=== PATIENT | male | born 1985 | race Caucasian/White ===

== ENCOUNTER 2019-04-07 16:01 | Inpatient (IN) | payer MEDICAID ==
[2019-04-07] MEDS ORDERED: PROVENTIL IH ONE ×2 (16:06→16:17)
[2019-04-07] MEDS ORDERED: ATROVENT IH ONE ×2 (16:06→16:17)
[2019-04-07] MEDS ORDERED: TYLENOL PR PRN (16:17)
[2019-04-07] MEDS ORDERED: VANCOMYCIN 1,250 MG in NACL 0.9% 500 ML 500 ML IV ONE (16:17)
[2019-04-07] MEDS ORDERED: NACL 0.9% 1000 ML 2,000 ML IV ONE (16:17)
--- NOTE | 2019-04-07 16:21 | Emergency Department Report ---
ED General Adult HPI - General Chief complaint: Dyspnea/Respdistress Stated complaint: PAVITHRA Time Seen by Provider: 04/07/19 16:09 Source: patient, family, EMS (verbal report received from EMS.ems notes not available at time of chart dictation), RN notes reviewed Mode of arrival: Stretcher Limitations: Physical Limitation - History of Present Illness Initial comments: This is a 33-year-old gentleman. The patient is not known to this provider previously. He currently does not have a local primary care doctor. 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 Approximately 4-5 weeks ago, he was admitted to [facility] for what family reports was community-acquired pneumonia, complicated by influenza, complicated by difficult intubation. Patient had extensive workup, including a rule out for tuberculosis. He improved and was discharged. Over the past couple days, the patient has been having cough, wheezing, shortness of breath. It has been intermittent, but getting worse. Today, he got profoundly worse. Emergency medical services were contacted. Patient given steroids, albuterol, and magnesium sulfate in the field. In the emergency room, the patient denies physical pain. He admits to shortness of breath. It is constant. It worsens with physical exertion. It decreases with rest and with medication. Patient found to be in acute hypoxemic respiratory failure, started on albuterol, Atrovent, BiPAP therapy, found to have a fever and tachycardia. His symptoms improved with the aforementioned therapy, although he still has labored breathing, and is still fairly tachycardic. -: Gradual, days(s) Consistency: constant Improves with: medication, rest Worsens with: movement - Related Data Home Medications Medication Instructions Recorded Confirmed Last Taken risperiDONE [RisperDAL] 2 mg PO BID 10/19/15 10/19/15 1 Day Ago ~10/18/15 Previous Rx's Medication Instructions Recorded Last Taken Type Ibuprofen [Motrin] 600 mg PO Q8H PRN #40 tablet 04/14/16 Unknown Rx Sulfamethoxazole/Trimethoprim 1 each PO BID #20 tablet 04/14/16 Unknown Rx [Bactrim DS TAB] traMADol [Ultram] 50 mg PO Q6HR PRN #20 tablet 04/14/16 Unknown Rx Allergies Allergy/AdvReac Type Severity Reaction Status Date / Time No Known Allergies Allergy Unverified 08/22/15 15:48 ED Review of Systems ROS: Stated complaint: PAVITHRA Other details as noted in HPI Constitutional: fever, malaise, weakness ENT: congestion Respiratory: cough, shortness of breath, SOB with exertion, SOB at rest, wh eezing Cardiovascular: denies: chest pain Gastrointestinal: denies: abdominal pain Genitourinary: denies: dysuria Musculoskeletal: denies: myalgia Skin: denies: lesions Neurological: weakness Psychiatric: anxiety ED Past Medical Hx - Past Medical History Previous Medical History?: Yes Hx Seizures: Yes Hx Psychiatric Treatment: Yes (depression, schizophrenia) 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 - Surgical History Past Surgical History?: No - Social History Smoking Status: Current Every Day Smoker Substance Use Type: None - Medications Home Medications: Home Medications Medication Instructions Recorded Confirmed Last Taken Type risperiDONE [RisperDAL] 2 mg PO BID 10/19/15 10/19/15 1 Day Ago History ~10/18/15 Ibuprofen [Motrin] 600 mg PO Q8H PRN #40 tablet 04/14/16 Unknown Rx Sulfamethoxazole/Trimethoprim 1 each PO BID #20 tablet 04/14/16 Unknown Rx [Bactrim DS TAB] traMADol [Ultram] 50 mg PO Q6HR PRN #20 tablet 04/14/16 Unknown Rx ED Physical Exam - General Limitations: Physical Limitation General appearance: alert, anxious, in distress - Head Head exam: Present: atraumatic, normocephalic - Eye Eye exam: Present: normal appearance, EOMI. Absent: nystagmus - ENT ENT exam: Present: normal exam, normal orophraynx, mucous membranes moist, normal external ear exam - Neck Neck exam: Present: normal inspection, full ROM. Absent: tenderness, meningismus - Respiratory Respiratory exam: Present: respiratory distress, wheezes, rhonchi, accessory muscle use - Cardiovascular Cardiovascular Exam: Present: normal rhythm, tachycardia, normal heart sounds. Absent: systolic murmur, diastolic murmur, rubs, gallop - GI/Abdominal GI/Abdominal exam: Present: soft. Absent: distended, tenderness, guarding, re bound, rigid, pulsatile mass - Rectal Rectal exam: Present: deferred - Extremities Exam Extremities exam: Present: normal inspection, full ROM, other (2+ pulses noted in the bilateral upper extremities. There is no palpable cord. There is negative Homans sign. Compartments are soft.). Absent: pedal edema, calf tenderness - Back Exam Back exam: Present: normal inspection, full ROM. Absent: tenderness, CVA tenderness (R), CVA tenderness (L), muscle spasm, paraspinal tenderness, vertebral tenderness - Neurological Exam Neurological exam: Present: alert, other (Extraocular movements intact. Tongue midline. No facial droop. Facial sensation intact to light touch in the V1, V2, V3 distribution bilaterally. 5 and 5 strength in 4 extremities.. Sensation is intact to light touch in 4 extremities.). Absent: motor sensory deficit - Psychiatric Psychiatric exam: Present: anxious - Skin Skin exam: Present: warm, dry, intact, normal color. Absent: rash ED Course Vital Signs 04/07/19 04/07/19 04/07/19 16:07 16:10 16:11 Temperature 99.0 F 102.5 F H Pulse Rate 153 H Pulse Rate [ 159 H Anterior Bilateral Throughout] Respiratory 45 H Rate Respiratory 63 H Rate [Anterior Bilateral Throughout] Blood Pressure 147/78 O2 Sat by Pulse 90 Oximetry 04/07/19 04/07/19 04/07/19 16:12 16:29 16:35 Temperature Pulse Rate 155 H Pulse Rate [ 155 H Anterior Bilateral Throughout] Respiratory 66 H Rate Respiratory 60 H Rate [Anterior Bilateral Throughout] Blood Pressure O2 Sat by Pulse 91 91 Oximetry 04/07/19 04/07/19 16:45 17:45 Temperature Pulse Rate 151 H Pulse Rate [ 159 H Anterior Bilateral Throughout] Respiratory 66 H Rate Respiratory 64 H Rate [Anterior Bilateral Throughout] Blood Pressure 144/74 O2 Sat by Pulse 91 Oximetry ED Medical Decision Making - Lab Data Result diagrams: 04/07/19 16:33 04/07/19 16:33 Vital Signs 04/07/19 04/07/19 04/07/19 16:07 16:10 16:11 Temperature 99.0 F 102.5 F H Pulse Rate 153 H Pulse Rate [ 159 H Anterior Bilateral Throughout] Respiratory 45 H Rate Respiratory 63 H Rate [Anterior Bilateral Throughout] Blood Pressure 147/78 O2 Sat by Pulse 90 Oximetry 04/07/19 04/07/19 04/07/19 16:12 16:29 16:35 Temperature Pulse Rate 155 H Pulse Rate [ 155 H Anterior Bilateral Throughout] Respiratory 66 H Rate Respiratory 60 H Rate [Anterior Bilateral Throughout] Blood Pressure O2 Sat by Pulse 91 91 Oximetry 04/07/19 04/07/19 16:45 17:45 Temperature Pulse Rate 151 H Pulse Rate [ 159 H Anterior Bilateral Throughout] Respiratory 66 H Rate Respiratory 64 H Rate [Anterior Bilateral Throughout] Blood Pressure 144/74 O2 Sat by Pulse 91 Oximetry Lab Results 04/07/19 04/07/19 04/07/19 Range/Units 16:33 16:33 16:33 WBC 16.9 H (4.5-11.0) K/mm3 RBC 3.96 (3.65-5.03) M/mm3 Hgb 11.4 L (11.8-15.2) gm/dl Hct 33.5 L (35.5-45.6) % MCV 85 (84-94) fl MCH 29 (28-32) pg MCHC 34 (32-34) % RDW 19.6 H (13.2-15.2) % Plt Count 272 (140-440) K/mm3 [place] % (Auto) Manager In Home Add Manual Diff Complete Total Counted 100 Seg Neuts % (Manual) 75.0 H (40.0-70.0) % Band Neutrophils % 0 % Lymphocytes % (Manual) 9.0 L (13.4-35.0) % Reactive Lymphs % (Man) 0 % Monocytes % (Manual) 16.0 H (0.0-7.3) % Eosinophils % (Manual) 0 (0.0-4.3) % Basophils % (Manual) 0 (0.0-1.8) % Metamyelocytes % 0 % Myelocytes % 0 % Promyelocytes % 0 % Blast Cells % 0 % Nucleated RBC % Not Reportable Seg Neutrophils # Man 12.7 H (1.8-7.7) K/mm3 Band Neutrophils # 0.0 K/mm3 Lymphocytes # (Manual) 1.5 (1.2-5.4) K/mm3 Abs React Lymphs (Man) 0.0 K/mm3 Monocytes # (Manual) 2.7 H (0.0-0.8) K/mm3 Eosinophils # (Manual) 0.0 (0.0-0.4) K/mm3 Basophils # (Manual) 0.0 (0.0-0.1) K/mm3 Metamyelocytes # 0.0 K/mm3 Myelocytes # 0.0 K/mm3 Promyelocytes # 0.0 K/mm3 Blast Cells # 0.0 K/mm3 WBC Morphology Not Reportable Hypersegmented Neuts Not Reportable Hyposegmented Neuts Not Reportable Hypogranular Neuts Not Reportable Smudge Cells Not Reportable Toxic Granulation Not Reportable Toxic Vacuolation Not Reportable Dohle Bodies Not Reportable Pelger-Huet Anomaly Not Reportable Min Rods Not Reportable Platelet Estimate Not Reportable Clumped Platelets Not Reportable Plt Clumps, EDTA Not Reportable Large Platelets Not Reportable Giant Platelets Not Reportable Platelet Satelliting Not Reportable Plt Morphology Comment Not Reportable RBC Morphology Normal Dimorphic RBCs Not Reportable Polychromasia Not Reportable Hypochromasia Not Reportable Poikilocytosis Not Reportable Anisocytosis Not Reportable Microcytosis Not Reportable Macrocytosis Not Reportable Spherocytes Not Reportable Pappenheimer Bodies Not Reportable Sickle Cells Not Reportable Target Cells Not Reportable Tear Drop Cells Not Reportable Ovalocytes Not Reportable Helmet Cells Not Reportable Martinez-[place] Bodies Not Reportable Garita Rings Not Reportable Belia Cells Not Reportable Bite Cells Not Reportable Crenated Cell Not Reportable Elliptocytes Not Reportable Acanthocytes (Spur) Not Reportable Rouleaux Not Reportable Hemoglobin C Crystals Not Reportable Schistocytes Not Reportable Malaria parasites Not Reportable Justin Bodies Not Reportable Hem Pathologist Commnt No PT 14.2 (12.2-14.9) Sec. INR 1.04 (0.87-1.13) APTT 31.9 (24.2-36.6) Sec. POC ABG pH (7.35-7.45) POC ABG pO2 (80-105) POC ABG HCO3 (22-26 mml/L) POC ABG Total CO2 (23-27mmol/L) POC ABG O2 Sat POC ABG Base Excess ((-2) - (+3)mmol/L) FiO2 % Sodium (137-145) mmol/L Potassium (3.6-5.0) mmol/L Chloride (98-107) mmol/L Carbon Dioxide (22-30) mmol/L Anion Gap mmol/L BUN (9-20) mg/dL Creatinine (0.8-1.5) mg/dL Estimated GFR ml/min BUN/Creatinine Ratio % Glucose (75-100) mg/dL Lactic Acid (0.7-2.0) mmol/L Calcium (8.4-10.2) mg/dL Magnesium (1.7-2.3) mg/dL Total Bilirubin (0.1-1.2) mg/dL AST (5-40) units/L ALT (7-56) units/L Alkaline Phosphatase (35-129) units/L Total Creatine Kinase (55-170) units/L Troponin T < 0.010 (0.00-0.029) ng/mL Total Protein (6.3-8.2) g/dL Albumin (3.9-5) g/dL Albumin/Globulin Ratio % 04/07/19 04/07/19 04/07/19 Range/Units 16:33 16:33 16:33 WBC (4.5-11.0) K/mm3 RBC (3.65-5.03) M/mm3 Hgb (11.8-15.2) gm/dl Hct (35.5-45.6) % MCV (84-94) fl MCH (28-32) pg MCHC (32-34) % RDW (13.2-15.2) % Plt Count (140-440) K/mm3 [place] % (Auto) Add Manual Diff Total Counted Seg Neuts % (Manual) (40.0-70.0) % Band Neutrophils % % Lymphocytes % (Manual) (13.4-35.0) % Reactive Lymphs % (Man) % Monocytes % (Manual) (0.0-7.3) % Eosinophils % (Manual) (0.0-4.3) % Basophils % (Manual) (0.0-1.8) % Metamyelocytes % % Myelocytes % % Promyelocytes % % Blast Cells % % Nucleated RBC % Seg Neutrophils # Man (1.8-7.7) K/mm3 Band Neutrophils # K/mm3 Lymphocytes # (Manual) (1.2-5.4) K/mm3 Abs React Lymphs (Man) K/mm3 Monocytes # (Manual) (0.0-0.8) K/mm3 Eosinophils # (Manual) (0.0-0.4) K/mm3 Basophils # (Manual) (0.0-0.1) K/mm3 Metamyelocytes # K/mm3 Myelocytes # K/mm3 Promyelocytes # K/mm3 Blast Cells # K/mm3 WBC Morphology Hypersegmented Neuts Hyposegmented Neuts Hypogranular Neuts Smudge Cells Toxic Granulation Toxic Vacuolation Dohle Bodies Pelger-Huet Anomaly Min Rods Platelet Estimate Clumped Platelets Plt Clumps, EDTA Large Platelets Giant Platelets Platelet Satelliting Plt Morphology Comment RBC Morphology Dimorphic RBCs Polychromasia Hypochromasia Poikilocytosis Anisocytosis Microcytosis Macrocytosis Spherocytes Pappenheimer Bodies Sickle Cells Target Cells Tear Drop Cells Ovalocytes Helmet Cells Martinez-[place] Bodies Garita Rings Belia Cells Bite Cells Crenated Cell Elliptocytes Acanthocytes (Spur) Rouleaux Hemoglobin C Crystals Schistocytes Malaria parasites Justin Bodies Hem Pathologist Commnt PT (12.2-14.9) Sec. INR (0.87-1.13) APTT (24.2-36.6) Sec. POC ABG pH (7.35-7.45) POC ABG pO2 (80-105) POC ABG HCO3 (22-26 mml/L) POC ABG Total CO2 (23-27mmol/L) POC ABG O2 Sat POC ABG Base Excess ((-2) - (+3)mmol/L) FiO2 % Sodium 133 L (137-145) mmol/L Potassium 3.0 L (3.6-5.0) mmol/L Chloride 98.7 (98-107) mmol/L Carbon Dioxide 19 L (22-30) mmol/L Anion Gap 18 mmol/L BUN 3 L (9-20) mg/dL Creatinine 0.8 (0.8-1.5) mg/dL Estimated GFR > 60 ml/min BUN/Creatinine Ratio 4 % Glucose 130 H (75-100) mg/dL Lactic Acid 1.30 (0.7-2.0) mmol/L Calcium 8.2 L (8.4-10.2) mg/dL Magnesium 2.40 H (1.7-2.3) mg/dL Total Bilirubin 0.30 (0.1-1.2) mg/dL AST 43 H (5-40) units/L ALT 22 (7-56) units/L Alkaline Phosphatase 107 (35-129) units/L Total Creatine Kinase 70 (55-170) units/L Troponin T (0.00-0.029) ng/mL Total Protein 6.5 (6.3-8.2) g/dL Albumin 3.0 L (3.9-5) g/dL Albumin/Globulin Ratio 0.9 % 04/07/19 04/07/19 04/07/19 Range/Units 16:35 17:25 17:52 WBC (4.5-11.0) K/mm3 RBC (3.65-5.03) M/mm3 Hgb (11.8-15.2) gm/dl Hct (35.5-45.6) % MCV (84-94) fl MCH (28-32) pg MCHC (32-34) % RDW (13.2-15.2) % Plt Count (140-440) K/mm3 [place] % (Auto) Add Manual Diff Total Counted Seg Neuts % (Manual) (40.0-70.0) % Band Neutrophils % % Lymphocytes % (Manual) (13.4-35.0) % Reactive Lymphs % (Man) % Monocytes % (Manual) (0.0-7.3) % Eosinophils % (Manual) (0.0-4.3) % Basophils % (Manual) (0.0-1.8) % Metamyelocytes % % Myelocytes % % Promyelocytes % % Blast Cells % % Nucleated RBC % Seg Neutrophils # Man (1.8-7.7) K/mm3 Band Neutrophils # K/mm3 Lymphocytes # (Manual) (1.2-5.4) K/mm3 Abs React Lymphs (Man) K/mm3 Monocytes # (Manual) (0.0-0.8) K/mm3 Eosinophils # (Manual) (0.0-0.4) K/mm3 Basophils # (Manual) (0.0-0.1) K/mm3 Metamyelocytes # K/mm3 Myelocytes # K/mm3 Promyelocytes # K/mm3 Blast Cells # K/mm3 WBC Morphology Hypersegmented Neuts Hyposegmented Neuts Hypogranular Neuts Smudge Cells Toxic Granulation Toxic Vacuolation Dohle Bodies Pelger-Huet Anomaly Min Rods Platelet Estimate Clumped Platelets Plt Clumps, EDTA Large Platelets Giant Platelets Platelet Satelliting Plt Morphology Comment RBC Morphology Dimorphic RBCs Polychromasia Hypochromasia Poikilocytosis Anisocytosis Microcytosis Macrocytosis Spherocytes Pappenheimer Bodies Sickle Cells Target Cells Tear Drop Cells Ovalocytes Helmet Cells Martinez-[place] Bodies Garita Rings Belia Cells Bite Cells Crenated Cell Elliptocytes Acanthocytes (Spur) Rouleaux Hemoglobin C Crystals Schistocytes Malaria parasites Justin Bodies Hem Pathologist Commnt PT (12.2-14.9) Sec. INR (0.87-1.13) APTT (24.2-36.6) Sec. POC ABG pH 7.425 7.379 (7.35-7.45) POC ABG pO2 56 L 70 L (80-105) POC ABG HCO3 17.9 16.2 (22-26 mml/L) POC ABG Total CO2 19 17 (23-27mmol/L) POC ABG O2 Sat 90 94 POC ABG Base Excess -7 -9 ((-2) - (+3)mmol/L) FiO2 100 60 % Sodium (137-145) mmol/L Potassium (3.6-5.0) mmol/L Chloride (98-107) mmol/L Carbon Dioxide (22-30) mmol/L Anion Gap mmol/L BUN (9-20) mg/dL Creatinine (0.8-1.5) mg/dL Estimated GFR ml/min BUN/Creatinine Ratio % Glucose (75-100) mg/dL Lactic Acid 1.30 (0.7-2.0) mmol/L Calcium (8.4-10.2) mg/dL Magnesium (1.7-2.3) mg/dL Total Bilirubin (0.1-1.2) mg/dL AST (5-40) units/L ALT (7-56) units/L Alkaline Phosphatase (35-129) units/L Total Creatine Kinase (55-170) units/L Troponin T (0.00-0.029) ng/mL Total Protein (6.3-8.2) g/dL Albumin (3.9-5) g/dL Albumin/Globulin Ratio % - EKG Data -: EKG Interpreted by Me Rate: tachycardia - EKG Data When compared to previous EKG there are: previous EKG unavailable 04/07/19 18:04 Sinus tachycardia, 150 bpm, normal axis, QTC within normal limits, LA interval within normal limits, a true enlargement, motion artifact, no endorsement of chest pain, this is an abnormal EKG, there is no prior for comparison. This EKG is not consistent with ST elevation myocardial infarction. - Radiology Data Radiology results: image reviewed interpreted by me: X-ray of the chest shows hyperinflated lungs, no acute disease otherwise. - Medical Decision Making Differential diagnosis, including but not limited to: Bronchitis, pneumonia, reactive airway disease, sepsis, respiratory failure Assessment and plan: 33-year-old gentleman with sepsis manifested by tachycardia, tachypnea, hypoxemia, fever, leukocytosis, requiring initiation of positive pressure ventilation. The patient's will BE resuscitated according to our sepsis pathway with IV fluids, blood cultures, and targeted antibiotic therapy, as well as bronchodilator therapy. He is given magnesium in the field by EMS, THUS, his hypomagnesemia. I have reevaluated this patient multiple times since initiating him on the aforementioned therapy. He is still tachycardic, but reports that his work of breathing is improved, and he appears somewhat more comfortable. The Hospital physician, Dr. Vaughan, we'll admit the patient to the critical care unit. Contacted our risk adjustment specialist on-call, Dr. Clifford Smalls, who agrees with the aforementioned plan, and indicates her group will be able to follow in consultation. Critical care attestation.: If time is entered above; I have spent that time in minutes in the direct care of this critically ill patient, excluding procedure time. ED Disposition Clinical Impression: SIRS (systemic inflammatory response syndrome) Acute respiratory failure Qualifiers: Respiratory failure complication: unspecified whether with hypoxia or hypercapnia Qualified Code(s): J96.00 - Acute respiratory failure, unspecified whether with hypoxia or hypercapnia Disposition: OP ADMIT IP TO THIS HOSP Is pt being admited?: Yes Does the pt Need Aspirin: No Condition: Critical Referrals: EMELIA LONG MD [Primary Care Provider] - 3-5 Days
[2019-04-07 16:50] LABS: Hematocrit 33.5 % (35.5-45.6); Hemoglobin 11.4 gm/dl (11.8-15.2); Mean Corpuscular HGB Conc 34 % (32-34); Mean Corpuscular Volume 85 fl (84-94); Platelet Count 272 K/mm3 (140-440); Red Blood Count 3.96 M/mm3 (3.65-5.03); Red Cell Distribution Width 19.6 % (13.2-15.2)
[2019-04-07] MEDS ORDERED: VANCOMYCIN PHARMACY TO DOSE IV SCH (17:00)
[2019-04-07] MEDS ORDERED: LEVAQUIN 750MG/150ML 750 MG/150 ML BAG IV SCH (17:00)
[2019-04-07 17:02] LABS: INR 1.04 (0.87-1.13)
[2019-04-07 17:03] LABS: Partial Thromboplastin Time 31.9 Sec. (24.2-36.6)
[2019-04-07] MEDS ORDERED: NACL 0.9% 1000 ML IV ONE (17:05)
[2019-04-07] MEDS ORDERED: SODIUM CHLORIDE FLUSH SYRINGE 10 ML IV PRN (17:05)
[2019-04-07 17:06] LABS: Alanine Aminotransferase 22 units/L (7-56); BUN/Creatinine Ratio 4; Blood Urea Nitrogen 3 mg/dL (9-20); Calcium 8.2 mg/dL (8.4-10.2); Hemolysis Index 2
[2019-04-07] MEDS ORDERED: ULTRAM PO PRN (17:09)
--- NOTE | 2019-04-07 17:10 | History and Physical Report ---
History of Present Illness Chief complaint: I feel sick History of present illness: 33 YO Male with Nicotine Dependence, Seizure Disorder, Depression, Schizophrenia, AT3 Disorder(Antitrypsin 3 Deficiency) presents to ED for evaluation. Pt reports shortness of breath, wheezing and nonproductive cough over the past 3 weeks, with worsening symptoms over the past 4 days with progressively worsening symptoms over the same time frame. Pt denies relief with increased nebulizer therapy. Pt acknowledges dypsnea at rest, as well as dypsnea with exertion. EMS notified and upon arrival the patient was found to have respiratory distress, and transported to [facility]. Pt seen and evaluated in ED and found to have Acute Hypoxemic Respiratory Failure and placed on NIPPV. Pt has decreased verbalization due to shortness of breath. No reports of fever, chills, CP, Palpitations, NVD, Trauma, unintentional weight loss, night sweats, prolonged travel/immobility, Individual/family hstory of DVT/PE, skin rash, recent foreign travel, exposure to asthma triggers. Pt admitted to ICU and treated with empiric IV antibiotic therapy and supplemental ventilation. Pulmonary team consulted in ED. Past History Past Medical History: seizures, other (Nicotine Dependence, AT 3 Disorder,Depression, Schizophrenia) Past Surgical History: No surgical history, Other (reviewed) Social history: single, lives with family, smoking. denies: alcohol abuse, prescription drug abuse, IV drug use Family history: no significant family history (UTO) Medications and Allergies Allergies Allergy/AdvReac Type Severity Reaction Status Date / Time No Known Allergies Allergy Unverified 08/22/15 15:48 Home Medications Medication Instructions Recorded Confirmed Last Taken Type risperiDONE [RisperDAL] 2 mg PO BID 10/19/15 04/08/19 04/08/19 History Ibuprofen [Motrin] 600 mg PO Q8H PRN #40 tablet 04/14/16 04/08/19 04/07/19 08:00 Rx Sulfamethoxazole/Trimethoprim 1 each PO BID #20 tablet 04/14/16 04/08/19 04/07/19 06:00 Rx [Bactrim DS TAB] 50 traMADol [Ultram] 50 mg PO Q6HR PRN #20 tablet 04/14/16 04/08/19 Unknown Rx Active Meds: Active Medications Acetaminophen (Tylenol) 650 mg [place] Q4H PRN PRN Reason: Pain, Mild (1-3) Last Admin: 04/07/19 16:42 Dose: 650 mg Documented by: Vancomycin HCl 1,250 mg/ (Sodium Chloride) 525 mls @ 333 mls/hr IV ONCE ONE; Protocol Stop: 04/07/19 17:51 Levofloxacin/Dextrose (Levaquin 750mg/150ml) 750 mg in 150 mls @ 100 mls/hr IV NOW PACO; Protocol Last Admin: 04/07/19 16:54 Dose: 100 mls/hr Documented by: Miscellaneous Medication (Risperidone [Risperdal]) 2 mg PO BID PACO Sodium Chloride (Nacl 0.9% 1000 Ml) 1,750 ml 30 ml/kg (1750 ml) IV ONCE ONE Stop: 04/07/19 17:06 Sodium Chloride (Sodium Chloride Flush Syringe 10 Ml) 10 ml IV BID PACO Sodium Chloride (Sodium Chloride Flush Syringe 10 Ml) 10 ml IV PRN PRN PRN Reason: LINE FLUSH Tramadol HCl (Ultram) 50 mg PO Q6HR PRN PRN Reason: Pain Review of Systems Constitutional: no weight loss, no weight gain, no fever, no chills Ears, nose, mouth and throat: no ear pain, no ear discharge, no decreased hearing, no nose pain Cardiovascular: no chest pain, no orthopnea, no palpitations, no rapid/irregular heart beat Respiratory: cough, cough with sputum, shortness of breath, dyspnea on exertion, wheezing, respiratory infections, no hemoptysis, no pain on inspiration Gastrointestinal: other, no nausea, no vomiting, no constipation Genitourinary Male: no hematuria, no flank pain, no discharge, no urinary hesitancy Rectal: no pain, no incontinence, no bleeding Musculoskeletal: no neck stiffness, no neck pain, no shooting arm pain, no arm numbness/tingling Integumentary: no rash, no pruritis, no redness, no sores, no wounds Neurological: no transient paralysis, no paralysis, no weakness, no parathesias, no numbness Psychiatric: no anxiety, no sleep disturbances, no insomnia, no hypersomnia, no change in libido Endocrine: no cold intolerance, no excessive thirst, no polydipsia, no polyuria Hematologic/Lymphatic: no easy bruising, no easy bleeding Allergic/Immunologic: no urticaria, no allergic rhinitis, no wheezing Exam - Constitutional Vitals: Temp Pulse Resp BP Pulse Ox 102.5 F H 159 H 64 H 147/78 91 04/07/19 16:11 04/07/19 16:45 04/07/19 16:45 04/07/19 16:07 04/07/19 16:29 General appearance: Present: severe distress, disheveled - EENT Eyes: Present: PERRL ENT: hearing intact, clear oral mucosa - Neck Neck: Present: supple, normal ROM - Respiratory Respiratory effort: labored, pursed lips, accessory muscle use Respiratory: bilateral: diminished, wheezing - Cardiovascular Heart Sounds: Present: S1 & S2. Absent: rub, click - Extremities Extremities: pulses symmetrical, No edema Peripheral Pulses: within normal limits - Abdominal General gastrointestinal: Present: soft, non-tender, non-distended, normal bowel sounds Male genitourinary: Present: normal - Integumentary Integumentary: Present: clear, warm, dry - Musculoskeletal Musculoskeletal: generalized weakness - Psychiatric Psychiatric: appropriate mood/affect, intact judgment & insight - Neurologic Neurologic: CNII-XII intact, moves all extremities Results - Labs CBC & Chem 7: 04/07/19 16:33 04/07/19 16:33 Labs: Abnormal lab results 04/07/19 04/07/19 04/07/19 Range/Units 16:33 16:33 16:33 WBC 16.9 H (4.5-11.0) K/mm3 Hgb 11.4 L (11.8-15.2) gm/dl Hct 33.5 L (35.5-45.6) % RDW 19.6 H (13.2-15.2) % POC ABG pO2 (80-105) Sodium 133 L (137-145) mmol/L Potassium 3.0 L (3.6-5.0) mmol/L Carbon Dioxide 19 L (22-30) mmol/L BUN 3 L (9-20) mg/dL Glucose 130 H (75-100) mg/dL Calcium 8.2 L (8.4-10.2) mg/dL Magnesium 2.40 H (1.7-2.3) mg/dL AST 43 H (5-40) units/L Albumin 3.0 L (3.9-5) g/dL 04/07/19 Range/Units 16:35 WBC (4.5-11.0) K/mm3 Hgb (11.8-15.2) gm/dl Hct (35.5-45.6) % RDW (13.2-15.2) % POC ABG pO2 56 L (80-105) Sodium (137-145) mmol/L Potassium (3.6-5.0) mmol/L Carbon Dioxide (22-30) mmol/L BUN (9-20) mg/dL Glucose (75-100) mg/dL Calcium (8.4-10.2) mg/dL Magnesium (1.7-2.3) mg/dL AST (5-40) units/L Albumin (3.9-5) g/dL Assessment and Plan - Patient Problems (1) Acute respiratory failure Current Visit: Yes Status: Acute Qualifiers: Respiratory failure complication: unspecified whether with hypoxia or hypercapnia Qualified Code(s): J96.00 - Acute respiratory failure, unspecified whether with hypoxia or hypercapnia Plan to address problem: Admit patient to ICU, NIPPV, Pulmonary team consulted in ED, Chest x ray, ABG, supplemental oxygen, nebulizer therapy, CT Angio chest, repeat abg in am as clinically indicated, The high probability of a clinically significant, sudden or life threatening deterioration of the [respiratory, neuro,endocrine] system(s) required my full and direct attention, intervention and personal management. The aggregate cri tical care time was [65] minutes. This time is in addition to time spent performing reported procedures but includes the following: [x] Data Review and interpretation [x] Patient assessment and monitoring of vital signs [x] Documentation [x] Medication orders and management (2) Acidosis Current Visit: Yes Status: Acute Plan to address problem: IVF resuscitatioin therapy, serial lactic acid level, repeat bmp in am. (3) Hyponatremia Current Visit: Yes Status: Acute Plan to address problem: IVF resuscitation therapy, repeat bmp in am. (4) SIRS (systemic inflammatory response syndrome) Current Visit: Yes Status: Acute Plan to address problem: IV antibiotic therapy, IVF resuscitation therapy, CBC, CMP, Chest x ray, urinalysis, empiric antibiotic therapy, (5) DVT prophylaxis Current Visit: Yes Status: Acute Plan to address problem: SCD to BLE while in bed, prophylactic lovenox
[2019-04-07 17:53] LABS: Basophils % (Manual) 0 % (0.0-1.8); Eosinophils % (Manual) 0 % (0.0-4.3); RBC Morphology Normal; Total Cells Counted 100
[2019-04-07] MEDS ORDERED: ATIVAN ONE ×2 (17:55→22:15)
[2019-04-07] MEDS ORDERED: VANCOMYCIN 1,250 MG in NACL 0.9% 250ML 250 ML IV ONE (18:00)
[2019-04-07] MEDS ORDERED: ATIVAN IV ONE ×2 (18:01→22:15)
[2019-04-07] MEDS: KCL 10MEQ/100ML 10 MEQ/100 ML BAG IV SCH ×2 (18:02→19:19)
--- NOTE | 2019-04-07 18:14 | XRay Report ---
PROCEDURE: XR CHEST 1V AP TECHNIQUE: Chest radiograph single view. HISTORY: sepsis respdistress COMPARISONS: None . FINDINGS: Single frontal view of the chest was acquired. The heart is normal in size. There is no con solidative pulmonary infiltrate. The pulmonary vasculature is within normal limits. IMPRESSION: No active disease in the chest This document is electronically signed by Gagandeep Quiroz MD., April 07 2019 06:12:53 PM ET
[2019-04-07] MEDS ORDERED: NON-FORMULARY (Risperidone [Risperdal] 2 MG) PO SCH (22:00)
[2019-04-07] MEDS ORDERED: LOPRESSOR IV ONE ×2 (22:15)
[2019-04-08] MEDS: RisperDAL PO SCH ×3 (03:31→21:20)
[2019-04-08] MEDS: SODIUM CHLORIDE FLUSH SYRINGE 10 ML IV SCH ×5 (03:32→21:21)
[2019-04-08 03:56] LABS: Bilirubin,Urine Negative (Negative); Blood,Urine Small (Negative); Color,Urine Straw (Yellow); Protein,Urine <15 mg/dL mg/dL (Negative)
[2019-04-08 03:57] LABS: Urobilinogen,Urine < 0.2 mg/dL (<2.0); WBC,Urine < 1.0 /HPF (0.0-6.0)
[2019-04-08] MEDS ORDERED: VANCOMYCIN 750 MG in NACL 0.9% 250ML 250 ML IV SCH (08:00)
[2019-04-08] MEDS ORDERED: VANCOMYCIN PHARMACY TO DOSE IV SCH (08:00)
[2019-04-08] MEDS ORDERED: LEVAQUIN 750MG/150ML 750 MG/150 ML BAG IV SCH (10:00)
[2019-04-08] MEDS ORDERED: NACL 0.9% 500 ML 500 ML ONE (10:04)
[2019-04-08] MEDS: VANCOMYCIN 750 MG in NACL 0.9% 250ML 250 ML IV SCH ×2 (10:42→23:08)
--- NOTE | 2019-04-08 13:20 | Progress Note ---
Assessment and Plan Assessment and plan: (1) Acute respiratory failure/sepsis/pneumonia Admit patient to ICU, NIPPV, Pulmonary team consulted in ED, Chest x ray, ABG, supplemental oxygen, nebulizer therapy, CT Angio chest, repeat abg in am as clinically indicated, Pulmonology input appreciated, the patient is too unstable for CTA at this time. Obtain echo lower extremity Dopplers. Therapeutic anticoagulation until PE is ruled out, smoking cessation counseling, nicotine patches. ID consult appreciated, continue antibiotics, follow-up Legionella and pneumococcal urine antigen (2) Respiratory Acidosis Improving, continue BiPAP (3) Hyponatremia IVF resuscitation therapy, repeat bmp in am. DVT prophylaxis SCD to BLE while in bed, prophylactic lovenox The high probability of a clinically significant, sudden or life threatening deterioration of the [respiratory, neuro,endocrine] system(s) required my full and direct attention, intervention and personal management. The aggregate critical care time was [65] minutes. This time is in addition to time spent performing reported procedures but includes the following: [x] Data Review and interpretation [x] Patient assessment and monitoring of vital signs [x] Documentation [x] Medication orders and management History Interval history: Aspirin nursing staff, patient has been agitated, has had episodes of tachycardia and hypoxia. He has been BiPAP dependent No fevers, Hospitalist Physical - Physical exam Narrative exam: General.: Appears well, no distress, nontoxic HEENT: Moist mucous membranes, extraocular muscles intact, no lymphadenopathy Neck: supple Cardiac: S1-S2 heard Lungs: Diminished air entry Abdomen: soft , nontender, nondistended, bowel sounds positive Extremities: no edema clubbing or cyanosis Skin: no rash or lesions Neurologic: Moves all extremities, patient has been agitated Psych: calm, and cooperative - Constitutional Vitals: Temp Pulse Resp BP Pulse Ox 98.5 F 100 H 34 H 133/95 95 04/08/19 12:00 04/08/19 04:06 04/08/19 04:06 04/08/19 04:06 04/08/19 04:06 General appearance: Present: severe distress, disheveled Results - Labs CBC & Chem 7: 04/18/19 05:31 04/18/19 05:31 Labs: Laboratory Last Values WBC 16.9 K/mm3 (4.5-11.0) H 04/07/19 16:33 RBC 3.96 M/mm3 (3.65-5.03) 04/07/19 16:33 Hgb 11.4 gm/dl (11.8-15.2) L 04/07/19 16:33 Hct 33.5 % (35.5-45.6) L 04/07/19 16:33 MCV 85 fl (84-94) 04/07/19 16:33 MCH 29 pg (28-32) 04/07/19 16:33 MCHC 34 % (32-34) 04/07/19 16:33 RDW 19.6 % (13.2-15.2) H 04/07/19 16:33 Plt Count 272 K/mm3 (140-440) 04/07/19 16:33 Tucker % (Auto) Research Consultant 04/07/19 16:33 Add Manual Diff Complete 04/07/19 16:33 Total Counted 100 04/07/19 16:33 Seg Neuts % (Manual) 75.0 % (40.0-70.0) H 04/07/19 16:33 0 % 04/07/19 16:33 9.0 % (13.4-35.0) L 04/07/19 16:33 Reactive Lymphs % (Man) 0 % 04/07/19 16:33 16.0 % (0.0-7.3) H 04/07/19 16:33 0 % (0.0-4.3) 04/07/19 16:33 0 % (0.0-1.8) 04/07/19 16:33 0 % 04/07/19 16:33 0 % 04/07/19 16:33 0 % 04/07/19 16:33 0 % 04/07/19 16:33 Nucleated RBC % Not Reportable 04/07/19 16:33 Seg Neutrophils # Man 12.7 K/mm3 (1.8-7.7) H 04/07/19 16:33 Band Neutrophils # 0.0 K/mm3 04/07/19 16:33 1.5 K/mm3 (1.2-5.4) 04/07/19 16:33 Abs React Lymphs (Man) 0.0 K/mm3 04/07/19 16:33 2.7 K/mm3 (0.0-0.8) H 04/07/19 16:33 0.0 K/mm3 (0.0-0.4) 04/07/19 16:33 0.0 K/mm3 (0.0-0.1) 04/07/19 16:33 0.0 K/mm3 04/07/19 16:33 0.0 K/mm3 04/07/19 16:33 0.0 K/mm3 04/07/19 16:33 Blast Cells # 0.0 K/mm3 04/07/19 16:33 WBC Morphology Not Reportable 04/07/19 16:33 Hypersegmented Neuts Not Reportable 04/07/19 16:33 Hyposegmented Neuts Not Reportable 04/07/19 16:33 Hypogranular Neuts Not Reportable 04/07/19 16:33 Not Reportable 04/07/19 16:33 Not Reportable 04/07/19 16:33 Not Reportable 04/07/19 16:33 Not Reportable 04/07/19 16:33 Not Reportable 04/07/19 16:33 Not Reportable 04/07/19 16:33 Not Reportable 04/07/19 16:33 Not Reportable 04/07/19 16:33 Plt Clumps, EDTA Not Reportable 04/07/19 16:33 Not Reportable 04/07/19 16:33 Not Reportable 04/07/19 16:33 Not Reportable 04/07/19 16:33 Plt Morphology Comment Not Reportable 04/07/19 16:33 RBC Morphology Normal 04/07/19 16:33 Dimorphic RBCs Not Reportable 04/07/19 16:33 Not Reportable 04/07/19 16:33 Not Reportable 04/07/19 16:33 Not Reportable 04/07/19 16:33 Not Reportable 04/07/19 16:33 Not Reportable 04/07/19 16:33 Not Reportable 04/07/19 16:33 Not Reportable 04/07/19 16:33 Not Reportable 04/07/19 16:33 Not Reportable 04/07/19 16:33 Not Reportable 04/07/19 16:33 Not Reportable 04/07/19 16:33 Not Reportable 04/07/19 16:33 Not Reportable 04/07/19 16:33 Not Reportable 04/07/19 16:33 Not Reportable 04/07/19 16:33 Not Reportable 04/07/19 16:33 Not Reportable 04/07/19 16:33 Not Reportable 04/07/19 16:33 Not Reportable 04/07/19 16:33 Acanthocytes (Spur) Not Reportable 04/07/19 16:33 Rouleaux Not Reportable 04/07/19 16:33 Not Reportable 04/07/19 16:33 Not Reportable 04/07/19 16:33 Not Reportable 04/07/19 16:33 Not Reportable 04/07/19 16:33 Hem Pathologist Commnt No 04/07/19 16:33 PT 14.2 Sec. (12.2-14.9) 04/07/19 16:33 INR 1.04 (0.87-1.13) 04/07/19 16:33 APTT 31.9 Sec. (24.2-36.6) 04/07/19 16:33 POC ABG pH 7.379 (7.35-7.45) 04/07/19 17:52 POC ABG pO2 70 (80-105) L 04/07/19 17:52 POC ABG HCO3 16.2 (22-26 mml/L) 04/07/19 17:52 POC ABG Total CO2 17 (23-27mmol/L) 04/07/19 17:52 POC ABG O2 Sat 94 04/07/19 17:52 POC ABG Base Excess -9 ((-2) - (+3)mmol/L) 04/07/19 17:52 60 % 04/07/19 17:52 Sodium 133 mmol/L (137-145) L 04/07/19 16:33 Potassium 3.0 mmol/L (3.6-5.0) L 04/07/19 16:33 Chloride 98.7 mmol/L (98-107) 04/07/19 16:33 Carbon Dioxide 19 mmol/L (22-30) L 04/07/19 16:33 18 mmol/L 04/07/19 16:33 BUN 3 mg/dL (9-20) L 04/07/19 16:33 0.8 mg/dL (0.8-1.5) 04/07/19 16:33 Estimated GFR > 60 ml/min 04/07/19 16:33 4 % 04/07/19 16:33 Glucose 130 mg/dL (75-100) H 04/07/19 16:33 Lactic Acid 0.70 mmol/L (0.7-2.0) 04/08/19 08:30 Calcium 8.2 mg/dL (8.4-10.2) L 04/07/19 16:33 Magnesium 2.40 mg/dL (1.7-2.3) H 04/07/19 16:33 0.30 mg/dL (0.1-1.2) 04/07/19 16:33 AST 43 units/L (5-40) H 04/07/19 16:33 ALT 22 units/L (7-56) 04/07/19 16:33 107 units/L (35-129) 04/07/19 16:33 70 units/L (55-170) 04/07/19 16:33 < 0.010 ng/mL (0.00-0.029) 04/07/19 16:33 6.5 g/dL (6.3-8.2) 04/07/19 16:33 3.0 g/dL (3.9-5) L 04/07/19 16:33 0.9 % 04/07/19 16:33 Straw (Yellow) 04/07/19 20:00 Clear (Clear) 04/07/19 20:00 6.0 (5.0-7.0) 04/07/19 20:00 Ur Specific Fate 1.003 (1.003-1.030) 04/07/19 20:00 <15 mg/dl mg/dL (Negative) 04/07/19 20:00 50 mg/dL (Negative) 04/07/19 20:00 Negative mg/dL (Negative) 04/07/19 20:00 Small (Negative) A 04/07/19 20:00 Negative (Negative) 04/07/19 20:00 Negative (Negative) 04/07/19 20:00 < 0.2 mg/dL (<2.0) 04/07/19 20:00 Ur Leukocyte Esterase Negative (Negative) 04/07/19 20:00 < 1.0 /HPF (0.0-6.0) 04/07/19 20:00 1.0 /HPF (0.0-6.0) 04/07/19 20:00 HIV 1&2 Antibody Rapid Non react (Non React) 04/07/19 17:25 Non react (Non React) 04/07/19 17:25 Active Medications - Current Medications Current Medications: Generic Name Dose Route Start Last Admin Trade Name Freq PRN Reason Stop Dose Admin Acetaminophen 650 mg 04/07/19 16:17 04/07/19 16:42 Tylenol IA 650 mg Q4H PRN Administration Pain, Mild (1-3) Amlodipine Besylate 5 mg 04/08/19 14:00 Norvasc PO QDAY PACO Enoxaparin Sodium 60 mg 04/08/19 14:00 Lovenox SUB-Q Q12HR PACO Fluoxetine HCl 40 mg 04/08/19 14:00 Prozac PO QDAY PACO Levofloxacin/Dextrose 750 mg in 150 mls @ 100 mls/hr 04/08/19 10:00 04/08/19 12:33 Levaquin 750mg/150ml IV 100 mls/hr DAILY PACO Administration Protocol Vancomycin HCl 750 mg/ Sodium 265 mls @ 166.667 mls/hr 04/08/19 10:00 04/08/19 10:42 Chloride IV 166.667 mls/hr Q12H PACO Administration Quetiapine Fumarate 300 mg 04/08/19 22:00 Seroquel PO QHS PACO Risperidone 2 mg 04/07/19 22:00 04/08/19 10:28 Risperdal PO 2 mg BID PACO Administration Sodium Chloride 10 ml 04/07/19 22:00 04/08/19 10:29 Sodium Chloride Flush Syringe 10 Ml IV 10 ml BID PACO Administration Sodium Chloride 10 ml 04/07/19 17:05 Sodium Chloride Flush Syringe 10 Ml IV PRN PRN LINE FLUSH Tramadol HCl 50 mg 04/07/19 17:09 Ultram PO Q6HR PRN Pain
[2019-04-08] MEDS: LOVENOX SUB-Q SCH ×2 (13:30→21:20)
[2019-04-08] MEDS: PROzac PO SCH (13:31)
[2019-04-08] MEDS: NORVASC PO SCH (13:31)
[2019-04-08] MEDS ORDERED: TYLENOL ONE (14:21)
--- NOTE | 2019-04-08 14:53 | Consultation ---
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 Patient was found to be in acute hypoxic respiratory failure, placed on noninvasive ventilation, started on levofloxacin and vancomycin. He had a fever of 102.5F on admission. Has been afebrile since then. Labs show neutrophilic leukocytosis, mild hyponatremia, mild AST elevation with normal renal function. Of note, patient was hospitalized on 02/18/2019 at [facility] with acute respiratory failure, sepsis, bilateral cavitary pneumonia (TB was ruled out) and discharged on 02/27/2019. He was found to be influenza A positive, treated with Tamiflu. He also required intubation and mechanical ventilation and was treated with empiric antibiotics. He was discharged on oral Ceftin and doxycycline for 5 days along with a prednisone taper. History obtained by chart review and speak ing to his family including mother at bedside. Review of Systems: General: fever HEENT: no new visual disturbance Respiratory: + for cough, sob Cardiovascular: No chest pain, syncope Gastrointestinal: No nausea, vomiting or diarrhea Genitourinary: No dysuria or hematuria Musculoskeletal: No new or worsening neck pain or back pain Neurologic: No headaches, seizures Hematologic: No easy bruising or bleeding Endocrine: No night sweats or acute weight loss Skin: negative for rash, jaundice Psychiatric: No suicidal or homicidal ideation Past History Past Medical History: seizures, other (Nicotine Dependence, AT 3 Disorder,Depres adonis, Schizophrenia) Past Surgical History: No surgical history, Other (reviewed) Social history: single, lives with family, smoking. denies: alcohol abuse, prescription drug abuse, IV drug use Family history: no significant family history (UTO) Medications and Allergies Allergies Allergy/AdvReac Type Severity Reaction Status Date / Time No Known Allergies Allergy Unverified 08/22/15 15:48 Home Medications Medication Instructions Recorded Confirmed Last Taken Type risperiDONE [RisperDAL] 2 mg PO BID 10/19/15 04/08/19 04/08/19 History Ibuprofen [Motrin] 600 mg PO Q8H PRN #40 tablet 04/14/16 04/08/19 04/07/19 08:00 Rx Sulfamethoxazole/Trimethoprim 1 each PO BID #20 tablet 04/14/16 04/08/19 04/07/19 06:00 Rx [Bactrim DS TAB] 50 traMADol [Ultram] 50 mg PO Q6HR PRN #20 tablet 04/14/16 04/08/19 Unknown Rx Active Meds: Active Medications Acetaminophen (Tylenol) 650 mg [place] Q4H PRN PRN Reason: Pain, Mild (1-3) Last Admin: 04/07/19 16:42 Dose: 650 mg Documented by: Amlodipine Besylate (Norvasc) 5 mg PO QDAY [facility] Last Admin: 04/08/19 13:31 Dose: 5 mg Documented by: Enoxaparin Sodium (Lovenox) 60 mg SUB-Q Q12HR [facility] Last Admin: 04/08/19 13:30 Dose: 60 mg Documented by: Fluoxetine HCl (Prozac) 40 mg PO QDAY [facility] Last Admin: 04/08/19 13:31 Dose: 40 mg Documented by: Levofloxacin/Dextrose (Levaquin 750mg/150ml) 750 mg in 150 mls @ 100 mls/hr IV DAILY [facility]; Protocol Last Admin: 04/08/19 12:33 Dose: 100 mls/hr Documented by: Vancomycin HCl 750 mg/ Sodium (Chloride) 265 mls @ 166.667 mls/hr IV Q12H [facility] Last Admin: 04/08/19 10:42 Dose: 166.667 mls/hr Documented by: Quetiapine Fumarate (Seroquel) 300 mg PO QHS [facility] Risperidone (Risperdal) 2 mg PO BID [facility] Last Admin: 04/08/19 10:28 Dose: 2 mg Documented by: Sodium Chloride (Sodium Chloride Flush Syringe 10 Ml) 10 ml IV BID [facility] Last Admin: 04/08/19 10:29 Dose: 10 ml Documented by: Sodium Chloride (Sodium Chloride Flush Syringe 10 Ml) 10 ml IV PRN PRN PRN Reason: LINE FLUSH Tramadol HCl (Ultram) 50 mg PO Q6HR PRN PRN Reason: Pain Physical Examination - Physical Exam Narrative exam: Physical Exam: Constitutional: Alert, cooperative. Resp distress + Head, Ears, Nose: Normocephalic, atraumatic. External ears, nose normal Eyes: Conjunctivae/corneas clear. No icterus. No ptosis. Neck: Supple, no meningeal signs Oral: BiPAP Cardiovascular: S1, S2 normal. Respiratory: diffuse rhonchi bilaterally GI: Soft, non-tender; bowel sounds normal. No peritoneal signs Musculoskeletal: No pedal edema, no cyanosis. Skin: No rash or abscess Hem/Lymphatic: No palpable cervical or supraclavicular nodes. No lymphangitis Psych: Mood ok. Affect normal Neurological: Awake, alert, oriented. No gross abnormality - Constitutional Vitals: Vital Signs Temp Pulse Resp BP Pulse Ox 98.5 F 100 H 14 146/86 96 04/08/19 12:00 04/08/19 12:00 04/08/19 12:00 04/08/19 12:00 04/08/19 12:00 Temperature -Last 24 Hours Temperature 98.5 F Temperature 98.0 F Temperature 98.8 F Temperature 98.8 F Temperature 99.0 F Temperature 98.4 F Temperature 102.5 F Temperature 99.0 F Results - Labs CBC & Chem 7: 04/07/19 16:33 04/07/19 16:33 Labs: Abnormal lab results 04/07/19 04/07/19 04/07/19 Range/Units 16:33 16:33 16:33 WBC 16.9 H (4.5-11.0) K/mm3 Hgb 11.4 L (11.8-15.2) gm/dl Hct 33.5 L (35.5-45.6) % RDW 19.6 H (13.2-15.2) % Seg Neuts % (Manual) 75.0 H (40.0-70.0) % Lymphocytes % (Manual) 9.0 L (13.4-35.0) % Monocytes % (Manual) 16.0 H (0.0-7.3) % Seg Neutrophils # Man 12.7 H (1.8-7.7) K/mm3 Monocytes # (Manual) 2.7 H (0.0-0.8) K/mm3 POC ABG pO2 (80-105) Sodium 133 L (137-145) mmol/L Potassium 3.0 L (3.6-5.0) mmol/L Carbon Dioxide 19 L (22-30) mmol/L BUN 3 L (9-20) mg/dL Glucose 130 H (75-100) mg/dL Calcium 8.2 L (8.4-10.2) mg/dL Magnesium 2.40 H (1.7-2.3) mg/dL AST 43 H (5-40) units/L Albumin 3.0 L (3.9-5) g/dL Urine Blood (Negative) 04/07/19 04/07/19 04/07/19 Range/Units 16:35 17:52 20:00 WBC (4.5-11.0) K/mm3 Hgb (11.8-15.2) gm/dl Hct (35.5-45.6) % RDW (13.2-15.2) % Seg Neuts % (Manual) (40.0-70.0) % Lymphocytes % (Manual) (13.4-35.0) % Monocytes % (Manual) (0.0-7.3) % Seg Neutrophils # Man (1.8-7.7) K/mm3 Monocytes # (Manual) (0.0-0.8) K/mm3 POC ABG pO2 56 L 70 L (80-105) Sodium (137-145) mmol/L Potassium (3.6-5.0) mmol/L Carbon Dioxide (22-30) mmol/L BUN (9-20) mg/dL Glucose (75-100) mg/dL Calcium (8.4-10.2) mg/dL Magnesium (1.7-2.3) mg/dL AST (5-40) units/L Albumin (3.9-5) g/dL Urine Blood Small A (Negative) - Imaging and Cardiology Chest x-ray: report reviewed, image reviewed (Chest x-ray shows a prominent interstitial pattern.) Assessment and Plan Cultures: 04/07/2019 blood culture: In process A/P: 33-year-old male with tobacco abuse, seizure disorder, depression, schizophrenia, antitrypsin deficiency (patient and mother not sure of this diagnosis), 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 Now admitted with: 1) Sepsis, bilateral pneumonia, acute respiratory failure: cover for possible HCAP. Chest x-ray shows a prominent interstitial pattern. Hence, also cover for atypicals. 2) Tobacco abuse Recs: discontinued Levofloxacin started IV Cefepime and Azithromycin continue IV Vancomycin, target trough: 10-20 mcg/ml ordered legionella and pneumococcal urine antigens D/W Dr. Jennifer Green MD [facility] C: [phone] O: [phone] F: [phone]
[2019-04-08 15:10] LABS: Hematocrit 33.3 % (35.5-45.6); Hemoglobin 11.1 gm/dl (11.8-15.2); Mean Corpuscular HGB Conc 33 % (32-34); Mean Corpuscular Volume 86 fl (84-94); Platelet Count 304 K/mm3 (140-440); Red Blood Count 3.86 M/mm3 (3.65-5.03)
[2019-04-08 15:25] LABS: BUN/Creatinine Ratio 10; Blood Urea Nitrogen 7 mg/dL (9-20); Calcium 8.9 mg/dL (8.4-10.2); Hemolysis Index 36
[2019-04-08] MEDS ORDERED: ATIVAN ONE ×2 (15:25→16:05)
[2019-04-08 16:01] LABS: Basophils % (Manual) 0 % (0.0-1.8); Eosinophils % (Manual) 0 % (0.0-4.3); Myelocytes # (Manual) 0.7 K/mm3; Total Cells Counted 100
[2019-04-08 16:02] LABS: Anisocytosis 1+
--- NOTE | 2019-04-08 16:02 | Vascular Lab Report ---
PROCEDURE: US BILATERAL LOWER EXTREMITY VENOUS DUPLEX DOPPLER TECHNIQUE: Duplex Doppler ultrasound of the BILATERAL common and superficial femoral, popliteal, pos terior tibial and proximal deep femoral and greater saphenous veins was attempted. St scale imaging with and without compression, spectral waveform analysis with and without augmentation, and color fl ow Doppler were employed. CPT 18222 HISTORY: Respiratory failure. Evaluate pulmonary embolus and deep venous thrombosis. COMPARISONS: None . FINDINGS: RIGHT LOWER EXTREMITY: Deep Venous Thrombus: None . Superficial Venous Thrombus: None . Venous valvular incompetence: None . Soft tissue abnormality: None . Other: None . LEFT LOWER EXTREMITY: Deep Venous Thrombus: None . Superficial Venous Thrombus: None . Venous valvular incompetence: None . Soft tissue abnormality: None . Other: None . IMPRESSION: No evidence of deep venous thrombosis . This document is electronically signed by Aries Watson MD., April 08 2019 04:00:45 PM ET
[2019-04-08] MEDS: MAXIPIME/NS 1 GM/100 ML 1 GM/100 ML BAG IV SCH ×2 (16:15→23:17)
[2019-04-08] MEDS: ZITHROMAX 500 MG in NACL 0.9% 250ML 250 ML IV SCH (17:15)
[2019-04-08] MEDS ORDERED: LOVENOX SUB-Q SCH (22:00)
[2019-04-09] MEDS: MAXIPIME/NS 1 GM/100 ML 1 GM/100 ML BAG IV SCH ×3 (06:20→22:10)
--- NOTE | 2019-04-09 06:26 | Consultation ---
History of Present Illness Consult date: 04/08/19 Requesting physician: LASHONDA RODRIGUEZ Reason for consult: hypoxemia, other (Acute hypoxic respiratory failure, dyspnea) History of present illness: HISTORY DOCUMENTED IN ed 33 YO Male with Nicotine Dependence, Seizure Disorder, Depression, Schizophrenia, AT3 Disorder(Antitrypsin 3 Deficiency) presents to ED for ev aluation. Pt reports shortness of breath, wheezing and nonproductive cough over the past 3 weeks, with worsening symptoms over the past 4 days with progressively worsening symptoms over the same time frame. Patient denies relief with increased nebulizer therapy. Pt acknowledges dypsnea at rest, as well as dypsnea with exertion. EMS notified and upon arrival the patient was found to have respiratory distress, and transported to [facility]. Pt seen and evaluated in ED and found to have Acute Hypoxemic Respiratory Failure and placed on NIPPV. Pt has decreased verbalization due to shortness of breath. No reports of fever, chills, CP, Palpitations, NVD, Trauma, unintentional weight loss, night sweats, prolonged travel/immobility, Individual/family hstory of DVT/PE, skin rash, recent foreign travel, exposure to asthma triggers. Pt admitted to ICU and treated with empiric IV antibiotic therapy and supplemental ventilation. I have been consulted for critical care management. At the time of my visit the patient was on NIPPV, tachypneic but appears comfortable. His parents are at the bedside, giving some additional history. He had high grade fevers over night He was admitted a few weeks ago for pneumonia and acute hypoxemic respiratory failure at [facility]. Hospitalization wason 02/18/2019 at [facility] with acute respiratory failure, sepsis, bilateral cavitary pneumonia (TB was ruled out) and discharged on 02/27/2019. He was found to be influenza A positive, treated with Tamiflu. He also required intubation and mechanical ventilation and was treated with empiric antibiotics. He was discharged on oral Ceftin and doxycycline for 5 days along with a prednisone taper. History obtained by chart review and speaking to his family including mother at bedside. Also has a history of anxiety and on review of his medications is on Seroquel, Resperidone, Xanax, Prozac Past History Past Medical History: seizures, other (Nicotine Dependence, AT 3 Disorder,Depression, Schizophrenia) Past Surgical History: No surgical history, Other (reviewed) Social history: single, lives with family, smoking. denies: alcohol abuse, prescription drug abuse, IV drug use Family history: no significant family history (UTO) Medications and Allergies Allergies Allergy/AdvReac Type Severity Reaction Status Date / Time No Known Allergies Allergy Unverified 08/22/15 15:48 Home Medications Medication Instructions Recorded Confirmed Last Taken Type risperiDONE [RisperDAL] 2 mg PO BID 10/19/15 04/08/19 04/08/19 History Ibuprofen [Motrin] 600 mg PO Q8H PRN #40 tablet 04/14/16 04/08/19 04/07/19 08:00 Rx Sulfamethoxazole/Trimethoprim 1 each PO BID #20 tablet 04/14/16 04/08/19 06:00 Rx [Bactrim DS TAB] 50 traMADol [Ultram] 50 mg PO Q6HR PRN #20 tablet 04/14/16 04/08/19 Unknown Rx Active Meds: Active Medications Acetaminophen (Tylenol) 650 mg SC Q4H PRN PRN Reason: Pain, Mild (1-3) Last Admin: 04/07/19 16:42 Dose: 650 mg Documented by: Amlodipine Besylate (Norvasc) 5 mg PO QDAY [facility] Last Admin: 04/08/19 13:31 Dose: 5 mg Documented by: Enoxaparin Sodium (Lovenox) 60 mg SUB-Q Q12HR [facility] Last Admin: 04/08/19 21:20 Dose: 60 mg Documented by: Fluoxetine HCl (Prozac) 40 mg PO QDAY [facility] Last Admin: 04/08/19 13:31 Dose: 40 mg Documented by: Vancomycin HCl 750 mg/ Sodium (Chloride) 265 mls @ 166.667 mls/hr IV Q12H [facility] Last Admin: 04/08/19 23:08 Dose: 166.667 mls/hr Documented by: Azithromycin 500 mg/ Sodium (Chloride) 250 mls @ 250 mls/hr IV Q24HR [facility] Last Admin: 04/08/19 17:15 Dose: 250 mls/hr Documented by: Cefepime HCl (Maxipime/Ns 1 Gm/100 Ml) 1 gm in 100 mls @ 200 mls/hr IV Q8HR [facility]; Protocol Last Admin: 04/09/19 06:20 Dose: 200 mls/hr Documented by: Quetiapine Fumarate (Seroquel) 300 mg PO QDAY [facility] Last Admin: 04/08/19 17:06 Dose: 300 mg Documented by: Risperidone (Risperdal) 2 mg PO BID [facility] Last Admin: 04/08/19 21:20 Dose: 2 mg Documented by: Sodium Chloride (Sodium Chloride Flush Syringe 10 Ml) 10 ml IV BID [facility] Last Admin: 04/08/19 21:21 Dose: 10 ml Documented by: Sodium Chloride (Sodium Chloride Flush Syringe 10 Ml) 10 ml IV PRN PRN PRN Reason: LINE FLUSH Tramadol HCl (Ultram) 50 mg PO Q6HR PRN PRN Reason: Pain Review of Systems All systems: negative (as in HPI) Physical Examination Vital signs: Vital Signs Temp Pulse Resp BP Pulse Ox 99.0 F 153 H 45 H 147/78 90 04/07/19 16:07 04/07/19 16:07 04/07/19 16:07 04/07/19 16:07 04/07/19 16:07 Constitutional: Alert, cooperative. Resp distress + Tachypnic on BIPAP 14/8, FIO2 30% Head, Ears, Nose: Normocephalic, atraumatic. External ears, nose normal Eyes: Conjunctivae/corneas clear. No icterus. No ptosis. Neck: Supple, no meningeal signs Oral: BiPAP Cardiovascular: S1, S2 normal. Respiratory: diffuse rhonchi bilaterally GI: Soft, non-tender; bowel sounds normal. No peritoneal signs Musculoskeletal: No pedal edema, no cyanosis. Skin: No rash or abscess Hem/Lymphatic: No palpable cervical or supraclavicular nodes. No lymphangitis Psych: Mood ok. Affect normal Neurological: Awake, alert, oriented. No gross abnormality Results - Laboratory Findings CBC and BMP: 04/08/19 14:28 04/08/19 14:28 ABG POC ABG pH 7.368 (7.35-7.45) 04/08/19 15:32 POC ABG pCO2 44.5 (35-45) 04/08/19 15:32 POC ABG pO2 374 (80-105) H 04/08/19 15:32 POC ABG HCO3 25.6 (22-26 mml/L) 04/08/19 15:32 POC ABG Total CO2 27 (23-27mmol/L) 04/08/19 15:32 POC ABG O2 Sat 100 04/08/19 15:32 PT/INR, D-dimer PT 14.2 Sec. (12.2-14.9) 04/07/19 16:33 INR 1.04 (0.87-1.13) 04/07/19 16:33 Abnormal lab findings: Abnormal Labs 04/07/19 04/07/19 04/07/19 16:33 16:33 16:33 WBC 16.9 H Hgb 11.4 L Hct 33.5 L RDW 19.6 H Seg Neuts % (Manual) 75.0 H Lymphocytes % (Manual) 9.0 L Monocytes % (Manual) 16.0 H Seg Neutrophils # Man 12.7 H Monocytes # (Manual) 2.7 H POC ABG pO2 Sodium 133 L Potassium 3.0 L Chloride Carbon Dioxide 19 L BUN 3 L Creatinine Glucose 130 H Lactic Acid Calcium 8.2 L Magnesium 2.40 H AST 43 H Lactate Dehydrogenase Albumin 3.0 L Urine Blood 04/07/19 04/07/19 04/07/19 16:35 17:52 20:00 WBC Hgb Hct RDW Seg Neuts % (Manual) Lymphocytes % (Manual) Monocytes % (Manual) Seg Neutrophils # Man Monocytes # (Manual) POC ABG pO2 56 L 70 L Sodium Potassium Chloride Carbon Dioxide BUN Creatinine Glucose Lactic Acid Calcium Magnesium AST Lactate Dehydrogenase Albumin Urine Blood Small A 04/07/19 04/08/19 04/08/19 21:00 14:28 14:28 WBC 22.4 H Hgb 11.1 L Hct 33.3 L RDW 20.0 H Seg Neuts % (Manual) 84.0 H Lymphocytes % (Manual) 8.0 L Monocytes % (Manual) Seg Neutrophils # Man 18.8 H Monocytes # (Manual) 1.1 H POC ABG pO2 Sodium Potassium Chloride 110.1 H Carbon Dioxide 20 L BUN 7 L Creatinine 0.7 L Glucose 105 H Lactic Acid 5.80 H* Calcium Magnesium AST Lactate Dehydrogenase Albumin Urine Blood 04/08/19 04/08/19 14:28 15:32 WBC Hgb Hct RDW Seg Neuts % (Manual) Lymphocytes % (Manual) Monocytes % (Manual) Seg Neutrophils # Man Monocytes # (Manual) POC ABG pO2 374 H Sodium Potassium Chloride Carbon Dioxide BUN Creatinine Glucose Lactic Acid Calcium Magnesium AST Lactate Dehydrogenase 266 H Albumin Urine Blood 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 Will use Echo and lower extremity dopplers to guide therapy -Therapeutic anticoagulation until PE is ruled out -Smoking cessation counselling -Nicotine withdrawal precautions -Treat for post viral pneumonia and atypical pneumonia. CXR is unremarkable for lobar consolidation -Bronchodilators per protocol -Brovana and budesonide scheduled -NPO for now -Gentle IV fluids -ID consult -Accucheck with glycemic control, avoid hypoglycemia -Discussed extensively with his parents at the bedside, that if he decompensates he will require mechanical ventilatory support. They are agreeable, but state that the last time he is very uncomfortable and agitated with MVS. Discussed with Dr. Rodriguez Discussed with RT/RN and in ICU-IDT rounds CONDITION: CRITICAL PROGNOSIS: GUARDED CODE STATUS: FULL The high probability of a clinically significant, sudden or life threatening deterioration of the [respiratory, cardiovascular] system(s) required my full and direct attention, intervention and personal management. The aggregate c ritical care time was [75] minutes. This time is in addition to time spent performing reported procedures but includes the following: [x] Data Review and interpretation [x] Patient assessment and monitoring of vital signs [x] Documentation [x] Medication orders and management
--- NOTE | 2019-04-09 09:00 | Progress Note ---
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 -Monitor and trend leukocytosis -2D echocardiography, follow up on report -Therapeutic anticoagulation until PE is ruled out -Smoking cessation counselling -Nicotine withdrawal precautions -Treat for post viral pneumonia and atypical pneumonia. CXR is unremarkable for lobar consolidation -Antibiotics per ID -Bronchodilators per protocol - Continue Brovana and budesonide scheduled -NPO for now, get Nutrition consult to address nutrition. -If he tolerates HFO therapy, via vapotherm, will need small bowel feeding tube for enteric nutrition With his respiratory status and increased work of breathing, I doubt that even if he is able to swallow that his oral nutrition will be adequate for his daily caloric needs. -Aspiration precautions -Gentle IV fluids -Accucheck with glycemic control, avoid hypoglycemia -Target blood glucose 140-180mg/dL -VTE prophylaxis- currently on therapeutic anticoagulation - -Discussed extensively with his parents at the bedside. Updated them on ricki change from NIPPV to Vapotherm high flow. Disucssed Precedex for agitation mangment, until his respiratory status improves. Again discussed MVS as an option in the event he does not respond to these changes. Discussed with RT/RN and in ICU-IDT rounds CONDITION: CRITICAL PROGNOSIS: GUARDED CODE STATUS: FULL The high probability of a clinically significant, sudden or life threatening deterioration of the [respiratory, cardiovascular] system(s) required my full and direct attention, intervention and personal management. The aggregate c ritical care time was [35] minutes. This time is in addition to time spent performing reported procedures but includes the following: [x] Data Review and interpretation [x] Patient assessment and monitoring of vital signs [x] Documentation [x] Medication orders and management Subjective Date of service: 04/09/19 Interval history: Patient is seen today for: Acute hypoxemic hypercapnic respiratory failure; HAP; Severe Sepsis Seen and examined at bedside; 24hour events reviewed; nursing and respiratory care staff consulted; no adverse overnight events reported to me; did much better overnight with anxiety management, remains tachypnic on BIPAP, looks like he is "air hungering, wanting more flow", no fevers overnight. Parents at the bedside, has remained NPO and continuous BIPAP. Vitals, labs, medications, chart reviewed. Objective - Exam Narrative Exam: Constitutional: alert in moderated resp distress on BIPAP Head, Ears, Nose: Normocephalic, atraumatic. External ears, nose normal Eyes: Conjunctivae/corneas clear. No icterus. No ptosis. Neck: Supple, no meningeal signs Oral: unable to assess Cardiovascular: tachycardic, S1,S2, no murmurs, gallops or rubs Respiratory: Decreased AE bilaterally with rhonchi GI: Soft, non-tender; bowel sounds normal. No peritoneal signs Musculoskeletal: No pedal edema, no cyanosis, no clubbing Skin: No rash or abscess Hem/Lymphatic: No palpable cervical or supraclavicular nodes. No lymphangitis Psych: Mood ok. Affect normal Neurological: Awake, alert. No gross abnormality Vital Signs - 12hr 04/08/19 04/08/19 04/08/19 21:01 21:11 21:21 Temperature Pulse Rate 128 H 122 H 123 H Pulse Rate [ Apical] Respiratory 30 H 28 H 34 H Rate Blood Pressure 142/83 142/83 141/87 O2 Sat by Pulse 95 97 98 Oximetry 04/08/19 04/08/19 04/08/19 21:31 21:41 21:51 Temperature Pulse Rate 130 H 114 H 115 H Pulse Rate [ Apical] Respiratory 40 H 30 H 28 H Rate Blood Pressure 137/76 137/76 131/82 O2 Sat by Pulse 96 97 99 Oximetry 04/08/19 04/08/19 04/08/19 22:00 22:11 22:21 Temperature Pulse Rate 133 H 119 H 113 H Pulse Rate [ Apical] Respiratory 27 H 32 H 34 H Rate Blood Pressure 120/81 141/87 118/88 O2 Sat by Pulse 98 99 99 Oximetry 04/08/19 04/08/19 04/08/19 22:31 22:41 22:51 Temperature Pulse Rate 124 H 116 H 118 H Pulse Rate [ Apical] Respiratory 33 H 30 H 31 H Rate Blood Pressure 130/92 130/92 106/84 O2 Sat by Pulse 99 99 98 Oximetry 04/08/19 04/08/19 04/08/19 23:00 23:11 23:21 Temperature Pulse Rate 119 H 117 H 118 H Pulse Rate [ Apical] Respiratory 28 H 31 H 42 H Rate Blood Pressure 115/76 115/76 108/81 O2 Sat by Pulse 98 100 99 Oximetry 04/08/19 04/08/19 04/08/19 23:30 23:41 23:51 Temperature Pulse Rate 116 H 115 H 116 H Pulse Rate [ Apical] Respiratory 30 H 32 H 30 H Rate Blood Pressure 126/91 108/81 136/76 O2 Sat by Pulse 98 100 98 Oximetry 04/09/19 04/09/19 04/09/19 00:00 00:01 00:11 Temperature 97.9 F Pulse Rate 111 H 122 H 116 H Pulse Rate [ Apical] Respiratory 27 H 31 H 31 H Rate Blood Pressure 122/89 119/86 119/86 O2 Sat by Pulse 99 98 99 Oximetry 04/09/19 04/09/19 04/09/19 00:17 00:21 00:30 Temperature Pulse Rate 116 H 114 H 111 H Pulse Rate [ Apical] Respiratory 32 H 31 H 29 H Rate Blood Pressure 116/80 116/80 122/89 O2 Sat by Pulse 99 99 98 Oximetry 04/09/19 04/09/19 04/09/19 00:41 00:51 01:00 Temperature Pulse Rate 105 H 100 H 96 H Pulse Rate [ Apical] Respiratory 27 H 27 H 30 H Rate Blood Pressure 122/89 118/66 114/63 O2 Sat by Pulse 99 98 97 Oximetry 04/09/19 04/09/19 04/09/19 01:11 01:21 01:30 Temperature Pulse Rate 95 H 99 H 115 H Pulse Rate [ Apical] Respiratory 26 H 25 H 29 H Rate Blood Pressure 114/63 112/63 117/76 O2 Sat by Pulse 98 99 99 Oximetry 04/09/19 04/09/19 04/09/19 01:41 01:51 02:00 Temperature Pulse Rate 114 H 106 H 103 H Pulse Rate [ Apical] Respiratory 30 H 32 H 30 H Rate Blood Pressure 117/76 115/68 110/63 O2 Sat by Pulse 98 98 98 Oximetry 04/09/19 04/09/19 04/09/19 02:10 02:21 02:30 Temperature Pulse Rate 102 H 97 H 96 H Pulse Rate [ Apical] Respiratory 29 H 29 H 30 H Rate Blood Pressure 110/63 115/55 111/66 O2 Sat by Pulse 98 98 98 Oximetry 04/09/19 04/09/19 04/09/19 02:41 02:51 03:00 Temperature Pulse Rate 98 H 100 H 104 H Pulse Rate [ Apical] Respiratory 30 H 30 H 27 H Rate Blood Pressure 111/66 111/66 121/79 O2 Sat by Pulse 97 97 98 Oximetry 04/09/19 04/09/19 04/09/19 03:11 03:20 03:30 Temperature Pulse Rate 101 H 96 H 92 H Pulse Rate [ Apical] Respiratory 28 H 24 26 H Rate Blood Pressure 121/79 117/84 114/66 O2 Sat by Pulse 100 99 98 Oximetry 04/09/19 04/09/19 04/09/19 03:34 03:41 03:51 Temperature Pulse Rate 92 H 91 H 94 H Pulse Rate [ Apical] Respiratory 26 H 29 H 22 Rate Blood Pressure 114/66 114/66 117/84 O2 Sat by Pulse 100 100 100 Oximetry 04/09/19 04/09/19 04/09/19 03:56 04:00 04:11 Temperature 98.7 F Pulse Rate 99 H 96 H Pulse Rate [ Apical] Respiratory 23 26 H Rate Blood Pressure 130/76 130/76 O2 Sat by Pulse 100 100 Oximetry 04/09/19 04/09/19 04/09/19 04:21 04:30 04:41 Temperature Pulse Rate 103 H 108 H 102 H Pulse Rate [ Apical] Respiratory 34 H 32 H 26 H Rate Blood Pressure 116/83 125/80 125/80 O2 Sat by Pulse 100 99 100 Oximetry 04/09/19 04/09/19 04/09/19 04:43 04:51 05:00 Temperature Pulse Rate 94 H 90 Pulse Rate [ 99 H Apical] Respiratory 28 H 28 H 26 H Rate Blood Pressure 116/83 128/81 O2 Sat by Pulse 100 100 99 Oximetry 04/09/19 04/09/19 04/09/19 05:11 05:21 05:30 Temperature Pulse Rate 90 103 H 107 H Pulse Rate [ Apical] Respiratory 26 H 28 H 29 H Rate Blood Pressure 128/81 128/81 121/82 O2 Sat by Pulse 100 100 99 Oximetry 04/09/19 04/09/19 04/09/19 05:41 05:51 06:01 Temperature Pulse Rate 105 H 97 H 118 H Pulse Rate [ Apical] Respiratory 27 H 29 H 21 Rate Blood Pressure 121/82 120/84 117/75 O2 Sat by Pulse 100 100 100 Oximetry 04/09/19 06:11 Temperature Pulse Rate 115 H Pulse Rate [ Apical] Respiratory 35 H Rate Blood Pressure 117/75 O2 Sat by Pulse 99 Oximetry CBC and BMP: 04/08/19 14:28 04/08/19 14:28 ABG, PT/INR, D-dimer: ABG POC ABG pH 7.368 (7.35-7.45) 04/08/19 15:32 POC ABG pCO2 44.5 (35-45) 04/08/19 15:32 POC ABG pO2 374 (80-105) H 04/08/19 15:32 POC ABG HCO3 25.6 (22-26 mml/L) 04/08/19 15:32 POC ABG Total CO2 27 (23-27mmol/L) 04/08/19 15:32 POC ABG O2 Sat 100 04/08/19 15:32 PT/INR, D-dimer PT 14.2 Sec. (12.2-14.9) 04/07/19 16:33 INR 1.04 (0.87-1.13) 04/07/19 16:33 Abnormal lab findings: Abnormal Labs 04/07/19 04/07/19 04/07/19 16:33 16:33 16:33 WBC 16.9 H Hgb 11.4 L Hct 33.5 L RDW 19.6 H Seg Neuts % (Manual) 75.0 H Lymphocytes % (Manual) 9.0 L Monocytes % (Manual) 16.0 H Seg Neutrophils # Man 12.7 H Monocytes # (Manual) 2.7 H POC ABG pO2 Sodium 133 L Potassium 3.0 L Chloride Carbon Dioxide 19 L BUN 3 L Creatinine Glucose 130 H Lactic Acid Calcium 8.2 L Magnesium 2.40 H AST 43 H Lactate Dehydrogenase Albumin 3.0 L Urine Blood 04/07/19 04/07/19 04/07/19 16:35 17:52 20:00 WBC Hgb Hct RDW Seg Neuts % (Manual) Lymphocytes % (Manual) Monocytes % (Manual) Seg Neutrophils # Man Monocytes # (Manual) POC ABG pO2 56 L 70 L Sodium Potassium Chloride Carbon Dioxide BUN Creatinine Glucose Lactic Acid Calcium Magnesium AST Lactate Dehydrogenase Albumin Urine Blood Small A 04/07/19 04/08/19 04/08/19 21:00 14:28 14:28 WBC 22.4 H Hgb 11.1 L Hct 33.3 L RDW 20.0 H Seg Neuts % (Manual) 84.0 H Lymphocytes % (Manual) 8.0 L Monocytes % (Manual) Seg Neutrophils # Man 18.8 H Monocytes # (Manual) 1.1 H POC ABG pO2 Sodium Potassium Chloride 110.1 H Carbon Dioxide 20 L BUN 7 L Creatinine 0.7 L Glucose 105 H Lactic Acid 5.80 H* Calcium Magnesium AST Lactate Dehydrogenase Albumin Urine Blood 04/08/19 04/08/19 14:28 15:32 WBC Hgb Hct RDW Seg Neuts % (Manual) Lymphocytes % (Manual) Monocytes % (Manual) Seg Neutrophils # Man Monocytes # (Manual) POC ABG pO2 374 H Sodium Potassium Chloride Carbon Dioxide BUN Creatinine Glucose Lactic Acid Calcium Magnesium AST Lactate Dehydrogenase 266 H Albumin Urine Blood Chest x-ray: image reviewed Allied health notes reviewed: RT
[2019-04-09] MEDS: PULMICORT IH SCH ×2 (09:03→19:42)
[2019-04-09] MEDS: BROVANA NEBU IH SCH ×2 (09:03→19:42)
[2019-04-09] MEDS: PROzac PO SCH (10:16)
[2019-04-09] MEDS: SOLU-Medrol IV SCH ×2 (10:16→22:14)
[2019-04-09] MEDS: RisperDAL PO SCH ×2 (10:16→22:13)
[2019-04-09] MEDS: NORVASC PO SCH (10:17)
[2019-04-09] MEDS: SODIUM CHLORIDE FLUSH SYRINGE 10 ML IV SCH ×2 (10:18→22:13)
[2019-04-09] MEDS: ZITHROMAX 500 MG in NACL 0.9% 250ML 250 ML IV SCH (10:18)
[2019-04-09] MEDS: LOVENOX SUB-Q SCH ×2 (10:29→22:14)
[2019-04-09] MEDS: VANCOMYCIN 750 MG in NACL 0.9% 250ML 250 ML IV SCH ×2 (11:32→22:09)
--- NOTE | 2019-04-09 12:05 | Progress Note ---
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 Now admitted with: 1) Sepsis, bilateral pneumonia, acute respiratory failure: cover for possible HCAP. Chest x-ray shows a prominent interstitial pattern. Hence, also cover for atypicals. 2) Tobacco abuse. 3) Leucocytosis: WBC higher today, also contributed by steroids. Recs: continue IV Cefepime and Azithromycin continue IV Vancomycin, target trough: 10-20 mcg/ml discussed with RN again today, to ensure collection of legionella and pneumococcal urine antigens MRSA PCR ordered, but collection may be an issue due to BiPAP Tito Green MD [facility] C: [phone] O: [phone] F: [phone] Subjective Date of service: 04/09/19 Interval history: No fever. Per family member, he slept well last night. Remains on BiPAP. Objective - Exam Narrative Exam: Physical Exam: Constitutional: Alert, cooperative. No distress Head, Ears, Nose: Normocephalic, atraumatic. External ears, nose normal Eyes: Conjunctivae/corneas clear. No icterus. No ptosis. Neck: Supple, no meningeal signs Oral: BiPAP Cardiovascular: S1, S2 normal. Respiratory: b/l rhonchi diffusely GI: Soft, non-tender; bowel sounds normal. No peritoneal signs Musculoskeletal: No pedal edema, no cyanosis. Skin: No rash or abscess Hem/Lymphatic: No palpable cervical or supraclavicular nodes. No lymphangitis Psych: Mood ok. Affect normal Neurological: Awake, alert. No gross abnormality - Constitutional Vitals: Vital Signs Temp Pulse Resp BP Pulse Ox 94.7 F L 119 H 29 H 111/72 99 04/09/19 08:00 04/09/19 11:21 04/09/19 11:21 04/09/19 11:21 04/09/19 11:21 Temperature -Last 24 Hours Temperature 94.7 F Temperature 98.7 F Temperature 97.9 F Temperature 97.7 F Temperature 97.7 F Temperature 97.8 F - Labs CBC & Chem 7: 04/08/19 14:28 04/08/19 14:28 Labs: Abnormal lab results 04/07/19 04/08/19 04/08/19 Range/Units 21:00 14:28 14:28 WBC 22.4 H (4.5-11.0) K/mm3 Hgb 11.1 L (11.8-15.2) gm/dl Hct 33.3 L (35.5-45.6) % RDW 20.0 H (13.2-15.2) % Seg Neuts % (Manual) 84.0 H (40.0-70.0) % Lymphocytes % (Manual) 8.0 L (13.4-35.0) % Seg Neutrophils # Man 18.8 H (1.8-7.7) K/mm3 Monocytes # (Manual) 1.1 H (0.0-0.8) K/mm3 POC ABG pO2 (80-105) Chloride 110.1 H (98-107) mmol/L Carbon Dioxide 20 L (22-30) mmol/L BUN 7 L (9-20) mg/dL Creatinine 0.7 L (0.8-1.5) mg/dL Glucose 105 H (75-100) mg/dL Lactic Acid 5.80 H* (0.7-2.0) mmol/L Lactate Dehydrogenase (91-180) units/L 04/08/19 04/08/19 Range/Units 14:28 15:32 WBC (4.5-11.0) K/mm3 Hgb (11.8-15.2) gm/dl Hct (35.5-45.6) % RDW (13.2-15.2) % Seg Neuts % (Manual) (40.0-70.0) % Lymphocytes % (Manual) (13.4-35.0) % Seg Neutrophils # Man (1.8-7.7) K/mm3 Monocytes # (Manual) (0.0-0.8) K/mm3 POC ABG pO2 374 H (80-105) Chloride (98-107) mmol/L Carbon Dioxide (22-30) mmol/L BUN (9-20) mg/dL Creatinine (0.8-1.5) mg/dL Glucose (75-100) mg/dL Lactic Acid (0.7-2.0) mmol/L Lactate Dehydrogenase 266 H (91-180) units/L
[2019-04-09] MEDS: DEXMEDETOMIDINE 200 MCG in NACL 0.9% 48 ML IV SCH ×2 (13:04→23:44)
--- NOTE | 2019-04-09 18:25 | Cat Scan Report ---
PROCEDURE: CT ANGIO CHEST TECHNIQUE: Computerized tomographic angiography of the chest was performed after the IV injection of iodinated nonionic contrast including image processing. The image data was postprocessed using 2-di mensional multiplanar reformatted (MPR) and 3-dimensional (MIP and/or volume rendered) techniques. Au tomated exposure control, adjustment of mA and/or kV according to patient size, or iterative reconstr uction dose optimization techniques were utilized. CT DOSE LENGTH PRODUCT: 576.6 mGycm HISTORY: dypsnea COMPARISONS: None . FINDINGS: Pulmonary out flow tract, right and left main pulmonary arteries and the approximal branches: The st udy is limited. There is significant breathing motion artifact. The pulmonary outflow tract, the left and right main pulmonary arteries appear clear. No central pulmonary emboli are visualized. The yelitza pheral branches of the pulmonary arteries are not well visualized due to the breathing motion artifac t. While I do not see any definite pulmonary emboli, it would be difficult to exclude small periphera l pulmonary emboli. Pericardium: No evidence of pericardial effusion. Thoracic aorta: No evidence of aneurysmal dilatation or dissection. Coronary arteries: Unremarkable. Mediastinum and hilar regions: Non specific subcentimeter lymph nodes are visualized. No pathologica lly enlarged lymph nodes or masses are identified. Lung Tee: Scattered alveolar densities are present in the right lower lobe posteriorly and anterio r laterally, greatest laterally. There is also minimal patchy alveolar density in the right upper lob e medially. These may represent areas of atelectasis. I cannot exclude pneumonia. No effusions are id entified. Upper abdomen: No acute or focal abnormality is seen. Other: No acute bone abnormalities are seen. IMPRESSION: This study is limited due to significant breathing motion artifact. Please see above comments. No milan tral pulmonary emboli are visualized. Visualization of peripheral branches is significantly limited. If clinically indicated a follow-up exam or nuclear medicine ventilation/perfusion scan could be perf ormed. Patchy alveolar densities present right upper lobe and right lower lobe as described suggesting areas of atelectasis or pneumonia. Clinical correlation is recommended. This document is electronically signed by Aries Watson MD., April 09 2019 06:23:06 PM ET
[2019-04-10] MEDS: BROVANA NEBU IH SCH ×2 (08:50→19:55)
[2019-04-10] MEDS: PULMICORT IH SCH ×2 (08:50→19:54)
[2019-04-10] MEDS: RisperDAL PO SCH ×2 (10:00→22:00)
[2019-04-10] MEDS: SOLU-Medrol IV SCH ×2 (10:08→21:55)
[2019-04-10] MEDS: NORVASC PO SCH (10:09)
--- NOTE | 2019-04-10 10:11 | Progress Note ---
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 Now admitted with: 1) Sepsis, bilateral pneumonia, acute respiratory failure: fever resolved, leukocytosis is up (on IV steroids), lactate improved. Etiology ? HCAP. Chest x- ray shows a prominent interstitial pattern. CTA demonstrates patchy alveolar RUL/RLL infiltrates. Hence, also cover for atypicals. HIV rapid negative. 2) Tobacco abuse. 3) Leucocytosis: WBC higher today, also contributed by steroids. Recommendations: continue IV Cefepime and Azithromycin D3 continue IV Vancomycin, target trough: 10-20 mcg/ml D3 f/u legionella and pneumococcal urine antigens MRSA PCR ordered I will be rounding this weekend Yael Encinas MD Infectious Diseases [facility] ([facility]) M [phone] O [phone] Subjective Date of service: 04/10/19 Principal diagnosis: bilateral pneumonia Interval history: Alert, remains on HFO2, no complaints ROS: denies cough, N/V/D. Objective - Exam Narrative Exam: Constitutional: alert in mild resp distress on HFO2 Head, Ears, Nose: Normocephalic, atraumatic. External ears, nose normal Eyes: Conjunctivae/corneas clear. No icterus. No ptosis. Neck: Supple, no meningeal signs Oral: +poor dentition, HFO2 Cardiovascular: tachycardic Respiratory: b/l wheezing GI: Soft, non-tender; bowel sounds normal. No peritoneal signs Musculoskeletal: No pedal edema, no cyanosis. Skin: No rash or abscess Hem/Lymphatic: No palpable cervical or supraclavicular nodes. No lymphangitis Psych: Mood ok. Affect normal Neurological: Awake, alert. No gross abnormality - Constitutional Vitals: Vital Signs Temp Pulse Resp BP Pulse Ox 97.7 F 89 26 H 115/68 99 04/10/19 06:13 04/10/19 09:12 04/10/19 09:12 04/10/19 05:51 04/10/19 08:51 Temperature -Last 24 Hours Temperature 97.7 F Temperature 97.4 F Temperature 97.5 F Temperature 97.7 F Temperature 94.7 F Temperature 96.7 F - Labs CBC & Chem 7: 04/08/19 14:28 04/08/19 14:28
[2019-04-10] MEDS: ZITHROMAX 500 MG in NACL 0.9% 250ML 250 ML IV SCH (10:18)
[2019-04-10] MEDS: LOVENOX SUB-Q SCH (10:18)
[2019-04-10] MEDS: PROzac PO SCH (10:40)
[2019-04-10] MEDS: SODIUM CHLORIDE FLUSH SYRINGE 10 ML IV SCH ×2 (10:40→23:08)
[2019-04-10] MEDS: VANCOMYCIN 750 MG in NACL 0.9% 250ML 250 ML IV SCH ×2 (10:40→22:48)
--- NOTE | 2019-04-10 11:10 | Progress Note ---
Assessment and Plan Assessment and plan: (1) Acute respiratory failure/sepsis/pneumonia Admit patient to ICU, NIPPV, Pulmonary team consulted in ED, Chest x ray, ABG, supplemental oxygen, nebulizer therapy, CT Angio chest, repeat abg in am as clinically indicated, Pulmonology input appreciated, the patient is too unstable for CTA at this time. Obtain echo lower extremity Dopplers. Therapeutic anticoagulation until PE is ruled out, smoking cessation counseling, nicotine patches. ID consult appreciated, continue antibiotics, follow-up Legionella and pneumococcal urine antigen (2) Respiratory Acidosis Improving, continue BiPAP (3) Hyponatremia IVF resuscitation therapy, repeat bmp in am. DVT prophylaxis SCD to BLE while in bed, prophylactic lovenox The high probability of a clinically significant, sudden or life threatening deterioration of the [respiratory, neuro,endocrine] system(s) required my full and direct attention, intervention and personal management. The aggregate critical care time was [65] minutes. This time is in addition to time spent performing reported procedures but includes the following: [x] Data Review and interpretation [x] Patient assessment and monitoring of vital signs [x] Documentation [x] Medication orders and management History Interval history: Aspirin nursing staff, patient has been agitated, has had episodes of tachycardia and hypoxia. He has been BiPAP dependent No fevers, Hospitalist Physical - Physical exam Narrative exam: General.: Appears well, no distress, nontoxic HEENT: Moist mucous membranes, extraocular muscles intact, no lymphadenopathy Neck: supple Cardiac: S1-S2 heard Lungs: Diminished air entry Abdomen: soft , nontender, nondistended, bowel sounds positive Extremities: no edema clubbing or cyanosis Skin: no rash or lesions Neurologic: Moves all extremities, patient has been agitated Psych: calm, and cooperative - Constitutional Vitals: Temp Pulse Resp BP Pulse Ox 97.7 F 117 H 26 H 124/82 99 04/10/19 06:13 04/10/19 10:09 04/10/19 09:12 04/10/19 10:04/10/19 08:51 General appearance: Present: severe distress, disheveled Results - Labs CBC & Chem 7: 04/18/19 05:31 04/18/19 05:31 Labs: Laboratory Last Values WBC 22.4 K/mm3 (4.5-11.0) H 04/08/19 14:28 RBC 3.86 M/mm3 (3.65-5.03) 04/08/19 14:28 Hgb 11.1 gm/dl (11.8-15.2) L 04/08/19 14:28 Hct 33.3 % (35.5-45.6) L 04/08/19 14:28 MCV 86 fl (84-94) 04/08/19 14:28 MCH 29 pg (28-32) 04/08/19 14:28 MCHC 33 % (32-34) 04/08/19 14:28 RDW 20.0 % (13.2-15.2) H 04/08/19 14:28 Plt Count 304 K/mm3 (140-440) 04/08/19 14:28 Coal % (Auto) Edge Trimming Machine Operator 04/07/19 16:33 Eos % (Auto) Edge Trimming Machine Operator 04/08/19 14:28 Add Manual Diff Complete 04/08/19 14:28 Total Counted 100 04/08/19 14:28 Seg Neuts % (Manual) 84.0 % (40.0-70.0) H 04/08/19 14:28 0 % 04/08/19 14:28 8.0 % (13.4-35.0) L 04/08/19 14:28 Reactive Lymphs % (Man) 0 % 04/08/19 14:28 5.0 % (0.0-7.3) 04/08/19 14:28 0 % (0.0-4.3) 04/08/19 14:28 0 % (0.0-1.8) 04/08/19 14:28 0 % 04/08/19 14:28 3.0 % 04/08/19 14:28 0 % 04/08/19 14:28 0 % 04/08/19 14:28 Nucleated RBC % Not Reportable 04/08/19 14:28 Seg Neutrophils # Man 18.8 K/mm3 (1.8-7.7) H 04/08/19 14:28 Band Neutrophils # 0.0 K/mm3 04/08/19 14:28 1.8 K/mm3 (1.2-5.4) 04/08/19 14:28 Abs React Lymphs (Man) 0.0 K/mm3 04/08/19 14:28 1.1 K/mm3 (0.0-0.8) H 04/08/19 14:28 0.0 K/mm3 (0.0-0.4) 04/08/19 14:28 0.0 K/mm3 (0.0-0.1) 04/08/19 14:28 0.0 K/mm3 04/08/19 14:28 0.7 K/mm3 04/08/19 14:28 0.0 K/mm3 04/08/19 14:28 Blast Cells # 0.0 K/mm3 04/08/19 14:28 WBC Morphology Not Reportable 04/08/19 14:28 Hypersegmented Neuts Not Reportable 04/08/19 14:28 Hyposegmented Neuts Not Reportable 04/08/19 14:28 Hypogranular Neuts Not Reportable 04/08/19 14:28 Not Reportable 04/08/19 14:28 Not Reportable 04/08/19 14:28 Not Reportable 04/08/19 14:28 Not Reportable 04/08/19 14:28 Not Reportable 04/08/19 14:28 Not Reportable 04/08/19 14:28 Appears normal 04/08/19 14:28 Not Reportable 04/08/19 14:28 Plt Clumps, EDTA Not Reportable 04/08/19 14:28 Not Reportable 04/08/19 14:28 Not Reportable 04/08/19 14:28 Not Reportable 04/08/19 14:28 Plt Morphology Comment Not Reportable 04/08/19 14:28 RBC Morphology Not Reportable 04/08/19 14:28 Dimorphic RBCs Not Reportable 04/08/19 14:28 Not Reportable 04/08/19 14:28 Not Reportable 04/08/19 14:28 Not Reportable 04/08/19 14:28 1+ 04/08/19 14:28 Not Reportable 04/08/19 14:28 Not Reportable 04/08/19 14:28 Not Reportable 04/08/19 14:28 Not Reportable 04/08/19 14:28 Not Reportable 04/08/19 14:28 Not Reportable 04/08/19 14:28 Not Reportable 04/08/19 14:28 Not Reportable 04/08/19 14:28 Not Reportable 04/08/19 14:28 Not Reportable 04/08/19 14:28 Not Reportable 04/08/19 14:28 Not Reportable 04/08/19 14:28 Not Reportable 04/08/19 14:28 Not Reportable 04/08/19 14:28 Not Reportable 04/08/19 14:28 Acanthocytes (Spur) Not Reportable 04/08/19 14:28 Rouleaux Not Reportable 04/08/19 14:28 Not Reportable 04/08/19 14:28 Not Reportable 04/08/19 14:28 Not Reportable 04/08/19 14:28 Not Reportable 04/08/19 14:28 Hem Pathologist Commnt No 04/08/19 14:28 PT 14.2 Sec. (12.2-14.9) 04/07/19 16:33 INR 1.04 (0.87-1.13) 04/07/19 16:33 APTT 31.9 Sec. (24.2-36.6) 04/07/19 16:33 POC ABG pH 7.411 (7.35-7.45) 04/09/19 20:49 POC ABG pCO2 37.4 (35-45) 04/09/19 20:49 POC ABG pO2 87 (80-105) 04/09/19 20:49 POC ABG HCO3 23.8 (22-26 mml/L) 04/09/19 20:49 POC ABG Total CO2 25 (23-27mmol/L) 04/09/19 20:49 POC ABG O2 Sat 97 04/09/19 20:49 POC ABG Base Excess -1 ((-2) - (+3)mmol/L) 04/09/19 20:49 50 % 04/09/19 20:49 Sodium 144 mmol/L (137-145) D 04/08/19 14:28 Potassium 4.1 mmol/L (3.6-5.0) D 04/08/19 14:28 Chloride 110.1 mmol/L (98-107) H 04/08/19 14:28 Carbon Dioxide 20 mmol/L (22-30) L 04/08/19 14:28 18 mmol/L 04/08/19 14:28 BUN 7 mg/dL (9-20) L 04/08/19 14:28 0.7 mg/dL (0.8-1.5) L 04/08/19 14:28 Estimated GFR > 60 ml/min 04/08/19 14:28 10 % 04/08/19 14:28 Glucose 105 mg/dL (75-100) H 04/08/19 14:28 Lactic Acid 0.70 mmol/L (0.7-2.0) 04/08/19 17:01 Calcium 8.9 mg/dL (8.4-10.2) 04/08/19 14:28 Phosphorus 3.00 mg/dL (2.5-4.5) 04/08/19 14:28 Magnesium 2.10 mg/dL (1.7-2.3) 04/08/19 14:28 0.30 mg/dL (0.1-1.2) 04/07/19 16:33 AST 43 units/L (5-40) H 04/07/19 16:33 ALT 22 units/L (7-56) 04/07/19 16:33 107 units/L (35-129) 04/07/19 16:33 266 units/L (91-180) H 04/08/19 14:28 70 units/L (55-170) 04/07/19 16:33 < 0.010 ng/mL (0.00-0.029) 04/07/19 16:33 6.5 g/dL (6.3-8.2) 04/07/19 16:33 3.0 g/dL (3.9-5) L 04/07/19 16:33 0.9 % 04/07/19 16:33 Straw (Yellow) 04/07/19 20:00 Clear (Clear) 04/07/19 20:00 6.0 (5.0-7.0) 04/07/19 20:00 Ur Specific [place] 1.003 (1.003-1.030) 04/07/19 20:00 <15 mg/dl mg/dL (Negative) 04/07/19 20:00 50 mg/dL (Negative) 04/07/19 20:00 Negative mg/dL (Negative) 04/07/19 20:00 Small (Negative) A 04/07/19 20:00 Negative (Negative) 04/07/19 20:00 Negative (Negative) 04/07/19 20:00 < 0.2 mg/dL (<2.0) 04/07/19 20:00 Ur Leukocyte Esterase Negative (Negative) 04/07/19 20:00 < 1.0 /HPF (0.0-6.0) 04/07/19 20:00 1.0 /HPF (0.0-6.0) 04/07/19 20:00 HIV 1&2 Antibody Rapid Non react (Non React) 04/07/19 17:25 Non react (Non React) 04/07/19 17:25 Active Medications - Current Medications Current Medications: Generic Name Dose Route Start Last Admin Trade Name Freq PRN Reason Stop Dose Admin Acetaminophen 650 mg 04/07/19 16:17 04/07/19 16:42 Tylenol [place] 650 mg Q4H PRN Administration Pain, Mild (1-3) Amlodipine Besylate 5 mg 04/08/19 14:00 04/10/19 10:09 Norvasc PO 5 mg QDAY PACO Administration Arformoterol Tartrate 15 mcg 04/09/19 08:00 04/10/19 08:50 Brovana Nebu IH 15 mcg Q12HRT PACO Administration Budesonide 0.5 mg 04/09/19 08:00 04/10/19 08:50 Pulmicort IH 0.5 mg Q12HRT PACO Administration Enoxaparin Sodium 60 mg 04/08/19 14:00 04/10/19 10:18 Lovenox SUB-Q 60 mg Q12HR PACO Administration Fluoxetine HCl 40 mg 04/08/19 14:00 04/09/19 10:16 Prozac PO 40 mg QDAY PACO Administration Vancomycin HCl 750 mg/ Sodium 265 mls @ 166.667 mls/hr 04/08/19 10:00 04/09/19 22:09 Chloride IV 166.667 mls/hr Q12H PACO Administration Azithromycin 500 mg/ Sodium 250 mls @ 250 mls/hr 04/08/19 16:00 04/10/19 10:18 Chloride IV 250 mls/hr Q24HR PACO Administration Cefepime HCl 1 gm in 100 mls @ 200 mls/hr 04/08/19 16:00 04/09/19 22:10 Maxipime/Ns 1 Gm/100 Ml IV 200 mls/hr Q8HR PACO Administration Protocol Dexmedetomidine HCl 200 mcg/ 50 mls @ 4.35 mls/hr 04/09/19 11:00 04/09/19 23:44 Sodium Chloride IV 04/11/19 11:00 0.3 mcg/kg/hr DIRECT PACO 4.35 mls/hr Administration Protocol 0.3 MCG/KG/HR Methylprednisolone Sodium Succinate 20 mg 04/09/19 10:00 04/10/19 10:08 Solu-Medrol IV 20 mg Q12HR PACO Administration Quetiapine Fumarate 300 mg 04/08/19 17:00 04/10/19 10:10 Seroquel PO 300 mg QDAY PACO Administration Risperidone 2 mg 04/07/19 22:00 04/10/19 10:00 Risperdal PO 2 mg BID PACO Administration Sodium Chloride 10 ml 04/07/19 22:00 04/09/19 22:13 Sodium Chloride Flush Syringe 10 Ml IV 10 ml BID PACO Administration Sodium Chloride 10 ml 04/07/19 17:05 Sodium Chloride Flush Syringe 10 Ml IV PRN PRN LINE FLUSH Tramadol HCl 50 mg 04/07/19 17:09 Ultram PO Q6HR PRN Pain Nutrition/Malnutrition Assess - Dietary Evaluation Nutrition/Malnutrition Findings: Nutrition Notes Start: 04/08/19 15:33 Freq: Status: Active Protocol: Document 04/08/19 15:33 KIAH (Rec: 04/08/19 15:37 KIAH [id number] [email or web address]) Nutrition Notes Need for Assessment generated from: general internal medicine physician Initial or Follow up Assessment Current Diagnosis Respiratory Failure Other Pertinent Diagnosis SIRS, seizure d/o Current Diet NPO Labs/Tests Reviewed Pertinent Medications Reviewed Height 5 ft 2 in Weight 58 kg [place] Body Weight (kg) 53.63 BMI 23.3 Subjective/Other Information Pt screened for new onset DM ( no mention in chart; no DM medications either), chewing difficulty, skin risk (Saurabh score: 22), and hx of receiving NTR support. Currently on BiPap support. Burn Absent Trauma Absent #1 Nutrition Diagnosis Inadequate oral intake Etiology resp failure As Evidenced by Signs and Symptoms pt NPO and on BiPap support Is patient on ventilator? No Is Patient Ambulatory and/or Out of Bed No REE-([facility]-confined to bed) [phone] Calculation Used for Recommendations Josr Butt Additional Notes Pro needs 1.2-2g/k-116g/ day Fluid needs 1ml/kcal Nutrition Intervention Change Diet Order: Diet advancement when medically feasible Goal #1 Advance diet to meet nutrient needs Anticipated Discharge Needs: Unable to identify at this time Follow-Up By: 04/10/19 Additional Comments F/U: diet advancement
--- NOTE | 2019-04-10 11:17 | Progress Note ---
Assessment and Plan Acute hypoxic-hypercapnic respiratory failure Sepsis Possible HCAP/Post influenza pneumonia Hyponatremia Tobacco use disorder - stop Precedex - hold NIV and transition to qhs scheduled with prn daytime use - Get ABG now and in the morning - continue suppplemental oxygen to keep O2 sats> 90% - continue chronic home medications, for anxiety and depression - order bilateral Lower extremity dopplers to complete VTE w/up (change to DVT prophylaxis dose lovenox if negative) - Systemic steroid taper - folow 2D echocardiography - Chest CTA negative for PE - Smoking cessation counselling - Nicotine withdrawal precautions - Treat for post viral pneumonia and atypical pneumonia. CXR is unremarkable for lobar consolidation - continue bronchodilators with pulmonary hygiene per RT - Brovana and budesonide scheduled - NPO for now - Gentle IV fluids - ID consult - Accucheck with glycemic control, avoid hypoglycemia - Discussed extensively with his parents at the bedside, that if he decompensates he will require mechanical ventilatory support. They are agreeable, but state that the last time he is very uncomfortable and agitated with MVS. Discussed with RT/RN and in ICU-IDT rounds CONDITION: CRITICAL PROGNOSIS: GUARDED CODE STATUS: FULL The high probability of a clinically significant, sudden or life threatening de terioration of the [respiratory, cardiovascular] system(s) required my full and direct attention, intervention and personal management. The aggregate critical care time was [35] minutes. This time is in addition to time spent performing reported procedures but includes the following: [x] Data Review and interpretation [x] Patient assessment and monitoring of vital signs [x] Documentation [x] Medication orders and management Subjective Date of service: 04/10/19 Principal diagnosis: Acute hypoxemic hypercapnic resp failure; HAP (bilateral); Severe Sepsis Interval history: Patient is seen today for: Acute hypoxemic hypercapnic respiratory failure; HAP; Severe Sepsis Seen and examined at bedside; 24hour events reviewed; nursing and respiratory care staff consulted; no adverse overnight events reported to me; breathong is less labored; remains on BIPAP; denies acute chest pains or palpitations; delirium / agitation / tachypnea better Objective Vital Signs - 12hr 04/09/19 04/09/19 04/09/19 23:21 23:30 23:41 Temperature Pulse Rate 75 73 75 Pulse Rate [ Anterior Bilateral Throughout] Respiratory 28 H 32 H 32 H Rate Respiratory Rate [Anterior Bilateral Throughout] Blood Pressure 144/101 138/95 138/95 O2 Sat by Pulse 99 96 100 Oximetry 04/09/19 04/10/19 04/10/19 23:51 00:00 00:11 Temperature 97.5 F L Pulse Rate 77 68 72 Pulse Rate [ Anterior Bilateral Throughout] Respiratory 33 H 31 H 31 H Rate Respiratory Rate [Anterior Bilateral Throughout] Blood Pressure 142/90 133/94 133/94 O2 Sat by Pulse 99 94 98 Oximetry 04/10/19 04/10/19 04/10/19 00:21 00:30 00:41 Temperature Pulse Rate 71 71 70 Pulse Rate [ Anterior Bilateral Throughout] Respiratory 28 H 27 H 29 H Rate Respiratory Rate [Anterior Bilateral Throughout] Blood Pressure 139/92 136/100 136/100 O2 Sat by Pulse 99 93 99 Oximetry 04/10/19 04/10/19 04/10/19 00:51 01:00 01:11 Temperature Pulse Rate 70 66 69 Pulse Rate [ Anterior Bilateral Throughout] Respiratory 26 H 27 H 26 H Rate Respiratory Rate [Anterior Bilateral Throughout] Blood Pressure 145/99 138/95 136/100 O2 Sat by Pulse 99 95 99 Oximetry 04/10/19 04/10/19 04/10/19 01:21 01:30 01:41 Temperature Pulse Rate 65 68 62 Pulse Rate [ Anterior Bilateral Throughout] Respiratory 27 H 25 H 25 H Rate Respiratory Rate [Anterior Bilateral Throughout] Blood Pressure 145/94 144/100 144/100 O2 Sat by Pulse 100 97 100 Oximetry 04/10/19 04/10/19 04/10/19 01:51 02:00 02:11 Temperature Pulse Rate 62 63 60 Pulse Rate [ Anterior Bilateral Throughout] Respiratory 24 24 26 H Rate Respiratory Rate [Anterior Bilateral Throughout] Blood Pressure 139/98 130/92 130/92 O2 Sat by Pulse 100 96 100 Oximetry 04/10/19 04/10/19 04/10/19 02:21 02:30 02:41 Temperature Pulse Rate 65 61 57 L Pulse Rate [ Anterior Bilateral Throughout] Respiratory 24 24 24 Rate Respiratory Rate [Anterior Bilateral Throughout] Blood Pressure 140/93 137/95 130/92 O2 Sat by Pulse 100 96 100 Oximetry 04/10/19 04/10/19 04/10/19 02:51 03:00 03:11 Temperature Pulse Rate 59 L 55 L 58 L Pulse Rate [ Anterior Bilateral Throughout] Respiratory 30 H 21 19 Rate Respiratory Rate [Anterior Bilateral Throughout] Blood Pressure 138/89 128/88 137/95 O2 Sat by Pulse 100 96 100 Oximetry 04/10/19 04/10/19 04/10/19 03:21 03:31 03:41 Temperature Pulse Rate 59 L 64 55 L Pulse Rate [ Anterior Bilateral Throughout] Respiratory 24 23 27 H Rate Respiratory Rate [Anterior Bilateral Throughout] Blood Pressure 140/101 136/101 136/101 O2 Sat by Pulse 100 94 100 Oximetry 04/10/19 04/10/19 04/10/19 03:51 04:00 04:11 Temperature 97.4 F L Pulse Rate 58 L 57 L 58 L Pulse Rate [ Anterior Bilateral Throughout] Respiratory 24 23 25 H Rate Respiratory Rate [Anterior Bilateral Throughout] Blood Pressure 139/100 139/88 136/101 O2 Sat by Pulse 99 95 99 Oximetry 04/10/19 04/10/19 04/10/19 04:21 04:30 04:41 Temperature Pulse Rate 58 L 54 L 55 L Pulse Rate [ Anterior Bilateral Throughout] Respiratory 26 H 27 H 24 Rate Respiratory Rate [Anterior Bilateral Throughout] Blood Pressure 134/87 135/89 135/89 O2 Sat by Pulse 99 97 99 Oximetry 04/10/19 04/10/19 04/10/19 04:51 05:01 05:11 Temperature Pulse Rate 55 L 111 H 88 Pulse Rate [ Anterior Bilateral Throughout] Respiratory 23 29 H 26 H Rate Respiratory Rate [Anterior Bilateral Throughout] Blood Pressure 139/90 133/85 135/89 O2 Sat by Pulse 99 99 100 Oximetry 04/10/19 04/10/19 04/10/19 05:21 05:31 05:41 Temperature Pulse Rate 80 61 59 L Pulse Rate [ Anterior Bilateral Throughout] Respiratory 29 H 26 H 26 H Rate Respiratory Rate [Anterior Bilateral Throughout] Blood Pressure 135/81 113/68 133/85 O2 Sat by Pulse 99 96 99 Oximetry 04/10/19 04/10/19 04/10/19 05:51 06:13 08:51 Temperature 97.7 F Pulse Rate 62 Pulse Rate [ 114 H Anterior Bilateral Throughout] Respiratory 26 H Rate Respiratory 18 Rate [Anterior Bilateral Throughout] Blood Pressure 115/68 O2 Sat by Pulse 100 99 Oximetry 04/10/19 04/10/19 09:12 10:09 Temperature Pulse Rate 117 H Pulse Rate [ 89 Anterior Bilateral Throughout] Respiratory Rate Respiratory 26 H Rate [Anterior Bilateral Throughout] Blood Pressure 124/82 O2 Sat by Pulse Oximetry Constitutional: alert, other (young male with mild MR resting in bed with mildly increased resp effort at rest) Eyes: non-icteric ENT: oropharynx moist, other (BIPAP FFM on) Neck: supple, no lymphadenopathy Effort: mildly labored Ascultation: Bilateral: rhonchi Percussion: Bilateral: not dull Cardiovascular: regular rate and rhythm Gastrointestinal: normoactive bowel sounds, soft, non-tender, non-distended Integumentary: normal Extremities: no cyanosis, pink and warm Neurologic: non-focal exam (grossly), pupils equal and round, CN II-XII normal, motor strength normal and Psychiatric: mood appropriate, affect normal CBC and BMP: 04/12/19 07:56 04/12/19 07:56 ABG, PT/INR, D-dimer: ABG POC ABG pH 7.411 (7.35-7.45) 04/09/19 20:49 POC ABG pCO2 37.4 (35-45) 04/09/19 20:49 POC ABG pO2 87 (80-105) 04/09/19 20:49 POC ABG HCO3 23.8 (22-26 mml/L) 04/09/19 20:49 POC ABG Total CO2 25 (23-27mmol/L) 04/09/19 20:49 POC ABG O2 Sat 97 04/09/19 20:49 PT/INR, D-dimer PT 14.2 Sec. (12.2-14.9) 04/07/19 16:33 INR 1.04 (0.87-1.13) 04/07/19 16:33 Abnormal lab findings: Abnormal Labs 04/07/19 04/07/19 04/07/19 16:33 16:33 16:33 WBC 16.9 H Hgb 11.4 L Hct 33.5 L RDW 19.6 H Seg Neuts % (Manual) 75.0 H Lymphocytes % (Manual) 9.0 L Monocytes % (Manual) 16.0 H Seg Neutrophils # Man 12.7 H Monocytes # (Manual) 2.7 H POC ABG pO2 Sodium 133 L Potassium 3.0 L Chloride Carbon Dioxide 19 L BUN 3 L Creatinine Glucose 130 H Lactic Acid Calcium 8.2 L Magnesium 2.40 H AST 43 H Lactate Dehydrogenase Albumin 3.0 L Urine Blood 04/07/19 04/07/19 04/07/19 16:35 17:52 20:00 WBC Hgb Hct RDW Seg Neuts % (Manual) Lymphocytes % (Manual) Monocytes % (Manual) Seg Neutrophils # Man Monocytes # (Manual) POC ABG pO2 56 L 70 L Sodium Potassium Chloride Carbon Dioxide BUN Creatinine Glucose Lactic Acid Calcium Magnesium AST Lactate Dehydrogenase Albumin Urine Blood Small A 04/07/19 04/08/19 04/08/19 21:00 14:28 14:28 WBC 22.4 H Hgb 11.1 L Hct 33.3 L RDW 20.0 H Seg Neuts % (Manual) 84.0 H Lymphocytes % (Manual) 8.0 L Monocytes % (Manual) Seg Neutrophils # Man 18.8 H Monocytes # (Manual) 1.1 H POC ABG pO2 Sodium Potassium Chloride 110.1 H Carbon Dioxide 20 L BUN 7 L Creatinine 0.7 L Glucose 105 H Lactic Acid 5.80 H* Calcium Magnesium AST Lactate Dehydrogenase Albumin Urine Blood 04/08/19 04/08/19 14:28 15:32 WBC Hgb Hct RDW Seg Neuts % (Manual) Lymphocytes % (Manual) Monocytes % (Manual) Seg Neutrophils # Man Monocytes # (Manual) POC ABG pO2 374 H Sodium Potassium Chloride Carbon Dioxide BUN Creatinine Glucose Lactic Acid Calcium Magnesium AST Lactate Dehydrogenase 266 H Albumin Urine Blood Chest x-ray: image reviewed (mild interstitial and alveolar type diffuse infiltrates) Allied health notes reviewed: nursing
[2019-04-10] MEDS: MAXIPIME/NS 1 GM/100 ML 1 GM/100 ML BAG IV SCH ×3 (14:06→23:00)
[2019-04-11] MEDS: MAXIPIME/NS 1 GM/100 ML 1 GM/100 ML BAG IV SCH ×4 (05:20→22:00)
--- NOTE | 2019-04-11 07:25 | Progress Note ---
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 -Monitor and trend leukocytosis -2D echocardiograph- report reviewed -Discontinue therapeutic anticoagulation, start VTE prophylaxis -Smoking cessation counselling -Nicotine withdrawal precautions -Antibiotics per ID -Bronchodilators per protocol - Continue Brovana and budesonide scheduled -NPO for now -If he tolerates HFO therapy, via vapotherm, will need small bowel feeding tube for enteric nutrition With his respiratory status and increased work of breathing, I doubt that even if he is able to swallow that his oral nutrition will be adequate for his daily caloric needs. -Aspiration precautions -Gentle IV fluids -Accucheck with glycemic control, avoid hypoglycemia -Target blood glucose 140-180mg/dL - -Discussed extensively with his parents at the bedside. Updated them on them change from NIPPV to Vapotherm high flow. Again discussed MVS as an option in the event he does not respond to these changes. Discussed with RT/RN and in ICU-IDT rounds CONDITION: CRITICAL PROGNOSIS: GUARDED CODE STATUS: FULL The high probability of a clinically significant, sudden or life threatening deterioration of the [respiratory, cardiovascular] system(s) required my full and direct attention, intervention and personal management. The aggregate crit ical care time was [35] minutes. This time is in addition to time spent performing reported procedures but includes the following: [x] Data Review and interpretation [x] Patient assessment and monitoring of vital signs [x] Documentation [x] Medication orders and management Subjective Date of service: 04/11/19 Principal diagnosis: Acute hypoxemic hypercapnic resp failure; HAP (bilateral); Severe Sepsis Interval history: Patient is seen today for: Acute hypoxemic hypercapnic respiratory failure; HAP; Severe Sepsis Seen and examined at bedside; 24hour events reviewed; nursing and respiratory care staff consulted; no adverse overnight events reported to me; did much better overnight with anxiety management, remains tachypnic on BIPAP, looks like he is "air hungering, wanting more flow", no fevers overnight. Parents at the bedside, has remained NPO and continuous BIPAP. Awake and alert, "I feel good" Vitals, labs, medications, chart reviewed. Objective - Exam Narrative Exam: Constitutional: alert in moderated resp distress on HFO Head, Ears, Nose: Normocephalic, atraumatic. External ears, nose normal Eyes: Conjunctivae/corneas clear. No icterus. No ptosis. Neck: Supple, no meningeal signs Oral: unable to assess Cardiovascular: tachycardic, S1,S2, no murmurs, gallops or rubs Respiratory: Decreased AE bilaterally with rhonchi GI: Soft, non-tender; bowel sounds normal. No peritoneal signs Musculoskeletal: No pedal edema, no cyanosis, no clubbing Skin: No rash or abscess Hem/Lymphatic: No palpable cervical or supraclavicular nodes. No lymphangitis Psych: Mood ok. Affect normal Neurological: Awake, alert. No gross abnormality Vital Signs - 12hr 04/10/19 04/10/19 04/10/19 19:31 19:41 19:51 Temperature Pulse Rate 97 H 101 H 94 H Pulse Rate [ Anterior Bilateral Throughout] Pulse Rate [ Left Dorsalis Pedis] Pulse Rate [ Right Dorsalis Pedis] Respiratory 26 H 29 H 30 H Rate Respiratory Rate [Anterior Bilateral Throughout] Blood Pressure 120/72 120/72 122/80 O2 Sat by Pulse 97 95 93 Oximetry 04/10/19 04/10/19 04/10/19 19:55 19:56 20:00 Temperature 97.9 F Pulse Rate 105 H Pulse Rate [ 103 H Anterior Bilateral Throughout] Pulse Rate [ 95 H Left Dorsalis Pedis] Pulse Rate [ 95 H Right Dorsalis Pedis] Respiratory 34 H Rate Respiratory 24 Rate [Anterior Bilateral Throughout] Blood Pressure 132/86 O2 Sat by Pulse 96 98 Oximetry 04/10/19 04/10/19 04/10/19 20:11 20:21 20:30 Temperature Pulse Rate 117 H 98 H 105 H Pulse Rate [ Anterior Bilateral Throughout] Pulse Rate [ Left Dorsalis Pedis] Pulse Rate [ Right Dorsalis Pedis] Respiratory 22 32 H 28 H Rate Respiratory Rate [Anterior Bilateral Throughout] Blood Pressure 132/86 132/86 130/92 O2 Sat by Pulse 98 98 98 Oximetry 04/10/19 04/10/19 04/10/19 20:41 20:51 21:00 Temperature Pulse Rate 99 H 100 H 108 H Pulse Rate [ Anterior Bilateral Throughout] Pulse Rate [ Left Dorsalis Pedis] Pulse Rate [ Right Dorsalis Pedis] Respiratory 31 H 33 H 32 H Rate Respiratory Rate [Anterior Bilateral Throughout] Blood Pressure 130/92 124/88 133/91 O2 Sat by Pulse 97 96 97 Oximetry 04/10/19 04/10/19 04/10/19 21:11 21:21 21:31 Temperature Pulse Rate 114 H 120 H 122 H Pulse Rate [ Anterior Bilateral Throughout] Pulse Rate [ Left Dorsalis Pedis] Pulse Rate [ Right Dorsalis Pedis] Respiratory 26 H 19 32 H Rate Respiratory Rate [Anterior Bilateral Throughout] Blood Pressure 130/92 130/92 133/91 O2 Sat by Pulse 98 93 95 Oximetry 04/10/19 04/10/19 04/10/19 21:41 21:51 22:00 Temperature Pulse Rate 119 H 97 H 96 H Pulse Rate [ Anterior Bilateral Throughout] Pulse Rate [ Left Dorsalis Pedis] Pulse Rate [ Right Dorsalis Pedis] Respiratory 28 H 28 H 26 H Rate Respiratory Rate [Anterior Bilateral Throughout] Blood Pressure 133/91 127/93 127/91 O2 Sat by Pulse 94 97 97 Oximetry 04/10/19 04/10/19 04/10/19 22:11 22:21 22:30 Temperature Pulse Rate 111 H 101 H 101 H Pulse Rate [ Anterior Bilateral Throughout] Pulse Rate [ Left Dorsalis Pedis] Pulse Rate [ Right Dorsalis Pedis] Respiratory 31 H 29 H 28 H Rate Respiratory Rate [Anterior Bilateral Throughout] Blood Pressure 127/91 124/102 130/99 O2 Sat by Pulse 98 98 99 Oximetry 04/10/19 04/10/19 04/10/19 22:41 22:51 23:01 Temperature Pulse Rate 108 H 104 H 92 H Pulse Rate [ Anterior Bilateral Throughout] Pulse Rate [ Left Dorsalis Pedis] Pulse Rate [ Right Dorsalis Pedis] Respiratory 25 H 29 H 27 H Rate Respiratory Rate [Anterior Bilateral Throughout] Blood Pressure 130/99 137/101 157/112 O2 Sat by Pulse 99 Oximetry 04/10/19 04/10/19 04/10/19 23:11 23:21 23:30 Temperature Pulse Rate 83 95 H 89 Pulse Rate [ Anterior Bilateral Throughout] Pulse Rate [ Left Dorsalis Pedis] Pulse Rate [ Right Dorsalis Pedis] Respiratory 36 H 36 H 32 H Rate Respiratory Rate [Anterior Bilateral Throughout] Blood Pressure 157/112 126/94 100/50 O2 Sat by Pulse Oximetry 04/10/19 04/10/19 04/10/19 23:41 23:49 23:51 Temperature Pulse Rate 98 H 96 H 92 H Pulse Rate [ Anterior Bilateral Throughout] Pulse Rate [ Left Dorsalis Pedis] Pulse Rate [ Right Dorsalis Pedis] Respiratory 31 H 28 H 32 H Rate Respiratory Rate [Anterior Bilateral Throughout] Blood Pressure 100/50 122/84 O2 Sat by Pulse 96 98 95 Oximetry 04/11/19 04/11/19 04/11/19 00:00 00:11 00:21 Temperature 98.2 F Pulse Rate 96 H 98 H 106 H Pulse Rate [ Anterior Bilateral Throughout] Pulse Rate [ 67 Left Dorsalis Pedis] Pulse Rate [ 67 Right Dorsalis Pedis] Respiratory 38 H 36 H 30 H Rate Respiratory Rate [Anterior Bilateral Throughout] Blood Pressure 124/89 100/50 96/43 O2 Sat by Pulse 95 95 95 Oximetry 04/11/19 04/11/19 04/11/19 00:31 00:41 00:51 Temperature Pulse Rate 110 H 101 H 86 Pulse Rate [ Anterior Bilateral Throughout] Pulse Rate [ Left Dorsalis Pedis] Pulse Rate [ Right Dorsalis Pedis] Respiratory 38 H 35 H 32 H Rate Respiratory Rate [Anterior Bilateral Throughout] Blood Pressure 131/81 131/81 120/94 O2 Sat by Pulse 96 95 97 Oximetry 04/11/19 04/11/19 04/11/19 01:00 01:11 01:21 Temperature Pulse Rate 85 95 H 97 H Pulse Rate [ Anterior Bilateral Throughout] Pulse Rate [ Left Dorsalis Pedis] Pulse Rate [ Right Dorsalis Pedis] Respiratory 26 H 26 H 25 H Rate Respiratory Rate [Anterior Bilateral Throughout] Blood Pressure 125/86 131/81 118/80 O2 Sat by Pulse 96 97 98 Oximetry 04/11/19 04/11/19 04/11/19 01:31 01:41 01:51 Temperature Pulse Rate 102 H 100 H 96 H Pulse Rate [ Anterior Bilateral Throughout] Pulse Rate [ Left Dorsalis Pedis] Pulse Rate [ Right Dorsalis Pedis] Respiratory 30 H 28 H 32 H Rate Respiratory Rate [Anterior Bilateral Throughout] Blood Pressure 118/80 118/80 127/105 O2 Sat by Pulse 98 99 97 Oximetry 04/11/19 04/11/19 04/11/19 02:00 02:11 02:21 Temperature Pulse Rate 87 119 H 104 H Pulse Rate [ Anterior Bilateral Throughout] Pulse Rate [ Left Dorsalis Pedis] Pulse Rate [ Right Dorsalis Pedis] Respiratory 28 H 28 H 30 H Rate Respiratory Rate [Anterior Bilateral Throughout] Blood Pressure 123/90 123/90 134/98 O2 Sat by Pulse 98 98 98 Oximetry 04/11/19 04/11/19 04/11/19 02:30 02:41 02:51 Temperature Pulse Rate 92 H 95 H 96 H Pulse Rate [ Anterior Bilateral Throughout] Pulse Rate [ Left Dorsalis Pedis] Pulse Rate [ Right Dorsalis Pedis] Respiratory 29 H 27 H 28 H Rate Respiratory Rate [Anterior Bilateral Throughout] Blood Pressure 130/92 130/92 122/81 O2 Sat by Pulse 98 97 98 Oximetry 04/11/19 04/11/19 04/11/19 03:00 03:11 03:21 Temperature Pulse Rate 93 H 106 H 106 H Pulse Rate [ Anterior Bilateral Throughout] Pulse Rate [ Left Dorsalis Pedis] Pulse Rate [ Right Dorsalis Pedis] Respiratory 28 H 26 H 29 H Rate Respiratory Rate [Anterior Bilateral Throughout] Blood Pressure 127/89 127/89 135/93 O2 Sat by Pulse 98 99 99 Oximetry 04/11/19 04/11/19 04/11/19 03:31 03:41 03:51 Temperature Pulse Rate 125 H 110 H 102 H Pulse Rate [ Anterior Bilateral Throughout] Pulse Rate [ Left Dorsalis Pedis] Pulse Rate [ Right Dorsalis Pedis] Respiratory 35 H 29 H 29 H Rate Respiratory Rate [Anterior Bilateral Throughout] Blood Pressure 135/93 127/89 113/87 O2 Sat by Pulse 97 97 98 Oximetry 04/11/19 04/11/19 04/11/19 04:00 04:11 04:21 Temperature 98.1 F Pulse Rate 96 H 112 H 103 H Pulse Rate [ Anterior Bilateral Throughout] Pulse Rate [ 95 H Left Dorsalis Pedis] Pulse Rate [ 95 H Right Dorsalis Pedis] Respiratory 30 H 35 H 31 H Rate Respiratory Rate [Anterior Bilateral Throughout] Blood Pressure 118/70 113/87 112/72 O2 Sat by Pulse 97 98 97 Oximetry 04/11/19 04/11/19 04/11/19 04:31 04:41 04:51 Temperature Pulse Rate 125 H 107 H 112 H Pulse Rate [ Anterior Bilateral Throughout] Pulse Rate [ Left Dorsalis Pedis] Pulse Rate [ Right Dorsalis Pedis] Respiratory 24 32 H 33 H Rate Respiratory Rate [Anterior Bilateral Throughout] Blood Pressure 112/72 112/72 130/80 O2 Sat by Pulse 97 99 98 Oximetry 04/11/19 04/11/19 04/11/19 05:00 05:11 05:21 Temperature Pulse Rate 112 H 104 H 121 H Pulse Rate [ Anterior Bilateral Throughout] Pulse Rate [ Left Dorsalis Pedis] Pulse Rate [ Right Dorsalis Pedis] Respiratory 31 H 27 H 35 H Rate Respiratory Rate [Anterior Bilateral Throughout] Blood Pressure 140/86 140/86 122/90 O2 Sat by Pulse 98 99 98 Oximetry 04/11/19 04/11/19 04/11/19 05:30 05:41 05:51 Temperature Pulse Rate 98 H 107 H 100 H Pulse Rate [ Anterior Bilateral Throughout] Pulse Rate [ Left Dorsalis Pedis] Pulse Rate [ Right Dorsalis Pedis] Respiratory 28 H 29 H 29 H Rate Respiratory Rate [Anterior Bilateral Throughout] Blood Pressure 127/88 127/88 127/88 O2 Sat by Pulse 98 99 98 Oximetry 04/11/19 04/11/19 04/11/19 06:00 06:11 06:21 Temperature Pulse Rate 103 H 123 H 105 H Pulse Rate [ Anterior Bilateral Throughout] Pulse Rate [ Left Dorsalis Pedis] Pulse Rate [ Right Dorsalis Pedis] Respiratory 27 H 25 H 31 H Rate Respiratory Rate [Anterior Bilateral Throughout] Blood Pressure 115/85 115/85 133/85 O2 Sat by Pulse 98 94 Oximetry CBC and BMP: 04/11/19 16:15 04/11/19 15:16 ABG, PT/INR, D-dimer: ABG POC ABG pH 7.411 (7.35-7.45) 04/09/19 20:49 POC ABG pCO2 37.4 (35-45) 04/09/19 20:49 POC ABG pO2 87 (80-105) 04/09/19 20:49 POC ABG HCO3 23.8 (22-26 mml/L) 04/09/19 20:49 POC ABG Total CO2 25 (23-27mmol/L) 04/09/19 20:49 POC ABG O2 Sat 97 04/09/19 20:49 PT/INR, D-dimer PT 14.2 Sec. (12.2-14.9) 04/07/19 16:33 INR 1.04 (0.87-1.13) 04/07/19 16:33 Abnormal lab findings: Abnormal Labs 04/07/19 04/07/19 04/07/19 16:33 16:33 16:33 WBC 16.9 H Hgb 11.4 L Hct 33.5 L RDW 19.6 H Seg Neuts % (Manual) 75.0 H Lymphocytes % (Manual) 9.0 L Monocytes % (Manual) 16.0 H Seg Neutrophils # Man 12.7 H Monocytes # (Manual) 2.7 H POC ABG pO2 Sodium 133 L Potassium 3.0 L Chloride Carbon Dioxide 19 L BUN 3 L Creatinine Glucose 130 H Lactic Acid Calcium 8.2 L Magnesium 2.40 H AST 43 H Lactate Dehydrogenase Albumin 3.0 L Urine Blood Vancomycin Trough 04/07/19 04/07/19 04/07/19 16:35 17:52 20:00 WBC Hgb Hct RDW Seg Neuts % (Manual) Lymphocytes % (Manual) Monocytes % (Manual) Seg Neutrophils # Man Monocytes # (Manual) POC ABG pO2 56 L 70 L Sodium Potassium Chloride Carbon Dioxide BUN Creatinine Glucose Lactic Acid Calcium Magnesium AST Lactate Dehydrogenase Albumin Urine Blood Small A Vancomycin Trough 04/07/19 04/08/19 04/08/19 21:00 14:28 14:28 WBC 22.4 H Hgb 11.1 L Hct 33.3 L RDW 20.0 H Seg Neuts % (Manual) 84.0 H Lymphocytes % (Manual) 8.0 L Monocytes % (Manual) Seg Neutrophils # Man 18.8 H Monocytes # (Manual) 1.1 H POC ABG pO2 Sodium Potassium Chloride 110.1 H Carbon Dioxide 20 L BUN 7 L Creatinine 0.7 L Glucose 105 H Lactic Acid 5.80 H* Calcium Magnesium AST Lactate Dehydrogenase Albumin Urine Blood Vancomycin Trough 04/08/19 04/08/19 04/10/19 14:28 15:32 20:46 WBC Hgb Hct RDW Seg Neuts % (Manual) Lymphocytes % (Manual) Monocytes % (Manual) Seg Neutrophils # Man Monocytes # (Manual) POC ABG pO2 374 H Sodium Potassium Chloride Carbon Dioxide BUN Creatinine Glucose Lactic Acid Calcium Magnesium AST Lactate Dehydrogenase 266 H Albumin Urine Blood Vancomycin Trough 4.0 L Allied health notes reviewed: RT
[2019-04-11] MEDS: PULMICORT IH SCH ×2 (08:25→20:38)
[2019-04-11] MEDS: BROVANA NEBU IH SCH ×2 (08:25→20:38)
[2019-04-11] MEDS ORDERED: LOVENOX SUB-Q SCH (10:00)
[2019-04-11] MEDS: VANCOMYCIN/NS 1 GM/250 ML 1 GM/250 ML BAG IV SCH (10:25)
[2019-04-11] MEDS: ZITHROMAX 500 MG in NACL 0.9% 250ML 250 ML IV SCH (10:30)
[2019-04-11] MEDS: SOLU-Medrol IV SCH ×2 (11:35→22:34)
[2019-04-11] MEDS: NORVASC PO SCH (11:36)
[2019-04-11] MEDS: PROzac PO SCH (11:36)
[2019-04-11] MEDS: RisperDAL PO SCH ×2 (11:37→22:27)
[2019-04-11] MEDS: SODIUM CHLORIDE FLUSH SYRINGE 10 ML IV SCH (11:46)
--- NOTE | 2019-04-11 12:12 | Progress Note ---
Assessment and Plan Assessment and plan: (1) Acute respiratory failure/sepsis/pneumonia Admit patient to ICU, NIPPV, Pulmonary team consulted in ED, Chest x ray, ABG, supplemental oxygen, nebulizer therapy, CT Angio chest, repeat abg in am as clinically indicated, Pulmonology input appreciated, the patient is too unstable for CTA at this time. Obtain echo lower extremity Dopplers. Therapeutic anticoagulation until PE is ruled out, smoking cessation counseling, nicotine patches. ID consult appreciated, continue antibiotics, follow-up Legionella and pneumococcal urine antigen (2) Respiratory Acidosis Improving, continue BiPAP (3) Hyponatremia IVF resuscitation therapy, repeat bmp in am. coffee ground emesis -PPI, NPO, GI consult, NGT to suction DVT prophylaxis SCD to BLE while in bed, prophylactic lovenox The high probability of a clinically significant, sudden or life threatening deterioration of the [respiratory, neuro,endocrine] system(s) required my full and direct attention, intervention and personal management. The aggregate critical care time was [65] minutes. This time is in addition to time spent performing reported procedures but includes the following: [x] Data Review and interpretation [x] Patient assessment and monitoring of vital signs [x] Documentation [x] Medication orders and management History Interval history: Aspirin nursing staff, patient has been agitated, has had episodes of tachycardia and hypoxia. He has been BiPAP dependent No fevers, has had coffee ground emesis Hospitalist Physical - Physical exam Narrative exam: General.: Appears well, no distress, nontoxic HEENT: Moist mucous membranes, extraocular muscles intact, no lymphadenopathy Neck: supple Cardiac: S1-S2 heard Lungs: Diminished air entry Abdomen: soft , nontender, nondistended, bowel sounds positive Extremities: no edema clubbing or cyanosis Skin: no rash or lesions Neurologic: Moves all extremities, patient has been agitated Psych: calm, and cooperative - Constitutional Vitals: Temp Pulse Resp BP Pulse Ox 99.1 F 120 H 24 119/65 95 04/11/19 08:00 04/11/19 11:36 04/11/19 08:38 04/11/19 11:36 04/11/19 08:27 General appearance: Present: severe distress, disheveled Results - Labs CBC & Chem 7: 04/18/19 05:31 04/18/19 05:31 Labs: Laboratory Last Values WBC 22.4 K/mm3 (4.5-11.0) H 04/08/19 14:28 RBC 3.86 M/mm3 (3.65-5.03) 04/08/19 14:28 Hgb 11.1 gm/dl (11.8-15.2) L 04/08/19 14:28 Hct 33.3 % (35.5-45.6) L 04/08/19 14:28 MCV 86 fl (84-94) 04/08/19 14:28 MCH 29 pg (28-32) 04/08/19 14:28 MCHC 33 % (32-34) 04/08/19 14:28 RDW 20.0 % (13.2-15.2) H 04/08/19 14:28 Plt Count 304 K/mm3 (140-440) 04/08/19 14:28 Mckean % (Auto) Diamond Die Driller 04/07/19 16:33 Eos % (Auto) Diamond Die Driller 04/08/19 14:28 Add Manual Diff Complete 04/08/19 14:28 Total Counted 100 04/08/19 14:28 Seg Neuts % (Manual) 84.0 % (40.0-70.0) H 04/08/19 14:28 0 % 04/08/19 14:28 8.0 % (13.4-35.0) L 04/08/19 14:28 Reactive Lymphs % (Man) 0 % 04/08/19 14:28 5.0 % (0.0-7.3) 04/08/19 14:28 0 % (0.0-4.3) 04/08/19 14:28 0 % (0.0-1.8) 04/08/19 14:28 0 % 04/08/19 14:28 3.0 % 04/08/19 14:28 0 % 04/08/19 14:28 0 % 04/08/19 14:28 Nucleated RBC % Not Reportable 04/08/19 14:28 Seg Neutrophils # Man 18.8 K/mm3 (1.8-7.7) H 04/08/19 14:28 Band Neutrophils # 0.0 K/mm3 04/08/19 14:28 1.8 K/mm3 (1.2-5.4) 04/08/19 14:28 Abs React Lymphs (Man) 0.0 K/mm3 04/08/19 14:28 1.1 K/mm3 (0.0-0.8) H 04/08/19 14:28 0.0 K/mm3 (0.0-0.4) 04/08/19 14:28 0.0 K/mm3 (0.0-0.1) 04/08/19 14:28 0.0 K/mm3 04/08/19 14:28 0.7 K/mm3 04/08/19 14:28 0.0 K/mm3 04/08/19 14:28 Blast Cells # 0.0 K/mm3 04/08/19 14:28 WBC Morphology Not Reportable 04/08/19 14:28 Hypersegmented Neuts Not Reportable 04/08/19 14:28 Hyposegmented Neuts Not Reportable 04/08/19 14:28 Hypogranular Neuts Not Reportable 04/08/19 14:28 Not Reportable 04/08/19 14:28 Not Reportable 04/08/19 14:28 Not Reportable 04/08/19 14:28 Not Reportable 04/08/19 14:28 Not Reportable 04/08/19 14:28 Not Reportable 04/08/19 14:28 Appears normal 04/08/19 14:28 Not Reportable 04/08/19 14:28 Plt Clumps, EDTA Not Reportable 04/08/19 14:28 Not Reportable 04/08/19 14:28 Not Reportable 04/08/19 14:28 Not Reportable 04/08/19 14:28 Plt Morphology Comment Not Reportable 04/08/19 14:28 RBC Morphology Not Reportable 04/08/19 14:28 Dimorphic RBCs Not Reportable 04/08/19 14:28 Not Reportable 04/08/19 14:28 Not Reportable 04/08/19 14:28 Not Reportable 04/08/19 14:28 1+ 04/08/19 14:28 Not Reportable 04/08/19 14:28 Not Reportable 04/08/19 14:28 Not Reportable 04/08/19 14:28 Not Reportable 04/08/19 14:28 Not Reportable 04/08/19 14:28 Not Reportable 04/08/19 14:28 Not Reportable 04/08/19 14:28 Not Reportable 04/08/19 14:28 Not Reportable 04/08/19 14:28 Not Reportable 04/08/19 14:28 Not Reportable 04/08/19 14:28 Not Reportable 04/08/19 14:28 Not Reportable 04/08/19 14:28 Not Reportable 04/08/19 14:28 Not Reportable 04/08/19 14:28 Acanthocytes (Spur) Not Reportable 04/08/19 14:28 Rouleaux Not Reportable 04/08/19 14:28 Not Reportable 04/08/19 14:28 Not Reportable 04/08/19 14:28 Not Reportable 04/08/19 14:28 Not Reportable 04/08/19 14:28 Hem Pathologist Commnt No 04/08/19 14:28 PT 14.2 Sec. (12.2-14.9) 04/07/19 16:33 INR 1.04 (0.87-1.13) 04/07/19 16:33 APTT 31.9 Sec. (24.2-36.6) 04/07/19 16:33 POC ABG pH 7.411 (7.35-7.45) 04/09/19 20:49 POC ABG pCO2 37.4 (35-45) 04/09/19 20:49 POC ABG pO2 87 (80-105) 04/09/19 20:49 POC ABG HCO3 23.8 (22-26 mml/L) 04/09/19 20:49 POC ABG Total CO2 25 (23-27mmol/L) 04/09/19 20:49 POC ABG O2 Sat 97 04/09/19 20:49 POC ABG Base Excess -1 ((-2) - (+3)mmol/L) 04/09/19 20:49 50 % 04/09/19 20:49 Sodium 144 mmol/L (137-145) D 04/08/19 14:28 Potassium 4.1 mmol/L (3.6-5.0) D 04/08/19 14:28 Chloride 110.1 mmol/L (98-107) H 04/08/19 14:28 Carbon Dioxide 20 mmol/L (22-30) L 04/08/19 14:28 18 mmol/L 04/08/19 14:28 BUN 7 mg/dL (9-20) L 04/08/19 14:28 0.7 mg/dL (0.8-1.5) L 04/08/19 14:28 Estimated GFR > 60 ml/min 04/08/19 14:28 10 % 04/08/19 14:28 Glucose 105 mg/dL (75-100) H 04/08/19 14:28 Lactic Acid 0.70 mmol/L (0.7-2.0) 04/08/19 17:01 Calcium 8.9 mg/dL (8.4-10.2) 04/08/19 14:28 Phosphorus 3.00 mg/dL (2.5-4.5) 04/08/19 14:28 Magnesium 2.10 mg/dL (1.7-2.3) 04/08/19 14:28 0.30 mg/dL (0.1-1.2) 04/07/19 16:33 AST 43 units/L (5-40) H 04/07/19 16:33 ALT 22 units/L (7-56) 04/07/19 16:33 107 units/L (35-129) 04/07/19 16:33 266 units/L (91-180) H 04/08/19 14:28 70 units/L (55-170) 04/07/19 16:33 < 0.010 ng/mL (0.00-0.029) 04/07/19 16:33 6.5 g/dL (6.3-8.2) 04/07/19 16:33 3.0 g/dL (3.9-5) L 04/07/19 16:33 0.9 % 04/07/19 16:33 Straw (Yellow) 04/07/19 20:00 Clear (Clear) 04/07/19 20:00 6.0 (5.0-7.0) 04/07/19 20:00 Ur Specific [place] 1.003 (1.003-1.030) 04/07/19 20:00 <15 mg/dl mg/dL (Negative) 04/07/19 20:00 50 mg/dL (Negative) 04/07/19 20:00 Negative mg/dL (Negative) 04/07/19 20:00 Small (Negative) A 04/07/19 20:00 Negative (Negative) 04/07/19 20:00 Negative (Negative) 04/07/19 20:00 < 0.2 mg/dL (<2.0) 04/07/19 20:00 Ur Leukocyte Esterase Negative (Negative) 04/07/19 20:00 < 1.0 /HPF (0.0-6.0) 04/07/19 20:00 1.0 /HPF (0.0-6.0) 04/07/19 20:00 Vancomycin Trough 4.0 ug/mL (5.0-20.0) L 04/10/19 20:46 HIV 1&2 Antibody Rapid Non react (Non React) 04/07/19 17:25 Non react (Non React) 04/07/19 17:25 Active Medications - Current Medications Current Medications: Generic Name Dose Route Start Last Admin Trade Name Freq PRN Reason Stop Dose Admin Acetaminophen 650 mg 04/07/19 16:17 04/07/19 16:[address] 650 mg Q4H PRN Administration Pain, Mild (1-3) Amlodipine Besylate 5 mg 04/08/19 14:00 04/11/19 11:36 Norvasc PO 5 mg QDAY PACO Administration Arformoterol Tartrate 15 mcg 04/09/19 08:00 04/11/19 08:25 Brovana Nebu IH 15 mcg Q12HRT PACO Administration Budesonide 0.5 mg 04/09/19 08:00 04/11/19 08:25 Pulmicort IH 0.5 mg Q12HRT PACO Administration Enoxaparin Sodium 40 mg 04/11/19 10:00 04/11/19 11:37 Lovenox SUB-Q 40 mg QDAY@1000 PACO Administration Fluoxetine HCl 40 mg 04/08/19 14:00 04/11/19 11:36 Prozac PO 40 mg QDAY PACO Administration Azithromycin 500 mg/ Sodium 250 mls @ 250 mls/hr 04/08/19 16:00 04/10/19 10:18 Chloride IV 250 mls/hr Q24HR PACO Administration Cefepime HCl 1 gm in 100 mls @ 200 mls/hr 04/08/19 16:00 04/11/19 05:21 Maxipime/Ns 1 Gm/100 Ml IV 200 mls/hr Q8HR PACO Administration Protocol Vancomycin HCl 1 gm in 250 mls @ 167.007 mls/hr 04/11/19 10:00 Vancomycin/Ns 1 Gm/250 Ml IV Q8H PACO Methylprednisolone Sodium Succinate 20 mg 04/09/19 10:00 04/11/19 11:35 Solu-Medrol IV 20 mg Q12HR PACO Administration Quetiapine Fumarate 300 mg 04/08/19 17:00 04/11/19 11:38 Seroquel PO 300 mg QDAY PACO Administration Risperidone 2 mg 04/07/19 22:00 04/11/19 11:37 Risperdal PO 2 mg BID PACO Administration Sodium Chloride 10 ml 04/07/19 22:00 04/11/19 11:46 Sodium Chloride Flush Syringe 10 Ml IV 10 ml BID PACO Administration Sodium Chloride 10 ml 04/07/19 17:05 Sodium Chloride Flush Syringe 10 Ml IV PRN PRN LINE FLUSH Tramadol HCl 50 mg 04/07/19 17:09 Ultram PO Q6HR PRN Pain Nutrition/Malnutrition Assess - Dietary Evaluation Nutrition/Malnutrition Findings: Nutrition Notes Start: 04/08/19 15:33 Freq: Status: Active Protocol: Document 04/10/19 16:48 RM (Rec: 04/10/19 16:50 RM [id number]) Nutrition Notes Initial or Follow up Brief Note Subjective/Other Information Pt NPO earlier today. Diet advanced to regular later today. Nutrition Intervention Follow-Up By: 04/13/19 Additional Comments Follow for PO intakes
[2019-04-11] MEDS ORDERED: ZOFRAN ONE (12:39)
[2019-04-11] MEDS ORDERED: CORDARONE IV ONE (12:45)
[2019-04-11] MEDS ORDERED: ATIVAN IV PRN (12:57)
[2019-04-11] MEDS: ATIVAN IV PRN (13:06)
[2019-04-11] MEDS ORDERED: LOPRESSOR IV ONE ×2 (13:14→14:00)
--- NOTE | 2019-04-11 14:25 | XRay Report ---
PROCEDURE: XR CHEST 1V AP TECHNIQUE: Chest, portable HISTORY: Possible Aspiration COMPARISON: 04/07/2019 FINDINGS: The heart size is normal. There is no pulmonary vascular congestion seen. Mediastinal contours are normal. Lungs are clear. There is no pleural effusion seen. There is no pneumothorax seen. IMPRESSION: No acute abnormality identified. This document is electronically signed by Eugenia Reilly MD., April 11 2019 02:23:25 PM ET
[2019-04-11] MEDS ORDERED: REGLAN IV PRN (14:39)
[2019-04-11] MEDS ORDERED: ZOFRAN IV PRN (14:39)
[2019-04-11] MEDS ORDERED: HALDOL IM PRN (14:41)
[2019-04-11] MEDS ORDERED: ATIVAN IV ONE (15:00)
[2019-04-11] MEDS ORDERED: REGLAN IV ONE (15:00)
[2019-04-11] MEDS ORDERED: ZOFRAN IV ONE (15:00)
[2019-04-11] MEDS ORDERED: NACL 0.9% 1000 ML 1,000 ML ONE (15:05)
[2019-04-11 15:48] LABS: Alanine Aminotransferase 7 units/L (7-56); Albumin 2.1 g/dL (3.9-5); BUN/Creatinine Ratio 54; Blood Urea Nitrogen 38 mg/dL (9-20); Calcium 7.3 mg/dL (8.4-10.2); Hemolysis Index 5
[2019-04-11] MEDS: PROTONIX IV SCH (15:48)
[2019-04-11] MEDS ORDERED: NACL 0.9% 1000 ML 2,000 ML ONE (16:00)
[2019-04-11 16:38] LABS: Hematocrit 23.1 % (35.5-45.6); Hemoglobin 7.2 gm/dl (11.8-15.2); Mean Corpuscular HGB Conc 31 % (32-34); Mean Corpuscular Volume 89 fl (84-94); Platelet Count 402 K/mm3 (140-440); Red Blood Count 2.59 M/mm3 (3.65-5.03); Red Cell Distribution Width 19.7 % (13.2-15.2)
[2019-04-11] MEDS ORDERED: NACL 0.9% 500 ML 500 ML IV ONE (17:00)
[2019-04-11 19:02] LABS: Band Neutrophils # (Manual) 1.5 K/mm3; Basophils % (Manual) 0 % (0.0-1.8); Eosinophils % (Manual) 0 % (0.0-4.3); Nucleated Red Blood Cells 1.5 % (0.0-0.9); Total Cells Counted 200
[2019-04-11 19:04] LABS: Anisocytosis 1+; Ovalocytes 1+; Poikilocytosis Few
[2019-04-11 19:05] LABS: Platelet Estimate Consistent w Auto; Tear Drop Cells Few
[2019-04-11] MEDS ORDERED: NACL 0.9% 500 ML 500 ML ONE ×2 (19:09→22:22)
[2019-04-11] MEDS ORDERED: MORPHINE IV PRN (19:46)
--- NOTE | 2019-04-11 20:25 | Event Note ---
Date: 04/11/19 Pt seen and evaluated and found to be in distress. Pt is diaphoretic and using accessory muscles to breathe. Pt vital signs are stable and within normal limits. Pt is tachycardic. Pt treated with IVF resuscitation therapy, repeat CBC, as well as stat CT Head, CT Chest, CT Abdomen and pelvis. Pt hgb has dropped to 7.2 without BRBPR. Will transfuse 3 units PRBC. Pt initiated on empiric IV Acyclovir. Pt care plan discussed with nurse. 65 minutes critical care time spent conducting patient care. Pt care plan discussed with mother and sister. Pt family acknowledge understanding and agreement with care plan.
--- NOTE | 2019-04-11 21:57 | Cat Scan Report ---
PROCEDURE: CT HEAD/BRAIN WO CON TECHNIQUE: Computerized tomography of the head was performed without contrast material. CT DOSE LENGTH PRODUCT: 1168 mGycm HISTORY: confusion COMPARISONS: None . FINDINGS: Skull and scalp: Normal . Paranasal sinuses: Normal . Ventricles and subarachnoid spaces: Normal . Cerebrum: No evidence of hemorrhage, acute infarction or mass . Small vessel ischemic disease in the periventricular and subcortical regions. Cerebellum and brainstem: No evidence of hemorrhage, acute infarction or mass . Vasculature: Normal . Other: None . IMPRESSION: No evidence of hemorrhage, acute infarction or mass . Small vessel ischemic disease in t he periventricular and subcortical regions. This document is electronically signed by Pratibha Dorsey MD., April 11 2019 09:56:04 PM ET
--- NOTE | 2019-04-11 22:05 | Event Note ---
Patient signed out to me by Dr Vaughan to follow CT Recommend to add levaquin
--- NOTE | 2019-04-11 22:28 | Cat Scan Report ---
PROCEDURE: CT CHEST W CON TECHNIQUE: Computerized axial tomography of the chest was performed during the IV injection of iodin ated nonionic contrast. CT DOSE LENGTH PRODUCT: mGycm HISTORY: pain COMPARISONS: None . FINDINGS: There is an NG tube distal end within the body of the stomach There is respiratory motion artifact partially limiting the exam Heart and pericardium: Normal. Thoracic aorta: Normal. Pulmonary vasculature: Normal. Lymph nodes: No enlarged thoracic lymph nodes. Lungs: There are some areas of groundglass opacity present within the right middle and right lower lo bes there is some parenchymal scarring in the right upper lobe. There are a few areas of groundglass opacity in the left lower lobe Pleural space: No effusion, thickening, or pneumothorax. Musculoskeletal structures: No significant abnormality. Upper abdominal structures: No significant abnormality. IMPRESSION: Groundglass opacities within the right middle and right lower lobes and these are nonspec ific and may reflect some inflammatory or infectious etiologies. NG tube in satisfactory position Respiratory motion artifact This document is electronically signed by Viral Nielsen MD., April 11 2019 10:26:21 PM ET
[2019-04-11] MEDS: LEVAQUIN 750MG/150ML 750 MG/150 ML BAG IV SCH (22:33)
--- NOTE | 2019-04-11 22:49 | Cat Scan Report ---
PROCEDURE: CT ABDOMEN PELVIS W CON TECHNIQUE: Computerized axial tomography of the abdomen and pelvis was performed after the IV inject ion of iodinated nonionic contrast. CT DOSE LENGTH PRODUCT: mGycm HISTORY: pain COMPARISONS: None . FINDINGS: Visualized lower thorax: No significant abnormality. Liver: Normal size and attenuation. Spleen: Normal size and attenuation. Gallbladder and biliary system: Normal. Pancreas: Normal. Adrenals: Normal. Kidneys: Normal. GI tract: NG tube is present distal end within the body of the stomach. Lymph nodes and mesentery: Normal. Vasculature: Normal.. Bladder: There is a Barrientos within the urinary bladder which is decompressed. Bladder wall appears thic kened. Reproductive organs: Normal. Peritoneum: There is a small amount of free fluid in the lower pelvis Musculoskeletal structures: No significant abnormality. Other: None. IMPRESSION: Amount of free fluid in the lower pelvis NG tube and fully and satisfactory position Diffuse bladder wall thickening may indicate cystitis or chronic outlet obstruction. This document is electronically signed by Viral Nielsen MD., April 11 2019 10:47:06 PM ET
[2019-04-12] MEDS: VANCOMYCIN/NS 1 GM/250 ML 1 GM/250 ML BAG IV SCH ×5 (01:33→17:44)
--- NOTE | 2019-04-12 03:18 | Event Note ---
Date: 04/11/19 Multiple calls from his RN re hemodynamic instability, respiratory status. I asked the hospitalist to see physically see and assess patient. Apparently patient had coffee ground emesis and became more tachypneic after that Patient went into SVT with temple of sinus rhythm after the administration of adenosine. Apparently stable at this time.
--- NOTE | 2019-04-12 03:49 | Progress Note ---
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 -Monitor and trend leukocytosis -For EGD today -Smoking cessation counselling -Nicotine withdrawal precautions -Antibiotics per ID -Bronchodilators per protocol - Continue Brovana and budesonide scheduled -Aspiration precautions -Gentle IV fluids -Accucheck with glycemic control, avoid hypoglycemia -Target blood glucose 140-180mg/dL - -Discussed extensively with his parents at the bedside. CONDITION: FAIR PROGNOSIS: GUARDED CODE STATUS: FULL Subjective Date of service: 04/12/19 Principal diagnosis: Acute hypoxemic hypercapnic resp failure; HAP (bilateral); Severe Sepsis Interval history: Patient is seen today for: Acute hypoxemic hypercapnic respiratory failure; HAP; Severe Sepsis Seen and examined at bedside; 24hour events reviewed; nursing and respiratory care staff consulted; no adverse overnight events reported to me; did much better overnight with anxiety management, no fevers overnight. Parents at the bedside, has remained NPO . Awake and alert, "I feel good" EGD for today Vitals, labs, medications, chart reviewed. Objective - Exam Narrative Exam: Gen: chronic ill appearing, NAD, Awake, Alert, HEENT: NCAT, EOMI, PERRL, Neck: supple, no adenopathy, no thyromegaly, no JVD CVS/Heart: RRR, normal S1S2, pulses present bilaterally Chest/Lungs: diminished bs bilaterally, Symmetrical chest expansion, good air entry bilaterally GI/Abdomen: soft, NTND, good bowel sounds, no guarding or rebound /Bladder: no suprapubic tenderness, no CVA or paraspinal tenderness Extermity/Skin: no c/c/e, no obvious rash MSK: FROM x 4 Neuro: CN 2-12 grossly intact, no new focal deficits Psych: calm Vital Signs - 12hr 04/11/19 04/11/19 04/11/19 15:50 16:00 16:10 Temperature 97.3 F L Pulse Rate 142 H 142 H 154 H Pulse Rate [ Anterior Bilateral Throughout] Pulse Rate [ 160 H Left Dorsalis Pedis] Pulse Rate [ 160 H Right Dorsalis Pedis] Respiratory 37 H 55 H 40 H Rate Respiratory Rate [Anterior Bilateral Throughout] Blood Pressure 87/47 103/68 149/75 O2 Sat by Pulse 100 100 100 Oximetry 04/11/19 04/11/19 04/11/19 16:20 16:30 16:40 Temperature Pulse Rate 145 H 146 H 147 H Pulse Rate [ Anterior Bilateral Throughout] Pulse Rate [ Left Dorsalis Pedis] Pulse Rate [ Right Dorsalis Pedis] Respiratory 39 H 36 H 49 H Rate Respiratory Rate [Anterior Bilateral Throughout] Blood Pressure 129/50 109/56 133/61 O2 Sat by Pulse 100 100 100 Oximetry 04/11/19 04/11/19 04/11/19 16:50 17:00 17:10 Temperature Pulse Rate 143 H 138 H 136 H Pulse Rate [ Anterior Bilateral Throughout] Pulse Rate [ Left Dorsalis Pedis] Pulse Rate [ Right Dorsalis Pedis] Respiratory 37 H 30 H 27 H Rate Respiratory Rate [Anterior Bilateral Throughout] Blood Pressure 127/55 118/70 127/63 O2 Sat by Pulse 100 100 100 Oximetry 04/11/19 04/11/19 04/11/19 17:20 17:30 17:40 Temperature Pulse Rate 138 H 139 H 134 H Pulse Rate [ Anterior Bilateral Throughout] Pulse Rate [ Left Dorsalis Pedis] Pulse Rate [ Right Dorsalis Pedis] Respiratory 29 H 29 H 26 H Rate Respiratory Rate [Anterior Bilateral Throughout] Blood Pressure 136/52 127/60 125/39 O2 Sat by Pulse 100 100 100 Oximetry 04/11/19 04/11/19 04/11/19 17:50 18:00 18:10 Temperature Pulse Rate 134 H 129 H 127 H Pulse Rate [ Anterior Bilateral Throughout] Pulse Rate [ Left Dorsalis Pedis] Pulse Rate [ Right Dorsalis Pedis] Respiratory 27 H 26 H 27 H Rate Respiratory Rate [Anterior Bilateral Throughout] Blood Pressure 134/21 127/57 128/39 O2 Sat by Pulse 100 100 100 Oximetry 04/11/19 04/11/19 04/11/19 18:20 18:30 18:40 Temperature Pulse Rate 126 H 125 H 127 H Pulse Rate [ Anterior Bilateral Throughout] Pulse Rate [ Left Dorsalis Pedis] Pulse Rate [ Right Dorsalis Pedis] Respiratory 26 H 28 H 36 H Rate Respiratory Rate [Anterior Bilateral Throughout] Blood Pressure 124/43 135/57 109/53 O2 Sat by Pulse 100 100 Oximetry 04/11/19 04/11/19 04/11/19 18:50 19:00 19:10 Temperature Pulse Rate 125 H 125 H 124 H Pulse Rate [ Anterior Bilateral Throughout] Pulse Rate [ Left Dorsalis Pedis] Pulse Rate [ Right Dorsalis Pedis] Respiratory 26 H 28 H 25 H Rate Respiratory Rate [Anterior Bilateral Throughout] Blood Pressure 120/64 129/74 139/39 O2 Sat by Pulse 100 100 100 Oximetry 04/11/19 04/11/19 04/11/19 19:20 19:21 19:30 Temperature 94.6 F L Pulse Rate 124 H 120 H 121 H Pulse Rate [ Anterior Bilateral Throughout] Pulse Rate [ Left Dorsalis Pedis] Pulse Rate [ Right Dorsalis Pedis] Respiratory 22 25 H 24 Rate Respiratory Rate [Anterior Bilateral Throughout] Blood Pressure 128/56 127/81 134/46 O2 Sat by Pulse 100 100 100 Oximetry 04/11/19 04/11/19 04/11/19 19:36 19:40 19:50 Temperature 97.4 F L Pulse Rate 134 H 120 H 118 H Pulse Rate [ Anterior Bilateral Throughout] Pulse Rate [ Left Dorsalis Pedis] Pulse Rate [ Right Dorsalis Pedis] Respiratory 26 H 24 22 Rate Respiratory Rate [Anterior Bilateral Throughout] Blood Pressure 134/67 134/46 122/69 O2 Sat by Pulse 100 100 100 Oximetry 04/11/19 04/11/19 04/11/19 20:00 20:06 20:10 Temperature 97.8 F 97.4 F L Pulse Rate 119 H 122 H 121 H Pulse Rate [ Anterior Bilateral Throughout] Pulse Rate [ 134 H Left Dorsalis Pedis] Pulse Rate [ 134 H Right Dorsalis Pedis] Respiratory 34 H 25 H 23 Rate Respiratory Rate [Anterior Bilateral Throughout] Blood Pressure 112/61 145/65 112/61 O2 Sat by Pulse 100 100 Oximetry 04/11/19 04/11/19 04/11/19 20:20 20:30 20:36 Temperature 97.5 F L Pulse Rate 125 H 121 H 126 H Pulse Rate [ Anterior Bilateral Throughout] Pulse Rate [ Left Dorsalis Pedis] Pulse Rate [ Right Dorsalis Pedis] Respiratory 25 H 21 28 H Rate Respiratory Rate [Anterior Bilateral Throughout] Blood Pressure 118/76 126/73 125/59 O2 Sat by Pulse 100 100 100 Oximetry 04/11/19 04/11/19 04/11/19 20:40 20:41 20:42 Temperature Pulse Rate 122 H Pulse Rate [ 122 H Anterior Bilateral Throughout] Pulse Rate [ Left Dorsalis Pedis] Pulse Rate [ Right Dorsalis Pedis] Respiratory 22 Rate Respiratory 25 H Rate [Anterior Bilateral Throughout] Blood Pressure 126/73 O2 Sat by Pulse 100 100 Oximetry 04/11/19 04/11/19 04/11/19 21:10 21:41 21:50 Temperature 97.3 F L Pulse Rate 134 H 130 H 121 H Pulse Rate [ Anterior Bilateral Throughout] Pulse Rate [ Left Dorsalis Pedis] Pulse Rate [ Right Dorsalis Pedis] Respiratory 22 25 H Rate Respiratory Rate [Anterior Bilateral Throughout] Blood Pressure 123/61 126/73 O2 Sat by Pulse 100 100 100 Oximetry 04/11/19 04/11/19 04/11/19 22:00 22:10 22:20 Temperature Pulse Rate 122 H 114 H 113 H Pulse Rate [ Anterior Bilateral Throughout] Pulse Rate [ Left Dorsalis Pedis] Pulse Rate [ Right Dorsalis Pedis] Respiratory 26 H 25 H 21 Rate Respiratory Rate [Anterior Bilateral Throughout] Blood Pressure 136/70 136/70 126/78 O2 Sat by Pulse 100 100 100 Oximetry 04/11/19 04/11/19 04/11/19 22:30 22:40 22:50 Temperature Pulse Rate 112 H 114 H 114 H Pulse Rate [ Anterior Bilateral Throughout] Pulse Rate [ Left Dorsalis Pedis] Pulse Rate [ Right Dorsalis Pedis] Respiratory 20 19 20 Rate Respiratory Rate [Anterior Bilateral Throughout] Blood Pressure 128/67 128/67 136/58 O2 Sat by Pulse 100 100 100 Oximetry 04/11/19 04/11/19 04/11/19 23:00 23:10 23:20 Temperature Pulse Rate 115 H 113 H 116 H Pulse Rate [ Anterior Bilateral Throughout] Pulse Rate [ Left Dorsalis Pedis] Pulse Rate [ Right Dorsalis Pedis] Respiratory 23 21 21 Rate Respiratory Rate [Anterior Bilateral Throughout] Blood Pressure 129/55 129/55 135/57 O2 Sat by Pulse 100 100 100 Oximetry 04/11/19 04/11/19 04/11/19 23:30 23:40 23:47 Temperature Pulse Rate 117 H 116 H 116 H Pulse Rate [ Anterior Bilateral Throughout] Pulse Rate [ Left Dorsalis Pedis] Pulse Rate [ Right Dorsalis Pedis] Respiratory 22 21 20 Rate Respiratory Rate [Anterior Bilateral Throughout] Blood Pressure 123/63 123/63 120/59 O2 Sat by Pulse 100 100 100 Oximetry 04/11/19 04/12/19 04/12/19 23:50 00:00 00:02 Temperature 98.6 F Pulse Rate 117 H 120 H 118 H Pulse Rate [ Anterior Bilateral Throughout] Pulse Rate [ 112 H Left Dorsalis Pedis] Pulse Rate [ 112 H Right Dorsalis Pedis] Respiratory 19 20 20 Rate Respiratory Rate [Anterior Bilateral Throughout] Blood Pressure 120/59 113/62 113/62 O2 Sat by Pulse 100 100 100 Oximetry 04/12/19 04/12/19 04/12/19 00:10 00:20 00:30 Temperature Pulse Rate 118 H 118 H 119 H Pulse Rate [ Anterior Bilateral Throughout] Pulse Rate [ Left Dorsalis Pedis] Pulse Rate [ Right Dorsalis Pedis] Respiratory 19 18 21 Rate Respiratory Rate [Anterior Bilateral Throughout] Blood Pressure 113/62 126/66 130/62 O2 Sat by Pulse 100 100 100 Oximetry 04/12/19 04/12/19 04/12/19 00:40 00:50 01:00 Temperature Pulse Rate 120 H 120 H 122 H Pulse Rate [ Anterior Bilateral Throughout] Pulse Rate [ Left Dorsalis Pedis] Pulse Rate [ Right Dorsalis Pedis] Respiratory 20 20 22 Rate Respiratory Rate [Anterior Bilateral Throughout] Blood Pressure 130/62 128/70 131/62 O2 Sat by Pulse 100 100 100 Oximetry 04/12/19 04/12/19 04/12/19 01:10 01:20 01:25 Temperature 97.2 F L Pulse Rate 116 H 119 H Pulse Rate [ Anterior Bilateral Throughout] Pulse Rate [ Left Dorsalis Pedis] Pulse Rate [ Right Dorsalis Pedis] Respiratory 22 23 Rate Respiratory Rate [Anterior Bilateral Throughout] Blood Pressure 131/62 130/70 O2 Sat by Pulse 100 100 Oximetry 04/12/19 04/12/19 04/12/19 01:30 01:39 01:40 Temperature 97.3 F L Pulse Rate 118 H 112 H 112 H Pulse Rate [ Anterior Bilateral Throughout] Pulse Rate [ Left Dorsalis Pedis] Pulse Rate [ Right Dorsalis Pedis] Respiratory 24 24 23 Rate Respiratory Rate [Anterior Bilateral Throughout] Blood Pressure 136/69 136/69 136/69 O2 Sat by Pulse 100 100 100 Oximetry 04/12/19 04/12/19 04/12/19 01:50 02:00 02:10 Temperature Pulse Rate 111 H 113 H 112 H Pulse Rate [ Anterior Bilateral Throughout] Pulse Rate [ Left Dorsalis Pedis] Pulse Rate [ Right Dorsalis Pedis] Respiratory 20 20 22 Rate Respiratory Rate [Anterior Bilateral Throughout] Blood Pressure 136/66 142/74 142/74 O2 Sat by Pulse 100 100 100 Oximetry 04/12/19 04/12/19 04/12/19 02:20 02:30 02:40 Temperature Pulse Rate 109 H 113 H 113 H Pulse Rate [ Anterior Bilateral Throughout] Pulse Rate [ Left Dorsalis Pedis] Pulse Rate [ Right Dorsalis Pedis] Respiratory 23 23 22 Rate Respiratory Rate [Anterior Bilateral Throughout] Blood Pressure 136/66 131/64 131/64 O2 Sat by Pulse 100 100 100 Oximetry 04/12/19 04/12/19 04/12/19 02:50 03:00 03:10 Temperature Pulse Rate 118 H 110 H 130 H Pulse Rate [ Anterior Bilateral Throughout] Pulse Rate [ Left Dorsalis Pedis] Pulse Rate [ Right Dorsalis Pedis] Respiratory 21 24 16 Rate Respiratory Rate [Anterior Bilateral Throughout] Blood Pressure 125/74 140/75 140/75 O2 Sat by Pulse 100 100 100 Oximetry 04/12/19 04/12/19 04/12/19 03:19 03:20 03:22 Temperature 97.1 F L 97.4 F L Pulse Rate 107 H 93 H Pulse Rate [ Anterior Bilateral Throughout] Pulse Rate [ Left Dorsalis Pedis] Pulse Rate [ Right Dorsalis Pedis] Respiratory 23 21 Rate Respiratory Rate [Anterior Bilateral Throughout] Blood Pressure 137/85 106/74 O2 Sat by Pulse 100 100 Oximetry 04/12/19 04/12/19 03:30 03:40 Temperature 97.1 F L Pulse Rate 99 H 99 H Pulse Rate [ Anterior Bilateral Throughout] Pulse Rate [ Left Dorsalis Pedis] Pulse Rate [ Right Dorsalis Pedis] Respiratory 20 20 Rate Respiratory Rate [Anterior Bilateral Throughout] Blood Pressure 121/70 106/74 O2 Sat by Pulse 100 100 Oximetry CBC and BMP: 04/18/19 05:31 04/18/19 05:31 ABG, PT/INR, D-dimer: ABG POC ABG pH 7.215 (7.35-7.45) L 04/11/19 20:27 POC ABG pCO2 60.2 (35-45) H 04/11/19 20:27 POC ABG HCO3 24.3 (22-26 mml/L) 04/11/19 20:27 POC ABG Total CO2 26 (23-27mmol/L) 04/11/19 20:27 POC ABG O2 Sat 100 04/11/19 20:27 PT/INR, D-dimer PT 14.2 Sec. (12.2-14.9) 04/07/19 16:33 INR 1.04 (0.87-1.13) 04/07/19 16:33 Abnormal lab findings: Abnormal Labs 04/07/19 04/07/19 04/07/19 16:33 16:33 16:33 WBC 16.9 H RBC Hgb 11.4 L Hct 33.5 L MCHC RDW 19.6 H Seg Neuts % (Manual) 75.0 H Lymphocytes % (Manual) 9.0 L Monocytes % (Manual) 16.0 H Nucleated RBC % Seg Neutrophils # Man 12.7 H Monocytes # (Manual) 2.7 H POC ABG pH POC ABG pCO2 POC ABG pO2 Sodium 133 L Potassium 3.0 L Chloride Carbon Dioxide 19 L BUN 3 L Creatinine Glucose 130 H Lactic Acid Calcium 8.2 L Magnesium 2.40 H AST 43 H Ammonia Lactate Dehydrogenase Total Protein Albumin 3.0 L Urine Blood Vancomycin Trough Crossmatch 04/07/19 04/07/19 04/07/19 16:35 17:52 20:00 WBC RBC Hgb Hct MCHC RDW Seg Neuts % (Manual) Lymphocytes % (Manual) Monocytes % (Manual) Nucleated RBC % Seg Neutrophils # Man Monocytes # (Manual) POC ABG pH POC ABG pCO2 POC ABG pO2 56 L 70 L Sodium Potassium Chloride Carbon Dioxide BUN Creatinine Glucose Lactic Acid Calcium Magnesium AST Ammonia Lactate Dehydrogenase Total Protein Albumin Urine Blood Small A Vancomycin Trough Crossmatch 04/07/19 04/08/19 04/08/19 21:00 14:28 14:28 WBC 22.4 H RBC Hgb 11.1 L Hct 33.3 L MCHC RDW 20.0 H Seg Neuts % (Manual) 84.0 H Lymphocytes % (Manual) 8.0 L Monocytes % (Manual) Nucleated RBC % Seg Neutrophils # Man 18.8 H Monocytes # (Manual) 1.1 H POC ABG pH POC ABG pCO2 POC ABG pO2 Sodium Potassium Chloride 110.1 H Carbon Dioxide 20 L BUN 7 L Creatinine 0.7 L Glucose 105 H Lactic Acid 5.80 H* Calcium Magnesium AST Ammonia Lactate Dehydrogenase Total Protein Albumin Urine Blood Vancomycin Trough Crossmatch 04/08/19 04/08/19 04/10/19 14:28 15:32 20:46 WBC RBC Hgb Hct MCHC RDW Seg Neuts % (Manual) Lymphocytes % (Manual) Monocytes % (Manual) Nucleated RBC % Seg Neutrophils # Man Monocytes # (Manual) POC ABG pH POC ABG pCO2 POC ABG pO2 374 H Sodium Potassium Chloride Carbon Dioxide BUN Creatinine Glucose Lactic Acid Calcium Magnesium AST Ammonia Lactate Dehydrogenase 266 H Total Protein Albumin Urine Blood Vancomycin Trough 4.0 L Crossmatch 04/11/19 04/11/19 04/11/19 15:16 16:15 16:15 WBC 50.0 H* RBC 2.59 L Hgb 7.2 L Hct 23.1 L MCHC 31 L RDW 19.7 H Seg Neuts % (Manual) 72.5 H Lymphocytes % (Manual) 5.5 L Monocytes % (Manual) 8.0 H Nucleated RBC % 1.5 H Seg Neutrophils # Man 36.3 H Monocytes # (Manual) 4.0 H POC ABG pH POC ABG pCO2 POC ABG pO2 Sodium Potassium Chloride 108.1 H Carbon Dioxide BUN 38 H Creatinine 0.7 L Glucose 240 H Lactic Acid Calcium 7.3 L D Magnesium AST Ammonia 77.0 H Lactate Dehydrogenase Total Protein 3.9 L D Albumin 2.1 L Urine Blood Vancomycin Trough Crossmatch 04/11/19 04/11/19 16:19 20:27 WBC RBC Hgb Hct MCHC RDW Seg Neuts % (Manual) Lymphocytes % (Manual) Monocytes % (Manual) Nucleated RBC % Seg Neutrophils # Man Monocytes # (Manual) POC ABG pH 7.215 L POC ABG pCO2 60.2 H POC ABG pO2 Sodium Potassium Chloride Carbon Dioxide BUN Creatinine Glucose Lactic Acid Calcium Magnesium AST Ammonia Lactate Dehydrogenase Total Protein Albumin Urine Blood Vancomycin Trough Crossmatch See Detail Allied health notes reviewed: RT
[2019-04-12] MEDS: ZITHROMAX 500 MG in NACL 0.9% 250ML 250 ML IV SCH ×2 (06:00→09:47)
[2019-04-12] MEDS: MAXIPIME/NS 1 GM/100 ML 1 GM/100 ML BAG IV SCH ×4 (06:00→22:12)
[2019-04-12] MEDS: ATIVAN IV PRN ×4 (08:13→19:55)
[2019-04-12] MEDS: PULMICORT IH SCH ×2 (08:18→20:24)
[2019-04-12] MEDS: BROVANA NEBU IH SCH ×2 (08:18→20:24)
[2019-04-12 09:10] LABS: Alanine Aminotransferase 7 units/L (7-56); Albumin 2.3 g/dL (3.9-5); BUN/Creatinine Ratio 26; Blood Urea Nitrogen 18 mg/dL (9-20); Calcium 8.2 mg/dL (8.4-10.2); Hemolysis Index 8
[2019-04-12 09:31] LABS: Hematocrit 31.4 % (35.5-45.6); Hemoglobin 10.4 gm/dl (11.8-15.2); Mean Corpuscular HGB Conc 33 % (32-34); Mean Corpuscular Volume 88 fl (84-94); Platelet Count 282 K/mm3 (140-440); Red Blood Count 3.57 M/mm3 (3.65-5.03); Red Cell Distribution Width 16.9 % (13.2-15.2)
[2019-04-12] MEDS: SOLU-Medrol IV SCH ×2 (09:47→22:11)
[2019-04-12] MEDS: PROTONIX IV SCH ×2 (09:47→22:11)
[2019-04-12] MEDS: NACL 0.9% IV SCH ×4 (09:48→23:03)
[2019-04-12] MEDS: ZOVIRAX IV SCH ×4 (09:48→23:03)
[2019-04-12] MEDS: PROzac PO SCH (09:49)
[2019-04-12] MEDS: RisperDAL PO SCH ×2 (09:49→22:11)
[2019-04-12] MEDS: NORVASC PO SCH (09:49)
[2019-04-12] MEDS: SODIUM CHLORIDE FLUSH SYRINGE 10 ML IV SCH ×2 (10:00→22:26)
--- NOTE | 2019-04-12 11:21 | Progress Note ---
Assessment and Plan Assessment and plan: (1) Acute respiratory failure/sepsis/pneumonia Admit patient to ICU, NIPPV, Pulmonary team consulted in ED, Chest x ray, ABG, supplemental oxygen, nebulizer therapy, CT Angio chest, repeat abg in am as clinically indicated, Pulmonology input appreciated, the patient is too unstable for CTA at this time. Obtain echo lower extremity Dopplers. Therapeutic anticoagulation until PE is ruled out, smoking cessation counseling, nicotine patches. ID consult appreciated, continue antibiotics, follow-up Legionella and pneumococcal urine antigen (2) Respiratory Acidosis Improving, continue BiPAP (3) Hyponatremia IVF resuscitation therapy, repeat bmp in am. coffee ground emesis -PPI, NPO, GI consult, NGT to suction DVT prophylaxis SCD to BLE while in bed, prophylactic lovenox The high probability of a clinically significant, sudden or life threatening deterioration of the [respiratory, neuro,endocrine] system(s) required my full and direct attention, intervention and personal management. The aggregate critical care time was [65] minutes. This time is in addition to time spent performing reported procedures but includes the following: [x] Data Review and interpretation [x] Patient assessment and monitoring of vital signs [x] Documentation [x] Medication orders and management History Interval history: per nursing staff, patient has been agitated, has had episodes of tachycardia and hypoxia. He has been BiPAP dependent No fevers, has had coffee ground emesis, last episode was yesterday Hospitalist Physical - Physical exam Narrative exam: General.: Appears well, no distress, nontoxic HEENT: Moist mucous membranes, extraocular muscles intact, no lymphadenopathy Neck: supple Cardiac: S1-S2 heard Lungs: Diminished air entry Abdomen: soft , nontender, nondistended, bowel sounds positive Extremities: no edema clubbing or cyanosis Skin: no rash or lesions Neurologic: Moves all extremities, patient has been agitated Psych: calm, and cooperative - Constitutional Vitals: Temp Pulse Resp BP Pulse Ox 97.5 F L 90 25 H 142/77 98 04/12/19 04:00 04/12/19 11:15 04/12/19 11:15 04/12/19 11:15 04/12/19 11:15 General appearance: Present: severe distress, disheveled Results - Labs CBC & Chem 7: 04/18/19 05:31 04/18/19 05:31 Labs: Laboratory Last Values WBC 35.9 K/mm3 (4.5-11.0) H 04/12/19 07:56 RBC 3.57 M/mm3 (3.65-5.03) L 04/12/19 07:56 Hgb 10.4 gm/dl (11.8-15.2) L D 04/12/19 07:56 Hct 31.4 % (35.5-45.6) L D 04/12/19 07:56 MCV 88 fl (84-94) 04/12/19 07:56 MCH 29 pg (28-32) 04/12/19 07:56 MCHC 33 % (32-34) 04/12/19 07:56 RDW 16.9 % (13.2-15.2) H 04/12/19 07:56 Plt Count 282 K/mm3 (140-440) 04/12/19 07:56 [place] % (Auto) Weights And Measures Sealer 04/07/19 16:33 Eos % (Auto) Weights And Measures Sealer 04/08/19 14:28 Add Manual Diff Complete 04/11/19 16:15 Total Counted 200 04/11/19 16:15 Seg Neutrophils % Weights And Measures Sealer 04/11/19 16:15 Seg Neuts % (Manual) 72.5 % (40.0-70.0) H 04/11/19 16:15 3.0 % 04/11/19 16:15 5.5 % (13.4-35.0) L 04/11/19 16:15 Reactive Lymphs % (Man) 3.0 % 04/11/19 16:15 8.0 % (0.0-7.3) H 04/11/19 16:15 0 % (0.0-4.3) 04/11/19 16:15 0 % (0.0-1.8) 04/11/19 16:15 6.0 % 04/11/19 16:15 2.0 % 04/11/19 16:15 0 % 04/11/19 16:15 0 % 04/11/19 16:15 Nucleated RBC % 1.5 % (0.0-0.9) H 04/11/19 16:15 Seg Neutrophils # Man 36.3 K/mm3 (1.8-7.7) H 04/11/19 16:15 Band Neutrophils # 1.5 K/mm3 04/11/19 16:15 2.8 K/mm3 (1.2-5.4) 04/11/19 16:15 Abs React Lymphs (Man) 1.5 K/mm3 04/11/19 16:15 4.0 K/mm3 (0.0-0.8) H 04/11/19 16:15 0.0 K/mm3 (0.0-0.4) 04/11/19 16:15 0.0 K/mm3 (0.0-0.1) 04/11/19 16:15 3.0 K/mm3 04/11/19 16:15 1.0 K/mm3 04/11/19 16:15 0.0 K/mm3 04/11/19 16:15 Blast Cells # 0.0 K/mm3 04/11/19 16:15 WBC Morphology Not Reportable 04/08/19 14:28 Hypersegmented Neuts Not Reportable 04/11/19 16:15 Hyposegmented Neuts Not Reportable 04/11/19 16:15 Hypogranular Neuts Not Reportable 04/11/19 16:15 Not Reportable 04/11/19 16:15 Not Reportable 04/11/19 16:15 Not Reportable 04/11/19 16:15 Not Reportable 04/11/19 16:15 Not Reportable 04/11/19 16:15 Not Reportable 04/11/19 16:15 Consistent w auto 04/11/19 16:15 Not Reportable 04/11/19 16:15 Plt Clumps, EDTA Not Reportable 04/11/19 16:15 Not Reportable 04/11/19 16:15 Not Reportable 04/11/19 16:15 Not Reportable 04/11/19 16:15 Plt Morphology Comment Not Reportable 04/11/19 16:15 RBC Morphology Not Reportable 04/11/19 16:15 Dimorphic RBCs Not Reportable 04/11/19 16:15 Few 04/11/19 16:15 Not Reportable 04/11/19 16:15 Few 04/11/19 16:15 1+ 04/11/19 16:15 Not Reportable 04/11/19 16:15 Not Reportable 04/11/19 16:15 Not Reportable 04/11/19 16:15 Not Reportable 04/11/19 16:15 Not Reportable 04/11/19 16:15 Not Reportable 04/11/19 16:15 Few 04/11/19 16:15 1+ 04/11/19 16:15 Not Reportable 04/11/19 16:15 Not Reportable 04/11/19 16:15 Not Reportable 04/11/19 16:15 Not Reportable 04/11/19 16:15 Not Reportable 04/11/19 16:15 Not Reportable 04/11/19 16:15 Not Reportable 04/11/19 16:15 Acanthocytes (Spur) Not Reportable 04/11/19 16:15 Rouleaux Not Reportable 04/11/19 16:15 Not Reportable 04/11/19 16:15 Not Reportable 04/11/19 16:15 Not Reportable 04/11/19 16:15 Not Reportable 04/11/19 16:15 Hem Pathologist Commnt Sent to pathology 04/11/19 16:15 PT 14.2 Sec. (12.2-14.9) 04/07/19 16:33 INR 1.04 (0.87-1.13) 04/07/19 16:33 APTT 31.9 Sec. (24.2-36.6) 04/07/19 16:33 POC ABG pH 7.215 (7.35-7.45) L 04/11/19 20:27 POC ABG pCO2 60.2 (35-45) H 04/11/19 20:27 POC ABG pO2 83 (80-105) 04/11/19 13:44 POC ABG HCO3 24.3 (22-26 mml/L) 04/11/19 20:27 POC ABG Total CO2 26 (23-27mmol/L) 04/11/19 20:27 POC ABG O2 Sat 100 04/11/19 20:27 POC ABG Base Excess -3 ((-2) - (+3)mmol/L) 04/11/19 20:27 100 % 04/11/19 20:27 Sodium 143 mmol/L (137-145) 04/12/19 07:56 Potassium 4.0 mmol/L (3.6-5.0) 04/12/19 07:56 Chloride 110.8 mmol/L (98-107) H 04/12/19 07:56 Carbon Dioxide 23 mmol/L (22-30) 04/12/19 07:56 13 mmol/L 04/12/19 07:56 BUN 18 mg/dL (9-20) 04/12/19 07:56 0.7 mg/dL (0.8-1.5) L 04/12/19 07:56 Estimated GFR > 60 ml/min 04/12/19 07:56 26 % 04/12/19 07:56 Glucose 146 mg/dL (75-100) H 04/12/19 07:56 POC Glucose 147 (70-105) H 04/12/19 08:56 Lactic Acid 0.70 mmol/L (0.7-2.0) 04/08/19 17:01 Calcium 8.2 mg/dL (8.4-10.2) L 04/12/19 07:56 Phosphorus 3.00 mg/dL (2.5-4.5) 04/08/19 14:28 Magnesium 1.70 mg/dL (1.7-2.3) 04/11/19 15:16 0.30 mg/dL (0.1-1.2) 04/12/19 07:56 AST 11 units/L (5-40) 04/12/19 07:56 ALT 7 units/L (7-56) 04/12/19 07:56 51 units/L (35-129) 04/12/19 07:56 77.0 umol/L (25-60) H 04/11/19 16:15 266 units/L (91-180) H 04/08/19 14:28 70 units/L (55-170) 04/07/19 16:33 < 0.010 ng/mL (0.00-0.029) 04/07/19 16:33 4.4 g/dL (6.3-8.2) L 04/12/19 07:56 2.3 g/dL (3.9-5) L 04/12/19 07:56 1.1 % 04/12/19 07:56 Straw (Yellow) 04/07/19 20:00 Clear (Clear) 04/07/19 20:00 6.0 (5.0-7.0) 04/07/19 20:00 Ur Specific [place] 1.003 (1.003-1.030) 04/07/19 20:00 <15 mg/dl mg/dL (Negative) 04/07/19 20:00 50 mg/dL (Negative) 04/07/19 20:00 Negative mg/dL (Negative) 04/07/19 20:00 Small (Negative) A 04/07/19 20:00 Negative (Negative) 04/07/19 20:00 Negative (Negative) 04/07/19 20:00 < 0.2 mg/dL (<2.0) 04/07/19 20:00 Ur Leukocyte Esterase Negative (Negative) 04/07/19 20:00 < 1.0 /HPF (0.0-6.0) 04/07/19 20:00 1.0 /HPF (0.0-6.0) 04/07/19 20:00 Vancomycin Trough 4.0 ug/mL (5.0-20.0) L 04/10/19 20:46 HIV 1&2 Antibody Rapid Non react (Non React) 04/07/19 17:25 Non react (Non React) 04/07/19 17:25 Blood Type O NEGATIVE 04/11/19 16:19 Antibody Screen Negative 04/11/19 16:19 Crossmatch See Detail 04/11/19 16:19 Active Medications - Current Medications Current Medications: Generic Name Dose Route Start Last Admin Trade Name Freq PRN Reason Stop Dose Admin Acetaminophen 650 mg 04/07/19 16:17 04/07/19 16:42 Tylenol PA 650 mg Q4H PRN Administration Pain, Mild (1-3) Amlodipine Besylate 5 mg 04/08/19 14:00 04/12/19 09:49 Norvasc PO Not Given QDAY PACO Arformoterol Tartrate 15 mcg 04/09/19 08:00 04/12/19 08:18 Brovana Nebu IH 15 mcg Q12HRT PACO Administration Budesonide 0.5 mg 04/09/19 08:00 04/12/19 08:18 Pulmicort IH 0.5 mg Q12HRT PACO Administration Fluoxetine HCl 40 mg 04/08/19 14:00 04/12/19 09:49 Prozac PO Not Given QDAY PACO Haloperidol Lactate 5 mg 04/11/19 14:41 Haldol IM Q6H PRN Agitation Azithromycin 500 mg/ Sodium 250 mls @ 250 mls/hr 04/08/19 16:00 04/12/19 09:47 Chloride IV 250 mls/hr Q24HR PACO Administration Cefepime HCl 1 gm in 100 mls @ 200 mls/hr 04/08/19 16:00 04/12/19 06:00 Maxipime/Ns 1 Gm/100 Ml IV 200 mls/hr Q8HR PACO Administration Protocol Vancomycin HCl 1 gm in 250 mls @ 167.007 mls/hr 04/11/19 10:00 04/12/19 09:46 Vancomycin/Ns 1 Gm/250 Ml IV 167.007 mls/hr Q8H PACO Administration Acyclovir 580 mg/ Sodium 111.6 mls @ 100 mls/hr 04/11/19 22:00 04/12/19 09:48 Chloride IV 04/13/19 23:59 Not Given Q8HR [facility] Protocol Levofloxacin/Dextrose 750 mg in 150 mls @ 100 mls/hr 04/11/19 22:00 04/11/19 22:33 Levaquin 750mg/150ml IV 100 mls/hr Q24H PACO Administration Lorazepam 2 mg 04/11/19 12:58 04/12/19 08:13 Ativan IV 2 mg Q1H PRN Administration Agitation Methylprednisolone Sodium Succinate 20 mg 04/09/19 10:00 04/12/19 09:47 Solu-Medrol IV 20 mg Q12HR PACO Administration Metoclopramide HCl 10 mg 04/11/19 14:39 Reglan IV Q6H PRN Nausea And Vomiting Morphine Sulfate 2 mg 04/11/19 19:46 Morphine IV Q2H PRN Pain, Moderate (4-6) Ondansetron HCl 4 mg 04/11/19 14:39 Zofran IV Q4H PRN Nausea And Vomiting Pantoprazole Sodium 40 mg 04/11/19 15:00 04/12/19 09:47 Protonix IV 40 mg QDAY PACO Administration Quetiapine Fumarate 300 mg 04/08/19 17:00 04/12/19 09:49 Seroquel PO Not Given QDAY PACO Risperidone 2 mg 04/07/19 22:00 04/12/19 09:49 Risperdal PO Not Given BID PACO Sodium Chloride 10 ml 04/07/19 22:00 04/11/19 11:46 Sodium Chloride Flush Syringe 10 Ml IV 10 ml BID PACO Administration Sodium Chloride 10 ml 04/07/19 17:05 Sodium Chloride Flush Syringe 10 Ml IV PRN PRN LINE FLUSH Tramadol HCl 50 mg 04/07/19 17:09 Ultram PO Q6HR PRN Pain Nutrition/Malnutrition Assess - Dietary Evaluation Nutrition/Malnutrition Findings: Nutrition Notes Start: 04/08/19 15:33 Freq: Status: Active Protocol: Document 04/10/19 16:48 RM (Rec: 04/10/19 16:50 RM [id number]) Nutrition Notes Initial or Follow up Brief Note Subjective/Other Information Pt NPO earlier today. Diet advanced to regular later today. Nutrition Intervention Follow-Up By: 04/13/19 Additional Comments Follow for PO intakes
[2019-04-12 11:48] LABS: Band Neutrophils # (Manual) 0.4 K/mm3; Basophils % (Manual) 0 % (0.0-1.8); Eosinophils % (Manual) 0 % (0.0-4.3); Myelocytes # (Manual) 1.8 K/mm3; Promyelocytes # (Manual) 0.4 K/mm3; Total Cells Counted 100
[2019-04-12 11:49] LABS: Platelet Estimate Consistent w Auto
[2019-04-12] MEDS ORDERED: NACL 0.9% 1000 ML 1,000 ML ONE (12:52)
[2019-04-12] MEDS ORDERED: NACL 0.9% 1000 ML 1,000 ML IV SCH (13:00)
--- NOTE | 2019-04-12 13:08 | Anesthesia Consultation ---
Anesthesia Consult and Med Hx Date of service: 04/12/19 - Airway Anesthetic Teeth Evaluation: Poor ROM Head & Neck: Adequate Mental/Hyoid Distance: Inadequate Intubation Access Assessment: Possibly Difficult (Mother reports that patient has hx difficult intubation 2/2 "narrow airway") - Pulmonary Exam CTA: No (coarse breath sounds) - Cardiac Exam Cardiac Exam: RRR - Pre-Operative Health Status ASA Pre-Surgery Classification: ASA4 Proposed Anesthetic Plan: MAC - Pulmonary Hx Smoking: Yes Hx Asthma: No Hx Respiratory Symptoms: Yes (hypoxic/hypercapnic respiratory failure on HFNC) COPD: No Home Oxygen Therapy: No Hx Pneumonia: Yes - Cardiovascular System Hx Hypertension: No Hx Heart Attack/AMI: No Hx Percutaneous Transluminal Coronary Angioplasty (PTCA): No Hx Cardia Arrhythmia: Yes (episode SVT this admission) Hx Pacemaker: No Hx Internal Defibrillator: No Hx Valvular Heart Disease: No (TTE 04/08/19 normal EF, no significant valvular issues) - Central Nervous System Hx Seizures: Yes CVA: No Hx Psychiatric Problems: Yes (schizophrenia) - Endocrine Hx Renal Disease: No Hx Liver Disease: No Hx Insulin Dependent Diabetes: No Hx Non-Insulin Dependent Diabetes: No Hx Thyroid Disease: No - Hematic Hx Anemia: Yes - Other Systems Hx Obesity: No - Additional Comments Anesthesia Medical History Comments: PMH Forrester Syndrome (trisomy 18), smoking, seizures, schizophrenia/depression, and recent flu infection presenting with respiratory failure. Hospital course complicated by sepsis, hypotension (now resovled after fluid therapy), SVT (resolved with adenosine and volume replacement), respiratory failure (now on HF NC), and anemia. Mother also reports hx difficult intubation due to "narrow airway." She is unsure of the details but was told that intubation was acheived with a smaller tube. Scheduled for EGD. Anesthesia consent obtained from mother at bedside.
--- NOTE | 2019-04-12 13:11 | Anesthesia Day of Surgery ---
Anesthesia Day of Surgery - Day of Surgery Patient Examined: Yes Patient H&P Reviewed: Yes Patient is NPO: Yes
--- NOTE | 2019-04-12 13:13 | Gastroenterology Consultation ---
History of Present Illness - Reason for Consult Consult date: 04/12/19 Requesting physician: LASHONDA BERRY - History of Present Illness 33 YO Male with PMH below presented with CC pulm issues with SOB and cough, but found to have coffee ground emesis and drop in Hgb so GI consulted. Pt denies current abdominal pain and reports mild improvement in the SOB, denies history of GI bleed in the past. +Tobacco Past History Past Medical History: seizures, other (Nicotine Dependence, AT 3 Disorder,Depression, Schizophrenia) Past Surgical History: No surgical history, Other (reviewed) Social history: single, lives with family, smoking. denies: alcohol abuse, prescription drug abuse, IV drug use Family history: no significant family history (UTO) Past History Past Medical History: seizures, other (Nicotine Dependence, AT 3 Disorder,Depression, Schizophrenia) Past Surgical History: No surgical history, Other (reviewed) Social history: single, lives with family, smoking. denies: alcohol abuse, prescription drug abuse, IV drug use Family history: no significant family history (UTO) Medications and Allergies Allergies Allergy/AdvReac Type Severity Reaction Status Date / Time No Known Allergies Allergy Unverified 08/22/15 15:48 Home Medications Medication Instructions Recorded Confirmed Last Taken Type risperiDONE [RisperDAL] 2 mg PO BID 10/19/15 04/08/19 04/08/19 History Ibuprofen [Motrin] 600 mg PO Q8H PRN #40 tablet 04/14/16 04/08/19 04/07/19 08:00 Rx Sulfamethoxazole/Trimethoprim 1 each PO BID #20 tablet 04/14/16 04/08/1903/28 06:00 Rx [Bactrim DS TAB] 50 traMADol [Ultram] 50 mg PO Q6HR PRN #20 tablet 04/14/16 04/08/19 Unknown Rx Active Meds: Active Medications Acetaminophen (Tylenol) 650 mg [place] Q4H PRN PRN Reason: Pain, Mild (1-3) Last Admin: 04/07/19 16:42 Dose: 650 mg Documented by: Amlodipine Besylate (Norvasc) 5 mg PO QDAY [facility] Last Admin: 04/12/19 09:49 Dose: Not Given Documented by: Arformoterol Tartrate (Brovana Nebu) 15 mcg IH Q12HRT [facility] Last Admin: 04/12/19 08:18 Dose: 15 mcg Documented by: Budesonide (Pulmicort) 0.5 mg IH Q12HRT [facility] Last Admin: 04/12/19 08:18 Dose: 0.5 mg Documented by: Fluoxetine HCl (Prozac) 40 mg PO QDAY [facility] Last Admin: 04/12/19 09:49 Dose: Not Given Documented by: Haloperidol Lactate (Haldol) 5 mg IM Q6H PRN PRN Reason: Agitation Azithromycin 500 mg/ Sodium (Chloride) 250 mls @ 250 mls/hr IV Q24HR [facility] Last Admin: 04/12/19 09:47 Dose: 250 mls/hr Documented by: Cefepime HCl (Maxipime/Ns 1 Gm/100 Ml) 1 gm in 100 mls @ 200 mls/hr IV Q8HR [facility]; Protocol Last Admin: 04/12/19 11:35 Dose: Not Given Documented by: Vancomycin HCl (Vancomycin/Ns 1 Gm/250 Ml) 1 gm in 250 mls @ 167.007 mls/hr IV Q8H [facility] Last Admin: 04/12/19 11:33 Dose: Not Given Documented by: Acyclovir 580 mg/ Sodium (Chloride) 111.6 mls @ 100 mls/hr IV Q8HR [facility]; Protocol Stop: 04/13/19 23:59 Last Admin: 04/12/19 09:48 Dose: Not Given Documented by: Levofloxacin/Dextrose (Levaquin 750mg/150ml) 750 mg in 150 mls @ 100 mls/hr IV Q24H [facility] Last Admin: 04/11/19 22:33 Dose: 100 mls/hr Documented by: Sodium Chloride (Nacl 0.9% 1000 Ml) 1,000 mls @ 50 mls/hr IV DIRECT [facility] Lorazepam (Ativan) 2 mg IV Q1H PRN PRN Reason: Agitation Last Admin: 04/12/19 08:13 Dose: 2 mg Documented by: Methylprednisolone Sodium Succinate (Solu-Medrol) 20 mg IV Q12HR [facility] Last Admin: 04/12/19 09:47 Dose: 20 mg Documented by: Metoclopramide HCl (Reglan) 10 mg IV Q6H PRN PRN Reason: Nausea And Vomiting Morphine Sulfate (Morphine) 2 mg IV Q2H PRN PRN Reason: Pain, Moderate (4-6) Ondansetron HCl (Zofran) 4 mg IV Q4H PRN PRN Reason: Nausea And Vomiting Pantoprazole Sodium (Protonix) 40 mg IV QDAY [facility] Last Admin: 04/12/19 09:47 Dose: 40 mg Documented by: Quetiapine Fumarate (Seroquel) 300 mg PO QDAY [facility] Last Admin: 04/12/19 09:49 Dose: Not Given Documented by: Risperidone (Risperdal) 2 mg PO BID [facility] Last Admin: 04/12/19 09:49 Dose: Not Given Documented by: Sodium Chloride (Sodium Chloride Flush Syringe 10 Ml) 10 ml IV BID [facility] Last Admin: 04/12/19 10:00 Dose: 10 ml Documented by: Sodium Chloride (Sodium Chloride Flush Syringe 10 Ml) 10 ml IV PRN PRN PRN Reason: LINE FLUSH Tramadol HCl (Ultram) 50 mg PO Q6HR PRN PRN Reason: Pain Review of Systems - Review of Systems All systems: negative (SOB, cough, malaise, fatigue) Exam - Constitutional Vital Signs: Temp Pulse Resp BP Pulse Ox 97.5 F L 90 25 H 142/77 98 04/12/19 04:00 04/12/19 11:15 04/12/19 11:15 04/12/19 11:15 04/12/19 11:15 - EENT Eyes: EOM intact - Neck Neck: supple - Respiratory Respiratory: bilateral: wheezing - Cardiovascular Rhythm: regular - Gastrointestinal General gastrointestinal: Present: soft, non-tender - Integumentary Integumentary: Present: dry - Musculoskeletal Musculoskeletal: normal - Neurologic Neurological: alert and oriented x3 - Psychiatric Psychiatric: appropriate mood/affect - Labs CBC & Chem 7: 04/12/19 07:56 04/12/19 07:56 Lab Results: Laboratory Results - last 24 hr 04/11/19 04/11/19 04/11/19 13:44 15:16 15:16 WBC RBC Hgb Hct MCV MCH MCHC RDW Plt Count Add Manual Diff Total Counted Seg Neutrophils % Seg Neuts % (Manual) Band Neutrophils % Lymphocytes % (Manual) Reactive Lymphs % (Man) Monocytes % (Manual) Eosinophils % (Manual) Basophils % (Manual) Metamyelocytes % Myelocytes % Promyelocytes % Blast Cells % Nucleated RBC % Seg Neutrophils # Man Band Neutrophils # Lymphocytes # (Manual) Abs React Lymphs (Man) Monocytes # (Manual) Eosinophils # (Manual) Basophils # (Manual) Metamyelocytes # Myelocytes # Promyelocytes # Blast Cells # WBC Morphology Hypersegmented Neuts Hyposegmented Neuts Hypogranular Neuts Smudge Cells Toxic Granulation Toxic Vacuolation Dohle Bodies Pelger-Huet Anomaly Min Rods Platelet Estimate Clumped Platelets Plt Clumps, EDTA Large Platelets Giant Platelets Platelet Satelliting Plt Morphology Comment RBC Morphology Dimorphic RBCs Polychromasia Hypochromasia Poikilocytosis Anisocytosis Microcytosis Macrocytosis Spherocytes Pappenheimer Bodies Sickle Cells Target Cells Tear Drop Cells Ovalocytes Helmet Cells Martinez-Switzer Bodies [place] Rings [place] Cells Bite Cells Crenated Cell Elliptocytes Acanthocytes (Spur) Rouleaux Hemoglobin C Crystals Schistocytes Malaria parasites Justin Bodies Hem Pathologist Commnt POC ABG pH 7.385 POC ABG pCO2 39.3 POC ABG pO2 83 POC ABG HCO3 23.5 POC ABG Total CO2 25 POC ABG O2 Sat 96 POC ABG Base Excess -2 FiO2 40 Sodium 139 Potassium 4.5 Chloride 108.1 H Carbon Dioxide 22 Anion Gap 13 BUN 38 H Creatinine 0.7 L Estimated GFR > 60 BUN/Creatinine Ratio 54 Glucose 240 H POC Glucose Calcium 7.3 L D Magnesium 1.70 Total Bilirubin < 0.20 AST 8 ALT 7 Alkaline Phosphatase 49 Ammonia Total Protein 3.9 L D Albumin 2.1 L Albumin/Globulin Ratio 1.2 Blood Type Antibody Screen Crossmatch 04/11/19 04/11/19 04/11/19 16:15 16:15 16:19 WBC 50.0 H* RBC 2.59 L Hgb 7.2 L Hct 23.1 L MCV 89 MCH 28 MCHC 31 L RDW 19.7 H Plt Count 402 Add Manual Diff Complete Total Counted 200 Seg Neutrophils % Electronic Prepress Technician Seg Neuts % (Manual) 72.5 H Band Neutrophils % 3.0 Lymphocytes % (Manual) 5.5 L Reactive Lymphs % (Man) 3.0 Monocytes % (Manual) 8.0 H Eosinophils % (Manual) 0 Basophils % (Manual) 0 Metamyelocytes % 6.0 Myelocytes % 2.0 Promyelocytes % 0 Blast Cells % 0 Nucleated RBC % 1.5 H Seg Neutrophils # Man 36.3 H Band Neutrophils # 1.5 Lymphocytes # (Manual) 2.8 Abs React Lymphs (Man) 1.5 Monocytes # (Manual) 4.0 H Eosinophils # (Manual) 0.0 Basophils # (Manual) 0.0 Metamyelocytes # 3.0 Myelocytes # 1.0 Promyelocytes # 0.0 Blast Cells # 0.0 WBC Morphology Hypersegmented Neuts Not Reportable Hyposegmented Neuts Not Reportable Hypogranular Neuts Not Reportable Smudge Cells Not Reportable Toxic Granulation Not Reportable Toxic Vacuolation Not Reportable Dohle Bodies Not Reportable Pelger-Huet Anomaly Not Reportable Min Rods Not Reportable Platelet Estimate Consistent w auto Clumped Platelets Not Reportable Plt Clumps, EDTA Not Reportable Large Platelets Not Reportable Giant Platelets Not Reportable Platelet Satelliting Not Reportable Plt Morphology Comment Not Reportable RBC Morphology Not Reportable Dimorphic RBCs Not Reportable Polychromasia Few Hypochromasia Not Reportable Poikilocytosis Few Anisocytosis 1+ Microcytosis Not Reportable Macrocytosis Not Reportable Spherocytes Not Reportable Pappenheimer Bodies Not Reportable Sickle Cells Not Reportable Target Cells Not Reportable Tear Drop Cells Few Ovalocytes 1+ Helmet Cells Not Reportable Martinez-Switzer Bodies Not Reportable [place] Rings Not Reportable Belia Cells Not Reportable Bite Cells Not Reportable Crenated Cell Not Reportable Elliptocytes Not Reportable Acanthocytes (Spur) Not Reportable Rouleaux Not Reportable Hemoglobin C Crystals Not Reportable Schistocytes Not Reportable Malaria parasites Not Reportable Justin Bodies Not Reportable Hem Pathologist Commnt Sent to pathology POC ABG pH POC ABG pCO2 POC ABG pO2 POC ABG HCO3 POC ABG Total CO2 POC ABG O2 Sat POC ABG Base Excess FiO2 Sodium Potassium Chloride Carbon Dioxide Anion Gap BUN Creatinine Estimated GFR BUN/Creatinine Ratio Glucose POC Glucose Calcium Magnesium Total Bilirubin AST ALT Alkaline Phosphatase Ammonia 77.0 H Total Protein Albumin Albumin/Globulin Ratio Blood Type O NEGATIVE Antibody Screen Negative Crossmatch See Detail 04/11/19 04/12/19 04/12/19 20:27 07:56 07:56 WBC 35.9 H RBC 3.57 L Hgb 10.4 L D Hct 31.4 L D MCV 88 MCH 29 MCHC 33 RDW 16.9 H Plt Count 282 Add Manual Diff Complete Total Counted 100 Seg Neutrophils % Seg Neuts % (Manual) 76.0 H Band Neutrophils % 1.0 Lymphocytes % (Manual) 4.0 L Reactive Lymphs % (Man) 1.0 Monocytes % (Manual) 6.0 Eosinophils % (Manual) 0 Basophils % (Manual) 0 Metamyelocytes % 6.0 Myelocytes % 5.0 Promyelocytes % 1.0 Blast Cells % 0 Nucleated RBC % Not Reportable Seg Neutrophils # Man 27.3 H Band Neutrophils # 0.4 Lymphocytes # (Manual) 1.4 Abs React Lymphs (Man) 0.4 Monocytes # (Manual) 2.2 H Eosinophils # (Manual) 0.0 Basophils # (Manual) 0.0 Metamyelocytes # 2.2 Myelocytes # 1.8 Promyelocytes # 0.4 Blast Cells # 0.0 WBC Morphology Not Reportable Hypersegmented Neuts Not Reportable Hyposegmented Neuts Not Reportable Hypogranular Neuts Not Reportable Smudge Cells Not Reportable Toxic Granulation Not Reportable Toxic Vacuolation Not Reportable Dohle Bodies Not Reportable Pelger-Huet Anomaly Not Reportable Min Rods Not Reportable Platelet Estimate Consistent w auto Clumped Platelets Not Reportable Plt Clumps, EDTA Not Reportable Large Platelets Not Reportable Giant Platelets Not Reportable Platelet Satelliting Not Reportable Plt Morphology Comment Not Reportable RBC Morphology Not Reportable Dimorphic RBCs Not Reportable Polychromasia Few Hypochromasia Not Reportable Poikilocytosis Not Reportable Anisocytosis Not Reportable Microcytosis Not Reportable Macrocytosis Not Reportable Spherocytes Not Reportable Pappenheimer Bodies Not Reportable Sickle Cells Not Reportable Target Cells Not Reportable Tear Drop Cells Not Reportable Ovalocytes Not Reportable Helmet Cells Not Reportable Martinez-Switzer Bodies Not Reportable [place] Rings Not Reportable Belia Cells Not Reportable Bite Cells Not Reportable Crenated Cell Not Reportable Elliptocytes Few Acanthocytes (Spur) Not Reportable Rouleaux Not Reportable Hemoglobin C Crystals Not Reportable Schistocytes Not Reportable Malaria parasites Not Reportable Justin Bodies Not Reportable Hem Pathologist Commnt No POC ABG pH 7.215 L POC ABG pCO2 60.2 H POC ABG pO2 POC ABG HCO3 24.3 POC ABG Total CO2 26 POC ABG O2 Sat 100 POC ABG Base Excess -3 FiO2 100 Sodium 143 Potassium 4.0 Chloride 110.8 H Carbon Dioxide 23 Anion Gap 13 BUN 18 Creatinine 0.7 L Estimated GFR > 60 BUN/Creatinine Ratio 26 Glucose 146 H POC Glucose Calcium 8.2 L Magnesium Total Bilirubin 0.30 AST 11 ALT 7 Alkaline Phosphatase 51 Ammonia Total Protein 4.4 L Albumin 2.3 L Albumin/Globulin Ratio 1.1 Blood Type Antibody Screen Crossmatch 04/12/19 04/12/19 08:56 11:33 WBC RBC Hgb Hct MCV MCH MCHC RDW Plt Count Add Manual Diff Total Counted Seg Neutrophils % Seg Neuts % (Manual) Band Neutrophils % Lymphocytes % (Manual) Reactive Lymphs % (Man) Monocytes % (Manual) Eosinophils % (Manual) Basophils % (Manual) Metamyelocytes % Myelocytes % Promyelocytes % Blast Cells % Nucleated RBC % Seg Neutrophils # Man Band Neutrophils # Lymphocytes # (Manual) Abs React Lymphs (Man) Monocytes # (Manual) Eosinophils # (Manual) Basophils # (Manual) Metamyelocytes # Myelocytes # Promyelocytes # Blast Cells # WBC Morphology Hypersegmented Neuts Hyposegmented Neuts Hypogranular Neuts Smudge Cells Toxic Granulation Toxic Vacuolation Dohle Bodies Pelger-Huet Anomaly Min Rods Platelet Estimate Clumped Platelets Plt Clumps, EDTA Large Platelets Giant Platelets Platelet Satelliting Plt Morphology Comment RBC Morphology Dimorphic RBCs Polychromasia Hypochromasia Poikilocytosis Anisocytosis Microcytosis Macrocytosis Spherocytes Pappenheimer Bodies Sickle Cells Target Cells Tear Drop Cells Ovalocytes Helmet Cells Martinez-Switzer Bodies [place] Rings [place] Cells Bite Cells Crenated Cell Elliptocytes Acanthocytes (Spur) Rouleaux Hemoglobin C Crystals Schistocytes Malaria parasites Justin Bodies Hem Pathologist Commnt POC ABG pH POC ABG pCO2 POC ABG pO2 POC ABG HCO3 POC ABG Total CO2 POC ABG O2 Sat POC ABG Base Excess FiO2 Sodium Potassium Chloride Carbon Dioxide Anion Gap BUN Creatinine Estimated GFR BUN/Creatinine Ratio Glucose POC Glucose 147 H 131 H Calcium Magnesium Total Bilirubin AST ALT Alkaline Phosphatase Ammonia Total Protein Albumin Albumin/Globulin Ratio Blood Type Antibody Screen Crossmatch Assessment and Plan Patient with active coffee ground emesis and significant drop in Hgb, therefore highly concerning for active GI bleeding Pulm status starting to improve, therefore benefits of endoscopy outweigh risks, and will proceed with urgent EGD after reviewing RBA with patient. Ddx for source PUD, AVM, etc. Final recs pending EGD - Patient Problems (1) Coffee ground emesis Current Visit: Yes Status: Acute (2) Anemia Current Visit: Yes Status: Acute (3) GI bleed Current Visit: Yes Status: Acute
[2019-04-12] MEDS ORDERED: DECADRON ONE (13:16)
[2019-04-12] MEDS ORDERED: ZOFRAN ONE (13:16)
[2019-04-12] MEDS ORDERED: AMIDATE IV ONE (13:16)
[2019-04-12] MEDS ORDERED: KETALAR ONE (13:16)
[2019-04-12] MEDS ORDERED: VERSED ONE (13:17)
[2019-04-12] MEDS ORDERED: DIPRIVAN 10 MG/ML IV ONE (13:25)
--- NOTE | 2019-04-12 13:43 | Operative Report ---
Operative Report Operative Report: DOS 04/12/19 SURGEON: Eric Mariee MD EGD with clip placement REPORT PREOPERATIVE DIAGNOSIS and POSTOPERATIVE DIAGNOSIS: GI bleed ESTIMATED BLOOD LOSS: minimal DESCRIPTION OF PROCEDURE: A high-resolution EGD scope was passed through the oropharynx, esophagus, stomach, and second portion of duodenum. The scope was carefully withdrawn. Retroflexion was performed in the stomach. At the end of the procedure, the scope was cleaned using normal technique. Vital signs monitored continuously throughout. SEDATION: Provided by [facility]. COMPLICATIONS: None. FINDINGS: * Normal duodenum * Small blood clot in the gastric body along the greater curvature suspicious for ulcer from the NG tube suctioning; the overlying clot could not be suctioned/washed off, therefore a single clip was deployed to ensure hemostasis of the lesion * GE junction at 35cm from the incisors * 3cm hiatal hernia * Severe LA Grade D esophagitis of the distal half of the esophagus, most consistent with severe reflux esophagitis RECOMMENDATIONS: * Increase PPI to BID, carafate slurry (both orders placed) and monitor Hgb * From GI perspective may remove the NGT and place on clear liquid diet and advance as tolerated
--- NOTE | 2019-04-12 13:47 | Post Anesthesia Evaluation ---
- Post Anesthesia Evaluation Patient Participated: No Airway Patent: Yes Stable Respiratory Function: Yes Nausea/Vomiting: No Temp > 96.8F: Yes Pain Manageable: Yes Adequeate Hydration: Yes Anesthesia Complications: No Patient on Ventilator: No Other Comments: Maintained on pre-op O2 requirements. No change in respiratory effort. VS stable at preop baseline.
[2019-04-12] MEDS: CARAFATE PO SCH ×2 (17:09→22:11)
[2019-04-12] MEDS: LEVAQUIN 750MG/150ML 750 MG/150 ML BAG IV SCH (23:04)
[2019-04-13] MEDS: VANCOMYCIN/NS 1 GM/250 ML 1 GM/250 ML BAG IV SCH ×2 (01:44→09:45)
[2019-04-13] MEDS: MAXIPIME/NS 1 GM/100 ML 1 GM/100 ML BAG IV SCH (05:17)
[2019-04-13] MEDS: NACL 0.9% IV SCH (05:54)
[2019-04-13] MEDS: ZOVIRAX IV SCH (05:54)
[2019-04-13] MEDS: BROVANA NEBU IH SCH ×2 (07:50→21:45)
[2019-04-13] MEDS: PULMICORT IH SCH ×2 (07:50→21:46)
[2019-04-13] MEDS: CARAFATE PO SCH ×4 (08:02→21:33)
[2019-04-13] MEDS: PROTONIX IV SCH ×2 (09:44→21:33)
[2019-04-13] MEDS: RisperDAL PO SCH ×2 (09:44→21:33)
[2019-04-13] MEDS: PROzac PO SCH (09:44)
[2019-04-13] MEDS: SOLU-Medrol IV SCH ×2 (09:44→21:33)
[2019-04-13] MEDS: NORVASC PO SCH (09:44)
[2019-04-13] MEDS: ZITHROMAX 500 MG in NACL 0.9% 250ML 250 ML IV SCH (09:46)
[2019-04-13] MEDS: SODIUM CHLORIDE FLUSH SYRINGE 10 ML IV SCH ×2 (10:00→21:36)
--- NOTE | 2019-04-13 11:16 | Progress Note ---
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 Now admitted with: 1) Sepsis, bilateral pneumonia, acute respiratory failure: fever resolved, leukocytosis worsening 50K now down 35K (on IV steroids), lactate improved. Etiology ? HCAP v/s aspiration pneumonitis - patient with severe esophagitis on EGD. Chest x-ray shows a prominent interstitial pattern. CTA demonstrates patchy alveolar RUL/RLL infiltrates. Hence, also cover for atypicals. HIV rapid negative. Strep pneumonia not detected. Legionella not detected. 2) Tobacco abuse. 3) Leukocytosis: WBC higher today, also contributed by steroids. 4) Esophagitis on EGD - Severe LA Grade D esophagitis of the distal half of the esophagus, most consistent with severe reflux esophagitis 5) AMS: resolved Recommendations: stop IV Cefepime, azithromycin, acyclovir and Vancomycin start zosyn to cover aspiration pneumonitis / HCAP continue levaquin for now MRSA PCR ordered Discussed with pharmacy will follow Yael Encinas MD Infectious Diseases Dye Tub Tender [facility] M [phone] O [phone] Subjective Date of service: 04/13/19 Principal diagnosis: Acute hypoxemic hypercapnic resp failure; HAP (bilateral); Severe Sepsis Interval history: Alert, remains on HFO2, alert, talking, oriented. No fever remains tachycardic on monitor. ROS: denies cough, N/V/D. Objective - Exam Narrative Exam: Constitutional: alert in mild resp distress on HFO2 Head, Ears, Nose: Normocephalic, atraumatic. External ears, nose normal Eyes: Conjunctivae/corneas clear. No icterus. No ptosis. Neck: Supple, no meningeal signs Oral: +poor dentition, HFO2 Cardiovascular: tachycardic Respiratory: b/l wheezing GI: Soft, non-tender; bowel sounds normal. No peritoneal signs Musculoskeletal: No pedal edema, no cyanosis. Skin: No rash or abscess Hem/Lymphatic: No palpable cervical or supraclavicular nodes. No lymphangitis Psych: Mood ok. Affect normal Neurological: Awake, alert. No gross abnormality - Constitutional Vitals: Vital Signs Temp Pulse Resp BP Pulse Ox 98.7 F 92 H 22 175/110 100 04/13/19 04:00 04/13/19 09:44 04/13/19 09:30 04/13/19 09:44 04/13/19 09:30 Temperature -Last 24 Hours Temperature 98.7 F Temperature 98.9 F Temperature 98.8 F Temperature 98.1 F Temperature 98.1 F - Labs CBC & Chem 7: 04/12/19 07:56 04/12/19 07:56 Labs: Abnormal lab results 04/12/19 04/12/19 04/12/19 Range/Units 07:56 11:33 16:15 Seg Neuts % (Manual) 76.0 H (40.0-70.0) % Lymphocytes % (Manual) 4.0 L (13.4-35.0) % Seg Neutrophils # Man 27.3 H (1.8-7.7) K/mm3 Monocytes # (Manual) 2.2 H (0.0-0.8) K/mm3 POC Glucose 131 H 135 H (70-105)
[2019-04-13] MEDS: ZOSYN/NS 4.5GM/100ML 4.5 GM/100 ML VIAL IV SCH ×2 (14:14→21:55)
--- NOTE | 2019-04-13 14:34 | Gastroenterology Progress Note ---
<ALYSIA SANFORD - Last Filed: 04/13/19 14:34> Assessment and Plan 1.coffee ground emesis 2.GI bleed/anemia -H/H 10.4/31.4-s/p blood transfusion -continue to monitor H/H and transfuse as needed -no active signs of bleeding overnight/am per nursing -s/p EGD yesterday that showed: Normal duodenum * Small blood clot in the gastric body along the greater curvature suspicious for ulcer from the NG tube suctioning; the overlying clot could not be suctioned/washed off, therefore a single clip was deployed to ensure hemostasis of the lesion * GE junction at 35cm from the incisors * 3cm hiatal hernia * Severe LA Grade D esophagitis of the distal half of the esophagus, most consistent with severe reflux esophagitis -continue PPI BID -continue carafate -avoid NSAIDs -advance diet as tolerated -continue supportive care -consider repeat EGD in ~8 wks to ensure healing of esophagus and no underlying lesions Subjective Date of service: 04/13/19 Principal diagnosis: coffee-ground emesis Interval history: Patient remains in ICU on HFO2. No active signs of bleeding overnight or this am. Denies abd pain or N/V. Objective - Constitutional Vitals: Temp Pulse Resp BP Pulse Ox 98.7 F 99 H 30 H 142/76 98 04/13/19 04:00 04/13/19 14:00 04/13/19 14:00 04/13/19 14:00 04/13/19 14:00 General appearance: no acute distress - Respiratory Respiratory effort: normal - Cardiovascular Rhythm: regular - Gastrointestinal General gastrointestinal: Present: soft, non-tender, non-distended, normal bowel sounds - Labs CBC & Chem 7: 04/12/19 07:56 04/12/19 07:56 Labs: Laboratory Results - last 24 hr 04/09/19 04/09/19 04/11/19 12:15 Unknown 16:15 Pathologist Review POC Glucose Urine Legionella Ag Not detected Miscellaneous Test Flexitest 1 04/12/19 16:15 Pathologist Review POC Glucose 135 H Urine Legionella Ag Miscellaneous Test <SHANNEN OROURKE - Last Filed: 04/13/19 22:49> Assessment and Plan Patient seen and examined. I have reviewed the advanced practitioner's evaluation, assessment, and plan, and agree with them. I note the following additions: no more overt bleeding, hgb stable, cont PPI and carafate and repeat EGD 6-8 weeks to ensure healing of esophagus and no underlying lesions - Patient Problems (1) Coffee ground emesis Current Visit: Yes Status: Acute (2) Anemia Current Visit: Yes Status: Acute (3) GI bleed Current Visit: Yes Status: Acute Objective - Constitutional Vitals: Temp Pulse Resp BP Pulse Ox 99.3 F 101 H 22 153/99 96 04/13/19 19:57 04/13/19 22:03 04/13/19 22:03 04/13/19 22:00 04/13/19 22:00 - Labs CBC & Chem 7: 04/12/19 07:56 04/12/19 07:56 Labs: Laboratory Results - last 24 hr 04/11/19 16:15 Pathologist Review
--- NOTE | 2019-04-13 14:48 | Progress Note ---
Assessment and Plan Acute hypoxic-hypercapnic respiratory failure Sepsis Possible HCAP/Post influenza pneumonia Hyponatremia Tobacco use disorder - BIPAP now scheduled qhs with prn daytime use - get ABG now and address - get CRP level to aid clinical decision making / aid AB's de-escalation - continue suppplemental oxygen to keep O2 sats> 90% - continue chronic home medications, for anxiety and depression - order bilateral Lower extremity dopplers to complete VTE w/up (change to DVT prophylaxis dose lovenox if negative) - Systemic steroid taper - folow 2D echocardiography - Chest CTA negative for PE - Smoking cessation counselling - Nicotine withdrawal precautions - Treat for post viral pneumonia and atypical pneumonia. CXR is unremarkable for lobar consolidation - continue bronchodilators with pulmonary hygiene per RT - Brovana and budesonide scheduled - NPO for now - Gentle IV fluids - ID consult - Accucheck with glycemic control, avoid hypoglycemia - Discussed extensively with his parents at the bedside, that if he decompens ates he will require mechanical ventilatory support. They are agreeable, but state that the last time he is very uncomfortable and agitated with MVS. Discussed with RT/RN and in ICU-IDT rounds CONDITION: CRITICAL PROGNOSIS: GUARDED CODE STATUS: FULL The high probability of a clinically significant, sudden or life threatening deterioration of the [respiratory, cardiovascular] system(s) required my full and direct attention, intervention and personal management. The aggregate critical care time was [32] minutes. This time is in addition to time spent performing reported procedures but includes the following: [x] Data Review and interpretation [x] Patient assessment and monitoring of vital signs [x] Documentation [x] Medication orders and management Subjective Date of service: 04/13/19 Principal diagnosis: Acute hypoxemic hypercapnic resp failure; HAP (bilateral); Severe Sepsis Interval history: Patient is seen today for: Acute hypoxemic hypercapnic respiratory failure; HAP; Severe Sepsis Seen and examined at bedside; 24hour events reviewed; nursing and respiratory care staff consulted; no adverse overnight events reported to me; breathing is less labored; he remains on HFNC; caregiver in room; No N/V/F/C Objective Vital Signs - 12hr 04/13/19 04/13/19 04/13/19 03:00 03:30 04:00 Temperature 98.7 F Pulse Rate 75 80 79 Pulse Rate [ Apical] Pulse Rate [ 76 From Monitor] Respiratory 23 26 H 28 H Rate Blood Pressure 140/71 150/76 158/77 O2 Sat by Pulse 97 97 97 Oximetry 04/13/19 04/13/19 04/13/19 04:30 05:00 05:30 Temperature Pulse Rate 78 79 79 Pulse Rate [ Apical] Pulse Rate [ From Monitor] Respiratory 25 H 22 25 H Rate Blood Pressure 163/87 157/80 171/91 O2 Sat by Pulse 97 98 97 Oximetry 04/13/19 04/13/19 04/13/19 06:00 06:30 07:00 Temperature Pulse Rate 81 94 H 110 H Pulse Rate [ Apical] Pulse Rate [ From Monitor] Respiratory 20 29 H 26 H Rate Blood Pressure 159/98 155/87 137/82 O2 Sat by Pulse 99 95 97 Oximetry 04/13/19 04/13/19 04/13/19 07:30 08:00 08:30 Temperature Pulse Rate 107 H 118 H 112 H Pulse Rate [ 89 Apical] Pulse Rate [ 89 From Monitor] Respiratory 31 H 25 H 15 Rate Blood Pressure 133/78 181/91 175/95 O2 Sat by Pulse 93 95 98 Oximetry 04/13/19 04/13/19 04/13/19 09:00 09:30 09:44 Temperature Pulse Rate 93 H 92 H Pulse Rate [ Apical] Pulse Rate [ From Monitor] Respiratory 22 Rate Blood Pressure 157/94 175/110 175/110 O2 Sat by Pulse 98 100 Oximetry 04/13/19 04/13/19 04/13/19 10:00 10:30 11:00 Temperature Pulse Rate 86 106 H 124 H Pulse Rate [ Apical] Pulse Rate [ From Monitor] Respiratory 25 H 26 H 25 H Rate Blood Pressure 163/97 139/76 159/87 O2 Sat by Pulse 100 100 99 Oximetry 04/13/19 04/13/19 04/13/19 11:30 12:00 12:30 Temperature Pulse Rate 104 H 95 H 95 H Pulse Rate [ 106 H Apical] Pulse Rate [ 106 H From Monitor] Respiratory 28 H 28 H 15 Rate Blood Pressure 128/77 134/80 158/88 O2 Sat by Pulse 93 95 Oximetry 04/13/19 04/13/19 04/13/19 13:00 13:30 14:00 Temperature Pulse Rate 129 H 102 H 99 H Pulse Rate [ Apical] Pulse Rate [ From Monitor] Respiratory 33 H 30 H 30 H Rate Blood Pressure 164/101 164/101 142/76 O2 Sat by Pulse 96 98 98 Oximetry Constitutional: alert, other (young male with mild MR resting in bed with mildly increased resp effort at rest) Eyes: non-icteric ENT: oropharynx moist, other (HFNC in nares) Neck: supple, no lymphadenopathy, other (no thyromegaly) Effort: mildly labored Ascultation: Bilateral: rhonchi Percussion: Bilateral: not dull Cardiovascular: regular rate and rhythm Gastrointestinal: normoactive bowel sounds, soft, non-tender, non-distended Integumentary: normal Extremities: no cyanosis, pink and warm, pulses normal, no ischemia or petechiae Neurologic: non-focal exam (grossly), pupils equal and round, CN II-XII normal, motor strength normal and Psychiatric: mood appropriate, affect normal CBC and BMP: 04/14/19 09:38 04/12/19 07:56 ABG, PT/INR, D-dimer: ABG POC ABG pH 7.215 (7.35-7.45) L 04/11/19 20:27 POC ABG pCO2 60.2 (35-45) H 04/11/19 20:27 POC ABG HCO3 24.3 (22-26 mml/L) 04/11/19 20:27 POC ABG Total CO2 26 (23-27mmol/L) 04/11/19 20:27 POC ABG O2 Sat 100 04/11/19 20:27 PT/INR, D-dimer PT 14.2 Sec. (12.2-14.9) 04/07/19 16:33 INR 1.04 (0.87-1.13) 04/07/19 16:33 Abnormal lab findings: Abnormal Labs 04/07/19 04/07/19 04/07/19 16:33 16:33 16:33 WBC 16.9 H RBC Hgb 11.4 L Hct 33.5 L MCHC RDW 19.6 H Seg Neuts % (Manual) 75.0 H Lymphocytes % (Manual) 9.0 L Monocytes % (Manual) 16.0 H Nucleated RBC % Seg Neutrophils # Man 12.7 H Monocytes # (Manual) 2.7 H POC ABG pH POC ABG pCO2 POC ABG pO2 Sodium 133 L Potassium 3.0 L Chloride Carbon Dioxide 19 L BUN 3 L Creatinine Glucose 130 H POC Glucose Lactic Acid Calcium 8.2 L Magnesium 2.40 H AST 43 H Ammonia Lactate Dehydrogenase Total Protein Albumin 3.0 L Urine Blood Vancomycin Trough Crossmatch 04/07/19 04/07/19 04/07/19 16:35 17:52 20:00 WBC RBC Hgb Hct MCHC RDW Seg Neuts % (Manual) Lymphocytes % (Manual) Monocytes % (Manual) Nucleated RBC % Seg Neutrophils # Man Monocytes # (Manual) POC ABG pH POC ABG pCO2 POC ABG pO2 56 L 70 L Sodium Potassium Chloride Carbon Dioxide BUN Creatinine Glucose POC Glucose Lactic Acid Calcium Magnesium AST Ammonia Lactate Dehydrogenase Total Protein Albumin Urine Blood Small A Vancomycin Trough Crossmatch 04/07/19 04/08/19 04/08/19 21:00 14:28 14:28 WBC 22.4 H RBC Hgb 11.1 L Hct 33.3 L MCHC RDW 20.0 H Seg Neuts % (Manual) 84.0 H Lymphocytes % (Manual) 8.0 L Monocytes % (Manual) Nucleated RBC % Seg Neutrophils # Man 18.8 H Monocytes # (Manual) 1.1 H POC ABG pH POC ABG pCO2 POC ABG pO2 Sodium Potassium Chloride 110.1 H Carbon Dioxide 20 L BUN 7 L Creatinine 0.7 L Glucose 105 H POC Glucose Lactic Acid 5.80 H* Calcium Magnesium AST Ammonia Lactate Dehydrogenase Total Protein Albumin Urine Blood Vancomycin Trough Crossmatch 04/08/19 04/08/19 04/10/19 14:28 15:32 20:46 WBC RBC Hgb Hct MCHC RDW Seg Neuts % (Manual) Lymphocytes % (Manual) Monocytes % (Manual) Nucleated RBC % Seg Neutrophils # Man Monocytes # (Manual) POC ABG pH POC ABG pCO2 POC ABG pO2 374 H Sodium Potassium Chloride Carbon Dioxide BUN Creatinine Glucose POC Glucose Lactic Acid Calcium Magnesium AST Ammonia Lactate Dehydrogenase 266 H Total Protein Albumin Urine Blood Vancomycin Trough 4.0 L Crossmatch 04/11/19 04/11/19 04/11/19 15:16 16:15 16:15 WBC 50.0 H* RBC 2.59 L Hgb 7.2 L Hct 23.1 L MCHC 31 L RDW 19.7 H Seg Neuts % (Manual) 72.5 H Lymphocytes % (Manual) 5.5 L Monocytes % (Manual) 8.0 H Nucleated RBC % 1.5 H Seg Neutrophils # Man 36.3 H Monocytes # (Manual) 4.0 H POC ABG pH POC ABG pCO2 POC ABG pO2 Sodium Potassium Chloride 108.1 H Carbon Dioxide BUN 38 H Creatinine 0.7 L Glucose 240 H POC Glucose Lactic Acid Calcium 7.3 L D Magnesium AST Ammonia 77.0 H Lactate Dehydrogenase Total Protein 3.9 L D Albumin 2.1 L Urine Blood Vancomycin Trough Crossmatch 04/11/19 04/11/19 04/12/19 16:19 20:27 07:56 WBC 35.9 H RBC 3.57 L Hgb 10.4 L D Hct 31.4 L D MCHC RDW 16.9 H Seg Neuts % (Manual) 76.0 H Lymphocytes % (Manual) 4.0 L Monocytes % (Manual) Nucleated RBC % Seg Neutrophils # Man 27.3 H Monocytes # (Manual) 2.2 H POC ABG pH 7.215 L POC ABG pCO2 60.2 H POC ABG pO2 Sodium Potassium Chloride Carbon Dioxide BUN Creatinine Glucose POC Glucose Lactic Acid Calcium Magnesium AST Ammonia Lactate Dehydrogenase Total Protein Albumin Urine Blood Vancomycin Trough Crossmatch See Detail 04/12/19 04/12/19 04/12/19 07:56 08:56 11:33 WBC RBC Hgb Hct MCHC RDW Seg Neuts % (Manual) Lymphocytes % (Manual) Monocytes % (Manual) Nucleated RBC % Seg Neutrophils # Man Monocytes # (Manual) POC ABG pH POC ABG pCO2 POC ABG pO2 Sodium Potassium Chloride 110.8 H Carbon Dioxide BUN Creatinine 0.7 L Glucose 146 H POC Glucose 147 H 131 H Lactic Acid Calcium 8.2 L Magnesium AST Ammonia Lactate Dehydrogenase Total Protein 4.4 L Albumin 2.3 L Urine Blood Vancomycin Trough Crossmatch 04/12/19 16:15 WBC RBC Hgb Hct MCHC RDW Seg Neuts % (Manual) Lymphocytes % (Manual) Monocytes % (Manual) Nucleated RBC % Seg Neutrophils # Man Monocytes # (Manual) POC ABG pH POC ABG pCO2 POC ABG pO2 Sodium Potassium Chloride Carbon Dioxide BUN Creatinine Glucose POC Glucose 135 H Lactic Acid Calcium Magnesium AST Ammonia Lactate Dehydrogenase Total Protein Albumin Urine Blood Vancomycin Trough Crossmatch Chest x-ray: pending Allied health notes reviewed: nursing
[2019-04-13] MEDS: ATIVAN IV PRN (20:15)
[2019-04-13] MEDS: LEVAQUIN 750MG/150ML 750 MG/150 ML BAG IV SCH (21:35)
[2019-04-13] MEDS: APRESOLINE IV PRN (21:53)
[2019-04-14] MEDS: APRESOLINE IV PRN ×2 (04:29→10:33)
[2019-04-14] MEDS: ZOSYN/NS 4.5GM/100ML 4.5 GM/100 ML VIAL IV SCH ×3 (05:20→22:37)
--- NOTE | 2019-04-14 06:53 | Progress Note ---
Assessment and Plan Assessment and plan: 33m who pw sob and fever pmh ; tobacco abuse, seizure disorder, depression, schizophrenia, ?antitrypsin deficiency?- family unsure of this dx acute respiratory failure with hypoxia and hypercarbia now weaned off bipap, cont high flow oxygen severe esophagitis sp EGD on 04/12, cont PPI and carafate -single clot seen in stomach, clip was placed, was likely due to NG tube suction Sepsis, bilateral pneumonia,: cont abx per ID Tobacco abuse. counseled on cessation >11 mins acute metabolic encephalopathy improved CCT 33 mins History Interval history: per nursing staff, patient has been agitated, has had episodes of tachycardia and hypoxia. -doing better on high flow oxygen No fevers, has had coffee ground emesis, last episode was 2 days ago Hospitalist Physical - Physical exam Narrative exam: General.: Appears well, no distress, nontoxic HEENT: Moist mucous membranes, extraocular muscles intact, no lymphadenopathy Neck: supple Cardiac: S1-S2 heard Lungs: Diminished air entry Abdomen: soft , nontender, nondistended, bowel sounds positive Extremities: no edema clubbing or cyanosis Skin: no rash or lesions Neurologic: Moves all extremities, patient has been agitated Psych: calm, and cooperative - Constitutional Vitals: Temp Pulse Resp BP Pulse Ox 98.9 F 94 H 31 H 148/74 89 04/14/19 02:39 04/14/19 06:30 04/14/19 06:30 04/14/19 06:30 04/14/19 06:30 General appearance: Present: severe distress, disheveled Results - Labs CBC & Chem 7: 04/18/19 05:31 04/18/19 05:31 Labs: Laboratory Last Values WBC 35.9 K/mm3 (4.5-11.0) H 04/12/19 07:56 RBC 3.57 M/mm3 (3.65-5.03) L 04/12/19 07:56 Hgb 10.4 gm/dl (11.8-15.2) L D 04/12/19 07:56 Hct 31.4 % (35.5-45.6) L D 04/12/19 07:56 MCV 88 fl (84-94) 04/12/19 07:56 MCH 29 pg (28-32) 04/12/19 07:56 MCHC 33 % (32-34) 04/12/19 07:56 RDW 16.9 % (13.2-15.2) H 04/12/19 07:56 Plt Count 282 K/mm3 (140-440) 04/12/19 07:56 [place] % (Auto) [place] Operator 04/07/19 16:33 Eos % (Auto) [place] Operator 04/08/19 14:28 Add Manual Diff Complete 04/12/19 07:56 Total Counted 100 04/12/19 07:56 Seg Neutrophils % [place] Operator 04/11/19 16:15 Seg Neuts % (Manual) 76.0 % (40.0-70.0) H 04/12/19 07:56 1.0 % 04/12/19 07:56 4.0 % (13.4-35.0) L 04/12/19 07:56 Reactive Lymphs % (Man) 1.0 % 04/12/19 07:56 6.0 % (0.0-7.3) 04/12/19 07:56 0 % (0.0-4.3) 04/12/19 07:56 0 % (0.0-1.8) 04/12/19 07:56 6.0 % 04/12/19 07:56 5.0 % 04/12/19 07:56 1.0 % 04/12/19 07:56 0 % 04/12/19 07:56 Nucleated RBC % Not Reportable 04/12/19 07:56 Seg Neutrophils # Man 27.3 K/mm3 (1.8-7.7) H 04/12/19 07:56 Band Neutrophils # 0.4 K/mm3 04/12/19 07:56 1.4 K/mm3 (1.2-5.4) 04/12/19 07:56 Abs React Lymphs (Man) 0.4 K/mm3 04/12/19 07:56 2.2 K/mm3 (0.0-0.8) H 04/12/19 07:56 0.0 K/mm3 (0.0-0.4) 04/12/19 07:56 0.0 K/mm3 (0.0-0.1) 04/12/19 07:56 2.2 K/mm3 04/12/19 07:56 1.8 K/mm3 04/12/19 07:56 0.4 K/mm3 04/12/19 07:56 Blast Cells # 0.0 K/mm3 04/12/19 07:56 Pathologist Review 04/11/19 16:15 WBC Morphology Not Reportable 04/12/19 07:56 Hypersegmented Neuts Not Reportable 04/12/19 07:56 Hyposegmented Neuts Not Reportable 04/12/19 07:56 Hypogranular Neuts Not Reportable 04/12/19 07:56 Not Reportable 04/12/19 07:56 Not Reportable 04/12/19 07:56 Not Reportable 04/12/19 07:56 Not Reportable 04/12/19 07:56 Not Reportable 04/12/19 07:56 Not Reportable 04/12/19 07:56 Consistent w auto 04/12/19 07:56 Not Reportable 04/12/19 07:56 Plt Clumps, EDTA Not Reportable 04/12/19 07:56 Not Reportable 04/12/19 07:56 Not Reportable 04/12/19 07:56 Not Reportable 04/12/19 07:56 Plt Morphology Comment Not Reportable 04/12/19 07:56 RBC Morphology Not Reportable 04/12/19 07:56 Dimorphic RBCs Not Reportable 04/12/19 07:56 Few 04/12/19 07:56 Not Reportable 04/12/19 07:56 Not Reportable 04/12/19 07:56 Not Reportable 04/12/19 07:56 Not Reportable 04/12/19 07:56 Not Reportable 04/12/19 07:56 Not Reportable 04/12/19 07:56 Not Reportable 04/12/19 07:56 Not Reportable 04/12/19 07:56 Not Reportable 04/12/19 07:56 Not Reportable 04/12/19 07:56 Not Reportable 04/12/19 07:56 Not Reportable 04/12/19 07:56 Not Reportable 04/12/19 07:56 Not Reportable 04/12/19 07:56 Not Reportable 04/12/19 07:56 Not Reportable 04/12/19 07:56 Not Reportable 04/12/19 07:56 Few 04/12/19 07:56 Acanthocytes (Spur) Not Reportable 04/12/19 07:56 Rouleaux Not Reportable 04/12/19 07:56 Not Reportable 04/12/19 07:56 Not Reportable 04/12/19 07:56 Not Reportable 04/12/19 07:56 Not Reportable 04/12/19 07:56 Hem Pathologist Commnt No 04/12/19 07:56 PT 14.2 Sec. (12.2-14.9) 04/07/19 16:33 INR 1.04 (0.87-1.13) 04/07/19 16:33 APTT 31.9 Sec. (24.2-36.6) 04/07/19 16:33 POC ABG pH 7.215 (7.35-7.45) L 04/11/19 20:27 POC ABG pCO2 60.2 (35-45) H 04/11/19 20:27 POC ABG pO2 83 (80-105) 04/11/19 13:44 POC ABG HCO3 24.3 (22-26 mml/L) 04/11/19 20:27 POC ABG Total CO2 26 (23-27mmol/L) 04/11/19 20:27 POC ABG O2 Sat 100 04/11/19 20:27 POC ABG Base Excess -3 ((-2) - (+3)mmol/L) 04/11/19 20:27 100 % 04/11/19 20:27 Sodium 143 mmol/L (137-145) 04/12/19 07:56 Potassium 4.0 mmol/L (3.6-5.0) 04/12/19 07:56 Chloride 110.8 mmol/L (98-107) H 04/12/19 07:56 Carbon Dioxide 23 mmol/L (22-30) 04/12/19 07:56 13 mmol/L 04/12/19 07:56 BUN 18 mg/dL (9-20) 04/12/19 07:56 0.7 mg/dL (0.8-1.5) L 04/12/19 07:56 Estimated GFR > 60 ml/min 04/12/19 07:56 26 % 04/12/19 07:56 Glucose 146 mg/dL (75-100) H 04/12/19 07:56 POC Glucose 135 (70-105) H 04/12/19 16:15 Lactic Acid 0.70 mmol/L (0.7-2.0) 04/08/19 17:01 Calcium 8.2 mg/dL (8.4-10.2) L 04/12/19 07:56 Phosphorus 3.00 mg/dL (2.5-4.5) 04/08/19 14:28 Magnesium 1.70 mg/dL (1.7-2.3) 04/11/19 15:16 0.30 mg/dL (0.1-1.2) 04/12/19 07:56 AST 11 units/L (5-40) 04/12/19 07:56 ALT 7 units/L (7-56) 04/12/19 07:56 51 units/L (35-129) 04/12/19 07:56 77.0 umol/L (25-60) H 04/11/19 16:15 266 units/L (91-180) H 04/08/19 14:28 70 units/L (55-170) 04/07/19 16:33 < 0.010 ng/mL (0.00-0.029) 04/07/19 16:33 4.4 g/dL (6.3-8.2) L 04/12/19 07:56 2.3 g/dL (3.9-5) L 04/12/19 07:56 1.1 % 04/12/19 07:56 Straw (Yellow) 04/07/19 20:00 Clear (Clear) 04/07/19 20:00 6.0 (5.0-7.0) 04/07/19 20:00 Ur Specific [place] 1.003 (1.003-1.030) 04/07/19 20:00 <15 mg/dl mg/dL (Negative) 04/07/19 20:00 50 mg/dL (Negative) 04/07/19 20:00 Negative mg/dL (Negative) 04/07/19 20:00 Small (Negative) A 04/07/19 20:00 Negative (Negative) 04/07/19 20:00 Negative (Negative) 04/07/19 20:00 < 0.2 mg/dL (<2.0) 04/07/19 20:00 Ur Leukocyte Esterase Negative (Negative) 04/07/19 20:00 < 1.0 /HPF (0.0-6.0) 04/07/19 20:00 1.0 /HPF (0.0-6.0) 04/07/19 20:00 Vancomycin Trough 4.0 ug/mL (5.0-20.0) L 04/10/19 20:46 HIV 1&2 Antibody Rapid Non react (Non React) 04/07/19 17:25 Non react (Non React) 04/07/19 17:25 Urine Legionella Ag Not detected (Not Detected) 04/09/19 Unknown Flexitest 1 04/09/19 12:15 Blood Type O NEGATIVE 04/11/19 16:19 Antibody Screen Negative 04/11/19 16:19 Crossmatch See Detail 04/11/19 16:19 Active Medications - Current Medications Current Medications: Generic Name Dose Route Start Last Admin Trade Name Freq PRN Reason Stop Dose Admin Acetaminophen 650 mg 04/07/19 16:17 04/07/19 16:42 Tylenol MA 650 mg Q4H PRN Administration Pain, Mild (1-3) Amlodipine Besylate 5 mg 04/08/19 14:00 04/13/19 09:44 Norvasc PO 5 mg QDAY PACO Administration Arformoterol Tartrate 15 mcg 04/09/19 08:00 04/13/19 21:45 Brovana Nebu IH 15 mcg Q12HRT PACO Administration Budesonide 0.5 mg 04/09/19 08:00 04/13/19 21:46 Pulmicort IH 0.5 mg Q12HRT PACO Administration Fluoxetine HCl 40 mg 04/08/19 14:00 04/13/19 09:44 Prozac PO 40 mg QDAY PACO Administration Haloperidol Lactate 5 mg 04/11/19 14:41 Haldol IM Q6H PRN Agitation Hydralazine HCl 10 mg 04/12/19 18:10 04/14/19 04:29 Apresoline IV 10 mg Q4HR PRN Administration BP >160/100 Levofloxacin/Dextrose 750 mg in 150 mls @ 100 mls/hr 04/11/19 22:00 04/13/19 21:35 Levaquin 750mg/150ml IV 100 mls/hr Q24H PACO Administration Piperacillin Sod/Tazobactam Sod 4.5 gm in 100 mls @ 200 mls/hr 04/13/19 14:00 04/14/19 05:20 Zosyn/Ns 4.5gm/100ml IV 200 mls/hr Q8HR PACO Administration Lorazepam 2 mg 04/11/19 12:58 04/13/19 20:15 Ativan IV 2 mg Q1H PRN Administration Agitation Methylprednisolone Sodium Succinate 20 mg 04/09/19 10:00 04/13/19 21:33 Solu-Medrol IV 20 mg Q12HR PACO Administration Metoclopramide HCl 10 mg 04/11/19 14:39 Reglan IV Q6H PRN Nausea And Vomiting Morphine Sulfate 2 mg 04/11/19 19:46 Morphine IV Q2H PRN Pain, Moderate (4-6) Ondansetron HCl 4 mg 04/11/19 14:39 Zofran IV Q4H PRN Nausea And Vomiting Pantoprazole Sodium 40 mg 04/12/19 22:00 04/13/19 21:33 Protonix IV 40 mg BID PACO Administration Risperidone 2 mg 04/07/19 22:00 04/13/19 21:33 Risperdal PO 2 mg BID PACO Administration Sodium Chloride 10 ml 04/07/19 22:00 04/13/19 21:36 Sodium Chloride Flush Syringe 10 Ml IV 10 ml BID PACO Administration Sodium Chloride 10 ml 04/07/19 17:05 Sodium Chloride Flush Syringe 10 Ml IV PRN PRN LINE FLUSH Sucralfate 1 gm 04/12/19 16:30 04/13/19 21:33 Carafate PO 1 gm ACHS PACO Administration Tramadol HCl 50 mg 04/07/19 17:09 Ultram PO Q6HR PRN Pain Nutrition/Malnutrition Assess - Dietary Evaluation Nutrition/Malnutrition Findings: Nutrition Notes Start: 04/08/19 15:33 Freq: Status: Active Protocol: Document 04/13/19 16:34 RM (Rec: 04/13/19 16:38 RM [id number]) Nutrition Notes Initial or Follow up Reassessment Current Diagnosis Respiratory Failure Other Pertinent Diagnosis SIRS, seizure d/o, Hiatal hernia, Esophagitis Current Diet Clear liquid Labs/Tests Reviewed Pertinent Medications Solu-Medrol Height 5 ft 2 in Weight 58 kg [place] Body Weight (kg) 53.63 BMI 23.3 Subjective/Other Information Pt and pt nurse in room at time of visit. Per nurse pt drank all of breakfast. Pt was starting to drink lunch at time of visit. Percent of energy/protein needs met: 35%/23% Burn Absent Trauma Absent #1 Nutrition Diagnosis Inadequate oral intake Diagnosis Progress(for reassessment Continues documentation) Is patient on ventilator? No Is Patient Ambulatory and/or Out of Bed No REE-([facility]-confined to bed) 7519.884 Calculation Used for Recommendations [facility] Additional Notes Pro needs 1.2-2g/k-116g/ day Fluid needs 1ml/kcal Nutrition Intervention Change Diet Order: Diet advancement when medically feasible Add Supplement/Snack (indicate name/kcal Ensure Clear 1 daily /protein ) Provides kCal: 240 Provides Protein (gm) 8 Goal #1 Diet advancement Anticipated Discharge Needs: Unable to identify at this time Follow-Up By: 04/15/19 Additional Comments Follow for PO and ONS intakes
[2019-04-14] MEDS: CARAFATE PO SCH ×4 (07:30→22:37)
--- NOTE | 2019-04-14 08:15 | Progress Note ---
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 Pt was found to have Acute Hypoxemic Respiratory Failure and placed on BIPAP. He was hospitalized recently at [facility] on 02/18/19 for bilateral cavitary pneumonia with TB being ruled out; He was found to be influenza A positive and treated with Tamiflu, he was also intubated and extubated at [facility]. He was discharged on 02/27/19. Acute respiratory failure with hypoxia and hypercarbia now weaned off bipap, cont high flow oxygen severe esophagitis sp EGD on 04/12, cont PPI and carafate -single clot seen in stomach, clip was placed, was likely due to NG tube suction Sepsis, bilateral pneumonia,: cont abx per ID Tobacco abuse. counseled on cessation >11 mins acute metabolic encephalopathy improved History Interval history: Patient was seen and examined. Follow-up on current diagnosis of Pneumonia. No overnight events reported to me. Patient denies any chest pain, shortness breath, nausea/vomiting or severe headaches. Imaging, nursing note, chart, labs and old chart reviewed. Discussed with patient. Hospitalist Physical - Physical exam Narrative exam: Gen: chronic ill appearing, NAD, Awake, Alert, Orientated HEENT: NCAT, EOMI, PERRL, OP Clear Neck: supple, no adenopathy, no thyromegaly, no JVD CVS/Heart: RRR, normal S1S2, pulses present bilaterally Chest/Lungs: diminished bs bilaterally, Symmetrical chest expansion, good air entry bilaterally GI/Abdomen: soft, NTND, good bowel sounds, no guarding or rebound /Bladder: no suprapubic tenderness, no CVA or paraspinal tenderness Extermity/Skin: no c/c/e, no obvious rash MSK: FROM x 4 Neuro: CN 2-12 grossly intact, no new focal deficits Psych: calm - Constitutional Vitals: Temp Pulse Resp BP Pulse Ox 98.9 F 95 H 25 H 153/78 92 04/14/19 02:39 04/14/19 07:00 04/14/19 07:00 04/14/19 07:00 04/14/19 07:00 General appearance: Present: disheveled. Absent: severe distress Results - Labs CBC & Chem 7: 04/12/19 07:56 04/12/19 07:56 Labs: Laboratory Last Values WBC 35.9 K/mm3 (4.5-11.0) H 04/12/19 07:56 RBC 3.57 M/mm3 (3.65-5.03) L 04/12/19 07:56 Hgb 10.4 gm/dl (11.8-15.2) L D 04/12/19 07:56 Hct 31.4 % (35.5-45.6) L D 04/12/19 07:56 MCV 88 fl (84-94) 04/12/19 07:56 MCH 29 pg (28-32) 04/12/19 07:56 MCHC 33 % (32-34) 04/12/19 07:56 RDW 16.9 % (13.2-15.2) H 04/12/19 07:56 Plt Count 282 K/mm3 (140-440) 04/12/19 07:56 Lipscomb % (Auto) Solar Site Assessment Specialist 04/07/19 16:33 Eos % (Auto) Solar Site Assessment Specialist 04/08/19 14:28 Add Manual Diff Complete 04/12/19 07:56 Total Counted 100 04/12/19 07:56 Seg Neutrophils % Solar Site Assessment Specialist 04/11/19 16:15 Seg Neuts % (Manual) 76.0 % (40.0-70.0) H 04/12/19 07:56 1.0 % 04/12/19 07:56 4.0 % (13.4-35.0) L 04/12/19 07:56 Reactive Lymphs % (Man) 1.0 % 04/12/19 07:56 6.0 % (0.0-7.3) 04/12/19 07:56 0 % (0.0-4.3) 04/12/19 07:56 0 % (0.0-1.8) 04/12/19 07:56 6.0 % 04/12/19 07:56 5.0 % 04/12/19 07:56 1.0 % 04/12/19 07:56 0 % 04/12/19 07:56 Nucleated RBC % Not Reportable 04/12/19 07:56 Seg Neutrophils # Man 27.3 K/mm3 (1.8-7.7) H 04/12/19 07:56 Band Neutrophils # 0.4 K/mm3 04/12/19 07:56 1.4 K/mm3 (1.2-5.4) 04/12/19 07:56 Abs React Lymphs (Man) 0.4 K/mm3 04/12/19 07:56 2.2 K/mm3 (0.0-0.8) H 04/12/19 07:56 0.0 K/mm3 (0.0-0.4) 04/12/19 07:56 0.0 K/mm3 (0.0-0.1) 04/12/19 07:56 2.2 K/mm3 04/12/19 07:56 1.8 K/mm3 04/12/19 07:56 0.4 K/mm3 04/12/19 07:56 Blast Cells # 0.0 K/mm3 04/12/19 07:56 Pathologist Review 04/11/19 16:15 WBC Morphology Not Reportable 04/12/19 07:56 Hypersegmented Neuts Not Reportable 04/12/19 07:56 Hyposegmented Neuts Not Reportable 04/12/19 07:56 Hypogranular Neuts Not Reportable 04/12/19 07:56 Not Reportable 04/12/19 07:56 Not Reportable 04/12/19 07:56 Not Reportable 04/12/19 07:56 Not Reportable 04/12/19 07:56 Not Reportable 04/12/19 07:56 Not Reportable 04/12/19 07:56 Consistent w auto 04/12/19 07:56 Not Reportable 04/12/19 07:56 Plt Clumps, EDTA Not Reportable 04/12/19 07:56 Not Reportable 04/12/19 07:56 Not Reportable 04/12/19 07:56 Not Reportable 04/12/19 07:56 Plt Morphology Comment Not Reportable 04/12/19 07:56 RBC Morphology Not Reportable 04/12/19 07:56 Dimorphic RBCs Not Reportable 04/12/19 07:56 Few 04/12/19 07:56 Not Reportable 04/12/19 07:56 Not Reportable 04/12/19 07:56 Not Reportable 04/12/19 07:56 Not Reportable 04/12/19 07:56 Not Reportable 04/12/19 07:56 Not Reportable 04/12/19 07:56 Not Reportable 04/12/19 07:56 Not Reportable 04/12/19 07:56 Not Reportable 04/12/19 07:56 Not Reportable 04/12/19 07:56 Not Reportable 04/12/19 07:56 Not Reportable 04/12/19 07:56 Not Reportable 04/12/19 07:56 Not Reportable 04/12/19 07:56 Not Reportable 04/12/19 07:56 Not Reportable 04/12/19 07:56 Not Reportable 04/12/19 07:56 Few 04/12/19 07:56 Acanthocytes (Spur) Not Reportable 04/12/19 07:56 Rouleaux Not Reportable 04/12/19 07:56 Not Reportable 04/12/19 07:56 Not Reportable 04/12/19 07:56 Not Reportable 04/12/19 07:56 Not Reportable 04/12/19 07:56 Hem Pathologist Commnt No 04/12/19 07:56 PT 14.2 Sec. (12.2-14.9) 04/07/19 16:33 INR 1.04 (0.87-1.13) 04/07/19 16:33 APTT 31.9 Sec. (24.2-36.6) 04/07/19 16:33 POC ABG pH 7.215 (7.35-7.45) L 04/11/19 20:27 POC ABG pCO2 60.2 (35-45) H 04/11/19 20:27 POC ABG pO2 83 (80-105) 04/11/19 13:44 POC ABG HCO3 24.3 (22-26 mml/L) 04/11/19 20:27 POC ABG Total CO2 26 (23-27mmol/L) 04/11/19 20:27 POC ABG O2 Sat 100 04/11/19 20:27 POC ABG Base Excess -3 ((-2) - (+3)mmol/L) 04/11/19 20:27 100 % 04/11/19 20:27 Sodium 143 mmol/L (137-145) 04/12/19 07:56 Potassium 4.0 mmol/L (3.6-5.0) 04/12/19 07:56 Chloride 110.8 mmol/L (98-107) H 04/12/19 07:56 Carbon Dioxide 23 mmol/L (22-30) 04/12/19 07:56 13 mmol/L 04/12/19 07:56 BUN 18 mg/dL (9-20) 04/12/19 07:56 0.7 mg/dL (0.8-1.5) L 04/12/19 07:56 Estimated GFR > 60 ml/min 04/12/19 07:56 26 % 04/12/19 07:56 Glucose 146 mg/dL (75-100) H 04/12/19 07:56 POC Glucose 135 (70-105) H 04/12/19 16:15 Lactic Acid 0.70 mmol/L (0.7-2.0) 04/08/19 17:01 Calcium 8.2 mg/dL (8.4-10.2) L 04/12/19 07:56 Phosphorus 3.00 mg/dL (2.5-4.5) 04/08/19 14:28 Magnesium 1.70 mg/dL (1.7-2.3) 04/11/19 15:16 0.30 mg/dL (0.1-1.2) 04/12/19 07:56 AST 11 units/L (5-40) 04/12/19 07:56 ALT 7 units/L (7-56) 04/12/19 07:56 51 units/L (35-129) 04/12/19 07:56 77.0 umol/L (25-60) H 04/11/19 16:15 266 units/L (91-180) H 04/08/19 14:28 70 units/L (55-170) 04/07/19 16:33 < 0.010 ng/mL (0.00-0.029) 04/07/19 16:33 4.4 g/dL (6.3-8.2) L 04/12/19 07:56 2.3 g/dL (3.9-5) L 04/12/19 07:56 1.1 % 04/12/19 07:56 Straw (Yellow) 04/07/19 20:00 Clear (Clear) 04/07/19 20:00 6.0 (5.0-7.0) 04/07/19 20:00 Ur Specific [place] 1.003 (1.003-1.030) 04/07/19 20:00 <15 mg/dl mg/dL (Negative) 04/07/19 20:00 50 mg/dL (Negative) 04/07/19 20:00 Negative mg/dL (Negative) 04/07/19 20:00 Small (Negative) A 04/07/19 20:00 Negative (Negative) 04/07/19 20:00 Negative (Negative) 04/07/19 20:00 < 0.2 mg/dL (<2.0) 04/07/19 20:00 Ur Leukocyte Esterase Negative (Negative) 04/07/19 20:00 < 1.0 /HPF (0.0-6.0) 04/07/19 20:00 1.0 /HPF (0.0-6.0) 04/07/19 20:00 Vancomycin Trough 4.0 ug/mL (5.0-20.0) L 04/10/19 20:46 HIV 1&2 Antibody Rapid Non react (Non React) 04/07/19 17:25 Non react (Non React) 04/07/19 17:25 Urine Legionella Ag Not detected (Not Detected) 04/09/19 Unknown Flexitest 1 04/09/19 12:15 Blood Type O NEGATIVE 04/11/19 16:19 Antibody Screen Negative 04/11/19 16:19 Crossmatch See Detail 04/11/19 16:19 Active Medications - Current Medications Current Medications: Generic Name Dose Route Start Last Admin Trade Name Freq PRN Reason Stop Dose Admin Acetaminophen 650 mg 04/07/19 16:17 04/07/19 16:42 Tylenol MS 650 mg Q4H PRN Administration Pain, Mild (1-3) Amlodipine Besylate 5 mg 04/08/19 14:00 04/13/19 09:44 Norvasc PO 5 mg QDAY PACO Administration Arformoterol Tartrate 15 mcg 04/09/19 08:00 04/13/19 21:45 Brovana Nebu IH 15 mcg Q12HRT PACO Administration Budesonide 0.5 mg 04/09/19 08:00 04/13/19 21:46 Pulmicort IH 0.5 mg Q12HRT PACO Administration Fluoxetine HCl 40 mg 04/08/19 14:00 04/13/19 09:44 Prozac PO 40 mg QDAY PACO Administration Haloperidol Lactate 5 mg 04/11/19 14:41 Haldol IM Q6H PRN Agitation Hydralazine HCl 10 mg 04/12/19 18:10 04/14/19 04:29 Apresoline IV 10 mg Q4HR PRN Administration BP >160/100 Levofloxacin/Dextrose 750 mg in 150 mls @ 100 mls/hr 04/11/19 22:00 04/13/19 21:35 Levaquin 750mg/150ml IV 100 mls/hr Q24H PACO Administration Piperacillin Sod/Tazobactam Sod 4.5 gm in 100 mls @ 200 mls/hr 04/13/19 14:00 04/14/19 05:20 Zosyn/Ns 4.5gm/100ml IV 200 mls/hr Q8HR PACO Administration Lorazepam 2 mg 04/11/19 12:58 04/13/19 20:15 Ativan IV 2 mg Q1H PRN Administration Agitation Methylprednisolone Sodium Succinate 20 mg 04/09/19 10:00 04/13/19 21:33 Solu-Medrol IV 20 mg Q12HR PACO Administration Metoclopramide HCl 10 mg 04/11/19 14:39 Reglan IV Q6H PRN Nausea And Vomiting Morphine Sulfate 2 mg 04/11/19 19:46 Morphine IV Q2H PRN Pain, Moderate (4-6) Ondansetron HCl 4 mg 04/11/19 14:39 Zofran IV Q4H PRN Nausea And Vomiting Pantoprazole Sodium 40 mg 04/12/19 22:00 04/13/19 21:33 Protonix IV 40 mg BID PACO Administration Risperidone 2 mg 04/07/19 22:00 04/13/19 21:33 Risperdal PO 2 mg BID PACO Administration Sodium Chloride 10 ml 04/07/19 22:00 04/13/19 21:36 Sodium Chloride Flush Syringe 10 Ml IV 10 ml BID PACO Administration Sodium Chloride 10 ml 04/07/19 17:05 Sodium Chloride Flush Syringe 10 Ml IV PRN PRN LINE FLUSH Sucralfate 1 gm 04/12/19 16:30 04/13/19 21:33 Carafate PO 1 gm ACHS PACO Administration Tramadol HCl 50 mg 04/07/19 17:09 Ultram PO Q6HR PRN Pain Nutrition/Malnutrition Assess - Dietary Evaluation Nutrition/Malnutrition Findings: Nutrition Notes Start: 04/08/19 15:33 Freq: Status: Active Protocol: Document 04/13/19 16:34 RM (Rec: 04/13/19 16:38 RM [id number]) Nutrition Notes Initial or Follow up Reassessment Current Diagnosis Respiratory Failure Other Pertinent Diagnosis SIRS, seizure d/o, Hiatal hernia, Esophagitis Current Diet Clear liquid Labs/Tests Reviewed Pertinent Medications Solu-Medrol Height 5 ft 2 in Weight 58 kg [place] Body Weight (kg) 53.63 BMI 23.3 Subjective/Other Information Pt and pt nurse in room at time of visit. Per nurse pt drank all of breakfast. Pt was starting to drink lunch at time of visit. Percent of energy/protein needs met: 35%/23% Burn Absent Trauma Absent #1 Nutrition Diagnosis Inadequate oral intake Diagnosis Progress(for reassessment Continues documentation) Is patient on ventilator? No Is Patient Ambulatory and/or Out of Bed No REE-([facility]-confined to bed) 9415.896 Calculation Used for Recommendations [facility] Additional Notes Pro needs 1.2-2g/k-116g/ day Fluid needs 1ml/kcal Nutrition Intervention Change Diet Order: Diet advancement when medically feasible Add Supplement/Snack (indicate name/kcal Ensure Clear 1 daily /protein ) Provides kCal: 240 Provides Protein (gm) 8 Goal #1 Diet advancement Anticipated Discharge Needs: Unable to identify at this time Follow-Up By: 04/15/19 Additional Comments Follow for PO and ONS intakes
[2019-04-14] MEDS: PULMICORT IH SCH ×2 (08:42→19:28)
[2019-04-14] MEDS: BROVANA NEBU IH SCH ×2 (08:43→19:28)
[2019-04-14] MEDS: PROzac PO SCH (10:00)
[2019-04-14] MEDS: SODIUM CHLORIDE FLUSH SYRINGE 10 ML IV SCH ×3 (10:00→22:37)
[2019-04-14] MEDS: NORVASC PO SCH (10:00)
[2019-04-14] MEDS: RisperDAL PO SCH ×2 (10:00→22:36)
[2019-04-14] MEDS: SOLU-Medrol IV SCH (10:00)
[2019-04-14] MEDS: PROTONIX IV SCH ×2 (10:00→22:37)
[2019-04-14 10:38] LABS: Hematocrit 34.6 % (35.5-45.6); Hemoglobin 11.8 gm/dl (11.8-15.2)
--- NOTE | 2019-04-14 10:45 | Progress Note ---
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 Now admitted with: 1) Sepsis, bilateral pneumonia, acute respiratory failure: fever resolved, leukocytosis worsening 50K now down 35K (on IV steroids), lactate improved. Etiology ? HCAP v/s aspiration pneumonitis - patient with severe esophagitis on EGD. Chest x-ray shows a prominent interstitial pattern. CTA demonstrates patchy alveolar RUL/RLL infiltrates. Hence, also cover for atypicals. HIV rapid negative. Strep pneumonia not detected. Legionella not detected. 2) Tobacco abuse. 3) Leukocytosis: WBC higher today, also contributed by steroids. 4) Esophagitis on EGD - Severe LA Grade D esophagitis of the distal half of the esophagus, most consistent with severe reflux esophagitis 5) AMS: resolved Recommendations: continue zosyn to cover aspiration pneumonitis / HCAP stop levaquin MRSA PCR ordered monitor leukocytosis will follow Yael Encinas MD Infectious Diseases [employer] [facility] M [phone] O [phone] Subjective Date of service: 04/14/19 Principal diagnosis: Acute hypoxemic hypercapnic resp failure; HAP (bilateral); Severe Sepsis Interval history: Alert, remains on HFO2 30%, alert, talking, oriented. No fever remains tachycardic on monitor. Patient requesting to smoke. ROS: denies cough, N/V/D. Objective - Exam Narrative Exam: Constitutional: alert in NAD on HFO2 Head, Ears, Nose: Normocephalic, atraumatic. External ears, nose normal Eyes: Conjunctivae/corneas clear. No icterus. No ptosis. Neck: Supple, no meningeal signs Oral: +poor dentition, HFO2 Cardiovascular: tachycardic Respiratory: CTA alicia GI: Soft, non-tender; bowel sounds normal. No peritoneal signs Musculoskeletal: No pedal edema, no cyanosis. Skin: No rash or abscess Hem/Lymphatic: No palpable cervical or supraclavicular nodes. No lymphangitis Psych: Mood ok. Affect normal Neurological: Awake, alert. No gross abnormality - Constitutional Vitals: Vital Signs Temp Pulse Resp BP Pulse Ox 97.9 F 118 H 23 171/95 97 04/14/19 07:00 04/14/19 10:33 04/14/19 08:55 04/14/19 10:33 04/14/19 08:45 Temperature -Last 24 Hours Temperature 97.9 F Temperature 98.9 F Temperature 98.7 F Temperature 99.3 F Temperature 98.2 F - Labs CBC & Chem 7: 04/12/19 07:56 04/12/19 07:56
[2019-04-14] MEDS: HABITROL TD SCH (11:00)
[2019-04-14 11:32] LABS: Hematocrit 34.7 % (35.5-45.6); Hemoglobin 11.7 gm/dl (11.8-15.2); Mean Corpuscular HGB Conc 34 % (32-34); Mean Corpuscular Volume 88 fl (84-94); Platelet Count 244 K/mm3 (140-440); Red Blood Count 3.92 M/mm3 (3.65-5.03); Red Cell Distribution Width 16.9 % (13.2-15.2)
[2019-04-14 12:36] LABS: Anisocytosis 1+; Band Neutrophils # (Manual) 0.2 K/mm3; Eosinophils % (Manual) 0 % (0.0-4.3); Myelocytes # (Manual) 0.4 K/mm3; Platelet Estimate Consistent w Auto; Total Cells Counted 100
--- NOTE | 2019-04-14 12:40 | Gastroenterology Progress Note ---
<ALYSIA SANFORD - Last Filed: 04/14/19 12:42> Assessment and Plan 1.coffee ground emesis 2.GI bleed/anemia -H/H 11.7/34.7-trending up -continue to monitor H/H and transfuse as needed -BM overnight with dark stool per nurse-likely sequela given stable H/H -s/p EGD that showed: Normal duodenum * Small blood clot in the gastric body along the greater curvature suspicious for ulcer from the NG tube suctioning; the overlying clot could not be suctioned/washed off, therefore a single clip was deployed to ensure hemostasis of the lesion * GE junction at 35cm from the incisors * 3cm hiatal hernia * Severe LA Grade D esophagitis of the distal half of the esophagus, most consistent with severe reflux esophagitis -continue PPI BID -continue carafate -avoid NSAIDs -advance diet as tolerated -continue supportive care -recommend patient f/u in clinic upon d/c for possible repeat EGD in ~8 wks to ensure healing of esophagus and no underlying lesions -no further recommendations per GI standpoint at this time, will sign off. Please call if needed. Subjective Date of service: 04/14/19 Principal diagnosis: coffee-ground emesis Interval history: Patient remains in ICU on HFO2. Denies abd pain or N/V. Nursing reports BM overnight with dark stool (sequela?) but no hematemesis/coffee-ground emesis, or hematochezia. Objective - Constitutional Vitals: Temp Pulse Resp BP Pulse Ox 98.2 F 118 H 23 171/95 97 04/14/19 12:00 04/14/19 10:33 04/14/19 08:55 04/14/19 10:33 04/14/19 08:45 General appearance: other (in ICU on HFO2) - Cardiovascular Rhythm: other (tachycardia) - Gastrointestinal General gastrointestinal: Present: soft, non-tender, non-distended, normal bowel sounds - Labs CBC & Chem 7: 04/14/19 09:38 04/12/19 07:56 Labs: Laboratory Results - last 24 hr 04/11/19 04/14/19 04/14/19 16:15 09:38 09:38 WBC 20.0 H RBC 3.92 Hgb 11.8 11.7 L Hct 34.6 L 34.7 L MCV 88 MCH 30 MCHC 34 RDW 16.9 H Plt Count 244 Add Manual Diff Complete Total Counted 100 Seg Neuts % (Manual) 73.0 H Band Neutrophils % 1.0 Lymphocytes % (Manual) 4.0 L Reactive Lymphs % (Man) 0 Monocytes % (Manual) 7.0 Eosinophils % (Manual) 0 Basophils % (Manual) 1.0 Metamyelocytes % 12.0 Myelocytes % 2.0 Promyelocytes % 0 Blast Cells % 0 Nucleated RBC % Not Reportable Seg Neutrophils # Man 14.6 H Band Neutrophils # 0.2 Lymphocytes # (Manual) 0.8 L Abs React Lymphs (Man) 0.0 Monocytes # (Manual) 1.4 H Eosinophils # (Manual) 0.0 Basophils # (Manual) 0.2 H Metamyelocytes # 2.4 Myelocytes # 0.4 Promyelocytes # 0.0 Blast Cells # 0.0 Pathologist Review WBC Morphology Not Reportable Hypersegmented Neuts Not Reportable Hyposegmented Neuts Not Reportable Hypogranular Neuts Not Reportable Smudge Cells Not Reportable Toxic Granulation Not Reportable Toxic Vacuolation Not Reportable Dohle Bodies Not Reportable Pelger-Huet Anomaly Not Reportable Min Rods Not Reportable Platelet Estimate Consistent w auto Clumped Platelets Not Reportable Plt Clumps, EDTA Not Reportable Large Platelets Not Reportable Giant Platelets Not Reportable Platelet Satelliting Not Reportable Plt Morphology Comment Not Reportable RBC Morphology Not Reportable Dimorphic RBCs Not Reportable Polychromasia Not Reportable Hypochromasia Not Reportable Poikilocytosis Not Reportable Anisocytosis 1+ Microcytosis Not Reportable Macrocytosis Not Reportable Spherocytes Not Reportable Pappenheimer Bodies Not Reportable Sickle Cells Not Reportable Target Cells Not Reportable Tear Drop Cells Not Reportable Ovalocytes Not Reportable Helmet Cells Not Reportable Martinez-Nowthen Bodies Not Reportable Delaplaine Rings Not Reportable Belia Cells Not Reportable Bite Cells Not Reportable Crenated Cell Not Reportable Elliptocytes Not Reportable Acanthocytes (Spur) Not Reportable Rouleaux Not Reportable Hemoglobin C Crystals Not Reportable Schistocytes Not Reportable Malaria parasites Not Reportable Justin Bodies Not Reportable Hem Pathologist Commnt No POC ABG pH POC ABG pO2 POC ABG HCO3 POC ABG Total CO2 POC ABG O2 Sat POC ABG Base Excess FiO2 06/18/19 10:13 WBC RBC Hgb Hct MCV MCH MCHC RDW Plt Count Add Manual Diff Total Counted Seg Neuts % (Manual) Band Neutrophils % Lymphocytes % (Manual) Reactive Lymphs % (Man) Monocytes % (Manual) Eosinophils % (Manual) Basophils % (Manual) Metamyelocytes % Myelocytes % Promyelocytes % Blast Cells % Nucleated RBC % Seg Neutrophils # Man Band Neutrophils # Lymphocytes # (Manual) Abs React Lymphs (Man) Monocytes # (Manual) Eosinophils # (Manual) Basophils # (Manual) Metamyelocytes # Myelocytes # Promyelocytes # Blast Cells # Pathologist Review WBC Morphology Hypersegmented Neuts Hyposegmented Neuts Hypogranular Neuts Smudge Cells Toxic Granulation Toxic Vacuolation Dohle Bodies Pelger-Huet Anomaly Min Rods Platelet Estimate Clumped Platelets Plt Clumps, EDTA Large Platelets Giant Platelets Platelet Satelliting Plt Morphology Comment RBC Morphology Dimorphic RBCs Polychromasia Hypochromasia Poikilocytosis Anisocytosis Microcytosis Macrocytosis Spherocytes Pappenheimer Bodies Sickle Cells Target Cells Tear Drop Cells Ovalocytes Helmet Cells Martinez-Nowthen Bodies [place] Rings [place] Cells Bite Cells Crenated Cell Elliptocytes Acanthocytes (Spur) Rouleaux Hemoglobin C Crystals Schistocytes Malaria parasites Justin Bodies Hem Pathologist Commnt POC ABG pH 7.486 H POC ABG pO2 86 POC ABG HCO3 21.9 POC ABG Total CO2 23 POC ABG O2 Sat 97 POC ABG Base Excess -2 FiO2 30 <SHANNEN OROURKE - Last Filed: 04/14/19 23:54> Assessment and Plan Patient seen and examined. Advanced practitioner's assessment and plan evaluated and I agree with the plan with the following additions: patient reports no more bleeding and breathing gradually improving too. Continue BID PPI and carafate for 30 days, then can stop carafate but continue BID PPI until patient is seen in the office and rescoped in about 8 weeks (he will need to followup with us as an outpatient) - Patient Problems (1) Coffee ground emesis Current Visit: Yes Status: Acute (2) Anemia Current Visit: Yes Status: Acute (3) GI bleed Current Visit: Yes Status: Acute Objective - Constitutional Vitals: Temp Pulse Resp BP Pulse Ox 98.5 F 86 20 143/80 97 04/14/19 23:33 04/14/19 23:43 04/14/19 23:33 04/14/19 23:33 04/14/19 23:43 - Labs CBC & Chem 7: 04/14/19 09:38 04/12/19 07:56 Labs: Laboratory Results - last 24 hr 04/09/19 04/14/19 04/14/19 04:17 09:38 09:38 WBC 20.0 H RBC 3.92 Hgb 11.8 11.7 L Hct 34.6 L 34.7 L MCV 88 MCH 30 MCHC 34 RDW 16.9 H Plt Count 244 Add Manual Diff Complete Total Counted 100 Seg Neuts % (Manual) 73.0 H Band Neutrophils % 1.0 Lymphocytes % (Manual) 4.0 L Reactive Lymphs % (Man) 0 Monocytes % (Manual) 7.0 Eosinophils % (Manual) 0 Basophils % (Manual) 1.0 Metamyelocytes % 12.0 Myelocytes % 2.0 Promyelocytes % 0 Blast Cells % 0 Nucleated RBC % Not Reportable Seg Neutrophils # Man 14.6 H Band Neutrophils # 0.2 Lymphocytes # (Manual) 0.8 L Abs React Lymphs (Man) 0.0 Monocytes # (Manual) 1.4 H Eosinophils # (Manual) 0.0 Basophils # (Manual) 0.2 H Metamyelocytes # 2.4 Myelocytes # 0.4 Promyelocytes # 0.0 Blast Cells # 0.0 WBC Morphology Not Reportable Hypersegmented Neuts Not Reportable Hyposegmented Neuts Not Reportable Hypogranular Neuts Not Reportable Smudge Cells Not Reportable Toxic Granulation Not Reportable Toxic Vacuolation Not Reportable Dohle Bodies Not Reportable Pelger-Huet Anomaly Not Reportable Min Rods Not Reportable Platelet Estimate Consistent w auto Clumped Platelets Not Reportable Plt Clumps, EDTA Not Reportable Large Platelets Not Reportable Giant Platelets Not Reportable Platelet Satelliting Not Reportable Plt Morphology Comment Not Reportable RBC Morphology Not Reportable Dimorphic RBCs Not Reportable Polychromasia Not Reportable Hypochromasia Not Reportable Poikilocytosis Not Reportable Anisocytosis 1+ Microcytosis Not Reportable Macrocytosis Not Reportable Spherocytes Not Reportable Pappenheimer Bodies Not Reportable Sickle Cells Not Reportable Target Cells Not Reportable Tear Drop Cells Not Reportable Ovalocytes Not Reportable Helmet Cells Not Reportable Martinez-Nowthen Bodies Not Reportable Dela[place] Rings Not Reportable [place] Cells Not Reportable Bite Cells Not Reportable Crenated Cell Not Reportable Elliptocytes Not Reportable Acanthocytes (Spur) Not Reportable Rouleaux Not Reportable Hemoglobin C Crystals Not Reportable Schistocytes Not Reportable Malaria parasites Not Reportable Justin Bodies Not Reportable Hem Pathologist Commnt No POC ABG pH POC ABG pO2 POC ABG HCO3 POC ABG Total CO2 POC ABG O2 Sat POC ABG Base Excess FiO2 Ammonia C-Reactive Protein Mycoplasma pneumon IgG <=0.90 Mycoplasma pneumon IgM 37 04/14/19 04/14/19 04/14/19 10:13 13:55 13:55 WBC RBC Hgb Hct MCV MCH MCHC RDW Plt Count Add Manual Diff Total Counted Seg Neuts % (Manual) Band Neutrophils % Lymphocytes % (Manual) Reactive Lymphs % (Man) Monocytes % (Manual) Eosinophils % (Manual) Basophils % (Manual) Metamyelocytes % Myelocytes % Promyelocytes % Blast Cells % Nucleated RBC % Seg Neutrophils # Man Band Neutrophils # Lymphocytes # (Manual) Abs React Lymphs (Man) Monocytes # (Manual) Eosinophils # (Manual) Basophils # (Manual) Metamyelocytes # Myelocytes # Promyelocytes # Blast Cells # WBC Morphology Hypersegmented Neuts Hyposegmented Neuts Hypogranular Neuts Smudge Cells Toxic Granulation Toxic Vacuolation Dohle Bodies Pelger-Huet Anomaly Min Rods Platelet Estimate Clumped Platelets Plt Clumps, EDTA Large Platelets Giant Platelets Platelet Satelliting Plt Morphology Comment RBC Morphology Dimorphic RBCs Polychromasia Hypochromasia Poikilocytosis Anisocytosis Microcytosis Macrocytosis Spherocytes Pappenheimer Bodies Sickle Cells Target Cells Tear Drop Cells Ovalocytes Helmet Cells Martinez-Nowthen Bodies [place] Rings Belia Cells Bite Cells Crenated Cell Elliptocytes Acanthocytes (Spur) Rouleaux Hemoglobin C Crystals Schistocytes Malaria parasites Justin Bodies Hem Pathologist Commnt POC ABG pH 7.486 H POC ABG pO2 86 POC ABG HCO3 21.9 POC ABG Total CO2 23 POC ABG O2 Sat 97 POC ABG Base Excess -2 FiO2 30 Ammonia 18.0 L C-Reactive Protein 0.40 Mycoplasma pneumon IgG Mycoplasma pneumon IgM
[2019-04-14] MEDS ORDERED: DELTASONE PO SCH (13:00)
--- NOTE | 2019-04-14 13:06 | Progress Note ---
Assessment and Plan Acute hypoxic-hypercapnic respiratory failure Sepsis Possible HCAP/Post influenza pneumonia Hyponatremia Tobacco use disorder - follow dopplers report - BIPAP now scheduled qhs with prn daytime use - prn ABG's at this point - follow CRP level to aid clinical decision making / aid AB's de-escalation - repeat Ammonia level - continue suppplemental oxygen to keep O2 sats> 90% - continue chronic home medications, for anxiety and depression - Systemic steroid taper ongoing - 2D ECHO without CMOP - Chest CTA negative for PE - Smoking cessation counselling - continue nicotine withdrawal precautions - Treat for post viral pneumonia and atypical pneumonia. CXR is unremarkable for lobar consolidation - continue bronchodilators with pulmonary hygiene per RT - Brovana and budesonide scheduled - NPO for now - Gentle IV fluids - ID input appreciated - Accucheck with glycemic control, avoid hypoglycemia - Strongly counseled tobacco cessation with patient and his family in room Discussed with RT/RN and in ICU-IDT rounds CONDITION: IMPROVED PROGNOSIS: IMPROVED CODE STATUS: FULL .... OK to transfer to telemetry floor ...... 37' total care time today Subjective Date of service: 04/14/19 Principal diagnosis: Acute hypoxemic hypercapnic resp failure; HAP (bilateral); Severe Sepsis Interval history: Patient is seen today for: Acute hypoxemic hypercapnic respiratory failure; HAP; Severe Sepsis Seen and examined at bedside; 24hour events reviewed; nursing and respiratory care staff consulted; no adverse overnight events reported to me; resting peacefully in bed; breathing much easier; FiO2 down to 35%; denies acute chest pains; No N/V/F/C Objective Vital Signs - 12hr 04/14/19 04/14/19 04/14/19 01:30 02:00 02:25 Temperature Pulse Rate 74 82 Pulse Rate [ Anterior Bilateral Throughout] Pulse Rate [ From Monitor] Respiratory 21 20 Rate Respiratory Rate [Anterior Bilateral Throughout] Blood Pressure 133/74 144/69 O2 Sat by Pulse 94 92 95 Oximetry 04/14/19 04/14/19 04/14/19 02:30 02:39 03:00 Temperature 98.9 F Pulse Rate 100 H 84 Pulse Rate [ Anterior Bilateral Throughout] Pulse Rate [ From Monitor] Respiratory 27 H 33 H Rate Respiratory Rate [Anterior Bilateral Throughout] Blood Pressure 144/69 154/85 O2 Sat by Pulse 93 94 Oximetry 04/14/19 04/14/1904/14/19 03:30 04:00 04:29 Temperature Pulse Rate 76 134 H 97 H Pulse Rate [ Anterior Bilateral Throughout] Pulse Rate [ 98 H From Monitor] Respiratory 27 H 42 H Rate Respiratory Rate [Anterior Bilateral Throughout] Blood Pressure 154/85 154/85 177/98 O2 Sat by Pulse 95 93 Oximetry 04/14/19 04/14/19 04/14/19 04:30 05:00 05:30 Temperature Pulse Rate 89 92 H 89 Pulse Rate [ Anterior Bilateral Throughout] Pulse Rate [ From Monitor] Respiratory 28 H 31 H 25 H Rate Respiratory Rate [Anterior Bilateral Throughout] Blood Pressure 178/90 160/77 177/98 O2 Sat by Pulse 94 92 92 Oximetry 04/14/19 04/14/19 04/14/19 06:00 06:30 07:00 Temperature 97.9 F Pulse Rate 98 H 94 H 95 H Pulse Rate [ Anterior Bilateral Throughout] Pulse Rate [ From Monitor] Respiratory 27 H 31 H 25 H Rate Respiratory Rate [Anterior Bilateral Throughout] Blood Pressure 148/74 148/74 153/78 O2 Sat by Pulse 92 89 92 Oximetry 04/14/19 04/14/19 04/14/19 08:45 08:55 10:00 Temperature Pulse Rate 94 H Pulse Rate [ 115 H 116 H Anterior Bilateral Throughout] Pulse Rate [ From Monitor] Respiratory Rate Respiratory 14 23 Rate [Anterior Bilateral Throughout] Blood Pressure 171/95 O2 Sat by Pulse 97 Oximetry 04/14/19 04/14/19 04/14/19 10:33 12:00 12:42 Temperature 98.2 F Pulse Rate 118 H Pulse Rate [ Anterior Bilateral Throughout] Pulse Rate [ From Monitor] Respiratory Rate Respiratory Rate [Anterior Bilateral Throughout] Blood Pressure 171/95 O2 Sat by Pulse 94 Oximetry Constitutional: no acute distress, alert, other (young male with mild MR resting in bed with mildly increased resp effort at rest) Eyes: non-icteric ENT: oropharynx moist, other (HFNC in nares) Neck: supple, no lymphadenopathy, other (no thyromegaly) Effort: mildly labored Ascultation: Bilateral: rhonchi (scant in bases) Percussion: Bilateral: not dull Cardiovascular: regular rate and rhythm Gastrointestinal: normoactive bowel sounds, soft, non-tender, non-distended Integumentary: normal Extremities: no cyanosis, pink and warm, pulses normal, no ischemia or petechiae Neurologic: non-focal exam (grossly), pupils equal and round, CN II-XII normal, motor strength normal and Psychiatric: mood appropriate, affect normal CBC and BMP: 04/14/19 09:38 04/12/19 07:56 ABG, PT/INR, D-dimer: ABG POC ABG pH 7.486 (7.35-7.45) H 04/14/19 10:13 POC ABG pO2 86 (80-105) 04/14/19 10:13 POC ABG HCO3 21.9 (22-26 mml/L) 04/14/19 10:13 POC ABG Total CO2 23 (23-27mmol/L) 04/14/19 10:13 POC ABG O2 Sat 97 04/14/19 10:13 PT/INR, D-dimer PT 14.2 Sec. (12.2-14.9) 04/07/19 16:33 INR 1.04 (0.87-1.13) 04/07/19 16:33 Abnormal lab findings: Abnormal Labs 04/07/19 04/07/19 04/07/19 16:33 16:33 16:33 WBC 16.9 H RBC Hgb 11.4 L Hct 33.5 L MCHC RDW 19.6 H Seg Neuts % (Manual) 75.0 H Lymphocytes % (Manual) 9.0 L Monocytes % (Manual) 16.0 H Nucleated RBC % Seg Neutrophils # Man 12.7 H Lymphocytes # (Manual) Monocytes # (Manual) 2.7 H Basophils # (Manual) POC ABG pH POC ABG pCO2 POC ABG pO2 Sodium 133 L Potassium 3.0 L Chloride Carbon Dioxide 19 L BUN 3 L Creatinine Glucose 130 H POC Glucose Lactic Acid Calcium 8.2 L Magnesium 2.40 H AST 43 H Ammonia Lactate Dehydrogenase Total Protein Albumin 3.0 L Urine Blood Vancomycin Trough Crossmatch 04/07/19 04/07/19 04/07/19 16:35 17:52 20:00 WBC RBC Hgb Hct MCHC RDW Seg Neuts % (Manual) Lymphocytes % (Manual) Monocytes % (Manual) Nucleated RBC % Seg Neutrophils # Man Lymphocytes # (Manual) Monocytes # (Manual) Basophils # (Manual) POC ABG pH POC ABG pCO2 POC ABG pO2 56 L 70 L Sodium Potassium Chloride Carbon Dioxide BUN Creatinine Glucose POC Glucose Lactic Acid Calcium Magnesium AST Ammonia Lactate Dehydrogenase Total Protein Albumin Urine Blood Small A Vancomycin Trough Crossmatch 04/07/19 04/08/19 04/08/19 21:00 14:28 14:28 WBC 22.4 H RBC Hgb 11.1 L Hct 33.3 L MCHC RDW 20.0 H Seg Neuts % (Manual) 84.0 H Lymphocytes % (Manual) 8.0 L Monocytes % (Manual) Nucleated RBC % Seg Neutrophils # Man 18.8 H Lymphocytes # (Manual) Monocytes # (Manual) 1.1 H Basophils # (Manual) POC ABG pH POC ABG pCO2 POC ABG pO2 Sodium Potassium Chloride 110.1 H Carbon Dioxide 20 L BUN 7 L Creatinine 0.7 L Glucose 105 H POC Glucose Lactic Acid 5.80 H* Calcium Magnesium AST Ammonia Lactate Dehydrogenase Total Protein Albumin Urine Blood Vancomycin Trough Crossmatch 04/08/19 04/08/19 04/10/19 14:28 15:32 20:46 WBC RBC Hgb Hct MCHC RDW Seg Neuts % (Manual) Lymphocytes % (Manual) Monocytes % (Manual) Nucleated RBC % Seg Neutrophils # Man Lymphocytes # (Manual) Monocytes # (Manual) Basophils # (Manual) POC ABG pH POC ABG pCO2 POC ABG pO2 374 H Sodium Potassium Chloride Carbon Dioxide BUN Creatinine Glucose POC Glucose Lactic Acid Calcium Magnesium AST Ammonia Lactate Dehydrogenase 266 H Total Protein Albumin Urine Blood Vancomycin Trough 4.0 L Crossmatch 04/11/19 04/11/19 04/11/19 15:16 16:15 16:15 WBC 50.0 H* RBC 2.59 L Hgb 7.2 L Hct 23.1 L MCHC 31 L RDW 19.7 H Seg Neuts % (Manual) 72.5 H Lymphocytes % (Manual) 5.5 L Monocytes % (Manual) 8.0 H Nucleated RBC % 1.5 H Seg Neutrophils # Man 36.3 H Lymphocytes # (Manual) Monocytes # (Manual) 4.0 H Basophils # (Manual) POC ABG pH POC ABG pCO2 POC ABG pO2 Sodium Potassium Chloride 108.1 H Carbon Dioxide BUN 38 H Creatinine 0.7 L Glucose 240 H POC Glucose Lactic Acid Calcium 7.3 L D Magnesium AST Ammonia 77.0 H Lactate Dehydrogenase Total Protein 3.9 L D Albumin 2.1 L Urine Blood Vancomycin Trough Crossmatch 04/11/19 04/11/19 04/12/19 16:19 20:27 07:56 WBC 35.9 H RBC 3.57 L Hgb 10.4 L D Hct 31.4 L D MCHC RDW 16.9 H Seg Neuts % (Manual) 76.0 H Lymphocytes % (Manual) 4.0 L Monocytes % (Manual) Nucleated RBC % Seg Neutrophils # Man 27.3 H Lymphocytes # (Manual) Monocytes # (Manual) 2.2 H Basophils # (Manual) POC ABG pH 7.215 L POC ABG pCO2 60.2 H POC ABG pO2 Sodium Potassium Chloride Carbon Dioxide BUN Creatinine Glucose POC Glucose Lactic Acid Calcium Magnesium AST Ammonia Lactate Dehydrogenase Total Protein Albumin Urine Blood Vancomycin Trough Crossmatch See Detail 04/12/19 04/12/19 04/12/19 07:56 08:56 11:33 WBC RBC Hgb Hct MCHC RDW Seg Neuts % (Manual) Lymphocytes % (Manual) Monocytes % (Manual) Nucleated RBC % Seg Neutrophils # Man Lymphocytes # (Manual) Monocytes # (Manual) Basophils # (Manual) POC ABG pH POC ABG pCO2 POC ABG pO2 Sodium Potassium Chloride 110.8 H Carbon Dioxide BUN Creatinine 0.7 L Glucose 146 H POC Glucose 147 H 131 H Lactic Acid Calcium 8.2 L Magnesium AST Ammonia Lactate Dehydrogenase Total Protein 4.4 L Albumin 2.3 L Urine Blood Vancomycin Trough Crossmatch 04/12/19 04/14/19 04/14/19 16:15 09:38 09:38 WBC 20.0 H RBC Hgb 11.7 L Hct 34.6 L 34.7 L MCHC RDW 16.9 H Seg Neuts % (Manual) 73.0 H Lymphocytes % (Manual) 4.0 L Monocytes % (Manual) Nucleated RBC % Seg Neutrophils # Man 14.6 H Lymphocytes # (Manual) 0.8 L Monocytes # (Manual) 1.4 H Basophils # (Manual) 0.2 H POC ABG pH POC ABG pCO2 POC ABG pO2 Sodium Potassium Chloride Carbon Dioxide BUN Creatinine Glucose POC Glucose 135 H Lactic Acid Calcium Magnesium AST Ammonia Lactate Dehydrogenase Total Protein Albumin Urine Blood Vancomycin Trough Crossmatch 04/14/19 10:13 WBC RBC Hgb Hct MCHC RDW Seg Neuts % (Manual) Lymphocytes % (Manual) Monocytes % (Manual) Nucleated RBC % Seg Neutrophils # Man Lymphocytes # (Manual) Monocytes # (Manual) Basophils # (Manual) POC ABG pH 7.486 H POC ABG pCO2 POC ABG pO2 Sodium Potassium Chloride Carbon Dioxide BUN Creatinine Glucose POC Glucose Lactic Acid Calcium Magnesium AST Ammonia Lactate Dehydrogenase Total Protein Albumin Urine Blood Vancomycin Trough Crossmatch Chest x-ray: image reviewed (no focal infiltrate (04/11/19)) Allied health notes reviewed: nursing
--- NOTE | 2019-04-14 15:13 | Vascular Lab Report ---
PROCEDURE: VL VENOUS DUPLEX LE BILAT TECHNIQUE: Duplex Doppler ultrasound examination of the venous system of the right leg and left leg HISTORY: hypoxemia; swelling COMPARISONS: 04/08/2019 FINDINGS: RIGHT LEG: Normal compressibility, vascular patency, and augmentation are present diffusely throughout the visua lized portion of the deep veins. No abnormal intraluminal echoes are visualized to suggest deep vein thrombus. IMPRESSION: No ultrasound evidence of DVT in the right leg LEFT LEG: Normal compressibility, vascular patency, and augmentation are present diffusely throughout the visua lized portion of the deep veins. No abnormal intraluminal echoes are visualized to suggest deep vein thrombus. IMPRESSION: No ultrasound evidence of DVT in the left leg This document is electronically signed by Ralph Mccracken MD., April 14 2019 03:11:16 PM ET
[2019-04-15] MEDS: ZOSYN/NS 4.5GM/100ML 4.5 GM/100 ML VIAL IV SCH ×3 (06:44→21:49)
[2019-04-15] MEDS: PULMICORT IH SCH ×2 (08:20→19:02)
[2019-04-15] MEDS: BROVANA NEBU IH SCH ×2 (08:20→19:02)
[2019-04-15] MEDS: CARAFATE PO SCH ×4 (08:55→21:49)
--- NOTE | 2019-04-15 09:10 | Progress Note ---
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 Now admitted with: 1) Sepsis, bilateral pneumonia, acute respiratory failure: Improved. fever resolved, leukocytosis trending down, now down 20K (on IV steroids). Etiology ? HCAP v/s aspiration pneumonitis - patient with severe esophagitis on EGD. Chest x-ray shows a prominent interstitial pattern. CTA demonstrates patchy alveolar RUL/RLL infiltrates. Hence, also cover for atypicals. HIV rapid negative. Strep pneumonia not detected. Legionella not detected. 2) Tobacco abuse. discussion about smoking cessation 3) Leukocytosis: improving. 20K on IV steroids. 4) Esophagitis on EGD - Severe LA Grade D esophagitis of the distal half of the esophagus, most consistent with severe reflux esophagitis 5) AMS: resolved Recommendations: continue zosyn to cover aspiration pneumonitis / HCAP, D3 follow-up MRSA PCR monitor leukocytosis clinically improved - if ok with pulmonary can discharge on Augmentin 875mg PO BID for 3 days ( total 10 days of antibiotic treatment) f/u ID in 3 weeks ( placed with [facility] polygraph technician) [facility] M: [phone] O:[phone] Subjective Date of service: 04/15/19 Principal diagnosis: Acute hypoxemic hypercapnic resp failure; HAP (bilateral); Severe Sepsis Interval history: Patient seen and examined. Laying in bed. Reports no generalized pain or sob, or weakness. No fevers. Objective - Exam Narrative Exam: Constitutional: Awake. Alert. No acute distress Head, Ears, Nose: Normocephalic, atraumatic. External ears, nose normal Eyes: Conjunctivae/corneas clear. No icterus. No ptosis. Neck: Supple, no meningeal signs Oral: +poor dentition, no thrush Cardiovascular: S1. S2 Respiratory: Clear to auscultation GI: Soft, non-tender; bowel sounds normal. No peritoneal signs Musculoskeletal: No pedal edema, no cyanosis. Skin: No rash or abscess Hem/Lymphatic: No palpable cervical or supraclavicular nodes. No lymphangitis Psych: Mood ok. Affect normal Neurological: Awake, alert. No gross abnormality - Constitutional Vitals: Vital Signs Temp Pulse Resp BP Pulse Ox 97.2 F L 87 18 151/88 99 04/15/19 08:50 04/15/19 08:50 04/15/19 08:50 04/15/19 08:50 04/15/19 08:50 Temperature -Last 24 Hours Temperature 97.2 F Temperature 98.3 F Temperature 98.5 F Temperature 99.0 F Temperature 99.0 F Temperature 99.1 F Temperature 98.2 F - Labs CBC & Chem 7: 04/14/19 09:38 04/12/19 07:56 Labs: Abnormal lab results 04/14/19 04/14/19 04/14/19 Range/Units 09:38 09:38 10:13 WBC 20.0 H (4.5-11.0) K/mm3 Hgb 11.7 L (11.8-15.2) gm/dl Hct 34.6 L 34.7 L (35.5-45.6) % RDW 16.9 H (13.2-15.2) % Seg Neuts % (Manual) 73.0 H (40.0-70.0) % Lymphocytes % (Manual) 4.0 L (13.4-35.0) % Seg Neutrophils # Man 14.6 H (1.8-7.7) K/mm3 Lymphocytes # (Manual) 0.8 L (1.2-5.4) K/mm3 Monocytes # (Manual) 1.4 H (0.0-0.8) K/mm3 Basophils # (Manual) 0.2 H (0.0-0.1) K/mm3 POC ABG pH 7.486 H (7.35-7.45) Ammonia (25-60) umol/L 04/14/19 Range/Units 13:55 WBC (4.5-11.0) K/mm3 Hgb (11.8-15.2) gm/dl Hct (35.5-45.6) % RDW (13.2-15.2) % Seg Neuts % (Manual) (40.0-70.0) % Lymphocytes % (Manual) (13.4-35.0) % Seg Neutrophils # Man (1.8-7.7) K/mm3 Lymphocytes # (Manual) (1.2-5.4) K/mm3 Monocytes # (Manual) (0.0-0.8) K/mm3 Basophils # (Manual) (0.0-0.1) K/mm3 POC ABG pH (7.35-7.45) Ammonia 18.0 L (25-60) umol/L
[2019-04-15] MEDS ORDERED: DELTASONE PO SCH (10:00)
[2019-04-15] MEDS: HABITROL TD SCH (11:40)
[2019-04-15] MEDS: PROTONIX PO SCH ×2 (11:41→21:49)
[2019-04-15] MEDS: PROzac PO SCH (11:41)
[2019-04-15] MEDS: NORVASC PO SCH (11:41)
[2019-04-15] MEDS: RisperDAL PO SCH ×2 (11:41→21:49)
[2019-04-15] MEDS: SODIUM CHLORIDE FLUSH SYRINGE 10 ML IV SCH ×2 (11:42→21:50)
--- NOTE | 2019-04-15 13:34 | Progress Note ---
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 Pt was found to have Acute Hypoxemic Respiratory Failure and placed on BIPAP. He was hospitalized recently at [facility] on 02/18/19 for bilateral cavitary pneumonia with TB being ruled out; He was found to be influenza A positive and treated with Tamiflu, he was also intubated and extubated at [facility]. He was discharged on 02/27/19. Acute respiratory failure with hypoxia and hypercarbia now weaned off bipap, wean off high flow O2 Severe esophagitis sp EGD on 04/12, cont PPI and carafate -single clot seen in stomach, clip was placed, was likely due to NG tube suction Sepsis, bilateral pneumonia: cont abx per ID Tobacco abuse. counseled on cessation Acute metabolic encephalopathy resolved Anticipate d/c once cleared by Pulmonology, ID has ok for 3 more days of Augmentin. Hopefully d/c tomorrow History Interval history: Patient was seen and examined. Follow-up on current diagnosis of Pneumonia. No overnight events reported to me. Patient denies any chest pain, shortness breath, nausea/vomiting or severe headaches. Imaging, nursing note, chart, labs and old chart reviewed. Discussed with patient. Hospitalist Physical - Physical exam Narrative exam: Gen: chronic ill appearing, NAD, Awake, Alert, Orientated HEENT: NCAT, EOMI, PERRL, OP Clear Neck: supple, no adenopathy, no thyromegaly, no JVD CVS/Heart: RRR, normal S1S2, pulses present bilaterally Chest/Lungs: diminished bs bilaterally, Symmetrical chest expansion, good air entry bilaterally GI/Abdomen: soft, NTND, good bowel sounds, no guarding or rebound /Bladder: no suprapubic tenderness, no CVA or paraspinal tenderness Extermity/Skin: no c/c/e, no obvious rash MSK: FROM x 4 Neuro: CN 2-12 grossly intact, no new focal deficits Psych: calm - Constitutional Vitals: Temp Pulse Resp BP Pulse Ox 98.4 F 81 16 147/90 97 04/15/19 11:22 04/15/19 11:22 04/15/19 11:22 04/15/19 11:22 04/15/19 11:22 General appearance: Present: disheveled. Absent: severe distress Results - Labs CBC & Chem 7: 04/14/19 09:38 04/12/19 07:56 Labs: Laboratory Last Values WBC 20.0 K/mm3 (4.5-11.0) H 04/14/19 09:38 RBC 3.92 M/mm3 (3.65-5.03) 04/14/19 09:38 Hgb 11.7 gm/dl (11.8-15.2) L 04/14/19 09:38 Hgb 11.8 gm/dl (11.8-15.2) 04/14/19 09:38 Hct 34.6 % (35.5-45.6) L 04/14/19 09:38 Hct 34.7 % (35.5-45.6) L 04/14/19 09:38 MCV 88 fl (84-94) 04/14/19 09:38 MCH 30 pg (28-32) 04/14/19 09:38 MCHC 34 % (32-34) 04/14/19 09:38 RDW 16.9 % (13.2-15.2) H 04/14/19 09:38 Plt Count 244 K/mm3 (140-440) 04/14/19 09:38 [place] % (Auto) Diesel Tractor Engine Mechanic 04/07/19 16:33 Eos % (Auto) Diesel Tractor Engine Mechanic 04/08/19 14:28 Add Manual Diff Complete 04/14/19 09:38 Total Counted 100 04/14/19 09:38 Seg Neutrophils % Diesel Tractor Engine Mechanic 04/11/19 16:15 Seg Neuts % (Manual) 73.0 % (40.0-70.0) H 04/14/19 09:38 1.0 % 04/14/19 09:38 4.0 % (13.4-35.0) L 04/14/19 09:38 Reactive Lymphs % (Man) 0 % 04/14/19 09:38 7.0 % (0.0-7.3) 04/14/19 09:38 0 % (0.0-4.3) 04/14/19 09:38 1.0 % (0.0-1.8) 04/14/19 09:38 12.0 % 04/14/19 09:38 2.0 % 04/14/19 09:38 0 % 04/14/19 09:38 0 % 04/14/19 09:38 Nucleated RBC % Not Reportable 04/14/19 09:38 Seg Neutrophils # Man 14.6 K/mm3 (1.8-7.7) H 04/14/19 09:38 Band Neutrophils # 0.2 K/mm3 04/14/19 09:38 0.8 K/mm3 (1.2-5.4) L 04/14/19 09:38 Abs React Lymphs (Man) 0.0 K/mm3 04/14/19 09:38 1.4 K/mm3 (0.0-0.8) H 04/14/19 09:38 0.0 K/mm3 (0.0-0.4) 04/14/19 09:38 0.2 K/mm3 (0.0-0.1) H 04/14/19 09:38 2.4 K/mm3 04/14/19 09:38 0.4 K/mm3 04/14/19 09:38 0.0 K/mm3 04/14/19 09:38 Blast Cells # 0.0 K/mm3 04/14/19 09:38 Pathologist Review 04/11/19 16:15 WBC Morphology Not Reportable 04/14/19 09:38 Hypersegmented Neuts Not Reportable 04/14/19 09:38 Hyposegmented Neuts Not Reportable 04/14/19 09:38 Hypogranular Neuts Not Reportable 04/14/19 09:38 Not Reportable 04/14/19 09:38 Not Reportable 04/14/19 09:38 Not Reportable 04/14/19 09:38 Not Reportable 04/14/19 09:38 Not Reportable 04/14/19 09:38 Not Reportable 04/14/19 09:38 Consistent w auto 04/14/19 09:38 Not Reportable 04/14/19 09:38 Plt Clumps, EDTA Not Reportable 04/14/19 09:38 Not Reportable 04/14/19 09:38 Not Reportable 04/14/19 09:38 Not Reportable 04/14/19 09:38 Plt Morphology Comment Not Reportable 04/14/19 09:38 RBC Morphology Not Reportable 04/14/19 09:38 Dimorphic RBCs Not Reportable 04/14/19 09:38 Not Reportable 04/14/19 09:38 Not Reportable 04/14/19 09:38 Not Reportable 04/14/19 09:38 1+ 04/14/19 09:38 Not Reportable 04/14/19 09:38 Not Reportable 04/14/19 09:38 Not Reportable 04/14/19 09:38 Not Reportable 04/14/19 09:38 Not Reportable 04/14/19 09:38 Not Reportable 04/14/19 09:38 Not Reportable 04/14/19 09:38 Not Reportable 04/14/19 09:38 Not Reportable 04/14/19 09:38 Not Reportable 04/14/19 09:38 Not Reportable 04/14/19 09:38 Not Reportable 04/14/19 09:38 Not Reportable 04/14/19 09:38 Not Reportable 04/14/19 09:38 Not Reportable 04/14/19 09:38 Acanthocytes (Spur) Not Reportable 04/14/19 09:38 Rouleaux Not Reportable 04/14/19 09:38 Not Reportable 04/14/19 09:38 Not Reportable 04/14/19 09:38 Not Reportable 04/14/19 09:38 Not Reportable 04/14/19 09:38 Hem Pathologist Commnt No 04/14/19 09:38 PT 14.2 Sec. (12.2-14.9) 04/07/19 16:33 INR 1.04 (0.87-1.13) 04/07/19 16:33 APTT 31.9 Sec. (24.2-36.6) 04/07/19 16:33 POC ABG pH 7.486 (7.35-7.45) H 04/14/19 10:13 POC ABG pCO2 60.2 (35-45) H 04/11/19 20:27 POC ABG pO2 86 (80-105) 04/14/19 10:13 POC ABG HCO3 21.9 (22-26 mml/L) 04/14/19 10:13 POC ABG Total CO2 23 (23-27mmol/L) 04/14/19 10:13 POC ABG O2 Sat 97 04/14/19 10:13 POC ABG Base Excess -2 ((-2) - (+3)mmol/L) 04/14/19 10:13 30 % 04/14/19 10:13 Sodium 143 mmol/L (137-145) 04/12/19 07:56 Potassium 4.0 mmol/L (3.6-5.0) 04/12/19 07:56 Chloride 110.8 mmol/L (98-107) H 04/12/19 07:56 Carbon Dioxide 23 mmol/L (22-30) 04/12/19 07:56 13 mmol/L 04/12/19 07:56 BUN 18 mg/dL (9-20) 04/12/19 07:56 0.7 mg/dL (0.8-1.5) L 04/12/19 07:56 Estimated GFR > 60 ml/min 04/12/19 07:56 26 % 04/12/19 07:56 Glucose 146 mg/dL (75-100) H 04/12/19 07:56 POC Glucose 135 (70-105) H 04/12/19 16:15 Lactic Acid 0.70 mmol/L (0.7-2.0) 04/08/19 17:01 Calcium 8.2 mg/dL (8.4-10.2) L 04/12/19 07:56 Phosphorus 3.00 mg/dL (2.5-4.5) 04/08/19 14:28 Magnesium 1.70 mg/dL (1.7-2.3) 04/11/19 15:16 0.30 mg/dL (0.1-1.2) 04/12/19 07:56 AST 11 units/L (5-40) 04/12/19 07:56 ALT 7 units/L (7-56) 04/12/19 07:56 51 units/L (35-129) 04/12/19 07:56 18.0 umol/L (25-60) L 04/14/19 13:55 266 units/L (91-180) H 04/08/19 14:28 70 units/L (55-170) 04/07/19 16:33 < 0.010 ng/mL (0.00-0.029) 04/07/19 16:33 0.40 mg/dL (0.00-1.30) 04/14/19 13:55 4.4 g/dL (6.3-8.2) L 04/12/19 07:56 2.3 g/dL (3.9-5) L 04/12/19 07:56 1.1 % 04/12/19 07:56 Straw (Yellow) 04/07/19 20:00 Clear (Clear) 04/07/19 20:00 6.0 (5.0-7.0) 04/07/19 20:00 Ur Specific [place] 1.003 (1.003-1.030) 04/07/19 20:00 <15 mg/dl mg/dL (Negative) 04/07/19 20:00 50 mg/dL (Negative) 04/07/19 20:00 Negative mg/dL (Negative) 04/07/19 20:00 Small (Negative) A 04/07/19 20:00 Negative (Negative) 04/07/19 20:00 Negative (Negative) 04/07/19 20:00 < 0.2 mg/dL (<2.0) 04/07/19 20:00 Ur Leukocyte Esterase Negative (Negative) 04/07/19 20:00 < 1.0 /HPF (0.0-6.0) 04/07/19 20:00 1.0 /HPF (0.0-6.0) 04/07/19 20:00 Vancomycin Trough 4.0 ug/mL (5.0-20.0) L 04/10/19 20:46 HIV 1&2 Antibody Rapid Non react (Non React) 04/07/19 17:25 Non react (Non React) 04/07/19 17:25 Urine Legionella Ag Not detected (Not Detected) 04/09/19 Unknown Mycoplasma pneumon IgG <=0.90 (<=0.90) 04/09/19 04:17 Mycoplasma pneumon IgM 37 U/mL (<770) 04/09/19 04:17 Flexitest 1 04/09/19 12:15 Blood Type O NEGATIVE 04/11/19 16:19 Antibody Screen Negative 04/11/19 16:19 Crossmatch See Detail 04/11/19 16:19 Active Medications - Current Medications Current Medications: Generic Name Dose Route Start Last Admin Trade Name Freq PRN Reason Stop Dose Admin Acetaminophen 650 mg 04/07/19 16:17 04/07/19 16:42 Tylenol MA 650 mg Q4H PRN Administration Pain, Mild (1-3) Amlodipine Besylate 5 mg 04/08/19 14:00 04/15/19 11:41 Norvasc PO 5 mg QDAY PACO Administration Arformoterol Tartrate 15 mcg 04/09/19 08:00 04/15/19 08:20 Brovana Nebu IH 15 mcg Q12HRT PACO Administration Budesonide 0.5 mg 04/09/19 08:00 04/15/19 08:20 Pulmicort IH 0.5 mg Q12HRT PACO Administration Fluoxetine HCl 40 mg 04/08/19 14:00 04/15/19 11:41 Prozac PO 40 mg QDAY PACO Administration Haloperidol Lactate 5 mg 04/11/19 14:41 Haldol IM Q6H PRN Agitation Hydralazine HCl 10 mg 04/12/19 18:10 04/14/19 10:33 Apresoline IV 10 mg Q4HR PRN Administration BP >160/100 Piperacillin Sod/Tazobactam Sod 4.5 gm in 100 mls @ 200 mls/hr 04/13/19 14:00 04/15/19 06:44 Zosyn/Ns 4.5gm/100ml IV 200 mls/hr Q8HR PACO Administration Lorazepam 2 mg 04/11/19 12:58 04/13/19 20:15 Ativan IV 2 mg Q1H PRN Administration Agitation Metoclopramide HCl 10 mg 04/11/19 14:39 Reglan IV Q6H PRN Nausea And Vomiting Morphine Sulfate 2 mg 04/11/19 19:46 Morphine IV Q2H PRN Pain, Moderate (4-6) Nicotine 21 mg 04/14/19 11:00 04/15/19 11:40 Habitrol TD 21 mg DAILY PACO Administration Ondansetron HCl 4 mg 04/11/19 14:39 Zofran IV Q4H PRN Nausea And Vomiting Pantoprazole Sodium 40 mg 04/15/19 10:00 04/15/19 11:41 Protonix PO 40 mg BID PACO Administration Prednisone 10 mg 04/16/19 10:00 Deltasone PO 04/16/19 10:01 QDAY PACO Risperidone 2 mg 04/07/19 22:00 04/15/19 11:41 Risperdal PO 2 mg BID PACO Administration Sodium Chloride 10 ml 04/07/19 22:00 04/15/19 11:42 Sodium Chloride Flush Syringe 10 Ml IV 10 ml BID PACO Administration Sodium Chloride 10 ml 04/07/19 17:05 Sodium Chloride Flush Syringe 10 Ml IV PRN PRN LINE FLUSH Sucralfate 1 gm 04/12/19 16:30 04/15/19 11:40 Carafate PO 1 gm ACHS PACO Administration Tramadol HCl 50 mg 04/07/19 17:09 Ultram PO Q6HR PRN Pain Nutrition/Malnutrition Assess - Dietary Evaluation Nutrition/Malnutrition Findings: Nutrition Notes Start: 04/08/19 15:33 Freq: Status: Active Protocol: Document 04/15/19 09:27 LP (Rec: 04/15/19 09:35 LP [id number]) Nutrition Notes Initial or Follow up Reassessment Current Diagnosis Respiratory Failure Other Pertinent Diagnosis SIRS, seizure d/o, Hiatal hernia, Esophagitis Current Diet Clear liquid Labs/Tests Reviewed Pertinent Medications Reviewed Height 5 ft 2 in Weight 56 kg [place] Body Weight (kg) 53.63 BMI 22.6 Subjective/Other Information Pt tolerating clear liquids. Consuming 100% and ready for more solid food. Percent of energy/protein needs met: 49%/43% Burn Absent Trauma Absent #1 Nutrition Diagnosis Inadequate oral intake As Evidenced by Signs and Symptoms Pt tolerating clear liquid diet Diagnosis Progress(for reassessment Improved documentation) Is patient on ventilator? No Is Patient Ambulatory and/or Out of Bed No REE-(Norman-St. Jeor-confined to bed) 3437.283 Calculation Used for Recommendations Norman-St Jeor Additional Notes Pro needs 45-56g (0.8-1g/kg) Fluid needs 1ml/kcal Nutrition Intervention Change Diet Order: Full Liquid Add Supplement/Snack (indicate name/kcal D/C /protein ) Goal #1 Meet at least 80% of kcal and protein needs Anticipated Discharge Needs: GI soft Follow-Up By: 04/17/19 Additional Comments Follow for intakes, tolerance
--- NOTE | 2019-04-15 17:37 | Progress Note ---
Assessment and Plan Patient alert, awake. Resting on room air.O2 saturation 100%. No complaint of chest pain, shortness of breath or cough.Patient afebrile. Still has leukocytosis. - Patient Problems (1) Acute respiratory failure Current Visit: Yes Status: Acute Qualifiers: Respiratory failure complication: unspecified whether with hypoxia or hyp ercapnia Qualified Code(s): J96.00 - Acute respiratory failure, unspecified whether with hypoxia or hypercapnia Plan to address problem: O2 2 litres via nasal canula prn for shortness of breath. Patient is on Brovanna/Budesonide aerosol treatments. Patient is on PO prednisone. Patient is on Zosyn. Continue Protonix. SCDs (2) SIRS (systemic inflammatory response syndrome) Current Visit: Yes Status: Acute Plan to address problem: Patient is on Zoyn. Patient is on PO prednisone. (3) GI bleed Current Visit: Yes Status: Acute Plan to address problem: Management as per primary care and Gastroenterology. (4) Pneumonia involving right lung Current Visit: Yes Status: Acute Plan to address problem: Pneumonia or Atelectasis right upper and right lower lobe. Patient is on Zosyn. Subjective Date of service: 04/15/19 Principal diagnosis: Acute hypoxemic hypercapnic resp failure; HAP (bilateral); Severe Sepsis Interval history: Patient alert, awake. Resting on room air.O2 saturation 100%. No complaint of chest pain, shortness of breath or cough.Patient afebrile. Still has leukocytosis. Objective Vital Signs - 12hr 04/15/19 04/15/19 04/15/19 08:20 08:21 08:41 Temperature Pulse Rate Pulse Rate [ 92 H 79 Anterior Bilateral Throughout] Pulse Rate [ From Monitor] Respiratory Rate Respiratory 16 16 Rate [Anterior Bilateral Throughout] Blood Pressure O2 Sat by Pulse 100 Oximetry 04/15/19 04/15/19 04/15/19 08:50 10:00 11:22 Temperature 97.2 F L 98.4 F Pulse Rate 87 72 81 Pulse Rate [ Anterior Bilateral Throughout] Pulse Rate [ 87 From Monitor] Respiratory 18 18 16 Rate Respiratory Rate [Anterior Bilateral Throughout] Blood Pressure 151/88 147/90 O2 Sat by Pulse 99 99 97 Oximetry Constitutional: no acute distress, alert, other (young male with mild MR resting in bed with mildly increased resp effort at rest) Eyes: non-icteric ENT: oropharynx moist, other (HFNC in nares) Neck: supple, no lymphadenopathy, other (no thyromegaly) Effort: mildly labored Ascultation: Bilateral: rhonchi (scant in bases) Percussion: Bilateral: not dull Cardiovascular: regular rate and rhythm Gastrointestinal: normoactive bowel sounds, soft, non-tender, non-distended Integumentary: normal Extremities: no cyanosis, pink and warm, pulses normal, no ischemia or petechiae Neurologic: non-focal exam (grossly), pupils equal and round, CN II-XII normal, motor strength normal and Psychiatric: mood appropriate, affect normal CBC and BMP: 04/14/19 09:38 04/12/19 07:56 ABG, PT/INR, D-dimer: ABG POC ABG pH 7.486 (7.35-7.45) H 04/14/19 10:13 POC ABG pO2 86 (80-105) 04/14/19 10:13 POC ABG HCO3 21.9 (22-26 mml/L) 04/14/19 10:13 POC ABG Total CO2 23 (23-27mmol/L) 04/14/19 10:13 POC ABG O2 Sat 97 04/14/19 10:13 PT/INR, D-dimer PT 14.2 Sec. (12.2-14.9) 04/07/19 16:33 INR 1.04 (0.87-1.13) 04/07/19 16:33 Abnormal lab findings: Abnormal Labs 04/07/19 04/07/19 04/07/19 16:33 16:33 16:33 WBC 16.9 H RBC Hgb 11.4 L Hct 33.5 L MCHC RDW 19.6 H Seg Neuts % (Manual) 75.0 H Lymphocytes % (Manual) 9.0 L Monocytes % (Manual) 16.0 H Nucleated RBC % Seg Neutrophils # Man 12.7 H Lymphocytes # (Manual) Monocytes # (Manual) 2.7 H Basophils # (Manual) POC ABG pH POC ABG pCO2 POC ABG pO2 Sodium 133 L Potassium 3.0 L Chloride Carbon Dioxide 19 L BUN 3 L Creatinine Glucose 130 H POC Glucose Lactic Acid Calcium 8.2 L Magnesium 2.40 H AST 43 H Ammonia Lactate Dehydrogenase Total Protein Albumin 3.0 L Urine Blood Vancomycin Trough Crossmatch 04/07/19 04/07/19 04/07/19 16:35 17:52 20:00 WBC RBC Hgb Hct MCHC RDW Seg Neuts % (Manual) Lymphocytes % (Manual) Monocytes % (Manual) Nucleated RBC % Seg Neutrophils # Man Lymphocytes # (Manual) Monocytes # (Manual) Basophils # (Manual) POC ABG pH POC ABG pCO2 POC ABG pO2 56 L 70 L Sodium Potassium Chloride Carbon Dioxide BUN Creatinine Glucose POC Glucose Lactic Acid Calcium Magnesium AST Ammonia Lactate Dehydrogenase Total Protein Albumin Urine Blood Small A Vancomycin Trough Crossmatch 04/07/19 04/08/19 04/08/19 21:00 14:28 14:28 WBC 22.4 H RBC Hgb 11.1 L Hct 33.3 L MCHC RDW 20.0 H Seg Neuts % (Manual) 84.0 H Lymphocytes % (Manual) 8.0 L Monocytes % (Manual) Nucleated RBC % Seg Neutrophils # Man 18.8 H Lymphocytes # (Manual) Monocytes # (Manual) 1.1 H Basophils # (Manual) POC ABG pH POC ABG pCO2 POC ABG pO2 Sodium Potassium Chloride 110.1 H Carbon Dioxide 20 L BUN 7 L Creatinine 0.7 L Glucose 105 H POC Glucose Lactic Acid 5.80 H* Calcium Magnesium AST Ammonia Lactate Dehydrogenase Total Protein Albumin Urine Blood Vancomycin Trough Crossmatch 04/08/19 04/08/19 04/10/19 14:28 15:32 20:46 WBC RBC Hgb Hct MCHC RDW Seg Neuts % (Manual) Lymphocytes % (Manual) Monocytes % (Manual) Nucleated RBC % Seg Neutrophils # Man Lymphocytes # (Manual) Monocytes # (Manual) Basophils # (Manual) POC ABG pH POC ABG pCO2 POC ABG pO2 374 H Sodium Potassium Chloride Carbon Dioxide BUN Creatinine Glucose POC Glucose Lactic Acid Calcium Magnesium AST Ammonia Lactate Dehydrogenase 266 H Total Protein Albumin Urine Blood Vancomycin Trough 4.0 L Crossmatch 04/11/19 04/11/19 04/11/19 15:16 16:15 16:15 WBC 50.0 H* RBC 2.59 L Hgb 7.2 L Hct 23.1 L MCHC 31 L RDW 19.7 H Seg Neuts % (Manual) 72.5 H Lymphocytes % (Manual) 5.5 L Monocytes % (Manual) 8.0 H Nucleated RBC % 1.5 H Seg Neutrophils # Man 36.3 H Lymphocytes # (Manual) Monocytes # (Manual) 4.0 H Basophils # (Manual) POC ABG pH POC ABG pCO2 POC ABG pO2 Sodium Potassium Chloride 108.1 H Carbon Dioxide BUN 38 H Creatinine 0.7 L Glucose 240 H POC Glucose Lactic Acid Calcium 7.3 L D Magnesium AST Ammonia 77.0 H Lactate Dehydrogenase Total Protein 3.9 L D Albumin 2.1 L Urine Blood Vancomycin Trough Crossmatch 04/11/19 04/11/19 04/12/19 16:19 20:27 07:56 WBC 35.9 H RBC 3.57 L Hgb 10.4 L D Hct 31.4 L D MCHC RDW 16.9 H Seg Neuts % (Manual) 76.0 H Lymphocytes % (Manual) 4.0 L Monocytes % (Manual) Nucleated RBC % Seg Neutrophils # Man 27.3 H Lymphocytes # (Manual) Monocytes # (Manual) 2.2 H Basophils # (Manual) POC ABG pH 7.215 L POC ABG pCO2 60.2 H POC ABG pO2 Sodium Potassium Chloride Carbon Dioxide BUN Creatinine Glucose POC Glucose Lactic Acid Calcium Magnesium AST Ammonia Lactate Dehydrogenase Total Protein Albumin Urine Blood Vancomycin Trough Crossmatch See Detail 04/12/19 04/12/19 04/12/19 07:56 08:56 11:33 WBC RBC Hgb Hct MCHC RDW Seg Neuts % (Manual) Lymphocytes % (Manual) Monocytes % (Manual) Nucleated RBC % Seg Neutrophils # Man Lymphocytes # (Manual) Monocytes # (Manual) Basophils # (Manual) POC ABG pH POC ABG pCO2 POC ABG pO2 Sodium Potassium Chloride 110.8 H Carbon Dioxide BUN Creatinine 0.7 L Glucose 146 H POC Glucose 147 H 131 H Lactic Acid Calcium 8.2 L Magnesium AST Ammonia Lactate Dehydrogenase Total Protein 4.4 L Albumin 2.3 L Urine Blood Vancomycin Trough Crossmatch 04/12/19 04/14/19 04/14/19 16:15 09:38 09:38 WBC 20.0 H RBC Hgb 11.7 L Hct 34.6 L 34.7 L MCHC RDW 16.9 H Seg Neuts % (Manual) 73.0 H Lymphocytes % (Manual) 4.0 L Monocytes % (Manual) Nucleated RBC % Seg Neutrophils # Man 14.6 H Lymphocytes # (Manual) 0.8 L Monocytes # (Manual) 1.4 H Basophils # (Manual) 0.2 H POC ABG pH POC ABG pCO2 POC ABG pO2 Sodium Potassium Chloride Carbon Dioxide BUN Creatinine Glucose POC Glucose 135 H Lactic Acid Calcium Magnesium AST Ammonia Lactate Dehydrogenase Total Protein Albumin Urine Blood Vancomycin Trough Crossmatch 04/14/19 04/14/19 10:13 13:55 WBC RBC Hgb Hct MCHC RDW Seg Neuts % (Manual) Lymphocytes % (Manual) Monocytes % (Manual) Nucleated RBC % Seg Neutrophils # Man Lymphocytes # (Manual) Monocytes # (Manual) Basophils # (Manual) POC ABG pH 7.486 H POC ABG pCO2 POC ABG pO2 Sodium Potassium Chloride Carbon Dioxide BUN Creatinine Glucose POC Glucose Lactic Acid Calcium Magnesium AST Ammonia 18.0 L Lactate Dehydrogenase Total Protein Albumin Urine Blood Vancomycin Trough Crossmatch Chest x-ray: report reviewed (Reported no acute abnormality identified.), image reviewed CT scan - chest: report reviewed, image reviewed Prior PFT's, U/S of legs: report reviewed Additional Studies: Angio CT of chest done on 04/09/19 IMPRESSION: This study is limited due to significant breathing motion artifact. Please see above comments. No central pulmonary emboli are visualized. Visualization of peripheral branches is significantly limited. If clinically indicated a follow-up exam or nuclear medicine ventilation/perfusion scan could be performed. Patchy alveolar densities present right upper lobe and right lower lobe as described suggesting areas of atelectasis or pneumonia. Clinical correlation is recommended. Venous doppler studies of legs done on 04/14/19 Reported No DVT. Allied health notes reviewed: nursing
[2019-04-16 00:51] LABS: Hematocrit 31.4 % (35.5-45.6); Hemoglobin 10.7 gm/dl (11.8-15.2); Mean Corpuscular HGB Conc 34 % (32-34); Mean Corpuscular Volume 87 fl (84-94); Platelet Count 213 K/mm3 (140-440); Red Cell Distribution Width 17.6 % (13.2-15.2)
[2019-04-16 02:34] LABS: Basophils % (Manual) 0 % (0.0-1.8); Total Cells Counted 100
[2019-04-16 02:35] LABS: Band Neutrophils # (Manual) 0.6 K/mm3; Eosinophils % (Manual) 0 % (0.0-4.3); Myelocytes # (Manual) 0.8 K/mm3
[2019-04-16 02:39] LABS: Anisocytosis 1+; Platelet Estimate Consistent w Auto
[2019-04-16] MEDS: ZOSYN/NS 4.5GM/100ML 4.5 GM/100 ML VIAL IV SCH ×3 (05:44→21:53)
[2019-04-16] MEDS: BROVANA NEBU IH SCH ×2 (08:41→20:58)
[2019-04-16] MEDS: PULMICORT IH SCH ×2 (08:42→20:58)
[2019-04-16] MEDS: CARAFATE PO SCH ×4 (08:56→21:52)
[2019-04-16] MEDS: HABITROL TD SCH (09:18)
[2019-04-16] MEDS: PROTONIX PO SCH ×2 (09:21→21:52)
[2019-04-16] MEDS: NORVASC PO SCH (09:21)
[2019-04-16] MEDS: PROzac PO SCH (09:21)
[2019-04-16] MEDS: RisperDAL PO SCH ×2 (09:21→21:52)
[2019-04-16] MEDS: SODIUM CHLORIDE FLUSH SYRINGE 10 ML IV SCH ×2 (09:46→21:52)
[2019-04-16] MEDS ORDERED: DELTASONE PO SCH (10:00)
--- NOTE | 2019-04-16 10:21 | Progress Note ---
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 Now admitted with: 1) Sepsis, bilateral pneumonia, acute respiratory failure: Improved. fever resolved, leukocytosis trending down, now down 20K (on IV steroids). Etiology ? HCAP v/s aspiration pneumonitis - patient with severe esophagitis on EGD. Chest x-ray shows a prominent interstitial pattern. CTA demonstrates patchy alveolar RUL/RLL infiltrates. Hence, also cover for atypicals. HIV rapid negative. Strep pneumonia not detected. Legionella not detected. 2) Tobacco abuse. discussion about smoking cessation 3) Leukocytosis: improving. 20K on IV steroids. 4) Esophagitis on EGD - Severe LA Grade D esophagitis of the distal half of the esophagus, most consistent with severe reflux esophagitis 5) AMS: resolved Recommendations: continue zosyn to cover aspiration pneumonitis / HCAP, D4 follow-up MRSA PCR monitor leukocytosis clinically improved - if ok with pulmonary can discharge on Augmentin 875mg PO BID for 2 days ( total 10 days of antibiotic treatment) f/u ID in 3 weeks ( placed with [facility] printed circuit boards laminator) [facility] M: [id number] O:[phone] Subjective Date of service: 04/16/19 Principal diagnosis: Acute hypoxemic hypercapnic resp failure; HAP (bilateral); Severe Sepsis Interval history: Patient seen and examined. Laying in bed. Reports no generalized pain or sob, or weakness. No fevers. Objective - Exam Narrative Exam: Constitutional: Awake. Alert. No acute distress Head, Ears, Nose: Normocephalic, atraumatic. External ears, nose normal Eyes: Conjunctivae/corneas clear. No icterus. No ptosis. Neck: Supple, no meningeal signs Oral: +poor dentition, no thrush Cardiovascular: S1. S2 Respiratory: Clear to auscultation GI: Soft, non-tender; bowel sounds normal. No peritoneal signs Musculoskeletal: No pedal edema, no cyanosis. Skin: No rash or abscess Hem/Lymphatic: No palpable cervical or supraclavicular nodes. No lymphangitis Psych: Mood ok. Affect normal Neurological: Awake, alert. No gross abnormality - Constitutional Vitals: Vital Signs Temp Pulse Resp BP Pulse Ox 98.3 F 100 H 18 142/95 96 04/16/19 08:24 04/16/19 08:24 04/16/19 08:24 04/16/19 09:21 04/16/19 08:24 Temperature -Last 24 Hours Temperature 98.3 F Temperature 98.4 F Temperature 98.1 F Temperature 98.0 F Temperature 98.5 F Temperature 98.4 F - Labs CBC & Chem 7: 04/16/19 00:31 04/12/19 07:56 Labs: Abnormal lab results 04/16/19 Range/Units 00:31 WBC 19.1 H (4.5-11.0) K/mm3 RBC 3.60 L (3.65-5.03) M/mm3 Hgb 10.7 L (11.8-15.2) gm/dl Hct 31.4 L (35.5-45.6) % RDW 17.6 H (13.2-15.2) % Lymphocytes % (Manual) 10.0 L (13.4-35.0) % Monocytes % (Manual) 8.0 H (0.0-7.3) % Seg Neutrophils # Man 12.6 H (1.8-7.7) K/mm3 Monocytes # (Manual) 1.5 H (0.0-0.8) K/mm3
--- NOTE | 2019-04-16 15:14 | Progress Note ---
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 Pt was found to have Acute Hypoxemic Respiratory Failure and placed on BIPAP. He was hospitalized recently at [facility] on 02/18/19 for bilateral cavitary pneumonia with TB being ruled out; He was found to be influenza A positive and treated with Tamiflu, he was also intubated and extubated at [facility]. He was discharged on 02/27/19. Acute respiratory failure with hypoxia and hypercarbia now weaned off bipap, wean off high flow O2 Severe esophagitis sp EGD on 04/12, cont PPI and carafate -single clot seen in stomach, clip was placed, was likely due to NG tube suction Sepsis, bilateral pneumonia: cont abx per ID Tobacco abuse. counseled on cessation Acute metabolic encephalopathy resolved Anticipate d/c once cleared by Pulmonology, ID has ok for 3 more days of Augmentin. Discharge held due to sinus tachycardia, EKG ordered History Interval history: Patient was seen and examined. Follow-up on current diagnosis of Pneumonia. No overnight events reported to me. Patient denies any chest pain, shortness breath, nausea/vomiting or severe headaches. Imaging, nursing note, chart, labs and old chart reviewed. Discussed with patient. Hospitalist Physical - Physical exam Narrative exam: Gen: chronic ill appearing, NAD, Awake, Alert, Orientated HEENT: NCAT, EOMI, PERRL, OP Clear Neck: supple, no adenopathy, no thyromegaly, no JVD CVS/Heart: RRR, normal S1S2, pulses present bilaterally Chest/Lungs: diminished bs bilaterally, Symmetrical chest expansion, good air entry bilaterally GI/Abdomen: soft, NTND, good bowel sounds, no guarding or rebound /Bladder: no suprapubic tenderness, no CVA or paraspinal tenderness Extermity/Skin: no c/c/e, no obvious rash MSK: FROM x 4 Neuro: CN 2-12 grossly intact, no new focal deficits Psych: calm - Constitutional Vitals: Temp Pulse Resp BP Pulse Ox 97.9 F 135 H 18 134/90 98 04/16/19 12:54 04/16/19 12:54 04/16/19 12:54 04/16/19 12:54 04/16/19 12:54 General appearance: Present: disheveled. Absent: severe distress Results - Labs CBC & Chem 7: 04/16/19 00:31 04/12/19 07:56 Labs: Laboratory Last Values WBC 19.1 K/mm3 (4.5-11.0) H 04/16/19 00:31 RBC 3.60 M/mm3 (3.65-5.03) L 04/16/19 00:31 Hgb 10.7 gm/dl (11.8-15.2) L 04/16/19 00:31 Hct 31.4 % (35.5-45.6) L 04/16/19 00:31 MCV 87 fl (84-94) 04/16/19 00:31 MCH 30 pg (28-32) 04/16/19 00:31 MCHC 34 % (32-34) 04/16/19 00:31 RDW 17.6 % (13.2-15.2) H 04/16/19 00:31 Plt Count 213 K/mm3 (140-440) 04/16/19 00:31 [place] % (Auto) [facility] Tenens 04/07/19 16:33 Eos % (Auto) Locum Tenens 04/08/19 14:28 Add Manual Diff Complete 04/16/19 00:31 Total Counted 100 04/16/19 00:31 Seg Neutrophils % [place] Tenens 04/11/19 16:15 Seg Neuts % (Manual) 66.0 % (40.0-70.0) 04/16/19 00:31 3.0 % 04/16/19 00:31 10.0 % (13.4-35.0) L 04/16/19 00:31 Reactive Lymphs % (Man) 0 % 04/16/19 00:31 8.0 % (0.0-7.3) H 04/16/19 00:31 0 % (0.0-4.3) 04/16/19 00:31 0 % (0.0-1.8) 04/16/19 00:31 9.0 % 04/16/19 00:31 4.0 % 04/16/19 00:31 0 % 04/16/19 00:31 0 % 04/16/19 00:31 Nucleated RBC % Not Reportable 04/16/19 00:31 Seg Neutrophils # Man 12.6 K/mm3 (1.8-7.7) H 04/16/19 00:31 Band Neutrophils # 0.6 K/mm3 04/16/19 00:31 1.9 K/mm3 (1.2-5.4) 04/16/19 00:31 Abs React Lymphs (Man) 0.0 K/mm3 04/16/19 00:31 1.5 K/mm3 (0.0-0.8) H 04/16/19 00:31 0.0 K/mm3 (0.0-0.4) 04/16/19 00:31 0.0 K/mm3 (0.0-0.1) 04/16/19 00:31 1.7 K/mm3 04/16/19 00:31 0.8 K/mm3 04/16/19 00:31 0.0 K/mm3 04/16/19 00:31 Blast Cells # 0.0 K/mm3 04/16/19 00:31 Pathologist Review Not Reportable 04/16/19 00:31 WBC Morphology Not Reportable 04/16/19 00:31 Hypersegmented Neuts Not Reportable 04/16/19 00:31 Hyposegmented Neuts Not Reportable 04/16/19 00:31 Hypogranular Neuts Not Reportable 04/16/19 00:31 Not Reportable 04/16/19 00:31 Not Reportable 04/16/19 00:31 Not Reportable 04/16/19 00:31 Not Reportable 04/16/19 00:31 Not Reportable 04/16/19 00:31 Not Reportable 04/16/19 00:31 Consistent w auto 04/16/19 00:31 Not Reportable 04/16/19 00:31 Plt Clumps, EDTA Not Reportable 04/16/19 00:31 Not Reportable 04/16/19 00:31 Not Reportable 04/16/19 00:31 Not Reportable 04/16/19 00:31 Plt Morphology Comment Not Reportable 04/16/19 00:31 RBC Morphology Not Reportable 04/16/19 00:31 Dimorphic RBCs Not Reportable 04/16/19 00:31 Not Reportable 04/16/19 00:31 Not Reportable 04/16/19 00:31 Not Reportable 04/16/19 00:31 1+ 04/16/19 00:31 Not Reportable 04/16/19 00:31 Not Reportable 04/16/19 00:31 Not Reportable 04/16/19 00:31 Not Reportable 04/16/19 00:31 Not Reportable 04/16/19 00:31 Not Reportable 04/16/19 00:31 Not Reportable 04/16/19 00:31 Not Reportable 04/16/19 00:31 Not Reportable 04/16/19 00:31 Not Reportable 04/16/19 00:31 Not Reportable 04/16/19 00:31 Not Reportable 04/16/19 00:31 Not Reportable 04/16/19 00:31 Not Reportable 04/16/19 00:31 Not Reportable 04/16/19 00:31 Acanthocytes (Spur) Not Reportable 04/16/19 00:31 Rouleaux Not Reportable 04/16/19 00:31 Not Reportable 04/16/19 00:31 Not Reportable 04/16/19 00:31 Not Reportable 04/16/19 00:31 Not Reportable 04/16/19 00:31 Hem Pathologist Commnt No 04/16/19 00:31 PT 14.2 Sec. (12.2-14.9) 04/07/19 16:33 INR 1.04 (0.87-1.13) 04/07/19 16:33 APTT 31.9 Sec. (24.2-36.6) 04/07/19 16:33 POC ABG pH 7.486 (7.35-7.45) H 04/14/19 10:13 POC ABG pCO2 60.2 (35-45) H 04/11/19 20:27 POC ABG pO2 86 (80-105) 04/14/19 10:13 POC ABG HCO3 21.9 (22-26 mml/L) 04/14/19 10:13 POC ABG Total CO2 23 (23-27mmol/L) 04/14/19 10:13 POC ABG O2 Sat 97 04/14/19 10:13 POC ABG Base Excess -2 ((-2) - (+3)mmol/L) 04/14/19 10:13 30 % 04/14/19 10:13 Sodium 143 mmol/L (137-145) 04/12/19 07:56 Potassium 4.0 mmol/L (3.6-5.0) 04/12/19 07:56 Chloride 110.8 mmol/L (98-107) H 04/12/19 07:56 Carbon Dioxide 23 mmol/L (22-30) 04/12/19 07:56 13 mmol/L 04/12/19 07:56 BUN 18 mg/dL (9-20) 04/12/19 07:56 0.7 mg/dL (0.8-1.5) L 04/12/19 07:56 Estimated GFR > 60 ml/min 04/12/19 07:56 26 % 04/12/19 07:56 Glucose 146 mg/dL (75-100) H 04/12/19 07:56 POC Glucose 135 (70-105) H 04/12/19 16:15 Lactic Acid 0.70 mmol/L (0.7-2.0) 04/08/19 17:01 Calcium 8.2 mg/dL (8.4-10.2) L 04/12/19 07:56 Phosphorus 3.00 mg/dL (2.5-4.5) 04/08/19 14:28 Magnesium 1.70 mg/dL (1.7-2.3) 04/11/19 15:16 0.30 mg/dL (0.1-1.2) 04/12/19 07:56 AST 11 units/L (5-40) 04/12/19 07:56 ALT 7 units/L (7-56) 04/12/19 07:56 51 units/L (35-129) 04/12/19 07:56 18.0 umol/L (25-60) L 04/14/19 13:55 266 units/L (91-180) H 04/08/19 14:28 70 units/L (55-170) 04/07/19 16:33 < 0.010 ng/mL (0.00-0.029) 04/07/19 16:33 0.40 mg/dL (0.00-1.30) 04/14/19 13:55 4.4 g/dL (6.3-8.2) L 04/12/19 07:56 2.3 g/dL (3.9-5) L 04/12/19 07:56 1.1 % 04/12/19 07:56 Straw (Yellow) 04/07/19 20:00 Clear (Clear) 04/07/19 20:00 6.0 (5.0-7.0) 04/07/19 20:00 Ur Specific [place] 1.003 (1.003-1.030) 04/07/19 20:00 <15 mg/dl mg/dL (Negative) 04/07/19 20:00 50 mg/dL (Negative) 04/07/19 20:00 Negative mg/dL (Negative) 04/07/19 20:00 Small (Negative) A 04/07/19 20:00 Negative (Negative) 04/07/19 20:00 Negative (Negative) 04/07/19 20:00 < 0.2 mg/dL (<2.0) 04/07/19 20:00 Ur Leukocyte Esterase Negative (Negative) 04/07/19 20:00 < 1.0 /HPF (0.0-6.0) 04/07/19 20:00 1.0 /HPF (0.0-6.0) 04/07/19 20:00 Vancomycin Trough 4.0 ug/mL (5.0-20.0) L 04/10/19 20:46 HIV 1&2 Antibody Rapid Non react (Non React) 04/07/19 17:25 Non react (Non React) 04/07/19 17:25 Urine Legionella Ag Not detected (Not Detected) 04/09/19 Unknown Mycoplasma pneumon IgG <=0.90 (<=0.90) 04/09/19 04:17 Mycoplasma pneumon IgM 37 U/mL (<770) 04/09/19 04:17 Flexitest 1 04/09/19 12:15 Blood Type O NEGATIVE 04/11/19 16:19 Antibody Screen Negative 04/11/19 16:19 Crossmatch See Detail 04/11/19 16:19 Active Medications - Current Medications Current Medications: Generic Name Dose Route Start Last Admin Trade Name Freq PRN Reason Stop Dose Admin Acetaminophen 650 mg 04/07/19 16:17 04/07/19 16:42 Tylenol OK 650 mg Q4H PRN Administration Pain, Mild (1-3) Amlodipine Besylate 5 mg 04/08/19 14:00 04/16/19 09:21 Norvasc PO 5 mg QDAY PACO Administration Arformoterol Tartrate 15 mcg 04/09/19 08:00 04/16/19 08:41 Brovana Nebu IH 15 mcg Q12HRT PACO Administration Budesonide 0.5 mg 04/09/19 08:00 04/16/19 08:42 Pulmicort IH 0.5 mg Q12HRT PACO Administration Fluoxetine HCl 40 mg 04/08/19 14:00 04/16/19 09:21 Prozac PO 40 mg QDAY PACO Administration Haloperidol Lactate 5 mg 04/11/19 14:41 Haldol IM Q6H PRN Agitation Hydralazine HCl 10 mg 04/12/19 18:10 04/14/19 10:33 Apresoline IV 10 mg Q4HR PRN Administration BP >160/100 Piperacillin Sod/Tazobactam Sod 4.5 gm in 100 mls @ 200 mls/hr 04/13/19 14:00 04/16/19 13:20 Zosyn/Ns 4.5gm/100ml IV 200 mls/hr Q8HR PACO Administration Lorazepam 2 mg 04/11/19 12:58 04/13/19 20:15 Ativan IV 2 mg Q1H PRN Administration Agitation Metoclopramide HCl 10 mg 04/11/19 14:39 Reglan IV Q6H PRN Nausea And Vomiting Morphine Sulfate 2 mg 04/11/19 19:46 Morphine IV Q2H PRN Pain, Moderate (4-6) Nicotine 21 mg 04/14/19 11:00 04/16/19 09:18 Habitrol TD 21 mg DAILY PACO Administration Ondansetron HCl 4 mg 04/11/19 14:39 Zofran IV Q4H PRN Nausea And Vomiting Pantoprazole Sodium 40 mg 04/15/19 10:00 04/16/19 09:21 Protonix PO 40 mg BID PACO Administration Risperidone 2 mg 04/07/19 22:00 04/16/19 09:21 Risperdal PO 2 mg BID PACO Administration Sodium Chloride 10 ml 04/07/19 22:00 04/16/19 09:46 Sodium Chloride Flush Syringe 10 Ml IV 10 ml BID PACO Administration Sodium Chloride 10 ml 04/07/19 17:05 Sodium Chloride Flush Syringe 10 Ml IV PRN PRN LINE FLUSH Sucralfate 1 gm 04/12/19 16:30 04/16/19 12:47 Carafate PO 1 gm ACHS PACO Administration Tramadol HCl 50 mg 04/07/19 17:09 Ultram PO Q6HR PRN Pain Nutrition/Malnutrition Assess - Dietary Evaluation Nutrition/Malnutrition Findings: Nutrition Notes Start: 04/08/19 15:33 Freq: Status: Active Protocol: Document 04/16/19 09:14 LP (Rec: 04/16/19 09:18 LP [id number]) Nutrition Notes Initial or Follow up Reassessment Current Diagnosis Respiratory Failure Other Pertinent Diagnosis SIRS, seizure d/o, Hiatal hernia, Esophagitis Current Diet Full Liquid Labs/Tests Reviewed Pertinent Medications Reviewed Height 5 ft 2 in Weight 53.1 kg [place] Body Weight (kg) 53.63 BMI 21.4 Subjective/Other Information Pt tolerating full liquid diet . Consuming 100%. Percent of energy/protein needs met: 69%/53% Burn Absent Trauma Absent #1 Nutrition Diagnosis Inadequate oral intake As Evidenced by Signs and Symptoms Pt consuming 100% of full liquid diet Diagnosis Progress(for reassessment Improved documentation) Is patient on ventilator? No Is Patient Ambulatory and/or Out of Bed No REE-([facility]-confined to bed) 1640.640 Calculation Used for Recommendations [facility] Additional Notes Pro needs 45-56g (0.8-1g/kg) Fluid needs 1ml/kcal Nutrition Intervention Change Diet Order: GI Soft Goal #1 Meet at least 80% of kcal and protein needs Anticipated Discharge Needs: GI soft Follow-Up By: 04/20/19 Additional Comments Follow for intakes
--- NOTE | 2019-04-16 17:29 | Progress Note ---
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, hospitalized 6 weeks ago with influenza A, sepsis and acute hypoxemic-hypercapnic respiratory failure -Acute hypoxic-hypercapnic respiratory failure -Sepsis -HCAP/Post influenza pneumonia -Hyponatremia -Tobacco use disorder -Supplemental oxygen wean for O2 sats> 90% -Continue chronic home medications, for anxiety and depression -Steroids, slow taper. -VTE prophylaxis -Smoking cessation counselling -Nicotine withdrawal precautions -Antibiotics per ID -Bronchodilators per protocol - Continue Brovana and budesonide scheduled -Aspiration precautions -Accucheck with glycemic control, avoid hypoglycemia -Target blood glucose 140-180mg/dL CONDITION: FAIR PROGNOSIS: FAIR CODE STATUS: FULL Subjective Date of service: 04/16/19 Principal diagnosis: Acute hypoxemic hypercapnic resp failure; HAP (bilateral); Severe Sepsis Interval history: Patient is seen today for: Acute hypoxemic hypercapnic respiratory failure; HAP; Severe Sepsis Seen and examined at bedside; 24hour events reviewed; nursing and respiratory care staff consulted; no adverse overnight events reported to me; , no fevers overnight. Parents at the bedside, Awake and alert, "I feel good" Vitals, labs, medications, chart reviewed. Objective Vital Signs - 12hr 04/16/19 04/16/19 04/16/19 08:24 09:21 12:54 Temperature 98.3 F 97.9 F Pulse Rate 100 H 135 H Respiratory 18 18 Rate Blood Pressure 142/95 142/95 134/90 O2 Sat by Pulse 96 98 Oximetry 04/16/19 16:39 Temperature 98.1 F Pulse Rate 115 H Respiratory 18 Rate Blood Pressure 129/77 O2 Sat by Pulse 98 Oximetry Constitutional: no acute distress, alert, other (young male with mild MR resting in bed with mildly increased resp effort at rest) Eyes: non-icteric ENT: oropharynx moist, other Neck: supple, no lymphadenopathy, other (no thyromegaly) Effort: mildly labored Ascultation: Bilateral: rhonchi (scant in bases) Percussion: Bilateral: not dull Cardiovascular: regular rate and rhythm, other (S1,S2, no murmurs, gallops or rubs) Gastrointestinal: normoactive bowel sounds, soft, non-tender, non-distended Integumentary: normal Extremities: no cyanosis, pink and warm, pulses normal, no ischemia or petechiae Neurologic: non-focal exam (grossly), pupils equal and round, CN II-XII normal, motor strength normal and Psychiatric: mood appropriate, affect normal CBC and BMP: 04/18/19 05:31 04/18/19 05:31 ABG, PT/INR, D-dimer: ABG POC ABG pH 7.486 (7.35-7.45) H 04/14/19 10:13 POC ABG pO2 86 (80-105) 04/14/19 10:13 POC ABG HCO3 21.9 (22-26 mml/L) 04/14/19 10:13 POC ABG Total CO2 23 (23-27mmol/L) 04/14/19 10:13 POC ABG O2 Sat 97 04/14/19 10:13 PT/INR, D-dimer PT 14.2 Sec. (12.2-14.9) 04/07/19 16:33 INR 1.04 (0.87-1.13) 04/07/19 16:33 Abnormal lab findings: Abnormal Labs 04/07/19 04/07/19 04/07/19 16:33 16:33 16:33 WBC 16.9 H RBC Hgb 11.4 L Hct 33.5 L MCHC RDW 19.6 H Seg Neuts % (Manual) 75.0 H Lymphocytes % (Manual) 9.0 L Monocytes % (Manual) 16.0 H Nucleated RBC % Seg Neutrophils # Man 12.7 H Lymphocytes # (Manual) Monocytes # (Manual) 2.7 H Basophils # (Manual) POC ABG pH POC ABG pCO2 POC ABG pO2 Sodium 133 L Potassium 3.0 L Chloride Carbon Dioxide 19 L BUN 3 L Creatinine Glucose 130 H POC Glucose Lactic Acid Calcium 8.2 L Magnesium 2.40 H AST 43 H Ammonia Lactate Dehydrogenase Total Protein Albumin 3.0 L Urine Blood Vancomycin Trough Crossmatch 04/07/19 04/07/19 04/07/19 16:35 17:52 20:00 WBC RBC Hgb Hct MCHC RDW Seg Neuts % (Manual) Lymphocytes % (Manual) Monocytes % (Manual) Nucleated RBC % Seg Neutrophils # Man Lymphocytes # (Manual) Monocytes # (Manual) Basophils # (Manual) POC ABG pH POC ABG pCO2 POC ABG pO2 56 L 70 L Sodium Potassium Chloride Carbon Dioxide BUN Creatinine Glucose POC Glucose Lactic Acid Calcium Magnesium AST Ammonia Lactate Dehydrogenase Total Protein Albumin Urine Blood Small A Vancomycin Trough Crossmatch 04/07/19 04/08/19 04/08/19 21:00 14:28 14:28 WBC 22.4 H RBC Hgb 11.1 L Hct 33.3 L MCHC RDW 20.0 H Seg Neuts % (Manual) 84.0 H Lymphocytes % (Manual) 8.0 L Monocytes % (Manual) Nucleated RBC % Seg Neutrophils # Man 18.8 H Lymphocytes # (Manual) Monocytes # (Manual) 1.1 H Basophils # (Manual) POC ABG pH POC ABG pCO2 POC ABG pO2 Sodium Potassium Chloride 110.1 H Carbon Dioxide 20 L BUN 7 L Creatinine 0.7 L Glucose 105 H POC Glucose Lactic Acid 5.80 H* Calcium Magnesium AST Ammonia Lactate Dehydrogenase Total Protein Albumin Urine Blood Vancomycin Trough Crossmatch 04/08/19 04/08/19 04/10/19 14:28 15:32 20:46 WBC RBC Hgb Hct MCHC RDW Seg Neuts % (Manual) Lymphocytes % (Manual) Monocytes % (Manual) Nucleated RBC % Seg Neutrophils # Man Lymphocytes # (Manual) Monocytes # (Manual) Basophils # (Manual) POC ABG pH POC ABG pCO2 POC ABG pO2 374 H Sodium Potassium Chloride Carbon Dioxide BUN Creatinine Glucose POC Glucose Lactic Acid Calcium Magnesium AST Ammonia Lactate Dehydrogenase 266 H Total Protein Albumin Urine Blood Vancomycin Trough 4.0 L Crossmatch 04/11/19 04/11/19 04/11/19 15:16 16:15 16:15 WBC 50.0 H* RBC 2.59 L Hgb 7.2 L Hct 23.1 L MCHC 31 L RDW 19.7 H Seg Neuts % (Manual) 72.5 H Lymphocytes % (Manual) 5.5 L Monocytes % (Manual) 8.0 H Nucleated RBC % 1.5 H Seg Neutrophils # Man 36.3 H Lymphocytes # (Manual) Monocytes # (Manual) 4.0 H Basophils # (Manual) POC ABG pH POC ABG pCO2 POC ABG pO2 Sodium Potassium Chloride 108.1 H Carbon Dioxide BUN 38 H Creatinine 0.7 L Glucose 240 H POC Glucose Lactic Acid Calcium 7.3 L D Magnesium AST Ammonia 77.0 H Lactate Dehydrogenase Total Protein 3.9 L D Albumin 2.1 L Urine Blood Vancomycin Trough Crossmatch 04/11/19 04/11/19 04/12/19 16:19 20:27 07:56 WBC 35.9 H RBC 3.57 L Hgb 10.4 L D Hct 31.4 L D MCHC RDW 16.9 H Seg Neuts % (Manual) 76.0 H Lymphocytes % (Manual) 4.0 L Monocytes % (Manual) Nucleated RBC % Seg Neutrophils # Man 27.3 H Lymphocytes # (Manual) Monocytes # (Manual) 2.2 H Basophils # (Manual) POC ABG pH 7.215 L POC ABG pCO2 60.2 H POC ABG pO2 Sodium Potassium Chloride Carbon Dioxide BUN Creatinine Glucose POC Glucose Lactic Acid Calcium Magnesium AST Ammonia Lactate Dehydrogenase Total Protein Albumin Urine Blood Vancomycin Trough Crossmatch See Detail 04/12/19 04/12/19 04/12/19 07:56 08:56 11:33 WBC RBC Hgb Hct MCHC RDW Seg Neuts % (Manual) Lymphocytes % (Manual) Monocytes % (Manual) Nucleated RBC % Seg Neutrophils # Man Lymphocytes # (Manual) Monocytes # (Manual) Basophils # (Manual) POC ABG pH POC ABG pCO2 POC ABG pO2 Sodium Potassium Chloride 110.8 H Carbon Dioxide BUN Creatinine 0.7 L Glucose 146 H POC Glucose 147 H 131 H Lactic Acid Calcium 8.2 L Magnesium AST Ammonia Lactate Dehydrogenase Total Protein 4.4 L Albumin 2.3 L Urine Blood Vancomycin Trough Crossmatch 04/12/19 04/14/19 04/14/19 16:15 09:38 09:38 WBC 20.0 H RBC Hgb 11.7 L Hct 34.6 L 34.7 L MCHC RDW 16.9 H Seg Neuts % (Manual) 73.0 H Lymphocytes % (Manual) 4.0 L Monocytes % (Manual) Nucleated RBC % Seg Neutrophils # Man 14.6 H Lymphocytes # (Manual) 0.8 L Monocytes # (Manual) 1.4 H Basophils # (Manual) 0.2 H POC ABG pH POC ABG pCO2 POC ABG pO2 Sodium Potassium Chloride Carbon Dioxide BUN Creatinine Glucose POC Glucose 135 H Lactic Acid Calcium Magnesium AST Ammonia Lactate Dehydrogenase Total Protein Albumin Urine Blood Vancomycin Trough Crossmatch 04/14/19 04/14/19 04/16/19 10:13 13:55 00:31 WBC 19.1 H RBC 3.60 L Hgb 10.7 L Hct 31.4 L MCHC RDW 17.6 H Seg Neuts % (Manual) Lymphocytes % (Manual) 10.0 L Monocytes % (Manual) 8.0 H Nucleated RBC % Seg Neutrophils # Man 12.6 H Lymphocytes # (Manual) Monocytes # (Manual) 1.5 H Basophils # (Manual) POC ABG pH 7.486 H POC ABG pCO2 POC ABG pO2 Sodium Potassium Chloride Carbon Dioxide BUN Creatinine Glucose POC Glucose Lactic Acid Calcium Magnesium AST Ammonia 18.0 L Lactate Dehydrogenase Total Protein Albumin Urine Blood Vancomycin Trough Crossmatch Allied health notes reviewed: nursing
[2019-04-17 06:02] LABS: Hematocrit 30.9 % (35.5-45.6); Hemoglobin 10.6 gm/dl (11.8-15.2); Mean Corpuscular HGB Conc 34 % (32-34); Mean Corpuscular Volume 88 fl (84-94); Platelet Count 218 K/mm3 (140-440); Red Blood Count 3.52 M/mm3 (3.65-5.03); Red Cell Distribution Width 17.5 % (13.2-15.2)
[2019-04-17] MEDS: ZOSYN/NS 4.5GM/100ML 4.5 GM/100 ML VIAL IV SCH (06:05)
[2019-04-17 06:22] LABS: BUN/Creatinine Ratio 9; Blood Urea Nitrogen 6 mg/dL (9-20); Hemolysis Index 3
[2019-04-17] MEDS: BROVANA NEBU IH SCH ×2 (08:17→20:35)
[2019-04-17] MEDS: PULMICORT IH SCH ×2 (08:17→20:35)
[2019-04-17] MEDS: KCL 10MEQ/100ML 10 MEQ/100 ML BAG IV SCH ×4 (08:20→13:09)
[2019-04-17] MEDS ORDERED: K-DUR PO NR (09:00)
[2019-04-17] MEDS: HABITROL TD SCH (09:45)
[2019-04-17] MEDS: CARAFATE PO SCH ×4 (09:45→21:14)
[2019-04-17] MEDS: PROTONIX PO SCH ×2 (09:45→21:16)
[2019-04-17] MEDS: NORVASC PO SCH (09:45)
[2019-04-17] MEDS: PROzac PO SCH (09:46)
[2019-04-17] MEDS: SODIUM CHLORIDE FLUSH SYRINGE 10 ML IV SCH ×2 (09:46→21:17)
[2019-04-17] MEDS: RisperDAL PO SCH ×2 (09:55→21:16)
--- NOTE | 2019-04-17 10:38 | Progress Note ---
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, hospitalized 6 weeks ago with influenza A, sepsis and acute hypoxemic-hypercapnic respiratory failure -Acute hypoxic-hypercapnic respiratory failure -Sepsis -HCAP/Post influenza pneumonia -Hyponatremia -Tobacco use disorder -Esophagitis on EGD - Severe LA Grade D esophagitis of the distal half of the esophagus, most consistent with severe reflux esophagitis -Supplemental oxygen wean for O2 sats> 90% -Continue chronic home medications, for anxiety and depression -Steroids, off steroids with improvement in leukocytosis -VTE prophylaxis -Smoking cessation counselling -Nicotine withdrawal precautions -Antibiotics per ID, oral antibiotics -Bronchodilators per protocol -Aspiration precautions -Accucheck with glycemic control, avoid hypoglycemia -Target blood glucose 140-180mg/dL -PPI and anti-reflux measures -Discharge planning CONDITION: FAIR PROGNOSIS: FAIR CODE STATUS: FULL Subjective Date of service: 04/17/19 Principal diagnosis: Acute hypoxemic hypercapnic resp failure; HAP (bilateral); Severe Sepsis Interval history: Patient is seen today for: Acute hypoxemic hypercapnic respiratory failure; HAP; Severe Sepsis Seen and examined at bedside; 24hour events reviewed; nursing and respiratory care staff consulted; no adverse overnight events reported to me; No chest pain, no shortness of breath, no fevers or chills, no nausea or vomiting Vitals, labs, medications, chart reviewed. Objective Vital Signs - 12hr 04/16/19 04/16/19 04/17/19 23:00 23:40 04:46 Temperature 98.1 F 98.4 F Pulse Rate 83 96 H 88 Pulse Rate [ Anterior Bilateral Throughout] Respiratory 18 18 Rate Respiratory Rate [Anterior Bilateral Throughout] Blood Pressure 136/76 145/87 O2 Sat by Pulse 98 98 Oximetry 04/17/19 04/17/19 04/17/19 07:57 08:17 08:35 Temperature 98.6 F Pulse Rate 102 H Pulse Rate [ 94 H 96 H Anterior Bilateral Throughout] Respiratory 18 Rate Respiratory 18 18 Rate [Anterior Bilateral Throughout] Blood Pressure 124/72 O2 Sat by Pulse 94 Oximetry 04/17/19 09:42 Temperature Pulse Rate Pulse Rate [ Anterior Bilateral Throughout] Respiratory Rate Respiratory Rate [Anterior Bilateral Throughout] Blood Pressure O2 Sat by Pulse 97 Oximetry Constitutional: no acute distress, alert Eyes: non-icteric ENT: oropharynx moist Neck: supple, no lymphadenopathy Effort: mildly labored Ascultation: Bilateral: rhonchi (scant in bases) Percussion: Bilateral: not dull Cardiovascular: regular rate and rhythm, other (S1,S2, no murmurs, gallops or rubs) Gastrointestinal: normoactive bowel sounds, soft, non-tender, non-distended Integumentary: normal Extremities: no cyanosis, pink and warm, pulses normal, no ischemia or petechiae Neurologic: non-focal exam, pupils equal and round, CN II-XII normal, motor strength normal and Psychiatric: mood appropriate, affect normal CBC and BMP: 04/18/19 05:31 04/18/19 05:31 ABG, PT/INR, D-dimer: ABG POC ABG pH 7.486 (7.35-7.45) H 04/14/19 10:13 POC ABG pO2 86 (80-105) 04/14/19 10:13 POC ABG HCO3 21.9 (22-26 mml/L) 04/14/19 10:13 POC ABG Total CO2 23 (23-27mmol/L) 04/14/19 10:13 POC ABG O2 Sat 97 04/14/19 10:13 PT/INR, D-dimer PT 14.2 Sec. (12.2-14.9) 04/07/19 16:33 INR 1.04 (0.87-1.13) 04/07/19 16:33 Abnormal lab findings: Abnormal Labs 04/07/19 04/07/19 04/07/19 16:33 16:33 16:33 WBC 16.9 H RBC Hgb 11.4 L Hct 33.5 L MCHC RDW 19.6 H Seg Neuts % (Manual) 75.0 H Lymphocytes % (Manual) 9.0 L Monocytes % (Manual) 16.0 H Nucleated RBC % Seg Neutrophils # Man 12.7 H Lymphocytes # (Manual) Monocytes # (Manual) 2.7 H Basophils # (Manual) POC ABG pH POC ABG pCO2 POC ABG pO2 Sodium 133 L Potassium 3.0 L Chloride Carbon Dioxide 19 L BUN 3 L Creatinine Glucose 130 H POC Glucose Lactic Acid Calcium 8.2 L Magnesium 2.40 H AST 43 H Ammonia Lactate Dehydrogenase Total Protein Albumin 3.0 L Urine Blood Vancomycin Trough Crossmatch 04/07/19 04/07/19 04/07/19 16:35 17:52 20:00 WBC RBC Hgb Hct MCHC RDW Seg Neuts % (Manual) Lymphocytes % (Manual) Monocytes % (Manual) Nucleated RBC % Seg Neutrophils # Man Lymphocytes # (Manual) Monocytes # (Manual) Basophils # (Manual) POC ABG pH POC ABG pCO2 POC ABG pO2 56 L 70 L Sodium Potassium Chloride Carbon Dioxide BUN Creatinine Glucose POC Glucose Lactic Acid Calcium Magnesium AST Ammonia Lactate Dehydrogenase Total Protein Albumin Urine Blood Small A Vancomycin Trough Crossmatch 04/07/19 04/08/19 04/08/19 21:00 14:28 14:28 WBC 22.4 H RBC Hgb 11.1 L Hct 33.3 L MCHC RDW 20.0 H Seg Neuts % (Manual) 84.0 H Lymphocytes % (Manual) 8.0 L Monocytes % (Manual) Nucleated RBC % Seg Neutrophils # Man 18.8 H Lymphocytes # (Manual) Monocytes # (Manual) 1.1 H Basophils # (Manual) POC ABG pH POC ABG pCO2 POC ABG pO2 Sodium Potassium Chloride 110.1 H Carbon Dioxide 20 L BUN 7 L Creatinine 0.7 L Glucose 105 H POC Glucose Lactic Acid 5.80 H* Calcium Magnesium AST Ammonia Lactate Dehydrogenase Total Protein Albumin Urine Blood Vancomycin Trough Crossmatch 04/08/19 04/08/19 04/10/19 14:28 15:32 20:46 WBC RBC Hgb Hct MCHC RDW Seg Neuts % (Manual) Lymphocytes % (Manual) Monocytes % (Manual) Nucleated RBC % Seg Neutrophils # Man Lymphocytes # (Manual) Monocytes # (Manual) Basophils # (Manual) POC ABG pH POC ABG pCO2 POC ABG pO2 374 H Sodium Potassium Chloride Carbon Dioxide BUN Creatinine Glucose POC Glucose Lactic Acid Calcium Magnesium AST Ammonia Lactate Dehydrogenase 266 H Total Protein Albumin Urine Blood Vancomycin Trough 4.0 L Crossmatch 04/11/19 04/11/19 04/11/19 15:16 16:15 16:15 WBC 50.0 H* RBC 2.59 L Hgb 7.2 L Hct 23.1 L MCHC 31 L RDW 19.7 H Seg Neuts % (Manual) 72.5 H Lymphocytes % (Manual) 5.5 L Monocytes % (Manual) 8.0 H Nucleated RBC % 1.5 H Seg Neutrophils # Man 36.3 H Lymphocytes # (Manual) Monocytes # (Manual) 4.0 H Basophils # (Manual) POC ABG pH POC ABG pCO2 POC ABG pO2 Sodium Potassium Chloride 108.1 H Carbon Dioxide BUN 38 H Creatinine 0.7 L Glucose 240 H POC Glucose Lactic Acid Calcium 7.3 L D Magnesium AST Ammonia 77.0 H Lactate Dehydrogenase Total Protein 3.9 L D Albumin 2.1 L Urine Blood Vancomycin Trough Crossmatch 04/11/19 04/11/19 04/12/19 16:19 20:27 07:56 WBC 35.9 H RBC 3.57 L Hgb 10.4 L D Hct 31.4 L D MCHC RDW 16.9 H Seg Neuts % (Manual) 76.0 H Lymphocytes % (Manual) 4.0 L Monocytes % (Manual) Nucleated RBC % Seg Neutrophils # Man 27.3 H Lymphocytes # (Manual) Monocytes # (Manual) 2.2 H Basophils # (Manual) POC ABG pH 7.215 L POC ABG pCO2 60.2 H POC ABG pO2 Sodium Potassium Chloride Carbon Dioxide BUN Creatinine Glucose POC Glucose Lactic Acid Calcium Magnesium AST Ammonia Lactate Dehydrogenase Total Protein Albumin Urine Blood Vancomycin Trough Crossmatch See Detail 04/12/19 04/12/19 04/12/19 07:56 08:56 11:33 WBC RBC Hgb Hct MCHC RDW Seg Neuts % (Manual) Lymphocytes % (Manual) Monocytes % (Manual) Nucleated RBC % Seg Neutrophils # Man Lymphocytes # (Manual) Monocytes # (Manual) Basophils # (Manual) POC ABG pH POC ABG pCO2 POC ABG pO2 Sodium Potassium Chloride 110.8 H Carbon Dioxide BUN Creatinine 0.7 L Glucose 146 H POC Glucose 147 H 131 H Lactic Acid Calcium 8.2 L Magnesium AST Ammonia Lactate Dehydrogenase Total Protein 4.4 L Albumin 2.3 L Urine Blood Vancomycin Trough Crossmatch 04/12/19 04/14/19 04/14/19 16:15 09:38 09:38 WBC 20.0 H RBC Hgb 11.7 L Hct 34.6 L 34.7 L MCHC RDW 16.9 H Seg Neuts % (Manual) 73.0 H Lymphocytes % (Manual) 4.0 L Monocytes % (Manual) Nucleated RBC % Seg Neutrophils # Man 14.6 H Lymphocytes # (Manual) 0.8 L Monocytes # (Manual) 1.4 H Basophils # (Manual) 0.2 H POC ABG pH POC ABG pCO2 POC ABG pO2 Sodium Potassium Chloride Carbon Dioxide BUN Creatinine Glucose POC Glucose 135 H Lactic Acid Calcium Magnesium AST Ammonia Lactate Dehydrogenase Total Protein Albumin Urine Blood Vancomycin Trough Crossmatch 04/14/19 04/14/19 04/16/19 10:13 13:55 00:31 WBC 19.1 H RBC 3.60 L Hgb 10.7 L Hct 31.4 L MCHC RDW 17.6 H Seg Neuts % (Manual) Lymphocytes % (Manual) 10.0 L Monocytes % (Manual) 8.0 H Nucleated RBC % Seg Neutrophils # Man 12.6 H Lymphocytes # (Manual) Monocytes # (Manual) 1.5 H Basophils # (Manual) POC ABG pH 7.486 H POC ABG pCO2 POC ABG pO2 Sodium Potassium Chloride Carbon Dioxide BUN Creatinine Glucose POC Glucose Lactic Acid Calcium Magnesium AST Ammonia 18.0 L Lactate Dehydrogenase Total Protein Albumin Urine Blood Vancomycin Trough Crossmatch 04/17/19 04/17/19 05:50 05:50 WBC 14.6 H RBC 3.52 L Hgb 10.6 L Hct 30.9 L MCHC RDW 17.5 H Seg Neuts % (Manual) Lymphocytes % (Manual) Monocytes % (Manual) Nucleated RBC % Seg Neutrophils # Man Lymphocytes # (Manual) Monocytes # (Manual) Basophils # (Manual) POC ABG pH POC ABG pCO2 POC ABG pO2 Sodium Potassium 2.5 L* D Chloride Carbon Dioxide 31 H D BUN 6 L Creatinine 0.7 L Glucose POC Glucose Lactic Acid Calcium 8.0 L Magnesium AST Ammonia Lactate Dehydrogenase Total Protein Albumin Urine Blood Vancomycin Trough Crossmatch Allied health notes reviewed: nursing
--- NOTE | 2019-04-17 11:18 | Progress Note ---
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 Now admitted with: 1) Sepsis, bilateral pneumonia, acute respiratory failure: fever resolved, leukocytosis worsening 50K now down 35K (on IV steroids), lactate improved. Etiology ? HCAP v/s aspiration pneumonitis - patient with severe esophagitis on EGD. Chest x-ray shows a prominent interstitial pattern. CTA demonstrates patchy alveolar RUL/RLL infiltrates. Hence, also cover for atypicals. HIV rapid negative. Strep pneumonia not detected. Legionella not detected. 2) Tobacco abuse 3) Leukocytosis: better, off steroids 4) Esophagitis on EGD - Severe LA Grade D esophagitis of the distal half of the esophagus, most consistent with severe reflux esophagitis 5) AMS: resolved Recommendations: stop zosyn D5 start augmentin 875 mg PO BID for 5 more days total 10 days until 05/22/2019 Smoking cessation education treat esophagitis/GERD Ok to d/c from ID stand point Dr Green is covering the weekend will follow Yael Encinas MD Infectious Diseases [employer] [facility] [facility] M [phone] O [phone] Subjective Date of service: 04/17/19 Principal diagnosis: Acute hypoxemic hypercapnic resp failure; HAP (bilateral); Severe Sepsis Interval history: Alert, feels better, desires to go home, denies fever and SOB. ROS: denies cough, N/V/D. Objective - Exam Narrative Exam: Constitutional: alert in NAD on NC O2 Head, Ears, Nose: Normocephalic, atraumatic. External ears, nose normal Eyes: Conjunctivae/corneas clear. No icterus. No ptosis. Neck: Supple, no meningeal signs Oral: +poor dentition, Cardiovascular: rrr Respiratory: CTA alicia GI: Soft, non-tender; bowel sounds normal. No peritoneal signs Musculoskeletal: No pedal edema, no cyanosis. Skin: No rash or abscess Hem/Lymphatic: No palpable cervical or supraclavicular nodes. No lymphangitis Psych: Mood ok. Affect normal Neurological: Awake, alert. No gross abnormality - Constitutional Vitals: Vital Signs Temp Pulse Resp BP Pulse Ox 98.6 F 96 H 18 124/72 97 04/17/19 07:57 04/17/19 08:35 04/17/19 08:35 04/17/19 07:57 04/17/19 09:42 Temperature -Last 24 Hours Temperature 98.6 F Temperature 98.4 F Temperature 98.1 F Temperature 98.1 F Temperature 98.1 F Temperature 97.9 F - Labs CBC & Chem 7: 04/17/19 05:50 04/17/19 05:50 Labs: Abnormal lab results 04/17/19 04/17/19 Range/Units 05:50 05:50 WBC 14.6 H (4.5-11.0) K/mm3 RBC 3.52 L (3.65-5.03) M/mm3 Hgb 10.6 L (11.8-15.2) gm/dl Hct 30.9 L (35.5-45.6) % RDW 17.5 H (13.2-15.2) % Potassium 2.5 L* D (3.6-5.0) mmol/L Carbon Dioxide 31 H D (22-30) mmol/L BUN 6 L (9-20) mg/dL Creatinine 0.7 L (0.8-1.5) mg/dL Calcium 8.0 L (8.4-10.2) mg/dL
--- NOTE | 2019-04-17 11:29 | Progress Note ---
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 Pt was found to have Acute Hypoxemic Respiratory Failure and placed on BIPAP. He was hospitalized recently at [facility] on 02/18/19 for bilateral cavitary pneumonia with TB being ruled out; He was found to be influenza A positive and treated with Tamiflu, he was also intubated and extubated at [facility]. He was discharged on 02/27/19 from [facility] . Acute respiratory failure with hypoxia and hypercarbia, resolved weaned off bipap and high flow O2 Acute blood anemia with Severe esophagitis, sp EGD on 04/12, single clot seen in stomach, clip was placed, was likely due to NG tube suction: cont PPI and carafate, follow h/h closely Sepsis, bilateral pneumonia: abx per ID Tobacco abuse. counseled on cessation Acute metabolic encephalopathy, resolved Hypokalemia, 2.5: replete, continue tele. recheck in am Tachycardia: consulted Cardiology, reviewed ECHO, normal EF Discharge held due to sinus tachycardia and severe hypokalemia, EKG ordered History Interval history: Patient was seen and examined. Follow-up on current diagnosis of Pneumonia. No overnight events reported to me. Patient denies any chest pain, shortness breath, nausea/vomiting or severe headaches. Imaging, nursing note, chart, labs and old chart reviewed. Discussed with patient. Hospitalist Physical - Physical exam Narrative exam: Gen: chronic ill appearing, NAD, Awake, Alert, Orientated HEENT: NCAT, EOMI, PERRL, OP Clear Neck: supple, no adenopathy, no thyromegaly, no JVD CVS/Heart: RRR, normal S1S2, pulses present bilaterally Chest/Lungs: diminished bs bilaterally, Symmetrical chest expansion, good air en try bilaterally GI/Abdomen: soft, NTND, good bowel sounds, no guarding or rebound /Bladder: no suprapubic tenderness, no CVA or paraspinal tenderness Extermity/Skin: no c/c/e, no obvious rash MSK: FROM x 4 Neuro: CN 2-12 grossly intact, no new focal deficits Psych: calm - Constitutional Vitals: Temp Pulse Resp BP Pulse Ox 98.6 F 96 H 18 124/72 97 04/17/19 07:57 04/17/19 08:35 04/17/19 08:35 04/17/19 07:57 04/17/19 09:42 General appearance: Present: disheveled. Absent: severe distress Results - Labs CBC & Chem 7: 04/17/19 05:50 04/17/19 05:50 Labs: Laboratory Last Values WBC 14.6 K/mm3 (4.5-11.0) H 04/17/19 05:50 RBC 3.52 M/mm3 (3.65-5.03) L 04/17/19 05:50 Hgb 10.6 gm/dl (11.8-15.2) L 04/17/19 05:50 Hct 30.9 % (35.5-45.6) L 04/17/19 05:50 MCV 88 fl (84-94) 04/17/19 05:50 MCH 30 pg (28-32) 04/17/19 05:50 MCHC 34 % (32-34) 04/17/19 05:50 RDW 17.5 % (13.2-15.2) H 04/17/19 05:50 Plt Count 218 K/mm3 (140-440) 04/17/19 05:50 Routt % (Auto) Pharmacists 04/07/19 16:33 Eos % (Auto) Pharmacists 04/08/19 14:28 Add Manual Diff Complete 04/16/19 00:31 Total Counted 100 04/16/19 00:31 Seg Neutrophils % Pharmacists 04/11/19 16:15 Seg Neuts % (Manual) 66.0 % (40.0-70.0) 04/16/19 00:31 3.0 % 04/16/19 00:31 10.0 % (13.4-35.0) L 04/16/19 00:31 Reactive Lymphs % (Man) 0 % 04/16/19 00:31 8.0 % (0.0-7.3) H 04/16/19 00:31 0 % (0.0-4.3) 04/16/19 00:31 0 % (0.0-1.8) 04/16/19 00:31 9.0 % 04/16/19 00:31 4.0 % 04/16/19 00:31 0 % 04/16/19 00:31 0 % 04/16/19 00:31 Nucleated RBC % Not Reportable 04/16/19 00:31 Seg Neutrophils # Man 12.6 K/mm3 (1.8-7.7) H 04/16/19 00:31 Band Neutrophils # 0.6 K/mm3 04/16/19 00:31 1.9 K/mm3 (1.2-5.4) 04/16/19 00:31 Abs React Lymphs (Man) 0.0 K/mm3 04/16/19 00:31 1.5 K/mm3 (0.0-0.8) H 04/16/19 00:31 0.0 K/mm3 (0.0-0.4) 04/16/19 00:31 0.0 K/mm3 (0.0-0.1) 04/16/19 00:31 1.7 K/mm3 04/16/19 00:31 0.8 K/mm3 04/16/19 00:31 0.0 K/mm3 04/16/19 00:31 Blast Cells # 0.0 K/mm3 04/16/19 00:31 Pathologist Review Not Reportable 04/16/19 00:31 WBC Morphology Not Reportable 04/16/19 00:31 Hypersegmented Neuts Not Reportable 04/16/19 00:31 Hyposegmented Neuts Not Reportable 04/16/19 00:31 Hypogranular Neuts Not Reportable 04/16/19 00:31 Not Reportable 04/16/19 00:31 Not Reportable 04/16/19 00:31 Not Reportable 04/16/19 00:31 Not Reportable 04/16/19 00:31 Not Reportable 04/16/19 00:31 Not Reportable 04/16/19 00:31 Consistent w auto 04/16/19 00:31 Not Reportable 04/16/19 00:31 Plt Clumps, EDTA Not Reportable 04/16/19 00:31 Not Reportable 04/16/19 00:31 Not Reportable 04/16/19 00:31 Not Reportable 04/16/19 00:31 Plt Morphology Comment Not Reportable 04/16/19 00:31 RBC Morphology Not Reportable 04/16/19 00:31 Dimorphic RBCs Not Reportable 04/16/19 00:31 Not Reportable 04/16/19 00:31 Not Reportable 04/16/19 00:31 Not Reportable 04/16/19 00:31 1+ 04/16/19 00:31 Not Reportable 04/16/19 00:31 Not Reportable 04/16/19 00:31 Not Reportable 04/16/19 00:31 Not Reportable 04/16/19 00:31 Not Reportable 04/16/19 00:31 Not Reportable 04/16/19 00:31 Not Reportable 04/16/19 00:31 Not Reportable 04/16/19 00:31 Not Reportable 04/16/19 00:31 Not Reportable 04/16/19 00:31 Not Reportable 04/16/19 00:31 Not Reportable 04/16/19 00:31 Not Reportable 04/16/19 00:31 Not Reportable 04/16/19 00:31 Not Reportable 04/16/19 00:31 Acanthocytes (Spur) Not Reportable 04/16/19 00:31 Rouleaux Not Reportable 04/16/19 00:31 Not Reportable 04/16/19 00:31 Not Reportable 04/16/19 00:31 Not Reportable 04/16/19 00:31 Not Reportable 04/16/19 00:31 Hem Pathologist Commnt No 04/16/19 00:31 PT 14.2 Sec. (12.2-14.9) 04/07/19 16:33 INR 1.04 (0.87-1.13) 04/07/19 16:33 APTT 31.9 Sec. (24.2-36.6) 04/07/19 16:33 POC ABG pH 7.486 (7.35-7.45) H 04/14/19 10:13 POC ABG pCO2 60.2 (35-45) H 04/11/19 20:27 POC ABG pO2 86 (80-105) 04/14/19 10:13 POC ABG HCO3 21.9 (22-26 mml/L) 04/14/19 10:13 POC ABG Total CO2 23 (23-27mmol/L) 04/14/19 10:13 POC ABG O2 Sat 97 04/14/19 10:13 POC ABG Base Excess -2 ((-2) - (+3)mmol/L) 04/14/19 10:13 30 % 04/14/19 10:13 Sodium 141 mmol/L (137-145) 04/17/19 05:50 Potassium 2.5 mmol/L (3.6-5.0) L* D 04/17/19 05:50 Chloride 100.8 mmol/L (98-107) 04/17/19 05:50 Carbon Dioxide 31 mmol/L (22-30) H D 04/17/19 05:50 12 mmol/L 04/17/19 05:50 BUN 6 mg/dL (9-20) L 04/17/19 05:50 0.7 mg/dL (0.8-1.5) L 04/17/19 05:50 Estimated GFR > 60 ml/min 04/17/19 05:50 9 % 04/17/19 05:50 Glucose 90 mg/dL (75-100) 04/17/19 05:50 POC Glucose 135 (70-105) H 04/12/19 16:15 Lactic Acid 0.70 mmol/L (0.7-2.0) 04/08/19 17:01 Calcium 8.0 mg/dL (8.4-10.2) L 04/17/19 05:50 Phosphorus 3.00 mg/dL (2.5-4.5) 04/08/19 14:28 Magnesium 1.70 mg/dL (1.7-2.3) 04/17/19 05:50 0.30 mg/dL (0.1-1.2) 04/12/19 07:56 AST 11 units/L (5-40) 04/12/19 07:56 ALT 7 units/L (7-56) 04/12/19 07:56 51 units/L (35-129) 04/12/19 07:56 18.0 umol/L (25-60) L 04/14/19 13:55 266 units/L (91-180) H 04/08/19 14:28 70 units/L (55-170) 04/07/19 16:33 < 0.010 ng/mL (0.00-0.029) 04/07/19 16:33 0.40 mg/dL (0.00-1.30) 04/14/19 13:55 4.4 g/dL (6.3-8.2) L 04/12/19 07:56 2.3 g/dL (3.9-5) L 04/12/19 07:56 1.1 % 04/12/19 07:56 Straw (Yellow) 04/07/19 20:00 Clear (Clear) 04/07/19 20:00 6.0 (5.0-7.0) 04/07/19 20:00 Ur Specific Barnum 1.003 (1.003-1.030) 04/07/19 20:00 <15 mg/dl mg/dL (Negative) 04/07/19 20:00 50 mg/dL (Negative) 04/07/19 20:00 Negative mg/dL (Negative) 04/07/19 20:00 Small (Negative) A 04/07/19 20:00 Negative (Negative) 04/07/19 20:00 Negative (Negative) 04/07/19 20:00 < 0.2 mg/dL (<2.0) 04/07/19 20:00 Ur Leukocyte Esterase Negative (Negative) 04/07/19 20:00 < 1.0 /HPF (0.0-6.0) 04/07/19 20:00 1.0 /HPF (0.0-6.0) 04/07/19 20:00 Vancomycin Trough 4.0 ug/mL (5.0-20.0) L 04/10/19 20:46 HIV 1&2 Antibody Rapid Non react (Non React) 04/07/19 17:25 Non react (Non React) 04/07/19 17:25 Urine Legionella Ag Not detected (Not Detected) 04/09/19 Unknown Mycoplasma pneumon IgG <=0.90 (<=0.90) 04/09/19 04:17 Mycoplasma pneumon IgM 37 U/mL (<770) 04/09/19 04:17 Flexitest 1 04/09/19 12:15 Blood Type O NEGATIVE 04/11/19 16:19 Antibody Screen Negative 04/11/19 16:19 Crossmatch See Detail 04/11/19 16:19 Active Medications - Current Medications Current Medications: Generic Name Dose Route Start Last Admin Trade Name Freq PRN Reason Stop Dose Admin Acetaminophen 650 mg 04/07/19 16:17 04/07/19 16:42 Tylenol ID 650 mg Q4H PRN Administration Pain, Mild (1-3) Amlodipine Besylate 5 mg 04/08/19 14:00 04/17/19 09:45 Norvasc PO 5 mg QDAY PACO Administration Amoxicillin/Clavulanate Potassium 1 each 04/17/19 12:00 Augmentin 875 Mg PO Q12HR PACO Arformoterol Tartrate 15 mcg 04/09/19 08:00 04/17/19 08:17 Brovana Nebu IH 15 mcg Q12HRT PACO Administration Budesonide 0.5 mg 04/09/19 08:00 04/17/19 08:17 Pulmicort IH 0.5 mg Q12HRT PACO Administration Fluoxetine HCl 40 mg 04/08/19 14:00 04/17/19 09:46 Prozac PO 40 mg QDAY PACO Administration Haloperidol Lactate 5 mg 04/11/19 14:41 Haldol IM Q6H PRN Agitation Hydralazine HCl 10 mg 04/12/19 18:10 04/14/19 10:33 Apresoline IV 10 mg Q4HR PRN Administration BP >160/100 Lorazepam 2 mg 04/11/19 12:58 04/13/19 20:15 Ativan IV 2 mg Q1H PRN Administration Agitation Metoclopramide HCl 10 mg 04/11/19 14:39 Reglan IV Q6H PRN Nausea And Vomiting Morphine Sulfate 2 mg 04/11/19 19:46 Morphine IV Q2H PRN Pain, Moderate (4-6) Nicotine 21 mg 04/14/19 11:00 04/17/19 09:45 Habitrol TD 21 mg DAILY PACO Administration Ondansetron HCl 4 mg 04/11/19 14:39 Zofran IV Q4H PRN Nausea And Vomiting Pantoprazole Sodium 40 mg 04/15/19 10:00 04/17/19 09:45 Protonix PO 40 mg BID PACO Administration Risperidone 2 mg 04/07/19 22:00 04/17/19 09:55 Risperdal PO 2 mg BID PACO Administration Sodium Chloride 10 ml 04/07/19 22:00 04/17/19 09:46 Sodium Chloride Flush Syringe 10 Ml IV 10 ml BID PACO Administration Sodium Chloride 10 ml 04/07/19 17:05 Sodium Chloride Flush Syringe 10 Ml IV PRN PRN LINE FLUSH Sucralfate 1 gm 04/12/19 16:30 04/17/19 09:45 Carafate PO 1 gm ACHS PACO Administration Tramadol HCl 50 mg 04/07/19 17:09 Ultram PO Q6HR PRN Pain Nutrition/Malnutrition Assess - Dietary Evaluation Nutrition/Malnutrition Findings: Nutrition Notes Start: 04/08/19 15:33 Freq: Status: Active Protocol: Document 04/16/19 09:14 LP (Rec: 04/16/19 09:18 LP [id number]) Nutrition Notes Initial or Follow up Reassessment Current Diagnosis Respiratory Failure Other Pertinent Diagnosis SIRS, seizure d/o, Hiatal hernia, Esophagitis Current Diet Full Liquid Labs/Tests Reviewed Pertinent Medications Reviewed Height 5 ft 2 in Weight 53.1 kg [place] Body Weight (kg) 53.63 BMI 21.4 Subjective/Other Information Pt tolerating full liquid diet . Consuming 100%. Percent of energy/protein needs met: 69%/53% Burn Absent Trauma Absent #1 Nutrition Diagnosis Inadequate oral intake As Evidenced by Signs and Symptoms Pt consuming 100% of full liquid diet Diagnosis Progress(for reassessment Improved documentation) Is patient on ventilator? No Is Patient Ambulatory and/or Out of Bed No REE-([facility]-confined to bed) 1640.640 Calculation Used for Recommendations [facility] Additional Notes Pro needs 45-56g (0.8-1g/kg) Fluid needs 1ml/kcal Nutrition Intervention Change Diet Order: GI Soft Goal #1 Meet at least 80% of kcal and protein needs Anticipated Discharge Needs: GI soft Follow-Up By: 04/20/19 Additional Comments Follow for intakes
--- NOTE | 2019-04-17 11:48 | Consultation ---
History of Present Illness Consult date: 04/17/19 Consult reason: tachycardia History of present illness: This is a 33 year old male with multiple medical problems who was admitted 04/07 with sepsis, bilateral pneumonia and acute respiratory failure. A cardiac consultation has been requested for tachycardia. There were no reports of unusual shortness of breath, no chest pain or no diaphoresis. An echocardiogram this admission reports a normal left ventricular systolic function, ejection fraction 55%. Labs today, revealed severe hypokalemia with a potassium of 2.5. WBC of 14,600. An ECG today shows sinus rhythm with occasional PVC's, rate 91. Past History Past Medical History: seizures, other (Nicotine Dependence, AT 3 Disorder,Depression, Schizophrenia) Past Surgical History: No surgical history, Other (reviewed) Social history: single, lives with family, smoking. denies: alcohol abuse, pres cription drug abuse, IV drug use Family history: no significant family history (UTO) Medications and Allergies Allergies Allergy/AdvReac Type Severity Reaction Status Date / Time No Known Allergies Allergy Unverified 08/22/15 15:48 Home Medications Medication Instructions Recorded Confirmed Last Taken Type risperiDONE [RisperDAL] 2 mg PO BID 10/19/15 04/08/19 04/08/19 History Ibuprofen [Motrin] 600 mg PO Q8H PRN #40 tablet 04/14/16 04/08/19 04/07/19 08:00 Rx Sulfamethoxazole/Trimethoprim 1 each PO BID #20 tablet 04/14/16 04/08/19 04/07/19 06:00 Rx [Bactrim DS TAB] 50 traMADol [Ultram] 50 mg PO Q6HR PRN #20 tablet 04/14/16 04/08/19 Unknown Rx Active Meds: Active Medications Acetaminophen (Tylenol) 650 mg OK Q4H PRN PRN Reason: Pain, Mild (1-3) Last Admin: 04/07/19 16:42 Dose: 650 mg Documented by: Amlodipine Besylate (Norvasc) 5 mg PO QDAY [facility] Last Admin: 04/17/19 09:45 Dose: 5 mg Documented by: Amoxicillin/Clavulanate Potassium (Augmentin 875 Mg) 1 each PO Q12HR PACO Arformoterol Tartrate (Brovana Nebu) 15 mcg IH Q12HRT [facility] Last Admin: 04/17/19 08:17 Dose: 15 mcg Documented by: Budesonide (Pulmicort) 0.5 mg IH Q12HRT [facility] Last Admin: 04/17/19 08:17 Dose: 0.5 mg Documented by: Fluoxetine HCl (Prozac) 40 mg PO QDAY [facility] Last Admin: 04/17/19 09:46 Dose: 40 mg Documented by: Haloperidol Lactate (Haldol) 5 mg IM Q6H PRN PRN Reason: Agitation Hydralazine HCl (Apresoline) 10 mg IV Q4HR PRN PRN Reason: BP >160/100 Last Admin: 04/14/19 10:33 Dose: 10 mg Documented by: Lorazepam (Ativan) 2 mg IV Q1H PRN PRN Reason: Agitation Last Admin: 04/13/19 20:15 Dose: 2 mg Documented by: Metoclopramide HCl (Reglan) 10 mg IV Q6H PRN PRN Reason: Nausea And Vomiting Morphine Sulfate (Morphine) 2 mg IV Q2H PRN PRN Reason: Pain, Moderate (4-6) Nicotine (Habitrol) 21 mg TD DAILY [facility] Last Admin: 04/17/19 09:45 Dose: 21 mg Documented by: Ondansetron HCl (Zofran) 4 mg IV Q4H PRN PRN Reason: Nausea And Vomiting Pantoprazole Sodium (Protonix) 40 mg PO BID [facility] Last Admin: 04/17/19 09:45 Dose: 40 mg Documented by: Risperidone (Risperdal) 2 mg PO BID [facility] Last Admin: 04/17/19 09:55 Dose: 2 mg Documented by: Sodium Chloride (Sodium Chloride Flush Syringe 10 Ml) 10 ml IV BID [facility] Last Admin: 04/17/19 09:46 Dose: 10 ml Documented by: Sodium Chloride (Sodium Chloride Flush Syringe 10 Ml) 10 ml IV PRN PRN PRN Reason: LINE FLUSH Sucralfate (Carafate) 1 gm PO ACHS [facility] Last Admin: 04/17/19 09:45 Dose: 1 gm Documented by: Tramadol HCl (Ultram) 50 mg PO Q6HR PRN PRN Reason: Pain Physical Examination Vital Signs Temp Pulse Resp BP Pulse Ox 99.0 F 153 H 45 H 147/78 90 04/07/19 16:07 04/07/19 16:07 04/07/19 16:07 04/07/19 16:07 04/07/19 16:07 General appearance: no acute distress HEENT: Positive: PERRL Cardiac: Positive: Reg Rate and Rhythm Lungs: Positive: Decreased Breath Sounds Extremities: Absent: edema Results 04/17/19 05:50 04/17/19 05:50 CBC 04/17/19 Range/Units 05:50 WBC 14.6 H (4.5-11.0) K/mm3 RBC 3.52 L (3.65-5.03) M/mm3 Hgb 10.6 L (11.8-15.2) gm/dl Hct 30.9 L (35.5-45.6) % Plt Count 218 (140-440) K/mm3 Comprehensive Metabolic Panel 04/17/19 Range/Units 05:50 Sodium 141 (137-145) mmol/L Potassium 2.5 L* D (3.6-5.0) mmol/L Chloride 100.8 (98-107) mmol/L Carbon Dioxide 31 H D (22-30) mmol/L BUN 6 L (9-20) mg/dL Creatinine 0.7 L (0.8-1.5) mg/dL Glucose 90 (75-100) mg/dL Calcium 8.0 L (8.4-10.2) mg/dL Assessment and Plan Sepsis Bilateral pneumonia Acute respiratory failure Anemia s/p PRBCs Severe Esophagitis by EGD this admission Hypokalemia Hypertension Reflex sinus tachycardia Normal LVEF 55% by echo this admission. Recommend: We will check a TSH. Replete potassium. Otherwise, conservative management.
[2019-04-17] MEDS: AUGMENTIN 875 MG PO SCH ×2 (12:13→21:17)
[2019-04-18 05:31] VITALS: BP 117/76
[2019-04-18 06:23] LABS: Hematocrit 32.1 % (35.5-45.6); Hemoglobin 11.1 gm/dl (11.8-15.2); Mean Corpuscular HGB Conc 35 % (32-34); Mean Corpuscular Volume 89 fl (84-94); Platelet Count 228 K/mm3 (140-440); Red Blood Count 3.61 M/mm3 (3.65-5.03)
[2019-04-18 06:35] LABS: BUN/Creatinine Ratio 6; Blood Urea Nitrogen 4 mg/dL (9-20); Calcium 8.5 mg/dL (8.4-10.2); Hemolysis Index 6
[2019-04-18] MEDS: PULMICORT IH SCH (08:17)
[2019-04-18] MEDS: BROVANA NEBU IH SCH (08:17)
[2019-04-18] MEDS: SODIUM CHLORIDE FLUSH SYRINGE 10 ML IV SCH (10:03)
[2019-04-18] MEDS: AUGMENTIN 875 MG PO SCH (10:15)
[2019-04-18] MEDS: NORVASC PO SCH (10:15)
[2019-04-18] MEDS: HABITROL TD SCH (10:15)
[2019-04-18] MEDS: CARAFATE PO SCH ×2 (10:15→13:59)
[2019-04-18] MEDS: RisperDAL PO SCH (10:15)
[2019-04-18] MEDS: PROzac PO SCH (10:15)
[2019-04-18] MEDS: PROTONIX PO SCH (10:15)
[2019-04-18] MEDS ORDERED: K-DUR PO ONE ×2 (10:31→14:00)
--- NOTE | 2019-04-18 13:04 | Discharge Summary ---
Providers - Providers Date of Admission: 04/07/19 17:06 Date of discharge: 04/18/19 Attending physician: ANGELA HEIN 04/07/19 16:18 Consult to Physician [CONS] Urgent Comment: Consulting Provider: ALEKSANDRA PLUNKETT Physician Instructions: Reason For Exam: resp failure 04/08/19 13:21 Consult to Physician [CONS] Routine Comment: Consulting Provider: KAI DANGELO Physician Instructions: Reason For Exam: fevers, sob 04/11/19 14:42 Consult to Physician [CONS] Routine Comment: Consulting Provider: KYREE KELLY Physician Instructions: Reason For Exam: coffee ground emesis 04/15/19 11:50 Occupational Therapy Evaluate and Treat [CONS] Routine Comment: Reason For Exam: weakness Physical Therapy Evaluation and Treat [CONS] Routine Comment: Reason For Exam: weakness [facility] Condition: Stable Hospital course: Patient is a 33 yo man with a history of Nicotine Dependence, Seizure Disorder, Depression, Schizophrenia, AT3 Disorder (Antitrypsin 3 Deficiency) and 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 Pt was found to have Acute Hypoxemic Respiratory Failure and placed on BIPAP. He was hospitalized recently at [facility] on 02/18/19 for bilateral cavitary pneumonia with TB being ruled out; He was found to be influenza A positive and treated with Tamiflu, he was also intubated and extubated at [facility]. He was discharged on 02/27/19 from [facility] . Acute respiratory failure with hypoxia and hypercarbia, resolved weaned off bipap and high flow O2 Acute blood anemia with Severe esophagitis, sp EGD on 04/12/19, single clot seen in stomach, clip was placed, was likely due to NG tube suction: cont PPI and carafate, follow h/h closely Sepsis, bilateral pneumonia: abx per ID Tobacco abuse. counseled on cessation Acute metabolic encephalopathy, resolved Hypokalemia, 2.5: repleted, Reflex Tachycardia: consulted Cardiology, input noted, reviewed ECHO, normal EF Disposition: TO HOME OR SELFCARE Time spent for discharge: 35 minutes Core Measure Documentation - Palliative Care Palliative Care/ Comfort Measures: Not Applicable - Core Measures Any of the following diagnoses?: none - VTE Discharge Requirements Deep Vein Thrombosis/Pulmonary Embolism Present on Admission: No Has pt received <5 days of overlap therapy or INR<2.0: No Anticoagulant overlap therapy prescribed at discharge: No Contraindication No Overlap Therapy order at DC: Not Indicated Exam - Physical Exam Narrative exam: Gen: chronic ill appearing, NAD, Awake, Alert, Orientated HEENT: NCAT, EOMI, PERRL, OP Clear Neck: supple, no adenopathy, no thyromegaly, no JVD CVS/Heart: RRR, normal S1S2, pulses present bilaterally Chest/Lungs: diminished bs bilaterally, Symmetrical chest expansion, good air entry bilaterally GI/Abdomen: soft, NTND, good bowel sounds, no guarding or rebound /Bladder: no suprapubic tenderness, no CVA or paraspinal tenderness Extermity/Skin: no c/c/e, no obvious rash MSK: FROM x 4 Neuro: CN 2-12 grossly intact, no new focal deficits Psych: calm - Constitutional Vitals: Temp Pulse Resp BP Pulse Ox 99 F 99 H 20 117/76 99 04/18/19 04:00 04/18/19 08:15 04/18/19 08:15 04/18/19 04:00 04/18/19 08:19 Plan Activity: other (no strenous activity unless cleared by PCP) Diet: other (GI soft diet) Special Instructions: smoking cessation [facility] [Primary Care Provider] - 3-5 Days KYREE KELLY MD [Staff Physician] - 7 Days KAI DANGELO MD [Staff Physician] - 7 Days Prescriptions: Amoxicillin/Potassium Clav [Augmentin 875-125 Tablet] 1 each PO BID #8 tablet Sucralfate [Carafate] 1 gm PO ACHS 14 Days oral.liqd Nicotine [Habitrol] 21 mg TD DAILY #14 patch amLODIPine [Norvasc] 5 mg PO QDAY #30 tablet Pantoprazole [Protonix TAB] 40 mg PO BID #60 tablet Budesonide/Formoterol Fumarate [Symbicort 160-4.5 Mcg Inhaler] 2 puff IH BID #1 hfa.aer.ad
--- NOTE | 2019-04-18 13:52 | Progress Note ---
Assessment and Plan Acute hypoxic-hypercapnic respiratory failure Sepsis Possible HCAP/Post influenza pneumonia Hyponatremia Tobacco use disorder - follow dopplers report - BIPAP now scheduled qhs with prn daytime use - prn ABG's at this point - follow CRP level to aid clinical decision making / aid AB's de-escalation - repeat Ammonia level - continue suppplemental oxygen to keep O2 sats> 90% - continue chronic home medications, for anxiety and depression - Systemic steroid taper ongoing - 2D ECHO without CMOP - Chest CTA negative for PE - Smoking cessation counselling - continue nicotine withdrawal precautions - Treat for post viral pneumonia and atypical pneumonia. CXR is unremarkable for lobar consolidation - continue bronchodilators with pulmonary hygiene per RT - Brovana and budesonide scheduled - NPO for now - Gentle IV fluids - ID input appreciated - Accucheck with glycemic control, avoid hypoglycemia - Strongly counseled tobacco cessation with patient and his family in room Discussed with RT/RN and in ICU-IDT rounds CONDITION: IMPROVED PROGNOSIS: IMPROVED CODE STATUS: FULL Subjective Date of service: 04/18/19 Principal diagnosis: Acute hypoxemic hypercapnic resp failure; HAP (bilateral); Severe Sepsis Interval history: Patient is seen today for: Acute hypoxemic hypercapnic respiratory failure; HAP; Severe Sepsis Seen and examined at bedside; 24hour events reviewed; nursing and respiratory care staff consulted; no adverse overnight events reported to me; resting p eacefully in bed; Objective Vital Signs - 12hr 04/18/19 04/18/19 04/18/19 04:00 08:15 08:19 Temperature 99 F Pulse Rate 83 Pulse Rate [ 99 H Anterior Bilateral Throughout] Respiratory 16 Rate Respiratory 20 Rate [Anterior Bilateral Throughout] Blood Pressure 117/76 [Right] O2 Sat by Pulse 99 99 Oximetry Constitutional: no acute distress, alert, other (young male with mild MR resting in bed with mildly increased resp effort at rest) Eyes: non-icteric ENT: oropharynx moist, other (HFNC in nares) Neck: supple, no lymphadenopathy, other (no thyromegaly) Effort: mildly labored Ascultation: Bilateral: rhonchi (scant in bases) Percussion: Bilateral: not dull Cardiovascular: regular rate and rhythm Gastrointestinal: normoactive bowel sounds, soft, non-tender, non-distended Integumentary: normal Extremities: no cyanosis, pink and warm, pulses normal, no ischemia or petechiae Neurologic: non-focal exam (grossly), pupils equal and round, CN II-XII normal, motor strength normal and Psychiatric: mood appropriate, affect normal CBC and BMP: 04/18/19 05:31 04/18/19 05:31 ABG, PT/INR, D-dimer: ABG POC ABG pH 7.486 (7.35-7.45) H 04/14/19 10:13 POC ABG pO2 86 (80-105) 04/14/19 10:13 POC ABG HCO3 21.9 (22-26 mml/L) 04/14/19 10:13 POC ABG Total CO2 23 (23-27mmol/L) 04/14/19 10:13 POC ABG O2 Sat 97 04/14/19 10:13 PT/INR, D-dimer PT 14.2 Sec. (12.2-14.9) 04/07/19 16:33 INR 1.04 (0.87-1.13) 04/07/19 16:33 Abnormal lab findings: Abnormal Labs 04/07/19 04/07/19 04/07/19 16:33 16:33 16:33 WBC 16.9 H RBC Hgb 11.4 L Hct 33.5 L MCHC RDW 19.6 H Seg Neuts % (Manual) 75.0 H Lymphocytes % (Manual) 9.0 L Monocytes % (Manual) 16.0 H Nucleated RBC % Seg Neutrophils # Man 12.7 H Lymphocytes # (Manual) Monocytes # (Manual) 2.7 H Basophils # (Manual) POC ABG pH POC ABG pCO2 POC ABG pO2 Sodium 133 L Potassium 3.0 L Chloride Carbon Dioxide 19 L BUN 3 L Creatinine Glucose 130 H POC Glucose Lactic Acid Calcium 8.2 L Magnesium 2.40 H AST 43 H Ammonia Lactate Dehydrogenase Total Protein Albumin 3.0 L TSH Urine Blood Vancomycin Trough Crossmatch 04/07/19 04/07/19 04/07/19 16:35 17:52 20:00 WBC RBC Hgb Hct MCHC RDW Seg Neuts % (Manual) Lymphocytes % (Manual) Monocytes % (Manual) Nucleated RBC % Seg Neutrophils # Man Lymphocytes # (Manual) Monocytes # (Manual) Basophils # (Manual) POC ABG pH POC ABG pCO2 POC ABG pO2 56 L 70 L Sodium Potassium Chloride Carbon Dioxide BUN Creatinine Glucose POC Glucose Lactic Acid Calcium Magnesium AST Ammonia Lactate Dehydrogenase Total Protein Albumin TSH Urine Blood Small A Vancomycin Trough Crossmatch 04/07/19 04/08/19 04/08/19 21:00 14:28 14:28 WBC 22.4 H RBC Hgb 11.1 L Hct 33.3 L MCHC RDW 20.0 H Seg Neuts % (Manual) 84.0 H Lymphocytes % (Manual) 8.0 L Monocytes % (Manual) Nucleated RBC % Seg Neutrophils # Man 18.8 H Lymphocytes # (Manual) Monocytes # (Manual) 1.1 H Basophils # (Manual) POC ABG pH POC ABG pCO2 POC ABG pO2 Sodium Potassium Chloride 110.1 H Carbon Dioxide 20 L BUN 7 L Creatinine 0.7 L Glucose 105 H POC Glucose Lactic Acid 5.80 H* Calcium Magnesium AST Ammonia Lactate Dehydrogenase Total Protein Albumin TSH Urine Blood Vancomycin Trough Crossmatch 04/08/19 04/08/19 04/10/19 14:28 15:32 20:46 WBC RBC Hgb Hct MCHC RDW Seg Neuts % (Manual) Lymphocytes % (Manual) Monocytes % (Manual) Nucleated RBC % Seg Neutrophils # Man Lymphocytes # (Manual) Monocytes # (Manual) Basophils # (Manual) POC ABG pH POC ABG pCO2 POC ABG pO2 374 H Sodium Potassium Chloride Carbon Dioxide BUN Creatinine Glucose POC Glucose Lactic Acid Calcium Magnesium AST Ammonia Lactate Dehydrogenase 266 H Total Protein Albumin TSH Urine Blood Vancomycin Trough 4.0 L Crossmatch 04/11/19 04/11/19 04/11/19 15:16 16:15 16:15 WBC 50.0 H* RBC 2.59 L Hgb 7.2 L Hct 23.1 L MCHC 31 L RDW 19.7 H Seg Neuts % (Manual) 72.5 H Lymphocytes % (Manual) 5.5 L Monocytes % (Manual) 8.0 H Nucleated RBC % 1.5 H Seg Neutrophils # Man 36.3 H Lymphocytes # (Manual) Monocytes # (Manual) 4.0 H Basophils # (Manual) POC ABG pH POC ABG pCO2 POC ABG pO2 Sodium Potassium Chloride 108.1 H Carbon Dioxide BUN 38 H Creatinine 0.7 L Glucose 240 H POC Glucose Lactic Acid Calcium 7.3 L D Magnesium AST Ammonia 77.0 H Lactate Dehydrogenase Total Protein 3.9 L D Albumin 2.1 L TSH Urine Blood Vancomycin Trough Crossmatch 04/11/19 04/11/19 04/12/19 16:19 20:27 07:56 WBC 35.9 H RBC 3.57 L Hgb 10.4 L D Hct 31.4 L D MCHC RDW 16.9 H Seg Neuts % (Manual) 76.0 H Lymphocytes % (Manual) 4.0 L Monocytes % (Manual) Nucleated RBC % Seg Neutrophils # Man 27.3 H Lymphocytes # (Manual) Monocytes # (Manual) 2.2 H Basophils # (Manual) POC ABG pH 7.215 L POC ABG pCO2 60.2 H POC ABG pO2 Sodium Potassium Chloride Carbon Dioxide BUN Creatinine Glucose POC Glucose Lactic Acid Calcium Magnesium AST Ammonia Lactate Dehydrogenase Total Protein Albumin TSH Urine Blood Vancomycin Trough Crossmatch See Detail 04/12/19 04/12/19 04/12/19 07:56 08:56 11:33 WBC RBC Hgb Hct MCHC RDW Seg Neuts % (Manual) Lymphocytes % (Manual) Monocytes % (Manual) Nucleated RBC % Seg Neutrophils # Man Lymphocytes # (Manual) Monocytes # (Manual) Basophils # (Manual) POC ABG pH POC ABG pCO2 POC ABG pO2 Sodium Potassium Chloride 110.8 H Carbon Dioxide BUN Creatinine 0.7 L Glucose 146 H POC Glucose 147 H 131 H Lactic Acid Calcium 8.2 L Magnesium AST Ammonia Lactate Dehydrogenase Total Protein 4.4 L Albumin 2.3 L TSH Urine Blood Vancomycin Trough Crossmatch 04/12/19 04/14/19 04/14/19 16:15 09:38 09:38 WBC 20.0 H RBC Hgb 11.7 L Hct 34.6 L 34.7 L MCHC RDW 16.9 H Seg Neuts % (Manual) 73.0 H Lymphocytes % (Manual) 4.0 L Monocytes % (Manual) Nucleated RBC % Seg Neutrophils # Man 14.6 H Lymphocytes # (Manual) 0.8 L Monocytes # (Manual) 1.4 H Basophils # (Manual) 0.2 H POC ABG pH POC ABG pCO2 POC ABG pO2 Sodium Potassium Chloride Carbon Dioxide BUN Creatinine Glucose POC Glucose 135 H Lactic Acid Calcium Magnesium AST Ammonia Lactate Dehydrogenase Total Protein Albumin TSH Urine Blood Vancomycin Trough Crossmatch 04/14/19 04/14/19 04/16/19 10:13 13:55 00:31 WBC 19.1 H RBC 3.60 L Hgb 10.7 L Hct 31.4 L MCHC RDW 17.6 H Seg Neuts % (Manual) Lymphocytes % (Manual) 10.0 L Monocytes % (Manual) 8.0 H Nucleated RBC % Seg Neutrophils # Man 12.6 H Lymphocytes # (Manual) Monocytes # (Manual) 1.5 H Basophils # (Manual) POC ABG pH 7.486 H POC ABG pCO2 POC ABG pO2 Sodium Potassium Chloride Carbon Dioxide BUN Creatinine Glucose POC Glucose Lactic Acid Calcium Magnesium AST Ammonia 18.0 L Lactate Dehydrogenase Total Protein Albumin TSH Urine Blood Vancomycin Trough Crossmatch 04/17/19 04/17/19 04/18/19 05:50 05:50 05:31 WBC 14.6 H 15.4 H RBC 3.52 L 3.61 L Hgb 10.6 L 11.1 L Hct 30.9 L 32.1 L MCHC 35 H RDW 17.5 H 18.0 H Seg Neuts % (Manual) Lymphocytes % (Manual) Monocytes % (Manual) Nucleated RBC % Seg Neutrophils # Man Lymphocytes # (Manual) Monocytes # (Manual) Basophils # (Manual) POC ABG pH POC ABG pCO2 POC ABG pO2 Sodium Potassium 2.5 L* D Chloride Carbon Dioxide 31 H D BUN 6 L Creatinine 0.7 L Glucose POC Glucose Lactic Acid Calcium 8.0 L Magnesium AST Ammonia Lactate Dehydrogenase Total Protein Albumin TSH Urine Blood Vancomycin Trough Crossmatch 04/18/19 04/18/19 05:31 05:31 WBC RBC Hgb Hct MCHC RDW Seg Neuts % (Manual) Lymphocytes % (Manual) Monocytes % (Manual) Nucleated RBC % Seg Neutrophils # Man Lymphocytes # (Manual) Monocytes # (Manual) Basophils # (Manual) POC ABG pH POC ABG pCO2 POC ABG pO2 Sodium Potassium 3.3 L D Chloride Carbon Dioxide BUN 4 L Creatinine 0.7 L Glucose POC Glucose Lactic Acid Calcium Magnesium AST Ammonia Lactate Dehydrogenase Total Protein Albumin TSH 4.590 H Urine Blood Vancomycin Trough Crossmatch Allied health notes reviewed: nursing
== END 2019-04-18 14:35 | disposition home or self-care (01) | DRG 871 ==
LOC: ED 16:01 → CC1 17:06 → 4A 04-14 20:06
PROVIDERS: ADMIT Internal Medicine; ATTEND Internal Medicine
PROC: 4A033R1 Measurement of Arterial Saturation, Peripheral, Percutaneous Approach (ICD-10-PCS; 2019-04-07)
PROC: 5A09357 Assistance with Respiratory Ventilation, Less than 24 Consecutive Hours, Continuous Positive Airway Pressure (ICD-10-PCS; 2019-04-07)
PROC: 5A09357 Assistance with Respiratory Ventilation, Less than 24 Consecutive Hours, Continuous Positive Airway Pressure (ICD-10-PCS; 2019-04-08)
PROC: 5A09357 Assistance with Respiratory Ventilation, Less than 24 Consecutive Hours, Continuous Positive Airway Pressure (ICD-10-PCS; 2019-04-09)
PROC: 30233N1 Transfusion of Nonautologous Red Blood Cells into Peripheral Vein, Percutaneous Approach (ICD-10-PCS; 2019-04-11)
PROC: 5A09357 Assistance with Respiratory Ventilation, Less than 24 Consecutive Hours, Continuous Positive Airway Pressure (ICD-10-PCS; 2019-04-11)
PROC: 0W3P8ZZ Control Bleeding in Gastrointestinal Tract, Via Natural or Artificial Opening Endoscopic (ICD-10-PCS; principal; 2019-04-12)
PROC: 5A09357 Assistance with Respiratory Ventilation, Less than 24 Consecutive Hours, Continuous Positive Airway Pressure (ICD-10-PCS; 2019-04-12)
PROC: 3E0234Z Introduction of Serum, Toxoid and Vaccine into Muscle, Percutaneous Approach (ICD-10-PCS; 2019-04-14)
DX: A41.9 Sepsis, unspecified organism (principal); J96.01 Acute respiratory failure with hypoxia; J96.02 Acute respiratory failure with hypercapnia; J18.9 Pneumonia, unspecified organism; K25.4 Chronic or unspecified gastric ulcer with hemorrhage; G93.41 Metabolic encephalopathy; E87.6 Hypokalemia; E87.1 Hypo-osmolality and hyponatremia; F20.9 Schizophrenia, unspecified; G40.909 Epilepsy, unspecified, not intractable, without status epilepticus; F32.9 Major depressive disorder, single episode, unspecified; I47.1 Supraventricular tachycardia; E87.2 Acidosis; K21.0 Gastro-esophageal reflux disease with esophagitis; K44.9 Diaphragmatic hernia without obstruction or gangrene; F17.210 Nicotine dependence, cigarettes, uncomplicated; Z71.6 Tobacco abuse counseling; Q93.89 Other deletions from the autosomes; Z23 Encounter for immunization; D62 Acute posthemorrhagic anemia; T85.898A Other specified complication of other internal prosthetic devices, implants and grafts, initial encounter; Y83.8 Other surgical procedures as the cause of abnormal reaction of the patient, or of later complication, without mention of misadventure at the time of the procedure; Y92.238 Other place in hospital as the place of occurrence of the external cause
CPT/HCPCS: 36415; 36430; 36600; 70450; 71045; 71260; 71275; 74177; 80048; 80053; 80202; 81001; 82140; 82550; 82803; 82962; 83615; 83735; 84100; 84443; 84484; 85007; 85014; 85018; 85025; 85027; 85610; 85730; 86140; 86738; 86850; 86900; 86901; 86920; 87040; 87086; 87116; 87449; 87806; 93005; 93010; 93306; 93970; 94640; 94644; 94660; 94760; G0378; C9113; J0133; J0153; J0282; J0360; J0456; J0692; J1100; J1650; J1956; J2060; J2250; J2405; J2543; J2704; J2765; J2920; J3370; J3480; J3490; J7030; J7040; J7050; J7512; P9016; Q9967